=== PATIENT | female | born 1955 | race Caucasian/White ===

== ENCOUNTER 2018-07-18 08:06 | Inpatient (IN) | payer MEDICAID, SELFPAY ==
[2018-07-18 08:09] VITALS: BP 137/91; PULSE 77; RESP 14; TEMP 36.8; O2SAT 95; BMI 36.1
--- NOTE | 2018-07-18 08:09 | RAD_ITS ---
STUDY: X-RAY - RIGHT KNEE REASON FOR EXAM: Female, 62 years old. Pain following a fall. TECHNIQUE: 5 view(s) of the knee. COMPARISON: None. FINDINGS: Normal visualized distal femur. There is evidence of a comminuted depressed fracture of the lateral tibial plateau. Nondisplaced fracture of the proximal fibula. Normal medial femorotibial compartment. Normal lateral femorotibial compartment. Normal patellofemoral articulation. Joint effusion. RAD/Knee 4 or More Views IMPRESSION: Comminuted depressed fracture of the lateral tibial plateau. Nondisplaced fracture of the proximal fibula. Joint effusion. Electronically Signed: Wilber Soni MD at 8:47 EST , Service support ,
--- NOTE | 2018-07-18 08:11 | ED.VISSUMM ---
- ER Visit Summary Date of Service: 07/18/18 Chief Complaint: Right knee injury History of Present Illness: The patient is a 62 F presents to the emergency department right knee injury. The patient was walking. She states she slipped in her driveway and fell. She went forward and landed on her stomach and struck her right knee. Since then, she had a difficult time bearing any weight on the knee. She did not strike her head. She denies loss of consciousness. She denies other injury. She will normally ambulates without cane or a walker. She is in her normal state of health. She does state the fall was strictly mechanical. Physical Examination: Exam is relatively unremarkable. Patient does have some pain to palpation over the knee. There is no significant effusion. Her extension is preserved. There is no gross laxity appreciated. Skin is intact. Pulses are normal. Compartments are soft. Test Results: [] Emergency Department Course and Treatment: X-rays were obtained on patient arrival. She does have evidence of a tibial plateau fracture. She underwent CT of the lower extremity which does demonstrate depressed lateral tibial plateau fracture and fibular head fracture. Patient was placed in the immobilizer. She initially declined analgesics. She was unable to move without significant pain. I did discuss the patient with Dr. Friedman. He did review the images and thinks that this fracture would likely be amenable to surgical fixation. The patient's pain and inability to ambulate, discussed with the hospitalist will be admitted for orthopedic consultation and operative fixation. Treatment Plan: [] Disposition: Admission Impression: 1. Right tibial plateau fracture 2. Inability to ambulate This note was generated with [employer] dictation software. It may contain incorrect words, spelling, and punctuation that were not noted in review of the chart prior to signing ED Disposition - Plan for ED Patient: Referrals: Care Physician,No Primary [NON-STAFF] -
[2018-07-18] MEDS: Acetaminophen 500 MG Tablet 1000 MG PO (08:18)
--- NOTE | 2018-07-18 08:32 | CT_ITS ---
STUDY: CT RIGHT KNEE WITHOUT CONTRAST REASON FOR EXAM: Female, 62 years old. Right knee fracture. RADIATION DOSAGE (If Supplied By Facility): CTDIvol = ( 15.35 ) mGy, DLP = ( 403.65 ) mGycm TECHNIQUE: Transaxial CT imaging of the knee was performed. Coronal and sagittal images were reformatted. Individualized dose optimization techniques were used for this CT. COMPARISON: July 18, 2018. FINDINGS: Acute slightly comminuted depressed lateral tibial plateau fracture. Approximately 5 mm of depression identified. No visualized extension into the proximal tibial shaft, medial plateau or tibial eminence. Acute nondisplaced fibular head fracture (coronal image 39 series 602). Distal femur intact. No dislocation. No cortical destruction. Proximal tibiofibular joint alignment. No significant joint space narrowing. Extensor mechanism appears grossly intact. Indeterminate calcifications at the region of the medial collateral complex (coronal images 23 and 26 series 602). Edema at the tibialis anterior and tibialis posterior posterior muscles. Moderate volume lipohemarthrosis (sagittal image 21 series 601). Moderate soft tissue swelling. Small popliteal cyst. CT/Extremity Lower without Contra IMPRESSION: Acute slightly comminuted depressed lateral tibial plateau fracture Acute nondisplaced fibular head fracture Indeterminant MCL calcification Moderate volume lipohemarthrosis, moderate soft tissue/muscle swelling and small popliteal cyst Electronically Signed: Gavin Giles DO at 8:56 EST Tel , Service support ,
--- NOTE | 2018-07-18 10:09 | NURSING ---
DR JANET POTTS
[2018-07-18 10:34] LABS: Absolute Lymphocyte Count 2.66 X10^3/ul (0.83-4.51); Absolute Neutrophil Count 7.3 X10^3/uL (2.0-7.7); Basophil# 0.06 X10^3/uL; Basophil% 0.6 % (0-1); Eosinophil# 0.14 X10^3/uL; Eosinophils% 1.3 % (0-5); Hematocrit 45.5 % (37-47); Hemoglobin 14.7 g/dl (12.0-15.0); Lymphocyte # 2.66 X10^3/ul (4.0); Lymphocyte % 24.4 % (19-41); Mean Corp Hgb Conc 32.3 g/gl (32-36); Mean Corpuscular Hgb 29.4 pg (27.0-32.0); Mean Platelet Vol. 9.4 fl (6.2-12.0); Monocyte# 0.67 X10^3/uL; Monocyte% 6.1 % (0-10); Neutrophil # 7.32 X10^3/uL (2.7-7.7); Neutrophil % 67.1 % (47-70); Platelet Count 328 K/mm3 (150-450); RBC Distribution Width CV 12.9 % (11.6-14.6); RBC Distribution Width SD 42.3 fl (35.1-43.9); White Blood Count 10.9 K/mm3 (4.4-11.0)
[2018-07-18 10:35] LABS: POSITIVE COUNT NO; POSITIVE DIFFERENTIAL NO; POSITIVE MORPHOLOGY NO
[2018-07-18] MEDS: Morphine 4 MG/ML Syringe IV (10:40)
[2018-07-18] MEDS: Ondansetron 4 MG/2 ML Vial IV (10:41)
[2018-07-18 10:43] VITALS: BP 131/65; PULSE 81; RESP 14; O2SAT 97
--- NOTE | 2018-07-18 10:46 | NURSING ---
MED SURG TERELETSKY TIBIAL PLATEAU FX
[2018-07-18 10:52] LABS: Anion Gap 11 (5-15); BUN 18 mg/dL (7-18); BUN/Creat Ratio 25.5 RATIO (10-20); Calcium,Total 8.9 mg/dL (8.5-10.1); Chloride 104 mmol/L (98-107); Creatinine, Serum 0.71 mg/dL (0.55-1.02); EST Glomerular Filtration Rate 89 mL/min (>60); Est Glom Filt Rate - Afr Amer 107 mL/min (>60); Estimated Creatinine Clearance 103.95 ml/min; Glucose 223 mg/dL (74-106); Potassium 4.3 mmol/L (3.5-5.1); Sodium Level 140 mmol/L (136-145)
[2018-07-18 11:33] VITALS: BMI 34.0; BMI 36.2
[2018-07-18 12:00] VITALS: BP 108/54; PULSE 68; RESP 16; TEMP 36.3; O2SAT 98
--- NOTE | 2018-07-18 13:57 | CASEMGMT ---
JONATHAN VERDE Face to Face with patient for initial transition planning/care coordination assessment. JONATHAN VERDE introduced self and role at [facility]. Patient lying in bed, alert and oriented. Patient willing to participate in assessment and is able to answer all questions appropriately. Care providers, pharmacy, and demographics verified. Patient wishes to discharge home but is willing to go to SNF if needed. Patient's first choice for SNF is [facility]. Patient states she has no further needs or concerns at this time. YESSICA Alexandra updated regarding potenital SNF referral. CM to follow for discharge planning needs that may arise. PCP: Elena Specialists: Matt podiatranabell Preferred Pharmacy: [facility] Insurance: [employer] Prescription Benefit: Yes Living Will/HPOA: None LNOK: Has close friend Living Arrangements: Patient lives alone in 2 story home with possible setup on first floor. Transportation: Friend DME/HHC: Patient states that she has a shower chair and walker at home. Denies home oxygen, bipap, cpap, or nebulizer. Patient states that she has had HHC in past with [facility]. Patient has previously been to [facility] following ankle surgery and does not wish to return. Disposition Plan: TBD. JONATHAN VERDE will review therapy and clinical information after surgery. Keiry LOTT, RN, CM
[2018-07-18] MEDS: 0.9% NaCl Peripheral Flush Adult/Peds IV ×2 (15:28→21:59)
[2018-07-18] MEDS: Morphine 2 MG/ML Syringe IV ×2 (15:28→21:59)
--- NOTE | 2018-07-18 15:57 | PCM.CONS.GEN ---
Reason for Consult Date of Consultation: 07/18/18 Reason for Consultation: right leg pain. requested by Dr Bareny History of Present Illness: The patient is a 62 year old F with history of diabetes presents today with right knee pain. Patient was walking outside this morning when she slipped on some black ice. She denies any loss of consciousness or lightheadedness prior to the fall. Strictly reported as a mechanical fall. She typically does not use a walker or a cane for ambulation although she does occasionally use a walker when going long distances. She denies any current numbness or tingling. Rates her pain a 10 out of 10 right now it is improved with immobilization and rest. Worse with motion. She was unable to bear weight after the injury. They attempted to put her in a brace and have her use a walker in the emergency department however she was unable to do this and she was admitted for social reasons. She has some associated swelling and ecchymosis over the lateral knee and proximal leg. Past Medical History Past Medical History (Chronic Problems): Chronic Problems Bronchial asthma (Chronic) Diabetes mellitus (Chronic) Hyperlipidemia (Chronic) Hypertension (Chronic) Obesity (Chronic) Allergies cephalexin [From Keflex] Allergy (Verified 07/18/18 08:12) Breakouts insulin lispro [From Humalog] Allergy (Verified 07/18/18 08:12) Rash Penicillins Allergy (Verified 07/18/18 08:12) Rash Home Medications: Ambulatory Orders Medication Instructions Recorded Lisinopril [Zestril] 10 mg PO DAILY 08/25/14 Lovastatin [Mevacor] 40 mg PO LUNCH 08/25/14 Vitamin B Complex 1 each PO BID 11/23/15 Metformin HCl [Glucophage] 1,000 mg PO BIDCM 09/19/16 Acetaminophen [Tylenol Tablet] 650 mg PO Q6H PRN PRN #0 tablet 09/24/16 Oxycodone [Oxyir] 5 mg PO Q4H PRN PRN #30 tablet 09/24/16 Aspirin [Aspirin EC] 81 mg PO DAILY 07/18/18 Insulin Detemir [Levemir FlexPen] 46 units SC QHS 07/18/18 Surgical History: appendectomy, cholecystectomy, hysterectomy Psychiatric History: No pertinent psych hx 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 Smoking Status: Never smoker Tobacco Use: Non-smoker Alcohol: None Drugs: None - *Family History Maternal History Items: Diabetes Paternal History Items: Diabetes Review of Systems Constitutional: Denies: Chills, Fever, Weight Change HEENT: Denies: Head Aches, Sinus Congestion, Sinus Drainage Cardiovascular: Denies: Chest Pain, Palpitations Respiratory: Denies: Cough, Shortness of breath at rest, Sputum production Gastrointestinal: Denies: Abdominal Pain, Nausea, Vomiting Genitourinary: Denies: Dysuria Musculoskeletal: Reports: Joint Pain, Joint Tenderness Skin: Denies: Rash, Wounds Neurological: Denies: Numbness, Tingling, Focal weakness Psychiatric: Denies: Anxiety, Depression, Homicidal Ideations, Suicidal Ideations Hematologic/ Lymphatic: Denies: Easy Bruising, Easy Bleeding Objective: Right knee radiographs and CT scan were reviewed showing a split-depressed lateral tibial plateau fracture. There is over 5 mm of fracture gapping on the CT scan. There is associated intra-articular comminution. - Physical Exam General: Alert HEENT: Atraumatic, Normocephalic Neck: No JVD Lungs: - - Nonlabored breathing Cardiovascular: - - Regular pulse rate Abdomen: Non-Distended Extremities: No edema, Capillary Refill Less than 3 Seconds, - - Right lower extremity: Pain with knee range of motion. Ecchymosis and swelling over the lateral knee and proximal leg. Sensations intact light touch saphenous, superficial peroneal, deep peroneal tibial nerve distributions. Minimal knee effusion. Motor is intact dorsal flexion EHL and plantar flexion. 2+ pulse. Skin: No rashes, No breakdown, - - Ecchymosis over lateral knee/proximal tibia Neurological: Cranial nerves II-XII grossly intact Psych/Mental Status: Normal Affect Vital Signs Temp Pulse Resp BP Pulse Ox 98.2 F 81 14 131/65 H 97 07/18/18 08:09 07/18/18 10:43 07/18/18 10:43 07/18/18 10:43 07/18/18 10:43 Oxygen Delivery Method Room Air Weight: 168 lb 6.931 oz Body Mass Index (BMI) 34.0 Finger Stick Blood Glucose 245 Laboratory Tests Past 24 Hrs 07/18/18 07/18/18 10:25 10:25 WBC 10.9 RBC 5.00 Hgb 14.7 Hct 45.5 MCV 91.0 MCH 29.4 MCHC 32.3 RDW 12.9 RDW Differential 42.3 Plt Count 328 MPV 9.4 Immature Gran % (Auto) 0.500 Neut % (Auto) 67.1 Lymph % (Auto) 24.4 [place] % (Auto) 6.1 Eos % (Auto) 1.3 Baso % (Auto) 0.6 Absolute Neuts (auto) 7.3 Absolute Lymphs (auto) 2.66 Total Counted Not Reportable Sodium 140 Potassium 4.3 Chloride 104 Carbon Dioxide 25.0 Anion Gap 11 BUN 18 Creatinine 0.71 Estim Creat Clear Calc 103.95 Est GFR (MDRD) Af Amer 107 Est GFR (MDRD) Non-Af 89 BUN/Creatinine Ratio 25.5 H Glucose 223 H Calcium 8.9 Assessment/Plan All Active Problems Closed right ankle fracture (Acute) Right split depressed tibial plateau fracture lateral condyle. Natural history of the disease process and treatment options were discussed the patient. Patient has minimal arthrosis on her x-rays and CT scan. Based on the depression on the x-ray and the fracture gapping on the CT scan I do think the patient would benefit from fracture fixation. We did discuss operative versus nonoperative treatment. At this time risks of operative treatment were discussed the patient including but not limited to blood loss, DVTs, PEs, neurovascular damage, general risk of anesthesia including loss of life, nonunion, malunion and in a diabetic increased risk of infection. Patient interested understanding is able signed informed consent. Plan will be for surgery tomorrow. Antibiotics are retail zone specialist to the operating room. Patient is adequately consented we will have their signed consent. Patient will remain nonweightbearing in the bed overnight. Will encourage aggressive ice and elevation and monitor swelling. I did inform the patient that if she has excessive swelling we may need to cancel surgery until soft tissue envelope is appropriate, her soft tissue envelope at this time is more than appropriate for surgery. [facility] Office:
--- NOTE | 2018-07-18 16:06 | PCM.HP.STD ---
Problem List (1) Tibial plateau fracture Status: Acute (2) Debility Status: Chronic (3) Bronchial asthma Status: Chronic (4) Diabetes mellitus Status: Chronic (5) Hyperlipidemia Status: Chronic (6) Hypertension Status: Chronic History of Present Illness Date of Admission: 07/18/18 Chief Complaint: right knee pain The patient is a 62 year old F with past medical history of asthma, diabetes type 2, hyperlipidemia, hypertension, obesity, who presented the emergency room with complaints of 10 out of 10 right knee pain. This began after she had a mechanical fall. She was walking outside to get her dog and she states that she slipped on black ice and fell striking her right knee. Well 1 she was unable to stand, she was unable to ambulate, she was unable to weight-bear at all afterwards. She normally uses a walker for ambulation. She had no prodromal symptoms including lightheadedness or dizziness. She was brought to the emergency room and found to have a right tibial plateau of fracture. She was admitted to the general medical floor and orthopedics agreed to see the patient. Plan is for surgery this weekend. [] Past Medical History Past Medical History (Chronic Problems): Chronic Problems Debility (Chronic) Bronchial asthma (Chronic) Diabetes mellitus (Chronic) Hyperlipidemia (Chronic) Hypertension (Chronic) Obesity (Chronic) Allergies cephalexin [From Keflex] Allergy (Verified 07/18/18 08:12) Breakouts insulin lispro [From Humalog] Allergy (Verified 07/18/18 08:12) Rash Penicillins Allergy (Verified 07/18/18 08:12) Rash Home Medications: Ambulatory Orders Medication Instructions Recorded Lisinopril [Zestril] 10 mg PO DAILY 08/25/14 Lovastatin [Mevacor] 40 mg PO LUNCH 08/25/14 Vitamin B Complex 1 each PO BID 11/23/15 Metformin HCl [Glucophage] 1,000 mg PO BIDCM 09/19/16 Acetaminophen [Tylenol Tablet] 650 mg PO Q6H PRN PRN #0 tablet 09/24/16 Oxycodone [Oxyir] 5 mg PO Q4H PRN PRN #30 tablet 09/24/16 Aspirin [Aspirin EC] 81 mg PO DAILY 07/18/18 Insulin Detemir [Levemir FlexPen] 46 units SC QHS 07/18/18 Surgical History: appendectomy, cholecystectomy, hysterectomy Psychiatric History: No pertinent psych hx 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 Lives: Alone Smoking Status: Never smoker Tobacco Use: Non-smoker Alcohol: None Drugs: None - *Family History Maternal History Items: Diabetes Paternal History Items: Diabetes Review of Systems Constitutional: Denies: Chills, Fever, Weight Change HEENT: Denies: Head Aches, Sinus Congestion, Sinus Drainage Cardiovascular: Denies: Chest Pain, Palpitations Respiratory: Denies: Cough, Shortness of breath at rest, Sputum production Gastrointestinal: Denies: Abdominal Pain, Nausea, Vomiting Genitourinary: Denies: Dysuria Musculoskeletal: Reports: Joint Pain, Joint Tenderness Skin: Denies: Rash, Wounds Neurological: Denies: Numbness, Tingling, Focal weakness Psychiatric: Denies: Anxiety, Depression, Homicidal Ideations, Suicidal Ideations Hematologic/ Lymphatic: Denies: Easy Bruising, Easy Bleeding VTE Information - Inpt Only VTE Present on Admission: No VTE Mechan Device Prophylaxis: None VTE Pharm Prophylaxis ordered?: Yes Patient Problems: Active and Suspected Problems Tibial plateau fracture (Acute) - Physical Exam General: Alert, Oriented x3, Cooperative HEENT: Atraumatic, PERRLA, EOMI, Normocephalic Neck: Supple, No JVD, Negative Carotid Bruits Lungs: Clear to auscultation, Normal air movement Cardiovascular: Regular rate, No murmurs Abdomen: Bowel Sounds Present, Soft, Non Tender Extremities: No edema, Capillary Refill Less than 3 Seconds Skin: No rashes, No breakdown Musculoskeletal: No Tenderness to Palpation of Joints or Extremities, - - right leg in immobilizer Neurological: Cranial nerves II-XII grossly intact Psych/Mental Status: Normal Affect, Appropriate Vital Signs Temp Pulse Resp BP Pulse Ox 98.2 F 81 14 131/65 H 97 07/18/18 08:09 07/18/18 10:43 07/18/18 10:43 07/18/18 10:43 07/18/18 10:43 Oxygen Delivery Method Room Air Weight: 168 lb 6.931 oz Body Mass Index (BMI) 34.0 Finger Stick Blood Glucose 245 Laboratory Tests Past 24 Hrs 07/18/18 07/18/18 10:25 10:25 WBC 10.9 RBC 5.00 Hgb 14.7 Hct 45.5 MCV 91.0 MCH 29.4 MCHC 32.3 RDW 12.9 RDW Differential 42.3 Plt Count 328 MPV 9.4 Immature Gran % (Auto) 0.500 Neut % (Auto) 67.1 Lymph % (Auto) 24.4 [place] % (Auto) 6.1 Eos % (Auto) 1.3 Baso % (Auto) 0.6 Absolute Neuts (auto) 7.3 Absolute Lymphs (auto) 2.66 Total Counted Not Reportable Sodium 140 Potassium 4.3 Chloride 104 Carbon Dioxide 25.0 Anion Gap 11 BUN 18 Creatinine 0.71 Estim Creat Clear Calc 103.95 Est GFR (MDRD) Af Amer 107 Est GFR (MDRD) Non-Af 89 BUN/Creatinine Ratio 25.5 H Glucose 223 H Calcium 8.9 Assessment/Plan All Active Problems Tibial plateau fracture (Acute) Closed right ankle fracture (Acute) 1. Acute right tibial plateau fracture secondary to mechanical fall-orthopedics consulted and plans to take the patient to surgery tomorrow. Will provide supportive care and PT and OT eval's. 2. Type 2 diabetes with obesity-sliding scale insulin, continue home long-acting insulin, hold metformin. 3. Hyperlipidemia-on statin 4. Hypertension-stable 5. Hx asthma - no SOB. prn aerosols. DVT prophylaxis: As per orthopedics. Currently subcu heparin. DC planning: PTOT-patient lives alone and has underlying debility. May need short-term placement. This patient was seen by Truong Mendez PA-C under the supervision of Doctor Barney.
[2018-07-18 16:13] VITALS: BP 91/48; PULSE 66; RESP 16; TEMP 36.9; O2SAT 98
[2018-07-18] MEDS: oxyCODONE 5 MG Tablet PO (18:06)
--- NOTE | 2018-07-18 19:28 | EKG12_ITS ---
Test Reason : PRE-OP Blood Pressure : / mmHG Vent. Rate : 082 BPM Atrial Rate : 082 BPM P-R Int : 146 ms QRS Dur : 086 ms QT Int : 372 ms P-R-T Axes : 049 026 016 degrees QTc Int : 434 ms Normal sinus rhythm Low voltage QRS Borderline ECG Confirmed by ALLA GERARDO, CATHERINE ([id number]), web editor STERLING ANDRES ([id number] on 07/23/2018 10:41:52 AM Referred By: NAHID Confirmed By:CATHERINE GOLD MD
--- NOTE | 2018-07-18 19:45 | RAD_ITS ---
STUDY: X-RAY CHEST REASON FOR EXAM: Female, 62 years old. Preoperative, leg fracture TECHNIQUE: Single frontal view of the chest. COMPARISON: 02/17/2016 FINDINGS: The lungs are clear and expanded. There is no demonstrated pleural abnormality. Normal size heart. Normal mediastinum and ash. Normal visualized pulmonary arteries. Normal visualized aortic arch and descending thoracic aorta. Normal visualized thoracic spine. Left shoulder calcific tendinitis. There is no demonstrated abnormality of the visualized soft tissue structures of the upper abdomen. RAD/Chest 1 View (Portable) IMPRESSION: No acute pulmonary findings. Electronically Signed: Jadon uVong MD at 6:42 EST Tel , Service support ,
[2018-07-18 21:49] VITALS: BP 116/83; PULSE 77; RESP 16; TEMP 37.1; O2SAT 93
[2018-07-18] MEDS: Heparin Injection (Vial) 5,000 UNIT/ML VIAL 5000 UNIT SC (21:58)
--- NOTE | 2018-07-18 22:09 | NURSING ---
Lucero Tang is this pt's neighbor. Pt states that it is ok for her to receive information regarding her situation.
[2018-07-18 23:10] LABS: Bedside Glucose 265 mg/dL (70-110)
[2018-07-19] VITALS (13 sets, daily range): BP systolic 110–148; BP diastolic 40–79; PULSE 70–89; RESP 16–18; TEMP 36.4–37.5; O2SAT 88–98; BMI 34.1; BMI 36.2
[2018-07-19 07:20] LABS: Bedside Glucose 194 mg/dL (70-110)
--- NOTE | 2018-07-19 07:30 | RAD_ITS ---
STUDY: X-RAY - RIGHT TIBIA AND FIBULA REASON FOR EXAM: Female, 62 years old. Tibial plateau fracture, ORIF TECHNIQUE: 6 intraoperative view(s) of the tibia and fibula were obtained. COMPARISON: None. FINDINGS: 6 Limited intraoperative C-arm films of the right tibia and fibula were performed as the patient is undergoing ORIF. The hardware is free of complication, follow-up recommended to assure osseous union. RAD/Tibia & Fibula 2 Views IMPRESSION: ORIF of a right tibial plateau fracture. Electronically Signed: Torres Multani MD at 10:21 EST , Service support ,
[2018-07-19 08:51] LABS: Hemoglobin A1c 11.1 % (4.2-6.3)
--- NOTE | 2018-07-19 09:39 | PCM.OPRPT ---
Report of Operation Date of Procedure: 07/19/18 Pre-Operative Diagnosis: Right split depressed lateral tibial plateau fracture Post-Operative Diagnosis: Right split depressed lateral tibial plateau fracture Surgery/Procedure Performed:: ORIF right tibial plateau fracture, lateral condyle Description of Surgical Findings:: Stable reduction. tank calibrator: Corey Davidson Type of Anesthesia:: General Anesthesiologist: Elsie Vail Special Medications: 600 mg clindamycin Estimated Blood Loss (mL): 20 Fluids Replaced: 1 L crystalloid Description of Procedure: 62-year-old diabetic female fell yesterday and had a split depressed tibial plateau fracture. Based on the stability of the fracture and patient's activity level recommended open reduction internal fixation. She was adequately consented as noted in her consultation. She was to proceed with surgery. Procedure: On the date of the procedure patient's right knee was marked in the preoperative area. We did reexamine the knee there was not excessive swelling. Based on this we elected to proceed with surgery. Patient was taken back to the operating room where she was placed on the table in the supine position. Anesthesia assumed control of the C-spine airway and remained remained to control throughout the remainder of the procedure. Bony prominences were identified well-padded and a bump was placed underneath the right hip. Patient's right leg was then placed on towels to elevated for appropriate image capture. Bony prominences of the knee were then palpated incision was marked out using a permanent marker. He was placed in the right upper thigh and right lower extremity was then prepped in a sterile fashion. Surgeons then scrubbed. Upon reentering the room the right lower extremity was draped in a sterile fashion. Incision was once again marked out over the lateral knee. Timeout was called and everyone agreed upon the side, the site, and the procedure to be performed, patient's identity and antibiotics given. Esmarch bandage was used to exsanguinate the extremity and tourniquet was placed up to 250 mmHg. Incision was taken at the skin subtenons tissue fat down the fascia. Once identified the fascia was made our fascial incision along the IT band curving forward with a lazy S in 1 cm off the tibial crest. [place] was then used to remove the muscles of the anterior compartment from the proximal tibia. The fracture could not be identified. Based on the CT scan and x-rays it was felt we could initially reduce the fracture intra-articularly as there was minimal intra-articular depression by reducing the cortical fracture. Initially doing this her initial x-rays appeared to reduce the fracture. The plate was provisionally placed. After provisionally placed in the plate and K wires proximally we fixed the plate provisionally distally with some screws cortically to bring the plate to bone and help reduce the fracture on the cortex. After the K wires were placed it was noted that the lateral joint line did not match up with the medial joint line on the views. At this time the plate was removed a Ireland was placed through the fracture to help reduce the into articular fragment. Based on the radiographs this was well reduced at this time. K wires were used to help hold that into articular fragment in place. The plate was again placed matching the anatomic markers of the tibia. We were able to use the previous screw holes to provisionally fix the plate and pulled against the bone. After compressing the plate against the bone the fracture remained stable. With the K wires in place sub articular locking screws were placed for open along the most proximal row screws. Once this was done we again checked our fracture reduction. 2 screws were placed in an annular fashion locking screws in the shaft. Based on our compression/depression there was a bone blade left. We elected to use Norian. Norian was mixed on the back table sterilely. It was then handed sterilely. Once this was ready it was injected into the fracture site. Norian was allowed to dry adequately before K wires were removed. After K wires were removed wound was copiously irrigated out with normal saline all excess cement was debrided. Fascia was closed with #1 Vicryl as well as as we could around the plate. Skin was closed with 2-0 Vicryl and final skin closure was done nylon. Sterile dressing was placed. Patient was awakened by anesthesia and transferred to the bed. She was then transferred to the PACU for recovery in stable condition. Postoperative plan: Patient is on subcu heparin here in the hospital for DVT prophylaxis recommend discharge home on 81 mg aspirin twice daily until follow-up in the office. Patient is nonweightbearing for at least a total of 6 weeks. She will wear a knee immobilizer when she is ambulating. However, she is able to do full range of motion exercises with physical therapy and on her own, no strengthening. Grafts/Implants Used: Synthes 4-hole variable angle possible tibial plate. Luis Felipeian - Complications No intraoperative complications - Admit VTE Documentation VTE Present on Admission: No VTE Mechan Device Prophylaxis: SCD's, Thigh High ALEXANDER Hose VTE Pharm Prophylaxis ordered?: Yes
[2018-07-19] MEDS: Bupiv/Epi 0.5% Mpf 30 ML Vial (09:40)
[2018-07-19 10:21] LABS: Bedside Glucose 229 mg/dL (70-110)
--- NOTE | 2018-07-19 10:30 | RAD_ITS ---
STUDY: X-RAY - RIGHT KNEE REASON FOR EXAM: Female, 62 years old. Postop proximal tibial fracture repair TECHNIQUE: 2 view(s) of the knee. COMPARISON: 07/19/2018 FINDINGS: Fixation hardware of the proximal tibia similar prior fluoroscopic images. Mild residual depression of the lateral tibial plateau but overall improved since preoperative x-rays of 07/18/2018. Normal proximal tibiofibular articulation. Normal medial femorotibial compartment. Normal lateral femorotibial compartment. Normal patellofemoral articulation. There is a soft tissue prominence in the suprapatellar region suggesting a small volume joint effusion. Expected soft tissue swelling of the lateral knee noted. RAD/Knee 1 or 2 Views IMPRESSION: 1. Orthopedic fixation of lateral tibial plateau fracture. Minimal residual depression. Electronically Signed: Xavi Hickman MD at 11:43 EST , Service support ,
[2018-07-19 12:00] LABS: Bedside Glucose 294 mg/dL (70-110)
--- NOTE | 2018-07-19 12:36 | PN_ITS ---
Patient Problems: Active and Suspected Problems Tibial plateau fracture (Acute) Subjective: Pt seen and examined after surgery this morning. She is recovering well. She is sitting upright in bed eating. She has no leg pain. She has no numbness or tingling in her feet. She has no nausea or vomiting, no shortness of breath. S he has a rare nonproductive cough. - Physical Exam General: Alert, Oriented x3, Cooperative HEENT: Atraumatic, PERRLA, EOMI, Normocephalic Neck: Supple, No JVD, Negative Carotid Bruits Lungs: Clear to auscultation, Normal air movement Cardiovascular: Regular rate, No murmurs Abdomen: Bowel Sounds Present, Soft, Non Tender Extremities: No edema, Capillary Refill Less than 3 Seconds Skin: No rashes, No breakdown Musculoskeletal: No Tenderness to Palpation of Joints or Extremities, - - Right lower extremity postop Neurological: Cranial nerves II-XII grossly intact Psych/Mental Status: Normal Affect, Appropriate, Alert and oriented to time, place, person, mood and affect Vital Signs Temp Pulse Resp BP Pulse Ox 97.8 F 74 18 127/79 H 94 07/19/18 10:45 07/19/18 10:45 07/19/18 10:45 07/19/18 10:45 07/19/18 10:45 Oxygen Flow Rate (L/min) 3 Oxygen Delivery Method Room Air Weight: 168 lb 13.985 oz Body Mass Index (BMI) 34.1 Finger Stick Blood Glucose 229 Intake and Output for Last 24 Hours 07/17/18 07/18/18 07/19/18 23:59 23:59 23:59 Intake Total 800 / 800 1840 / 1840 Output Total 500 / 500 700 / 700 Balance 300 / 300 1140 / 1140 Laboratory Tests Past 24 Hrs 07/19/18 06:41 Hemoglobin A1c 11.1 H POC Glucose 07/19/18 07/19/18 07/19/18 11:51 10:07 07:13 POC Glucose 294 H 229 H 194 H 07/18/18 21:58 POC Glucose 265 H Medical Necessity - Tobacco Use Smoking Status: Never smoker Tobacco Use: Non-smoker Assessment/Plan All Active Problems Tibial plateau fracture (Acute) Closed right ankle fracture (Acute) 1. Acute right tibial plateau fracture secondary to mechanical fall- POD#0. Dr. Friedman took the patient to surgery this morning and she is recovering well. Will provide supportive care and PT and OT eval's. 2. Type 2 diabetes with obesity-sliding scale insulin, long-acting insulin, metformin. A1c is 11.1. She will likely need her home insulin adjusted. 3. Hyperlipidemia-on statin 4. Hypertension-stable 5. Hx asthma - no SOB, lungs are clear. prn aerosols if needed. Incentive spirometer. DVT prophylaxis: As per orthopedics. DC planning: PTOT-patient lives alone and has underlying debility. May need short-term placement. This patient was seen by Truong Mendez PA-C under the supervision of Doctor Barney.
[2018-07-19] MEDS: Lactated Ringers 1,000 ML 75 ML IV (12:41)
[2018-07-19] MEDS: metFORMIN HCl 1,000 MG Tablet 1000 MG PO ×2 (12:43→17:15)
[2018-07-19] MEDS: Atorvastatin Calcium 20 MG Tablet PO (12:44)
[2018-07-19] MEDS: Lisinopril 10 MG Tablet PO (12:44)
[2018-07-19] MEDS: Aspirin E.C. 81 MG Tablet PO (12:44)
[2018-07-19] MEDS: Insulin Lispro 100 UNIT/ML INSULN.PEN SC ×3 (12:45→21:28)
[2018-07-19] MEDS: Famotidine 20 MG Tablet PO (14:45)
[2018-07-19 16:31] LABS: Bedside Glucose 220 mg/dL (70-110)
[2018-07-19] MEDS: Acetaminophen 325 MG Tablet 650 MG PO (17:15)
[2018-07-19] MEDS: oxyCODONE 5 MG Tablet PO (17:16)
[2018-07-19] MEDS: Heparin Injection (Vial) 5,000 UNIT/ML VIAL 5000 UNIT SC (21:30)
[2018-07-19 21:41] LABS: Bedside Glucose 159 mg/dL (70-110)
[2018-07-19] MEDS: Morphine 2 MG/ML Syringe IV (22:02)
[2018-07-20] VITALS (7 sets, daily range): BP systolic 119–165; BP diastolic 40–73; PULSE 84–103; RESP 14–18; TEMP 37.3–38.7; O2SAT 93–96
[2018-07-20] MEDS: 0.9% NaCl Peripheral Flush Adult/Peds IV ×2 (01:55→21:23)
[2018-07-20] MEDS: Morphine 2 MG/ML Syringe IV (02:11)
[2018-07-20] MEDS: Acetaminophen 325 MG Tablet 650 MG PO ×3 (05:20→21:23)
[2018-07-20] MEDS: oxyCODONE 5 MG Tablet PO ×2 (05:20→14:30)
[2018-07-20] MEDS: Insulin Lispro 100 UNIT/ML INSULN.PEN SC ×4 (06:35→21:24)
[2018-07-20 06:41] LABS: Bedside Glucose 248 mg/dL (70-110)
--- NOTE | 2018-07-20 08:33 | NURSING ---
Pt up to BSC at this time and into recliner for breakfast- tolerated well sBa with walker- NWB to right lower ext
[2018-07-20] MEDS: Famotidine 20 MG Tablet PO (08:34)
[2018-07-20] MEDS: Aspirin E.C. 81 MG Tablet PO (08:34)
[2018-07-20] MEDS: metFORMIN HCl 1,000 MG Tablet 1000 MG PO ×2 (08:34→19:36)
[2018-07-20] MEDS: Senna/Docusate Sodium 1 Tablet PO ×2 (08:37→21:23)
--- NOTE | 2018-07-20 11:15 | PN.ORTHO_ITS ---
Patient Problems: Active and Suspected Problems Tibial plateau fracture (Acute) Subjective: Patient is doing well today. She reports good pain control. She does not like her compression stockings. No chest pain or shortness of breath. No calf pain. Objective: Operative radiographs show well reduced fracture. Joint line looks to be restored. - Physical Exam General: Alert, Oriented x3, Cooperative Extremities: - - Right lower extremity: Dressing is clean dry and intact Sensations intact to light touch saphenous, sural, superficial peroneal, deep peroneal, and tibial distributions Motors intact EHL, DF, PF calves are soft and supple Vital Signs Temp Pulse Resp BP Pulse Ox 99.2 F H 94 18 119/40 L 93 07/20/18 08:00 07/20/18 08:00 07/20/18 08:00 07/20/18 08:00 07/20/18 08:00 Oxygen Flow Rate (L/min) 1 Oxygen Delivery Method Room Air Weight: 168 lb 13.985 oz Body Mass Index (BMI) 34.1 Finger Stick Blood Glucose 229 Intake and Output for Last 24 Hours 07/18/18 07/19/18 07/20/18 23:59 23:59 23:59 Intake Total 800 / 800 2562 / 2562 2179 / 2179 Output Total 500 / 500 1700 / 1700 2475 / 2475 Balance 300 / 300 862 / 862 -296 / -296 POC Glucose 07/20/18 07/19/18 07/19/18 06:35 21:27 16:19 POC Glucose 248 H 159 H 220 H 07/19/18 11:51 POC Glucose 294 H Medical Necessity - Tobacco Use Smoking Status: Never smoker Tobacco Use: Non-smoker Assessment/Plan All Active Problems Tibial plateau fracture (Acute) Closed right ankle fracture (Acute) Postop day 1 ORIF right lateral tibial plateau fracture. 1. DVT prophylaxis: Recommend aspirin daily for 2 weeks upon discharge 81 mg twice daily 2. Therapy: Strict nonweightbearing right lower extremity. Knee immobilizer when ambulating. Okay for knee range of motion actively and passively without restrictions. 3. Pain control: Continue with current regimen doing well 4. Diabetes: Patient's hemoglobin A1c is 11.1. I did discuss the patient how this can affect her outcomes of wound healing. She does understand if she gets an infection it can seriously affect her outcome. Dietitian was meeting with the patient today when I was in the room. Bedside blood glucoses are around 200 would consider more aggressive sliding scale insulin regimen. 5. Disposition: Patient did not do well initially with nonweightbearing restrictions which is 1 of the reason she was admitted to the hospital. Likely will need penitentiary. She should follow-up in the office 2 weeks after surgery for removal of sutures. Continue with DVT prophylaxis until follows up in office. Will wean DVT prophylaxis based on mobility. Please call with any further questions otherwise patient is orthopedically stable will stay on consultation peripherally. [facility] Office:
[2018-07-20] MEDS: Heparin Injection (Vial) 5,000 UNIT/ML VIAL 5000 UNIT SC ×2 (11:18→21:23)
[2018-07-20] MEDS: Atorvastatin Calcium 20 MG Tablet PO (11:18)
[2018-07-20] MEDS: Lisinopril 10 MG Tablet PO (11:18)
[2018-07-20 11:51] LABS: Bedside Glucose 218 mg/dL (70-110)
--- NOTE | 2018-07-20 13:40 | PCM.PROGNOTE ---
Patient Problems: Active and Suspected Problems Tibial plateau fracture (Acute) Subjective: Patient resting comfortably upright in bed. Affect pleasant. No pain at all at this time. No fever/chills. No cough/sob. Tolerating PO intake without n/v. No numbness or tingling. Requires assist to transfer. - Physical Exam General: Alert, Oriented x3, Cooperative HEENT: Atraumatic, PERRLA, EOMI, Normocephalic Neck: Supple, No JVD, Negative Carotid Bruits Lungs: Clear to auscultation, Normal air movement Cardiovascular: Regular rate, No murmurs Abdomen: Bowel Sounds Present, Soft, Non Tender Extremities: No edema, Capillary Refill Less than 3 Seconds Skin: No rashes, No breakdown Musculoskeletal: No Tenderness to Palpation of Joints or Extremities Neurological: Cranial nerves II-XII grossly intact Psych/Mental Status: Normal Affect, Appropriate, Alert and oriented to time, place, person, mood and affect Vital Signs Temp Pulse Resp BP Pulse Ox 99.2 F H 98 18 136/65 H 95 07/20/18 08:00 07/20/18 11:31 07/20/18 11:31 07/20/18 11:31 07/20/18 11:31 Oxygen Flow Rate (L/min) 1 Oxygen Delivery Method Room Air Weight: 168 lb 13.985 oz Body Mass Index (BMI) 34.1 Finger Stick Blood Glucose 229 Intake and Output for Last 24 Hours 07/18/18 07/19/18 07/20/18 23:59 23:59 23:59 Intake Total 800 / 800 2562 / 2562 2979 / 2979 Output Total 500 / 500 1700 / 1700 3975 / 3975 Balance 300 / 300 862 / 862 -996 / -996 POC Glucose 07/20/18 07/20/18 07/19/18 11:15 06:35 21:27 POC Glucose 218 H 248 H 159 H 07/19/18 16:19 POC Glucose 220 H Medical Necessity - Tobacco Use Smoking Status: Never smoker Tobacco Use: Non-smoker Assessment/Plan All Active Problems Tibial plateau fracture (Acute) Closed right ankle fracture (Acute) 1. Acute right tibial plateau fracture secondary to mechanical fall- POD#1. Doing well. Continue PTOT and plan for placement. 2. Type 2 diabetes with obesity-sliding scale insulin, long-acting insulin, metformin. A1c is 11.1. Adjust insulin. No rxn to lispro despite listed allergy. 3. Hyperlipidemia-on statin 4. Hypertension-stable 5. Hx asthma - no SOB, lungs are clear. prn aerosols if needed. Incentive spirometer. DVT prophylaxis: As per orthopedics. DC planning: PTOT-patient lives alone and has underlying debility. May need short-term placement. This patient was seen by Truong Mendez PA-C under the supervision of Doctor Barney.
[2018-07-20 16:40] LABS: Bedside Glucose 181 mg/dL (70-110)
[2018-07-20 21:56] LABS: Bedside Glucose 214 mg/dL (70-110)
[2018-07-21] VITALS (7 sets, daily range): BP systolic 121–155; BP diastolic 50–63; PULSE 78–102; RESP 14–18; TEMP 37.1–38.1; O2SAT 93–97
[2018-07-21] MEDS: oxyCODONE 5 MG Tablet PO ×4 (01:55→20:40)
[2018-07-21] MEDS: Acetaminophen 325 MG Tablet 650 MG PO ×3 (03:45→20:39)
[2018-07-21] MEDS: Insulin Lispro 100 UNIT/ML INSULN.PEN SC ×4 (06:33→20:44)
[2018-07-21 06:40] LABS: Bedside Glucose 192 mg/dL (70-110)
[2018-07-21] MEDS: Famotidine 20 MG Tablet PO (07:28)
[2018-07-21] MEDS: metFORMIN HCl 1,000 MG Tablet 1000 MG PO ×2 (07:28→17:44)
[2018-07-21] MEDS: Aspirin E.C. 81 MG Tablet PO (07:28)
[2018-07-21] MEDS: Senna/Docusate Sodium 1 Tablet PO ×2 (07:29→20:40)
[2018-07-21] MEDS: Lisinopril 10 MG Tablet PO (07:29)
[2018-07-21] MEDS: Heparin Injection (Vial) 5,000 UNIT/ML VIAL 5000 UNIT SC ×2 (07:29→20:40)
--- NOTE | 2018-07-21 09:36 | PCM.PN.HOSP ---
Patient Problems: Active and Suspected Problems Tibial plateau fracture (Acute) Subjective: Patient is a 62-year-old lady admitted following fall on ice resulting in Right split depressed lateral tibial plateau fracture. Patient was admitted to regular nursing floor with consultation placed to Dr. Friedman with orthopedic surgery patient underwent ORIF on 07/19/2018 Objective: GENERAL: cooperative HEENT: Atraumatic; moist oral mucosa EYES; Anicteric, Normal Conjunctiva NECK; supple, normal thyroid, no distended JVD. RESPIRATORY: Diminished to auscultation bilaterally, CARDIOVASCULAR: Regular S1 S2, no audible murmurs GI: soft, non-tender, normoactive bowel sounds, : No Renal angle tenderness; EXTREMITIES: No edema, no clubbing, no cyanosis. MUSCULOSKELETAL: Right knee immobilized NEURO: Awake; no lateralizing signs. SKIN: No Rash PSYCH; Normal affect Vitals/I&O's: Vital Signs Temp Pulse Resp BP Pulse Ox 98.7 F 98 16 121/52 H 97 07/21/18 07:23 07/21/18 07:23 07/21/18 07:23 07/21/18 07:23 07/21/18 07:23 Oxygen Flow Rate (L/min) 1 Oxygen Delivery Method Room Air Weight: 76.6 kg Body Mass Index (BMI) 34.1 Finger Stick Blood Glucose 229 Intake and Output for Last 24 Hours 07/19/18 07/20/18 07/21/18 23:59 23:59 23:59 Intake Total 2562 / 2562 4289 / 4289 120 / 120 Output Total 1700 / 1700 5575 / 5575 900 / 900 Balance 862 / 862 -1286 / -1286 -780 / -780 Laboratory Results 07/20/18 11:15: POC Glucose 218 H 07/20/18 16:13: POC Glucose 181 H 07/20/18 21:22: POC Glucose 214 H 07/21/18 06:32: POC Glucose 192 H Current Medications Acetaminophen (Tylenol) 650 mg PO Q6H PRN PRN PRN Reason: Mild Pain (1-3)/Temp > 100.7 F Last Admin: 07/21/18 03:45 Dose: 650 mg Aspirin (Ecotrin) 81 mg PO DAILYCM [facility] Last Admin: 07/21/18 07:28 Dose: 81 mg Atorvastatin Calcium (Lipitor) 20 mg PO LUNCH [facility] Last Admin: 07/20/18 11:18 Dose: 20 mg Famotidine (Pepcid) 20 mg PO DAILY [facility] Last Admin: 07/21/18 07:28 Dose: 20 mg Heparin Sodium (Porcine) (Heparin Na) 5,000 unit SC Q12 [facility] Last Admin: 07/21/18 07:29 Dose: 5,000 unit Insulin Glargine (Lantus (Bk)) 48 units SC QHS [facility] Last Admin: 07/20/18 21:23 Dose: 1 u Insulin Human Lispro (Humalog Kwikpen (Bkc)) 0 unit SC ACHS [facility]; Protocol Last Admin: 07/21/18 06:33 Dose: 3 u Lisinopril (Zestril) 10 mg PO DAILY [facility] Last Admin: 07/21/18 07:29 Dose: 10 mg Metformin HCl (Glucophage) 1,000 mg PO BIDCM [facility] Last Admin: 07/21/18 07:28 Dose: 1,000 mg Morphine Sulfate () 2 - 6 mg IV Q4H PRN PRN PRN Reason: MOD-SEVERE PAIN (4-10/10) Last Admin: 07/20/18 02:11 Dose: 4 mg Ondansetron HCl (Zofran) 4 mg IV Q6H PRN PRN PRN Reason: NAUSEA Oxycodone HCl (Oxyir) 5 mg PO Q4H PRN PRN PRN Reason: SEVERE PAIN (6-10/10) Last Admin: 07/21/18 06:33 Dose: 5 mg Senna/Docusate Sodium (Senokot-S, Tiana-Colace) 1 tablet PO BID [facility] Last Admin: 07/21/18 07:29 Dose: 1 tablet Sodium Chloride () 5 - 15 ml IV UD PRN PRN Reason: SALINE FLUSH Last Admin: 07/20/18 21:23 Dose: 10 ml Medical Necessity - Tobacco Use Smoking Status: Never smoker Tobacco Use: Non-smoker Assessment/Plan All Active Problems Tibial plateau fracture (Acute) Closed right ankle fracture (Acute) Patient is a 62-year-old lady admitted following fall on ice resulting in Right split depressed lateral tibial plateau fracture. Patient was admitted to regular nursing floor with consultation placed to Dr. Friedman with orthopedic surgery patient underwent ORIF on 07/19/2018 1. Mechanical fall with Right split depressed lateral tibial plateau fracture; Patient was admitted to regular nursing floor with consultation placed to Dr. Friedman with orthopedic surgery patient underwent ORIF on 07/19/2018 2. Diabetes mellitus type II: Controlled on oral hypoglycemics addition to Accu-Cheks a.c. and at bedtime and covered with sliding scale insulin 3. Hypertension-blood pressure controlled, home medications continued with dose adjustment as needed next 4. Mild intermittent asthma currently not in exacerbation 5. Dyslipidemia-patient is on statin therapy, continued at home dose 6. DVT prophylaxis SC heparin Active Medications Acetaminophen (Tylenol) 650 mg PO Q6H PRN PRN PRN Reason: Mild Pain (1-3)/Temp > 100.7 F Last Admin: 07/21/18 03:45 Dose: 650 mg [facility] Last Admin: 07/21/18 07:28 Dose: 81 mg Atorvastatin Calcium (Lipitor) 20 mg PO LUNCH [facility] Last Admin: 07/20/18 11:18 Dose: 20 mg Famotidine (Pepcid) 20 mg PO DAILY [facility] Last Admin: 07/21/18 07:28 Dose: 20 mg Heparin Sodium (Porcine) (Heparin Na) 5,000 unit SC Q12 [facility] Last Admin: 07/21/18 07:29 Dose: 5,000 unit Insulin Glargine (Lantus (Bkc)) 48 units SC QHS [facility] Last Admin: 07/20/18 21:23 Dose: 1 u Insulin Human Lispro (Humalog Kwikpen (Bkc)) 0 unit SC ACHS [facility]; Protocol Last Admin: 07/21/18 06:33 Dose: 3 u Lisinopril (Zestril) 10 mg PO DAILY [facility] Last Admin: 07/21/18 07:29 Dose: 10 mg Metformin HCl (Glucophage) [facility] Last Admin: 07/21/18 07:28 Dose: 1,000 mg Morphine Sulfate () 2 - 6 mg IV Q4H PRN PRN PRN Reason: MOD-SEVERE PAIN (4-10/10) Last Admin: 07/21/18 09:40 Dose: 2 mg Ondansetron HCl (Zofran) 4 mg IV Q6H PRN PRN PRN Reason: NAUSEA Oxycodone HCl (Oxyir) 5 - 10 mg PO Q4H PRN PRN PRN Reason: SEVERE PAIN (6-03/05) Senna/Docusate Sodium (Senokot-S, Tiana-Colace) 1 tablet PO BID [facility] Last Admin: 07/21/18 07:29 Dose: 1 tablet Sodium Chloride () 5 - 15 ml IV UD PRN PRN Reason: SALINE FLUSH Last Admin: 07/21/18 09:40 Dose: 10 ml Code Visit Inpatient E&M: 96956 Subs Hosp L2
[2018-07-21] MEDS: 0.9% NaCl Peripheral Flush Adult/Peds IV ×2 (09:40→20:40)
[2018-07-21] MEDS: Morphine 2 MG/ML Syringe IV (09:40)
--- NOTE | 2018-07-21 10:11 | CASEMGMT ---
Social Work Note SW met with pt to confirm discharge plans. Pt is alert and orientated x3. SW informed pt that she needs to work with PT/OT today to determine appropriate discharge. Pt states that physician over the weekend had informed her about [facility] and she is agreeable to [facility]. SW informed pt that she is able to go anywhere that takes her insurance pending acceptance. SW verbally provided pt with list of in network facilities with her insurance. Pt states she is still agreeable to [facility]. SW explained referral process and pre-cert needing to be obtained. SW again encouraged pt to work with PT/OT as insurance will need PT/OT evaluations. Pt states understanding. SW to send referral once pt works with PT/OT. Plan: Pt to work with PT/OT. SW to send referral to [facility]. eKiry Alexandra WOOD FENCE ERECTOR, PHARMACY CLINICAL SPECIALIST
[2018-07-21 11:01] LABS: Bedside Glucose 158 mg/dL (70-110)
[2018-07-21] MEDS: Atorvastatin Calcium 20 MG Tablet PO (12:31)
--- NOTE | 2018-07-21 15:45 | CASEMGMT ---
Social Work Note PT/OT notes are available. YESSICA faxed referral to Suyapa at [facility] and placed a call to Suyapa to provide referral. Suyapa states she will review referral and give this worker a call back. YESSICA received message from Suyapa at [facility] stating she is able to accept pt and has submitted for pre-cert. Plan: [facility] pending pre-cert Keiry Alexandra SENIOR QUALITY ASSURANCE ENGINEER, [employer]
[2018-07-21 16:06] LABS: Bedside Glucose 191 mg/dL (70-110)
--- NOTE | 2018-07-21 17:10 | CHAPLAIN ---
Type of Pastoral Visit _x__ Initial Visit ___ Follow-up Visit ___ On-call Visit ___ General Patient Visit ___ Spiritual Assessment ___ Family Conference ___ Bereavement ___ Rapid Response ___ Code Blue ___ Other (describe below) Pastoral Care Referral From _x__ Patient ___ Family ___ Nurse ___ Physician ___ Dry Sand Molder ___ Retail Warehouse Associate ___ Other (describe below) Sacrament/Intervention _x__ Active listening ___ Anointing ___ Voodoo ___ Bereavement ___ Communion _x__ Juliana exploration ___ _x__ Life review _x__ Prayer ___ Reconciliation ___ Sacrament of Sick _x__ Supportive presence ___ Wedding ___ Other (describe below) Pastoral Comments
[2018-07-21 21:01] LABS: Bedside Glucose 194 mg/dL (70-110)
[2018-07-22 02:27] VITALS: BP 139/70; PULSE 96; RESP 18; TEMP 37.7; O2SAT 95
[2018-07-22] MEDS: oxyCODONE 5 MG Tablet PO ×3 (05:34→20:19)
[2018-07-22] MEDS: Acetaminophen 325 MG Tablet 650 MG PO ×3 (05:34→20:20)
[2018-07-22] MEDS: Insulin Lispro 100 UNIT/ML INSULN.PEN SC ×4 (06:44→22:07)
[2018-07-22 06:50] LABS: Bedside Glucose 171 mg/dL (70-110)
[2018-07-22 07:13] VITALS: BP 116/65; PULSE 85; RESP 16; TEMP 37.1; O2SAT 97
[2018-07-22] MEDS: Senna/Docusate Sodium 1 Tablet PO ×2 (07:16→22:11)
[2018-07-22] MEDS: Aspirin E.C. 81 MG Tablet PO (07:17)
[2018-07-22] MEDS: Famotidine 20 MG Tablet PO (07:17)
[2018-07-22] MEDS: Lisinopril 10 MG Tablet PO (07:17)
[2018-07-22] MEDS: metFORMIN HCl 1,000 MG Tablet 1000 MG PO ×2 (07:17→16:03)
[2018-07-22] MEDS: Heparin Injection (Vial) 5,000 UNIT/ML VIAL 5000 UNIT SC ×2 (07:17→22:09)
--- NOTE | 2018-07-22 08:39 | PCM.TXEXTCAR ---
- Diet 07/20/18 11:22 Diet: Calorie Controlled Is pt able to select menu?: Yes Diet Comments: no concentrated sweets, no sugared drinks How many daily calories?: 1600 calorie - Wound(s) RLE Wound Type: Surgical Incision - Therapies Weight Bearing: Non weight bearing Physical Therapy: Eval and Treat Occupational Therapy: Eval and Treat - Allergies/Procedures Done in Hospital Allergies/Adverse Reactions: Allergies cephalexin [From Keflex] Allergy (Verified 07/18/18 08:12) Breakouts insulin lispro [From Humalog] Allergy (Verified 07/18/18 08:12) Rash Penicillins Allergy (Verified 07/18/18 08:12) Rash - Type of Care/Length of Stay Estimated LOS: Convalescent Care Less Than 30 days Type of Care Needed: Skilled Rehab Potential: Good Prognosis: Good - Additional Orders/Day of Discharge Day of Discharge: 07/22/18 - Dietary and Speech Recommendations Dietitian Recommendations/Changes: Suggest diet change to 1600 calorie controlled. Glucerna ONS 120 mL TID if PO at meals is poor. Rec follow-up w/ outpatient DM clinic for additional education after discharge. - Follow Up Care Primary Care Physician: Care Physician,No Primary [NON-STAFF] - Please Follow Up With: Yury Friedman MD
--- NOTE | 2018-07-22 08:44 | PCM.DC.SUM ---
Discharge Date and Diagnosis - Problem List Patient Problems: Active and Suspected Problems Tibial plateau fracture (Acute) Date of Admission: 07/18/18 Date of Discharge: 07/23/18 - Primary Discharge Diagnosis Active and Suspected Problems Tibial plateau fracture (Acute) - Secondary Discharge Diagnosis Chronic Problems Debility (Chronic) Bronchial asthma (Chronic) Diabetes mellitus (Chronic) Hyperlipidemia (Chronic) Hypertension (Chronic) Obesity (Chronic) Hospital Course and Treatment Operations: None Summary of Care Provided: Patient is a 62-year-old lady admitted following fall on ice resulting in Right split depressed lateral tibial plateau fracture. Patient was admitted to regular nursing floor with consultation placed to Dr. Friedman with orthopedic surgery patient underwent ORIF on 07/19/2018 1. Mechanical fall with Right split depressed lateral tibial plateau fracture; Patient was admitted to regular nursing floor with consultation placed to Dr. Friedman with orthopedic surgery patient underwent ORIF on 07/19/2018 2. Diabetes mellitus type II: Controlled on oral hypoglycemics addition to Accu-Cheks a.c. and at bedtime and covered with sliding scale insulin 3. Hypertension-blood pressure controlled, home medications continued with dose adjustment as needed next 4. Mild intermittent asthma currently not in exacerbation 5. Dyslipidemia-patient is on statin therapy, continued at home dose 6. DVT prophylaxis SC heparin: Prescription was written for Xarelto for 14 days on discharge Patient Problems: Active and Suspected Problems Tibial plateau fracture (Acute) Objective: GENERAL: cooperative HEENT: Atraumatic; moist oral mucosa EYES; Anicteric, Normal Conjunctiva NECK; supple, normal thyroid, no distended JVD. RESPIRATORY: Diminished to auscultation bilaterally, CARDIOVASCULAR: Regular S1 S2, no audible murmurs GI: soft, non-tender, normoactive bowel sounds, : No Renal angle tenderness; EXTREMITIES: No edema, no clubbing, no cyanosis. MUSCULOSKELETAL: Right knee immobilized NEURO: Awake; no lateralizing signs. SKIN: No Rash PSYCH; Normal affect - Physical Exam Vital Signs Temp Pulse Resp BP Pulse Ox 98.8 F 85 16 116/65 97 07/22/18 07:13 07/22/18 07:13 07/22/18 07:13 07/22/18 07:13 07/22/18 07:13 Oxygen Flow Rate (L/min) 1 Oxygen Delivery Method Room Air Weight: 76.6 kg Body Mass Index (BMI) 34.1 Finger Stick Blood Glucose 229 Intake and Output for Last 24 Hours 07/20/18 07/21/18 07/22/18 23:59 23:59 23:59 Intake Total 4289 / 4289 1170 / 1170 1050 / 1050 Output Total 5575 / 5575 1800 / 1800 750 / 750 Balance -1286 / -1286 -630 / -630 300 / 300 POC Glucose 07/22/18 07/21/18 07/21/18 06:42 20:43 15:53 POC Glucose 171 H 194 H 191 H 07/21/18 10:58 POC Glucose 158 H Discharge Diet: 1800 Calorie Control Diet Discharge Activity: Return to Normal Activity Home Medications: Medications to take at Discharge Lisinopril [Zestril] 10 mg PO DAILY 08/25/14 Lovastatin [Mevacor] 40 mg PO LUNCH 08/25/14 Vitamin B Complex 1 each PO BID 11/23/15 Metformin HCl [Glucophage] 1,000 mg PO BIDCM 09/19/16 Acetaminophen [Tylenol Tablet] 650 mg PO Q6H PRN PRN #0 tablet 09/24/16 Aspirin [Aspirin EC] 81 mg PO DAILY 07/18/18 Insulin Detemir [Levemir FlexPen] 46 units SC QHS 07/18/18 Acetaminophen [Tylenol Tablet] 650 mg PO Q6H PRN PRN tablet 07/22/18 Insulin Lispro [Humalog KwikPen] See Protocol SC ACHS insuln.pen 07/22/18 Oxycodone [Oxyir] 5 mg PO Q4H PRN PRN 5 Days #14 tab 07/22/18 Rivaroxaban [Xarelto] 10 mg PO DAILY #14 tab 07/22/18 Senna/Docusate Sodium [Senokot-S] 1 tablet PO BID tablet 07/22/18 Following Prescrptions Were Given to Patient: Oxycodone [Oxyir] 5 mg PO Q4H PRN PRN 5 Days #14 tab PRN Reason: Moderate Pain (pain scale 4-5) Rivaroxaban [Xarelto] 10 mg PO DAILY #14 tab Primary Care Physician: Care Physician,No Primary [NON-STAFF] - Please Follow Up With: Yury Friedman MD Disposition: Intermediate facility Minutes spent on discharge:: 35 Patient Condition:: Stable Medical Necessity - Tobacco Use Smoking Status: Never smoker Tobacco Use: Non-smoker Meaningful Use Info Meaningful Use Diagnoses (Choose all that apply): None applicable Code Visit Inpatient E&M: 39442 Disch Hosp
--- NOTE | 2018-07-22 09:28 | PCM.PN.HOSP ---
Patient Problems: Active and Suspected Problems Tibial plateau fracture (Acute) Subjective: Patient seen, pain control is much better compared to the day prior. Plan is for patient to be discharged to a [facility] facility pending insurance precertification. Objective: GENERAL: cooperative HEENT: Atraumatic; moist oral mucosa EYES; Anicteric, Normal Conjunctiva NECK; supple, normal thyroid, no distended JVD. RESPIRATORY: Diminished to auscultation bilaterally, CARDIOVASCULAR: Regular S1 S2, no audible murmurs GI: soft, non-tender, normoactive bowel sounds, : No Renal angle tenderness; EXTREMITIES: No edema, no clubbing, no cyanosis. MUSCULOSKELETAL: Right knee immobilized NEURO: Awake; no lateralizing signs. SKIN: No Rash PSYCH; Normal affect Vitals/I&O's: Vital Signs Temp Pulse Resp BP Pulse Ox 98.8 F 85 16 116/65 97 07/22/18 07:13 07/22/18 07:13 07/22/18 07:13 07/22/18 07:13 07/22/18 07:13 Oxygen Flow Rate (L/min) 1 Oxygen Delivery Method Room Air Weight: 76.6 kg Body Mass Index (BMI) 34.1 Finger Stick Blood Glucose 229 Intake and Output for Last 24 Hours 07/20/18 07/21/18 07/22/18 23:59 23:59 23:59 Intake Total 4289 / 4289 1170 / 1170 1050 / 1050 Output Total 5575 / 5575 1800 / 1800 750 / 750 Balance -1286 / -1286 -630 / -630 300 / 300 Laboratory Results 07/21/18 10:58: POC Glucose 158 H 07/21/18 15:53: POC Glucose 191 H 07/21/18 20:43: POC Glucose 194 H 07/22/18 06:42: POC Glucose 171 H Current Medications Acetaminophen (Tylenol) 650 mg PO Q6H PRN PRN PRN Reason: Mild Pain (1-3)/Temp > 100.7 F Last Admin: 07/22/18 05:34 Dose: 650 mg Aspirin (Ecotrin) 81 mg PO DAILYCM [facility] Last Admin: 07/22/18 07:17 Dose: 81 mg Atorvastatin Calcium (Lipitor) 20 mg PO LUNCH [facility] Last Admin: 07/21/18 12:31 Dose: 20 mg Famotidine (Pepcid) 20 mg PO DAILY [facility] Last Admin: 07/22/18 07:17 Dose: 20 mg Heparin Sodium (Porcine) (Heparin Na) 5,000 unit SC Q12 [facility] Last Admin: 07/22/18 07:17 Dose: 5,000 unit Insulin Glargine (Lantus (Bkc)) 48 units SC QHS [facility] Last Admin: 07/21/18 20:44 Dose: 48 u Insulin Human Lispro (Humalog Kwikpen (Bk)) 0 unit SC ACHS [facility]; Protocol Last Admin: 07/22/18 06:44 Dose: 3 u Lisinopril (Zestril) 10 mg PO DAILY [facility] Last Admin: 07/22/18 07:17 Dose: 10 mg [facility]) [facility] Last Admin: 07/22/18 07:17 Dose: 1,000 mg Morphine Sulfate () 2 - 6 mg IV Q4H PRN PRN PRN Reason: MOD-SEVERE PAIN (4-10/10) Last Admin: 07/21/18 09:40 Dose: 2 mg Ondansetron HCl (Zofran) 4 mg IV Q6H PRN PRN PRN Reason: NAUSEA Oxycodone HCl (Oxyir) 5 - 10 mg PO Q4H PRN PRN PRN Reason: SEVERE PAIN (6-10/10) Last Admin: 07/22/18 05:34 Dose: 10 mg Senna/Docusate Sodium (Senokot-S, Tiana-Colace) 1 tablet PO BID [facility] Last Admin: 07/22/18 07:16 Dose: 1 tablet Sodium Chloride () 5 - 15 ml IV UD PRN PRN Reason: SALINE FLUSH Last Admin: 07/21/18 20:40 Dose: 10 ml Medical Necessity - Tobacco Use Smoking Status: Never smoker Tobacco Use: Non-smoker Assessment/Plan All Active Problems Tibial plateau fracture (Acute) Closed right ankle fracture (Acute) Patient is a 62-year-old lady admitted following fall on ice resulting in Right split depressed lateral tibial plateau fracture. Patient was admitted to regular nursing floor with consultation placed to Dr. Friedman with orthopedic surgery patient underwent ORIF on 07/19/2018 1. Mechanical fall with Right split depressed lateral tibial plateau fracture; Patient was admitted to regular nursing floor with consultation placed to Dr. Friedman with orthopedic surgery patient underwent ORIF on 07/19/2018 2. Diabetes mellitus type II: Controlled on oral hypoglycemics addition to Accu-Cheks a.c. and at bedtime and covered with sliding scale insulin 3. Hypertension-blood pressure controlled, home medications continued with dose adjustment as needed next 4. Mild intermittent asthma currently not in exacerbation 5. Dyslipidemia-patient is on statin therapy, continued at home dose 6. DVT prophylaxis SC heparin Code Visit Inpatient E&M: 47944 Subs Hosp L2
--- NOTE | 2018-07-22 09:32 | PN_ITS ---
Patient Problems: Active and Suspected Problems Tibial plateau fracture (Acute) Subjective: Patient seen, pain control is much better compared to the day prior. Plan is for patient to be discharged to a alf facility pending insurance precertification. Objective: GENERAL: cooperative HEENT: Atraumatic; moist oral mucosa EYES; Anicteric, Normal Conjunctiva NECK; supple, normal thyroid, no distended JVD. RESPIRATORY: Diminished to auscultation bilaterally, CARDIOVASCULAR: Regular S1 S2, no audible murmurs GI: soft, non-tender, normoactive bowel sounds, : No Renal angle tenderness; EXTREMITIES: No edema, no clubbing, no cyanosis. MUSCULOSKELETAL: Right knee immobilized NEURO: Awake; no lateralizing signs. SKIN: No Rash PSYCH; Normal affect Vitals/I&O's: Vital Signs Temp Pulse Resp BP Pulse Ox 98.8 F 85 16 116/65 97 07/22/18 07:13 07/22/18 07:13 07/22/18 07:13 07/22/18 07:13 07/22/18 07:13 Oxygen Flow Rate (L/min) 1 Oxygen Delivery Method Room Air Weight: 76.6 kg Body Mass Index (BMI) 34.1 Finger Stick Blood Glucose 229 Intake and Output for Last 24 Hours 07/20/18 07/21/18 07/22/18 23:59 23:59 23:59 Intake Total 4289 / 4289 1170 / 1170 1050 / 1050 Output Total 5575 / 5575 1800 / 1800 750 / 750 Balance -1286 / -1286 -630 / -630 300 / 300 Laboratory Results 07/21/18 10:58: POC Glucose 158 H 07/21/18 15:53: POC Glucose 191 H 07/21/18 20:43: POC Glucose 194 H 07/22/18 06:42: POC Glucose 171 H Current Medications Acetaminophen (Tylenol) 650 mg PO Q6H PRN PRN PRN Reason: Mild Pain (1-3)/Temp > 100.7 F Last Admin: 07/22/18 05:34 Dose: 650 mg Aspirin (Ecotrin) 81 mg PO DAILYCM [facility] Last Admin: 07/22/18 07:17 Dose: 81 mg Atorvastatin Calcium (Lipitor) 20 mg PO LUNCH [facility] Last Admin: 07/21/18 12:31 Dose: 20 mg Famotidine (Pepcid) 20 mg PO DAILY [facility] Last Admin: 07/22/18 07:17 Dose: 20 mg Heparin Sodium (Porcine) (Heparin Na) 5,000 unit SC Q12 [facility] Last Admin: 07/22/18 07:17 Dose: 5,000 unit Insulin Glargine (Lantus (Bkc)) 48 units SC QHS [facility] Last Admin: 07/21/18 20:44 Dose: 48 u Insulin Human Lispro (Humalog Kwikpen (Bk)) 0 unit SC ACHS [facility]; Protocol Last Admin: 07/22/18 06:44 Dose: 3 u Lisinopril (Zestril) 10 mg PO DAILY [facility] Last Admin: 07/22/18 07:17 Dose: 10 mg Metformin [facility] (Gl[facility]) [facility] Last Admin: 07/22/18 07:17 Dose: 1,000 mg Morphine Sulfate () 2 - 6 mg IV Q4H PRN PRN PRN Reason: MOD-SEVERE PAIN (4-10/10) Last Admin: 07/21/18 09:40 Dose: 2 mg Ondansetron HCl (Zofran) 4 mg IV Q6H PRN PRN PRN Reason: NAUSEA Oxycodone HCl (Oxyir) 5 - 10 mg PO Q4H PRN PRN PRN Reason: SEVERE PAIN (6-10/10) Last Admin: 07/22/18 05:34 Dose: 10 mg Senna/Docusate Sodium (Senokot-S, Tiana-Colace) 1 tablet PO BID [facility] Last Admin: 07/22/18 07:16 Dose: 1 tablet Sodium Chloride () 5 - 15 ml IV UD PRN PRN Reason: SALINE FLUSH Last Admin: 07/21/18 20:40 Dose: 10 ml Medical Necessity - Tobacco Use Smoking Status: Never smoker Tobacco Use: Non-smoker Assessment/Plan All Active Problems Tibial plateau fracture (Acute) Closed right ankle fracture (Acute) Patient is a 62-year-old lady admitted following fall on ice resulting in Right split depressed lateral tibial plateau fracture. Patient was admitted to regular nursing floor with consultation placed to Dr. Friedman with orthopedic surgery patient underwent ORIF on 07/19/2018 1. Mechanical fall with Right split depressed lateral tibial plateau fracture; Patient was admitted to regular nursing floor with consultation placed to Dr. Friedman with orthopedic surgery patient underwent ORIF on 07/19/2018 2. Diabetes mellitus type II: Controlled on oral hypoglycemics addition to Accu-Cheks a.c. and at bedtime and covered with sliding scale insulin 3. Hypertension-blood pressure controlled, home medications continued with dose adjustment as needed next 4. Mild intermittent asthma currently not in exacerbation 5. Dyslipidemia-patient is on statin therapy, continued at home dose 6. DVT prophylaxis SC heparin Code Visit Inpatient E&M: 96264 Subs Hosp L2
[2018-07-22] MEDS: Atorvastatin Calcium 20 MG Tablet PO (11:03)
[2018-07-22 11:04] VITALS: BP 134/57; PULSE 79; RESP 16; TEMP 37.4; O2SAT 97
[2018-07-22 11:11] LABS: Bedside Glucose 207 mg/dL (70-110)
[2018-07-22 14:03] VITALS: BP 124/61; PULSE 82; RESP 16; TEMP 37.4; O2SAT 96
--- NOTE | 2018-07-22 14:18 | CASEMGMT ---
Social Work Note SW placed a call to Suyapa at [facility] and left her a message asking if she has heard anything from pt's insurance. PT/OT notes from today are not available currently. Plan: [facility] pending pre-cert Keiry Alexandra MSW, CONTRACTS SPECIALIST
[2018-07-22 16:11] LABS: Bedside Glucose 201 mg/dL (70-110)
--- NOTE | 2018-07-22 16:14 | CASEMGMT ---
Social Work Note SW received message from Suyapa at [facility] stating she is still waiting on pre-cert. YESSICA faxed updated PT notes to Suyapa at [facility]. Plan: [facility] pending pre-cert Keiry Alexandra LABORER P[employer]LET [employer]ARM, STREAM CONTROL OFFICER
[2018-07-22 20:10] VITALS: BP 150/62; PULSE 94; RESP 18; TEMP 37.6; O2SAT 96
[2018-07-22 22:16] LABS: Bedside Glucose 235 mg/dL (70-110)
[2018-07-23 02:00] VITALS: BP 146/76; PULSE 76; RESP 18; TEMP 37.2; O2SAT 96
[2018-07-23] MEDS: Acetaminophen 325 MG Tablet 650 MG PO ×2 (03:17→17:27)
[2018-07-23] MEDS: oxyCODONE 5 MG Tablet PO ×4 (03:17→17:22)
[2018-07-23 06:26] LABS: Bedside Glucose 96 mg/dL (70-110)
[2018-07-23 07:40] VITALS: O2SAT 96
--- NOTE | 2018-07-23 08:01 | PCM.PN.HOSP ---
Patient Problems: Active and Suspected Problems Tibial plateau fracture (Acute) Subjective: Patient seen awaiting insurance precertification prior to transfer to a [facility] facility for rehab. Patient complains of some intermittent discomfort in the knee. Objective: GENERAL: cooperative HEENT: Atraumatic; moist oral mucosa EYES; Anicteric, Normal Conjunctiva NECK; supple, normal thyroid, no distended JVD. RESPIRATORY: Diminished to auscultation bilaterally, CARDIOVASCULAR: Regular S1 S2, no audible murmurs GI: soft, non-tender, normoactive bowel sounds, : No Renal angle tenderness; EXTREMITIES: No edema, no clubbing, no cyanosis. MUSCULOSKELETAL: Right knee immobilized NEURO: Awake; no lateralizing signs. SKIN: No Rash PSYCH; Normal affect Vitals/I&O's: Vital Signs Temp Pulse Resp BP Pulse Ox 98.9 F 76 18 146/76 H 96 07/23/18 02:00 07/23/18 02:00 07/23/18 02:00 07/23/18 02:00 07/23/18 02:00 Oxygen Flow Rate (L/min) 1 Oxygen Delivery Method Room Air Weight: 76.6 kg Body Mass Index (BMI) 34.1 Finger Stick Blood Glucose 229 Intake and Output for Last 24 Hours 07/21/18 07/22/18 07/23/18 23:59 23:59 23:59 Intake Total 1170 / 1170 2150 / 2150 550 / 550 Output Total 1800 / 1800 1350 / 1350 Balance -630 / -630 800 / 800 550 / 550 Laboratory Results 07/22/18 10:57: POC Glucose 207 H 07/22/18 16:00: POC Glucose 201 H 07/22/18 22:04: POC Glucose 235 H 07/23/18 06:20: POC Glucose 96 Current Medications Acetaminophen (Tylenol) 650 mg PO Q6H PRN PRN PRN Reason: Mild Pain (1-3)/Temp > 100.7 F Last Admin: 07/23/18 03:17 Dose: 650 mg Aspirin (Ecotrin) 81 mg PO DAILYCM [facility] Last Admin: 07/22/18 07:17 Dose: 81 mg Atorvastatin Calcium (Lipitor) 20 mg PO LUNCH [facility] Last Admin: 07/22/18 11:03 Dose: 20 mg Famotidine (Pepcid) 20 mg PO DAILY [facility] Last Admin: 07/22/18 07:17 Dose: 20 mg Heparin Sodium (Porcine) (Heparin Na) 5,000 unit SC Q12 [facility] Last Admin: 07/22/18 22:09 Dose: 5,000 unit Insulin Glargine (Lantus (Bkc)) 48 units SC QHS [facility] Last Admin: 07/22/18 22:07 Dose: 48 u Insulin Human Lispro (Humalog Kwikpen (Bk)) 0 unit SC ACHS [facility]; Protocol Last Admin: 07/23/18 06:22 Dose: Not Given Lisinopril (Zestril) 10 mg PO DAILY [facility] Last Admin: 07/22/18 07:17 Dose: 10 mg Metformin [facility] ([facility]) [facility] Last Admin: 07/22/18 16:03 Dose: 1,000 mg Morphine Sulfate () 2 - 6 mg IV Q4H PRN PRN PRN Reason: MOD-SEVERE PAIN (4-10/10) Last Admin: 07/21/18 09:40 Dose: 2 mg Ondansetron HCl (Zofran) 4 mg IV Q6H PRN PRN PRN Reason: NAUSEA Oxycodone HCl (Oxyir) 5 - 10 mg PO Q4H PRN PRN PRN Reason: SEVERE PAIN (6-10/10) Last Admin: 07/23/18 03:17 Dose: 10 mg Senna/Docusate Sodium (Senokot-S, Tiana-Colace) 1 tablet PO BID [facility] Last Admin: 07/22/18 22:11 Dose: 1 tablet Sodium Chloride () 5 - 15 ml IV UD PRN PRN Reason: SALINE FLUSH Last Admin: 07/21/18 20:40 Dose: 10 ml Medical Necessity - Tobacco Use Smoking Status: Never smoker Tobacco Use: Non-smoker Assessment/Plan All Active Problems Tibial plateau fracture (Acute) Closed right ankle fracture (Acute) Patient is a 62-year-old lady admitted following fall on ice resulting in Right split depressed lateral tibial plateau fracture. Patient was admitted to regular nursing floor with consultation placed to Dr. Friedman with orthopedic surgery patient underwent ORIF on 07/19/2018 1. Mechanical fall with Right split depressed lateral tibial plateau fracture; Patient was admitted to regular nursing floor with consultation placed to Dr. Friedman with orthopedic surgery patient underwent ORIF on 07/19/2018. Patient has tolerated PT well so far. Awaiting insurance precertification prior to being transferred to [facility] facility 2. Diabetes mellitus type II: Controlled on oral hypoglycemics addition to Accu-Cheks a.c. and at bedtime and covered with sliding scale insulin 3. Hypertension-blood pressure controlled, home medications continued with dose adjustment as needed 4. Mild intermittent asthma currently not in exacerbation 5. Dyslipidemia-patient is on statin therapy, continued at home dose 6. DVT prophylaxis SC heparin Code Visit Inpatient E&M: 16718 Subs Hosp L2
[2018-07-23 08:29] VITALS: BP 154/69; PULSE 80; RESP 18; TEMP 37.1; O2SAT 99
[2018-07-23] MEDS: Lisinopril 10 MG Tablet PO (08:30)
[2018-07-23] MEDS: Senna/Docusate Sodium 1 Tablet PO (08:30)
[2018-07-23] MEDS: Famotidine 20 MG Tablet PO (08:30)
[2018-07-23] MEDS: Aspirin E.C. 81 MG Tablet PO (08:33)
[2018-07-23] MEDS: metFORMIN HCl 1,000 MG Tablet 1000 MG PO ×2 (08:33→17:24)
[2018-07-23] MEDS: Heparin Injection (Vial) 5,000 UNIT/ML VIAL 5000 UNIT SC (08:33)
[2018-07-23 08:35] VITALS: PULSE 80
--- NOTE | 2018-07-23 08:55 | CASEMGMT ---
Social Work Note SW updated PT/OT to [facility]. Plan: [facility] pending pre-cert Keiry Alexandra OPERATIONS MGR, LATHE WINDER
[2018-07-23 11:05] LABS: Bedside Glucose 138 mg/dL (70-110)
[2018-07-23] MEDS: Atorvastatin Calcium 20 MG Tablet PO (12:04)
--- NOTE | 2018-07-23 13:18 | CASEMGMT ---
Social Work Note SW received message from Suyapa stating she is still waiting to hear from pt's insurance. Plan: [facility] pending pre-cert Keiry Alexandra VESSEL SLAG WORKER, LIFT BUILDER WHOLE
--- NOTE | 2018-07-23 15:41 | CASEMGMT ---
Social Work Note YESSICA received call from Suyapa at [facility] stating pre-cert has been obtained and pt is able to discharge today. Suyapa states that pt will be in semi private room with curtain pt from other resident in room. YESSICA updated pt on pre-cert being obtained and that pt will be in semi-private room at discharge. Pt states understanding. YESSICA faxed completed discharge paperwork to Suyapa at [facility] [place] including transfer to extended care facility, signed medication list and any scripts. Originals in SNF folder and copy on pt's chart. YESSICA completed [facility]. Original in SNF folder and copy on pt's chart. YESSICA discusses transportation with RN. RN states pt could be transported via cot. YESSICA placed a call to Michelle and arranged transportation via cot at 5:30pm. Transportation form on SNF folder and copy on pt's chart. YESSICA placed a call to Suyapa at [facility] and updated her on transportation time. Pt, Charge Nurse and RN updated on transportation time. Plan: Pt to discharge to [facility] today skilled with Michelle transporting via cot at 5:30pm. Keiry Alexandra HOSPICE MANAGER, FRUIT AND VEGETABLE PARER
[2018-07-23 16:12] VITALS: BP 139/68; PULSE 84; RESP 18; TEMP 37; O2SAT 97
[2018-07-23 16:26] LABS: Bedside Glucose 150 mg/dL (70-110)
[2018-07-23] MEDS: Insulin Lispro 100 UNIT/ML INSULN.PEN SC (17:24)
--- NOTE | 2018-07-23 17:42 | NURSING ---
Report called to Mari the receiving nurse.
== END 2018-07-23 17:49 | disposition skilled nursing facility (03) | DRG 313 ==
LOC: ED 08:51 → MS3 11:15
PROVIDERS: Anesthesiology; Specialist; Admitting Provider Internal Medicine; Emergency Provider Emergency Medicine; Family Provider Family Medicine; PCP Family Medicine; Visit Provider Internal Medicine
PROC: 0QSG04Z Reposition Right Tibia with Internal Fixation Device, Open Approach (ICD-10-PCS; principal; 2018-07-19 07:15)
DX: S82.141A Displaced bicondylar fracture of right tibia, initial encounter for closed fracture (principal); W00.0XXA Fall on same level due to ice and snow, initial encounter; Y93.01 Activity, walking, marching and hiking; Y92.014 Private driveway to single-family (private) house as the place of occurrence of the external cause; E78.5 Hyperlipidemia, unspecified; Z79.899 Other long term (current) drug therapy; Z79.84 Long term (current) use of oral hypoglycemic drugs; E11.9 Type 2 diabetes mellitus without complications; E66.9 Obesity, unspecified; Z68.34 Body mass index [BMI] 34.0-34.9, adult; R53.81 Other malaise; I10 Essential (primary) hypertension; Z60.2 Problems related to living alone; J45.20 Mild intermittent asthma, uncomplicated
CPT/HCPCS: 71045; 73560; 73564; 73590; 73700; 76000; 80048; 82962; 83036; 85025; 93005; 97116; 97162; 97166; 97530; 97535; 97802; 97803; 99284; C1713; J7120; A4216; J2405

== ENCOUNTER → 2018-07-30 05:30 | Outpatient (REF) | payer MEDICAID, SELFPAY ==
[2018-07-19 07:06] VITALS: BMI 34.1
[2018-07-30 07:11] LABS: Hematocrit 40.6 % (37-47); Hemoglobin 12.9 g/dl (12.0-15.0); Mean Corp Hgb Conc 31.8 g/gl (32-36); Mean Corpuscular Hgb 28.7 pg (27.0-32.0); Mean Corpuscular Volume 90.4 fL (81-99); Platelet Count 681 K/mm3 (150-450); RBC Distribution Width CV 12.8 % (11.6-14.6); RBC Distribution Width SD 41.7 fl (35.1-43.9); Red Blood Count 4.49 M/mm3 (4.2-5.4); White Blood Count 9.7 K/mm3 (4.4-11.0)
[2018-07-30 07:20] LABS: Anion Gap 9 (5-15); BUN 10 mg/dL (7-18); Calcium,Total 9.1 mg/dL (8.5-10.1); Chloride 99 mmol/L (98-107); Creatinine, Serum 0.59 mg/dL (0.55-1.02); EST Glomerular Filtration Rate 109 mL/min (>60); Est Glom Filt Rate - Afr Amer 132 mL/min (>60); Glucose 262 mg/dL (74-106); Potassium 4.7 mmol/L (3.5-5.1); Sodium Level 136 mmol/L (136-145)
[2018-07-30 07:25] LABS: Scan Indicated on CBC? Y/N NO
== END ==
LOC: OLS.WHLCAR 05:30
PROVIDERS: Visit Provider Family Medicine
DX: I10 Essential (primary) hypertension (principal); E11.9 Type 2 diabetes mellitus without complications; E78.5 Hyperlipidemia, unspecified
CPT/HCPCS: 36415; 80048; 85027

== ENCOUNTER → 2018-08-29 05:00 | Outpatient (REF) | payer MEDICAID, SELFPAY ==
[2018-07-19 07:06] VITALS: BMI 34.1
[2018-08-29 08:14] LABS: Hematocrit 41.1 % (37-47); Hemoglobin 13.4 g/dl (12.0-15.0); Mean Corp Hgb Conc 32.6 g/gl (32-36); Mean Corpuscular Hgb 29.3 pg (27.0-32.0); Mean Corpuscular Volume 89.9 fL (81-99); Mean Platelet Vol. 9.5 fl (6.2-12.0); Platelet Count 339 K/mm3 (150-450); RBC Distribution Width CV 13.5 % (11.6-14.6); Red Blood Count 4.57 M/mm3 (4.2-5.4); White Blood Count 10.5 K/mm3 (4.4-11.0)
[2018-08-29 08:16] LABS: Anion Gap 4 (5-15); BUN 10 mg/dL (7-18); BUN/Creat Ratio 17.6 RATIO (10-20); Calcium,Total 8.8 mg/dL (8.5-10.1); Chloride 104 mmol/L (98-107); Creatinine, Serum 0.57 mg/dL (0.55-1.02); EST Glomerular Filtration Rate 114 mL/min (>60); Est Glom Filt Rate - Afr Amer 138 mL/min (>60); Glucose 198 mg/dL (74-106); Potassium 4.3 mmol/L (3.5-5.1); Sodium Level 136 mmol/L (136-145)
[2018-08-29 08:24] LABS: Scan Indicated on CBC? Y/N NO
== END ==
LOC: OLS.WHLCAR 05:00
PROVIDERS: Visit Provider Family Medicine
DX: I10 Essential (primary) hypertension (principal); E78.5 Hyperlipidemia, unspecified; E11.9 Type 2 diabetes mellitus without complications
CPT/HCPCS: 36415; 80048; 85027

== ENCOUNTER → 2018-09-01 12:05 | Outpatient (REF) | payer MEDICAID, SELFPAY ==
[2018-07-19 07:06] VITALS: BMI 34.1
== END ==
LOC: OLS.WHLCAR 12:05
PROVIDERS: Visit Provider Family Medicine
DX: B99.9 Unspecified infectious disease (principal)
CPT/HCPCS: 87070; 87077; 87186; 87205

== ENCOUNTER 2018-09-18 09:00 | Outpatient (RCR) | payer MEDICAID, SELFPAY ==
[2018-07-19 07:06] VITALS: BMI 34.1
[2018-09-11 10:43] VITALS: BP 117/62; PULSE 101; RESP 16; TEMP 36.9; BMI 44.5
--- NOTE | 2018-09-11 12:54 | CT_ITS ---
STUDY: CT OF THE RIGHT LOWER EXTREMITY WITHOUT CONTRAST REASON FOR EXAM: Female, 63 years old. Right knee and ankle surgery in June 2018. Now with open wound in right knee. RADIATION DOSAGE (If Supplied By Facility): CTDIvol = ( 5.17 ) mGy, DLP = ( 297.82 ) mGycm. Individualized dose optimization techniques were used for this CT.? TECHNIQUE: Contiguous axial images of the right lower extremity were obtained without contrast. Lateral plate and screw fixation of the proximal tibia is associated with substantial metallic artifact. Coronal and sagittal reconstruction in bone and soft tissue algorithm images were provided for interpretation. COMPARISON: July 18, 2018 FINDINGS: There is generalized osteopenia. There is lateral plate-screw fixation of the proximal tibia and ORIF changes of the distal tibia and tibiotalar joint. There is medial compartmental arthrosis. There is deformity of the lateral tibial plateau from the prior fracture. A healed fracture of the fibular head is present. The remainder of the subcutaneous soft tissues, muscles, neurovascular bundles and osseous structures are normal. CT/Extremity Lower without Contra IMPRESSION: Osteopenia with post traumatic and osteoarthritic changes. No other significant abnormality is present. Electronically Signed: Bill Mendoza MD at 17:25 EDT , Service support ,
--- NOTE | 2018-09-11 13:42 | PCM.WC.HP ---
(1) Wound dehiscence, surgical Status: Chronic Current Visit: Yes Code(s): T81.31XA - Disruption of external operation (surgical) wound, not elsewhere classified, initial encounter (2) Diabetes mellitus Status: Chronic Current Visit: Yes Code(s): E11.9 - Type 2 diabetes mellitus without complications (3) Exposed orthopaedic hardware Status: Chronic Current Visit: Yes Code(s): T84.498A - Other mechanical complication of other internal orthopedic devices, implants and grafts, initial encounter History of Present Illness Chief Complaint: Nonhealing postsurgical wound. History of Wound: Ms. Mckoy is a 63-year-old who presents to the wound center due to nonhealing postsurgical wound. She had surgery on the 20 of July after sustaining a tibio fibula fracture of her right lower extremity. Surgery was uneventful however, she states that after surgery and while doing physical therapy ( at her nursing facility ) with wearing a knee brace, she subsequently had breakdown of her wound. This has been managed at her nursing facility. She is unsure of what has been used. However due to poor wound healing/progress, she was referred here. On initial evaluation by the intake nurse, her hardware was easily seen through the wound. She denies chills, fever or feeling of unwell. 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 (Chronic) Bronchial asthma (Chronic) Diabetes mellitus (Chronic) Hyperlipidemia (Chronic) Hypertension (Chronic) Obesity (Chronic) Surgical History: appendectomy, cholecystectomy, hysterectomy Allergies/Adverse Reactions: Allergies cephalexin [From Keflex] Allergy (Verified 07/18/18 08:12) Breakouts insulin lispro [From Humalog] Allergy (Verified 07/18/18 08:12) Rash Penicillins Allergy (Verified 07/18/18 08:12) Rash Home Medications: Ambulatory Orders Medication Instructions Recorded Lisinopril [Zestril] 10 mg PO DAILY 08/25/14 Lovastatin [Mevacor] 40 mg PO LUNCH 08/25/14 Vitamin B Complex 1 each PO BID 11/23/15 Metformin HCl [Glucophage] 1,000 mg PO BIDCM 09/19/16 Acetaminophen [Tylenol Tablet] 650 mg PO Q6H PRN PRN #0 tablet 09/24/16 Aspirin [Aspirin EC] 81 mg PO DAILY 07/18/18 Insulin Detemir [Levemir FlexPen] 46 units SC QHS 07/18/18 Acetaminophen [Tylenol Tablet] 650 mg PO Q6H PRN PRN tablet 07/22/18 Insulin Lispro [Humalog KwikPen] See Protocol SC ACHS insuln.pen 07/22/18 Rivaroxaban [Xarelto] 10 mg PO DAILY #14 tab 07/22/18 Senna/Docusate Sodium [Senokot-S] 1 tablet PO BID tablet 07/22/18 - Family History Maternal Diabetes Paternal Diabetes Smoking Status: Never smoker Review of Systems Constitutional: Denies: Anorexia, Malaise, Weakness Eyes: Denies: Blurred vision, Pain, Redness HEENT: Denies: Difficulty Hearing, Difficulty Swallowing Cardiovascular: Denies: Chest Pain, Chest Tightness Respiratory: Denies: Cough, Hemoptysis Gastrointestinal: Denies: Abdominal Pain, Hematemesis, Vomiting Genitourinary: Denies: Hematuria Skin: Denies: Jaundice - Physical Exam Vital Signs Temp Pulse Resp BP 98.4 F 101 H 16 117/62 09/11/18 10:43 09/11/18 10:43 09/11/18 10:43 09/11/18 10:43 General: Alert, Oriented x3, Cooperative, No apparent distress HEENT: Atraumatic, Normocephalic Oral: Moist Mucosa Neck: Supple Lungs: Normal air movement Cardiovascular: Regular rate, Regular Rhythm Abdomen: Soft, Non Tender, Obese Extremities: No cyanosis Skin: Ulcer/ Wound Wound Measurements and Assessment WC - Nurse 1 - General Ulcer Measurement Start: 09/11/18 10:42 Freq: Status: Active Protocol: Activity Type Activity Date Activity User E-Sign Co-Sign Detail Recorded Client Recorded Date Recorded By Document 09/11/18 10:43 [facility] [id number] 09/11/18 11:08 [facility] 09/11/18 10:43 Wound Center Nurse 1 [Ulcer Assessment] #1- RT KNEE/LATERAL L[place]ERRE -Combined with other wound No -Current Size (cm) - Length 5.4 -Current Size (cm) - Width 1.3 -Current Size (cm) - Depth 0.7 -Total Square Cm 7.02 -Date of Last Picture (Recall this 09/11/18 field) -Photo Taken Yes -Epithelialization None Present -Tunneling No -Undermining/Tunneling Yes -Undermining/Tunneling Starts (O' 12 clock) -Undermining/Tunneling Ends (O'clock) 12 -Maximum Distance (cm) 1.5 -Circular Undermining No -Classification - Thickness Full Thickness with Exposed Support Structure -Exudate Amt Medium -Exudate Type Serosanguineous -Wound Margin Distinct, Outline Attached -Granulation Amt None Present (0 %) -Slough/Fibrin Yes -Necrosis Amt Large (67-100%) -Necrotic Tissue Type Adherent Slough -Texture (Tiana-wound Skin Appearance) Assessed Localized Edema Scarring -Moisture (Tiana-wound Skin Appearance Assessed ) Dry/Scaly -Color (Tiana-wound Skin Appearance) Assessed -Temperature (Tiana-wound Skin No Abnormality Appearance) (Pt Warm) -Tenderness on Palpation (Tiana-wound Yes Skin Appearance) -Ulcer Cleansing Rinsed/ Irrigated with Saline -Foul Odor after Cleansing No -Anesthetic Used 5% Lidocaine Gel [Edema Assessment] -Lower Limb Edema Present Yes -Right Calf (cm) 35.5 -Right Ankle (cm) 21.9 WC - Nurse 2 - General Ulcer CM Notes Start: 09/11/18 10:42 Freq: Status: Active Protocol: Activity Type Activity Date Activity User E-Sign Co-Sign Detail Recorded Client Recorded Date Recorded By Document 09/11/18 11:34 MW [id number] 09/11/18 11:45 MW 09/11/18 11:34 Wound Center Nurse 2 [Procedure/Treatment] #1- RT KNEE/LATERAL LAGUERRE -Time 11:34 -Correct Patient Yes -Correct Side, Site, Position Yes -Correct Procedure Yes -Procedure Performed Yes -Type of Procedure Debridement -Clinical Debridement Subcutaneous -Post Debridement Size (cm) - Length 2.5 -Post Debridement Size (cm) - Width 1.5 -Post Debridement Size (cm) - Depth 1.6 -Total Square Cm 3.75 -Wound/Ulcer Outcome Not Healed -Ulcer Cleansing Rinsed/ Irrigated with Saline -Foul Odor after Cleansing No -Bioengineered Tissue No -Bleeding Controlled with Pressure -Offloading No -Treatment Response Procedure Tolerated Well [See Physician Procedure note for Specifics] Pain Scale: 0-10 Numeric [Pain] -Is Patient Pain Free? Yes Musculoskeletal: No Muscle Wasting Neurological: Cranial nerves II-XII grossly intact Psych/Mental Status: Normal Affect Debridement Note Post-Debridement Measurements/Treatment WC - Nurse 2 - General Ulcer CM Notes Start: 09/11/18 10:42 Freq: Status: Active Protocol: Activity Type Activity Date Activity User E-Sign Co-Sign Detail Recorded Client Recorded Date Recorded By Document 09/11/18 11:34 MW [id number] 09/11/18 11:45 MW 09/11/18 11:34 Wound Center Nurse 2 #1- RT KNEE/LATERAL LAGUERRE -Time 11:34 -Correct Patient Yes -Correct Side, Site, Position Yes -Correct Procedure Yes -Procedure Performed Yes -Type of Procedure Debridement -Clinical Debridement Subcutaneous -Post Debridement Size (cm) - Length 2.5 -Post Debridement Size (cm) - Width 1.5 -Post Debridement Size (cm) - Depth 1.6 -Total Square Cm 3.75 -Wound/Ulcer Outcome Not Healed -Ulcer Cleansing Rinsed/ Irrigated with Saline -Foul Odor after Cleansing No -Bioengineered Tissue No -Bleeding Controlled with Pressure -Offloading No -Treatment Response Procedure Tolerated Well Pain Scale: 0-10 Numeric Is Patient Pain Free? Yes Wound debrided: Right lower extremity Wound Grade/Stage: Stage III Type of Debridement: Excisional debridement Anesthesia Used: 4% Lidocaine Solution Depth: Down to and including healthy tissue, in the subcutaneous layer Percentage of wound debrided: 100 Instrument Used: 5mm curette Tissue Removed: Slough and devitalized tissue Severity: Fat Layer Exposed - Exposed hardware Amount of bleeding with debridement: Mild Bleeding Controlled with: Pressure Patient tolerated procedure well Assessment/Plan Active Problems Wound dehiscence, surgical (Chronic) Exposed orthopaedic hardware (Chronic) Diabetes mellitus (Chronic) Assessment: Same as above. Plan: Gentle debridement done as documented above, procedure was well-tolerated. As stated in the HPI, notably exposed hardware. Cultures taken. ESR, CRP and CBC also ordered. An emergent CAT scan was ordered. My concern is for hardware/postsurgical infection. I have asked that she follow-up as soon as possible with her orthopedic surgeon Dr. Friedman. She expressed understanding. For now Promogran with Adaptic over top. Change daily. Single-layer Tubigrip for edema management. She was advised to keep her lower extremity elevated. Increase protein intake and optimal blood sugar control also very strongly recommended. All her questions were answered and she was advised to call with any further questions or concerns. Follow-up in 1 week. This note was generated with [employer] software. It may contain incorrect words, spelling, and punctuation that were not noted in checking the note before signing.
[2018-09-11 15:33] LABS: Absolute Lymphocyte Count 3.44 X10^3/ul (0.83-4.51); Absolute Neutrophil Count 7.8 X10^3/uL (2.0-7.7); Basophil# 0.04 X10^3/uL; Basophil% 0.3 % (0-1); Eosinophil# 0.09 X10^3/uL; Eosinophils% 0.7 % (0-5); Hematocrit 41.7 % (37-47); Hemoglobin 13.9 g/dl (12.0-15.0); Lymphocyte # 3.44 X10^3/ul (4.0); Lymphocyte % 27.7 % (19-41); Mean Corp Hgb Conc 33.3 g/gl (32-36); Mean Corpuscular Hgb 28.8 pg (27.0-32.0); Mean Corpuscular Volume 86.3 fL (81-99); Mean Platelet Vol. 9.2 fl (6.2-12.0); Monocyte# 0.94 X10^3/uL; Monocyte% 7.6 % (0-10); Platelet Count 585 K/mm3 (150-450); RBC Distribution Width CV 13.2 % (11.6-14.6); RBC Distribution Width SD 41.3 fl (35.1-43.9); Red Blood Count 4.83 M/mm3 (4.2-5.4); White Blood Count 12.4 K/mm3 (4.4-11.0)
[2018-09-11 15:39] LABS: POSITIVE COUNT NO; POSITIVE DIFFERENTIAL NO; POSITIVE MORPHOLOGY NO
[2018-09-11 15:44] LABS: Erythrocyte Sedimentation Rate 73 mm/hr (0-30)
[2018-09-18 10:02] VITALS: BP 126/47; PULSE 74; RESP 18; TEMP 36.9; BMI 44.5
--- NOTE | 2018-09-18 10:15 | PCM.WC.PN ---
(1) Wound dehiscence, surgical Status: Chronic Current Visit: Yes Code(s): T81.31XA - Disruption of external operation (surgical) wound, not elsewhere classified, initial encounter (2) Diabetes mellitus Status: Chronic Current Visit: Yes Code(s): E11.9 - Type 2 diabetes mellitus without complications (3) Exposed orthopaedic hardware Status: Chronic Current Visit: Yes Code(s): T84.498A - Other mechanical complication of other internal orthopedic devices, implants and grafts, initial encounter Type of Wound Chief Complaint: Nonhealing postsurgical wound. History of Wound: Ms. Mckoy is a 63-year-old who presents to the wound center due to nonhealing postsurgical wound. She had surgery on the 20 of July after sustaining a tibio fibula fracture of her right lower extremity. Surgery was uneventful however, she states that after surgery and while doing physical therapy ( at her nursing facility ) with wearing a knee brace, she subsequently had breakdown of her wound. This has been managed at her nursing facility. She is unsure of what has been used. However due to poor wound healing/progress, she was referred here. On initial evaluation by the intake nurse, her hardware was easily seen through the wound. She denies chills, fever or feeling of unwell. Progress of Wound: No new cocnerns at this time. Yet to see Dr. Friedman. - Physical Exam Vital Signs Temp Pulse Resp BP 98.4 F 74 18 126/47 H 09/18/18 10:02 09/18/18 10:02 09/18/18 10:02 09/18/18 10:02 General: Alert, Oriented x3, Cooperative, No apparent distress HEENT: Atraumatic, Normocephalic Oral: Moist Mucosa Neck: Supple Lungs: Normal air movement Abdomen: Non Tender, Obese Extremities: No cyanosis Skin: Ulcer/ Wound Wound Measurements and Assessment WC - Nurse 1 - General Ulcer Measurement Start: 09/11/18 10:42 Freq: Status: Active Protocol: Activity Type Activity Date Activity User E-Sign Co-Sign Detail Recorded Client Recorded Date Recorded By Document 09/18/18 10:02 MARIO [id number] 09/18/18 10:03 RB 09/18/18 10:02 Wound Center Nurse 1 [Ulcer Assessment] #1- RT KNEE/LATERAL LAGUERRE -Combined with other wound No -Current Size (cm) - Length 2 -Current Size (cm) - Width 1 -Current Size (cm) - Depth 1 -Total Square Cm 2 -Tunneling No -Undermining/Tunneling No -Circular Undermining No -Exudate Amt Small -Exudate Type Serosanguineous -Wound Margin Distinct, Outline Attached -Granulation Amt Medium (34-66%) -Granulation Quality [place] Red -Necrosis Amt Small (1-33%) -Necrotic Tissue Type Adherent Slough -Structure Exposed N/A -Texture (Tiana-wound Skin Appearance) Assessed -Moisture (Tiana-wound Skin Appearance Assessed ) -Color (Tiana-wound Skin Appearance) Assessed -Temperature (Tiana-wound Skin No Abnormality Appearance) (Pt Warm) -Tenderness on Palpation (Tiana-wound No Skin Appearance) -Ulcer Cleansing Wound Cleanser -Foul Odor after Cleansing No -Anesthetic Used 4% Lidocaine Solution [Edema Assessment] -Lower Limb Edema Present Yes -Right Calf (cm) 34.5 -Right Ankle (cm) 22.5 WC - Nurse 2 - General Ulcer CM Notes Start: 09/11/18 10:42 Freq: Status: Active Protocol: Activity Type Activity Date Activity User E-Sign Co-Sign Detail Recorded Client Recorded Date Recorded By Document 09/18/18 10:08 MW [id number] 09/18/18 10:11 MW 09/18/18 10:08 Wound Center Nurse 2 [Procedure/Treatment] #1- RT KNEE/LATERAL LAGUERRE -Time 10:09 -Correct Patient Yes -Correct Side, Site, Position Yes -Correct Procedure Yes -Procedure Performed Yes -Type of Procedure Debridement -Clinical Debridement Subcutaneous -Post Debridement Size (cm) - Length 1.7 -Post Debridement Size (cm) - Width 1.3 -Post Debridement Size (cm) - Depth 1.5 -Total Square Cm 2.21 -Wound/Ulcer Outcome Not Healed -Ulcer Cleansing Rinsed/ Irrigated with Saline -Foul Odor after Cleansing No -Bioengineered Tissue No -Bleeding Controlled with Pressure -Offloading No -Treatment Response Procedure Tolerated Well [See Physician Procedure note for Specifics] Pain Scale: 0-10 Numeric [Pain] -Is Patient Pain Free? Yes Musculoskeletal: No Muscle Wasting Neurological: Cranial nerves II-XII grossly intact Psych/Mental Status: Normal Affect Debridement Note Post-Debridement Measurements/Treatment WC - Nurse 2 - General Ulcer CM Notes Start: 09/11/18 10:42 Freq: Status: Active Protocol: Activity Type Activity Date Activity User E-Sign Co-Sign Detail Recorded Client Recorded Date Recorded By Document 09/11/18 11:34 MW [id number] 09/11/18 11:45 MW Document 09/18/18 10:08 MW [id number] 09/18/18 10:11 MW 09/11/18 09/18/18 11:34 10:08 Wound Center Nurse 2 #1- RT KNEE/LATERAL LAGUERRE -Time 11:34 10:09 -Correct Patient Yes Yes -Correct Side, Site, Position Yes Yes -Correct Procedure Yes Yes -Procedure Performed Yes Yes -Type of Procedure Debridement Debridement -Clinical Debridement Subcutaneous Subcutaneous -Post Debridement Size (cm) - Length 2.5 1.7 -Post Debridement Size (cm) - Width 1.5 1.3 -Post Debridement Size (cm) - Depth 1.6 1.5 -Total Square Cm 3.75 2.21 -Wound/Ulcer Outcome Not Healed Not Healed -Ulcer Cleansing Rinsed/ Rinsed/ Irrigated with Irrigated with Saline Saline -Foul Odor after Cleansing No No -Bioengineered Tissue No No -Bleeding Controlled with Pressure Pressure -Offloading No No -Treatment Response Procedure Procedure Tolerated Well Tolerated Well Pain Scale: 0-10 Numeric Is Patient Pain Free? Yes Yes Wound debrided: Right lower extremity Wound Grade/Stage: Stage III Type of Debridement: Excisional debridement Anesthesia Used: 4% Lidocaine Solution Depth: Down to and including healthy tissue, in the subcutaneous layer Percentage of wound debrided: 100 Instrument Used: 3mm curette Tissue Removed: Slough and devitalized tissue Severity: Fat Layer Exposed Amount of bleeding with debridement: Mild Bleeding Controlled with: Pressure Patient tolerated procedure well Assessment/Plan Clinical Impression(s) from Imaging Studies Lower Extremity CT 09/11/18 12:54 IMPRESSION: Osteopenia with post traumatic and osteoarthritic changes. No other significant abnormality is present. Electronically Signed: Bill Mendoza MD at 17:25 EDT , Service support , Active Problems Wound dehiscence, surgical (Chronic) Exposed orthopaedic hardware (Chronic) Diabetes mellitus (Chronic) Assessment: Same as above. Plan: Gentle debridement done as documented above, procedure was well-tolerated. Yet to see Dr. friedman. ESR and CRP elevated. CT however with no acute cocnerns. Cultures reviewed. Due to exposed hardware, started on antibiotics and very strongly recommended that she follow up with Dr. Friedman RENA. She expressed understanding. Continue Promogran with Adaptic over top. Change daily. Single-layer Tubigrip for edema management. She was advised to keep her lower extremity elevated. Increase protein intake and optimal blood sugar control also very strongly recommended. All her questions were answered and she was advised to call with any further questions or concerns. Follow-up in 1 week. This note was generated with [employer] dictation software. It may contain incorrect words, spelling, and punctuation that were not noted in checking the note before signing.
--- NOTE | 2018-09-18 10:21 | PN.PCM_ITS ---
(1) Wound dehiscence, surgical Status: Chronic Current Visit: Yes Code(s): T81.31XA - Disruption of external operation (surgical) wound, not elsewhere classified, initial encounter (2) Diabetes mellitus Status: Chronic Current Visit: Yes Code(s): E11.9 - Type 2 diabetes mellitus without complications (3) Exposed orthopaedic hardware Status: Chronic Current Visit: Yes Code(s): T84.498A - Other mechanical complication of other internal orthopedic devices, implants and grafts, initial encounter Type of Wound Chief Complaint: Nonhealing postsurgical wound. History of Wound: Ms. Mckoy is a 63-year-old who presents to the wound c enter due to nonhealing postsurgical wound. She had surgery on the 20 of July after sustaining a tibio fibula fracture of her right lower extremity. Surgery was uneventful however, she states that after surgery and while doing physical therapy ( at her nursing facility ) with wearing a knee brace, she subsequently had breakdown of her wound. This has been managed at her nursing facility. She is unsure of what has been used. However due to poor wound healing/progress, she was referred here. On initial evaluation by the intake nurse, her hardware was easily seen through the wound. She denies chills, fever or feeling of unwell. Progress of Wound: No new cocnerns at this time. Yet to see Dr. Friedman. - Physical Exam Vital Signs Temp Pulse Resp BP 98.4 F 74 18 126/47 H 09/18/18 10:02 09/18/18 10:02 09/18/18 10:02 09/18/18 10:02 General: Alert, Oriented x3, Cooperative, No apparent distress HEENT: Atraumatic, Normocephalic Oral: Moist Mucosa Neck: Supple Lungs: Normal air movement Abdomen: Non Tender, Obese Extremities: No cyanosis Skin: Ulcer/ Wound Wound Measurements and Assessment WC - Nurse 1 - General Ulcer Measurement Start: 09/11/18 10:42 Freq: Status: Active Protocol: Activity Type Activity Date Activity User E-Sign Co-Sign Detail Recorded Client Recorded Date Recorded By Document 09/18/18 10:02 RB [id number] 09/18/18 10:03 RB 09/18/18 10:02 Wound Center Nurse 1 [Ulcer Assessment] #1- RT KNEE/LATERAL LAGUERRE -Combined with other wound No -Current Size (cm) - Length 2 -Current Size (cm) - Width 1 -Current Size (cm) - Depth 1 -Total Square Cm 2 -Tunneling No -Undermining/Tunneling No -Circular Undermining No -Exudate Amt Small -Exudate Type Serosanguineous -Wound Margin Distinct, Outline Attached -Granulation Amt Medium (34-66%) -Granulation Quality [place] Red -Necrosis Amt Small (1-33%) -Necrotic Tissue Type Adherent Slough -Structure Exposed N/A -Texture (Tiana-wound Skin Appearance) Assessed -Moisture (Tiana-wound Skin Appearance Assessed ) -Color (Tiana-wound Skin Appearance) Assessed -Temperature (Tiana-wound Skin No Abnormality Appearance) (Pt Warm) -Tenderness on Palpation (Tiana-wound No Skin Appearance) -Ulcer Cleansing Wound Cleanser -Foul Odor after Cleansing No -Anesthetic Used 4% Lidocaine Solution [Edema Assessment] -Lower Limb Edema Present Yes -Right Calf (cm) 34.5 -Right Ankle (cm) 22.5 WC - Nurse 2 - General Ulcer CM Notes Start: 09/11/18 10:42 Freq: Status: Active Protocol: Activity Type Activity Date Activity User E-Sign Co-Sign Detail Recorded Client Recorded Date Recorded By Document 09/18/18 10:08 MW [id number] 09/18/18 10:11 MW 09/18/18 10:08 Wound Center Nurse 2 [Procedure/Treatment] #1- RT KNEE/LATERAL LAGUERRE -Time 10:09 -Correct Patient Yes -Correct Side, Site, Position Yes -Correct Procedure Yes -Procedure Performed Yes -Type of Procedure Debridement -Clinical Debridement Subcutaneous -Post Debridement Size (cm) - Length 1.7 -Post Debridement Size (cm) - Width 1.3 -Post Debridement Size (cm) - Depth 1.5 -Total Square Cm 2.21 -Wound/Ulcer Outcome Not Healed -Ulcer Cleansing Rinsed/ Irrigated with Saline -Foul Odor after Cleansing No -Bioengineered Tissue No -Bleeding Controlled with Pressure -Offloading No -Treatment Response Procedure Tolerated Well [See Physician Procedure note for Specifics] Pain Scale: 0-10 Numeric [Pain] -Is Patient Pain Free? Yes Musculoskeletal: No Muscle Wasting Neurological: Cranial nerves II-XII grossly intact Psych/Mental Status: Normal Affect Debridement Note Post-Debridement Measurements/Treatment WC - Nurse 2 - General Ulcer CM Notes Start: 09/11/18 10:42 Freq: Status: Active Protocol: Activity Type Activity Date Activity User E-Sign Co-Sign Detail Recorded Client Recorded Date Recorded By Document 09/11/18 11:34 MW [id number] 09/11/18 11:45 MW Document 09/18/18 10:08 MW [id number] 09/18/18 10:11 MW 09/11/18 09/18/18 11:34 10:08 Wound Center Nurse 2 #1- RT KNEE/LATERAL LAGUERRE -Time 11:34 10:09 -Correct Patient Yes Yes -Correct Side, Site, Position Yes Yes -Correct Procedure Yes Yes -Procedure Performed Yes Yes -Type of Procedure Debridement Debridement -Clinical Debridement Subcutaneous Subcutaneous -Post Debridement Size (cm) - Length 2.5 1.7 -Post Debridement Size (cm) - Width 1.5 1.3 -Post Debridement Size (cm) - Depth 1.6 1.5 -Total Square Cm 3.75 2.21 -Wound/Ulcer Outcome Not Healed Not Healed -Ulcer Cleansing Rinsed/ Rinsed/ Irrigated with Irrigated with Saline Saline -Foul Odor after Cleansing No No -Bioengineered Tissue No No -Bleeding Controlled with Pressure Pressure -Offloading No No -Treatment Response Procedure Procedure Tolerated Well Tolerated Well Pain Scale: 0-10 Numeric Is Patient Pain Free? Yes Yes Wound debrided: Right lower extremity Wound Grade/Stage: Stage III Type of Debridement: Excisional debridement Anesthesia Used: 4% Lidocaine Solution Depth: Down to and including healthy tissue, in the subcutaneous layer Percentage of wound debrided: 100 Instrument Used: 3mm curette Tissue Removed: Slough and devitalized tissue Severity: Fat Layer Exposed Amount of bleeding with debridement: Mild Bleeding Controlled with: Pressure Patient tolerated procedure well Assessment/Plan Clinical Impression(s) from Imaging Studies Lower Extremity CT 09/11/18 12:54 IMPRESSION: Osteopenia with post traumatic and osteoarthritic changes. No other significant abnormality is present. Electronically Signed: Bill Mendoza MD at 17:25 EDT , Service support , Active Problems Wound dehiscence, surgical (Chronic) Exposed orthopaedic hardware (Chronic) Diabetes mellitus (Chronic) Assessment: Same as above. Plan: Gentle debridement done as documented above, procedure was well-tolerated. Yet to see Dr. friedman. ESR and CRP elevated. CT however with no acute cocnerns. Cultures reviewed. Due to exposed hardware, started on antibiotics and very strongly recommended that she follow up with Dr. Friedman RENA. She expressed understanding. Continue Promogran with Adaptic over top. Change daily. Single-layer Tubigrip for edema management. She was advised to keep her lower extremity elevated. Increase protein intake and optimal blood sugar control also very strongly recommended. All her questions were answered and she was advised to call with any further questions or concerns. Follow-up in 1 week. This note was generated with [employer] dictation software. It may contain incorrect words, spelling, and punctuation that were not noted in checking the note before signing.
== END 2018-09-23 23:59 ==
LOC: WC 09:00
PROVIDERS: Family Provider Family Medicine; PCP Family Medicine; Referring Provider Internal Medicine; Visit Provider Internal Medicine
DX: T81.31XA Disruption of external operation (surgical) wound, not elsewhere classified, initial encounter (principal); Y83.8 Other surgical procedures as the cause of abnormal reaction of the patient, or of later complication, without mention of misadventure at the time of the procedure; E11.9 Type 2 diabetes mellitus without complications; E66.9 Obesity, unspecified; Z68.41 Body mass index [BMI] 40.0-44.9, adult; E78.5 Hyperlipidemia, unspecified; I10 Essential (primary) hypertension; T84.498A Other mechanical complication of other internal orthopedic devices, implants and grafts, initial encounter
CPT/HCPCS: 11042; 73700; 85025; 85652; 86140; 87070; 87075; 87077; 87186; 87205; 99213; G0463

== ENCOUNTER 2018-10-23 09:15 | Outpatient (RCR) | payer MEDICAID, SELFPAY ==
[2018-09-24 01:53] VITALS: BP 126/47; PULSE 74; RESP 18; TEMP 36.9
[2018-10-03 10:48] VITALS: BP 158/83; PULSE 84; RESP 16; TEMP 37; BMI 44.5
[2018-10-09 11:23] VITALS: BP 119/82; PULSE 107; RESP 18; TEMP 36.5; BMI 44.5
--- NOTE | 2018-10-09 13:43 | PCM.WC.PN ---
(1) Wound dehiscence, surgical Status: Chronic Current Visit: Yes Code(s): T81.31XA - Disruption of external operation (surgical) wound, not elsewhere classified, initial encounter (2) Exposed orthopaedic hardware Status: Chronic Current Visit: Yes Code(s): T84.498A - Other mechanical complication of other internal orthopedic devices, implants and grafts, initial encounter (3) Diabetes mellitus Status: Chronic Current Visit: Yes Code(s): E11.9 - Type 2 diabetes mellitus without complications Type of Wound Chief Complaint: Nonhealing postsurgical wound. History of Wound: Ms. Mckoy is a 63-year-old who presents to the wound center due to nonhealing postsurgical wound. She had surgery on the 20 of July after sustaining a tibio fibula fracture of her right lower extremity. Surgery was uneventful however, she states that after surgery and while doing physical therapy ( at her nursing facility ) with wearing a knee brace, she subsequently had breakdown of her wound. This has been managed at her nursing facility. She is unsure of what has been used. However due to poor wound healing/progress, she was referred here. On initial evaluation by the intake nurse, her hardware was easily seen through the wound. She denies chills, fever or feeling of unwell. Progress of Wound: No new concerns at this time. Missed 2 appointments. Yet to see Dr. Friedman. Discharged from the shelter. Now has home health. - Physical Exam Vital Signs Temp Pulse Resp BP 97.7 F L 107 H 18 119/82 H 10/09/18 11:23 10/09/18 11:23 10/09/18 11:23 10/09/18 11:23 General: Alert, Oriented x3, Cooperative, No apparent distress HEENT: Atraumatic, Normocephalic Oral: Moist Mucosa Neck: Supple Lungs: Normal air movement Extremities: No cyanosis Skin: Ulcer/ Wound Wound Measurements and Assessment WC - Nurse 1 - General Ulcer Measurement Start: 10/03/18 10:48 Freq: Status: Active Protocol: Activity Type Activity Date Activity User E-Sign Co-Sign Detail Recorded Client Recorded Date Recorded By Document 10/09/18 11:23 RB [id number] 10/09/18 11:31 RB 10/09/18 11:23 Wound Center Nurse 1 [Ulcer Assessment] #1- RT KNEE/LATERAL LAGUERRE -Combined with other wound No -Current Size (cm) - Length 1 -Current Size (cm) - Width 0.9 -Current Size (cm) - Depth 0.4 -Total Square Cm 0.9 [Edema Assessment] -Lower Limb Edema Present Yes -Right Calf (cm) 34 -Right Ankle (cm) 22.5 LUISA - Nurse 2 - General Ulcer CM Notes Start: 10/03/18 10:48 Freq: Status: Active Protocol: Activity Type Activity Date Activity User E-Sign Co-Sign Detail Recorded Client Recorded Date Recorded By Document 10/09/18 12:03 MW [id number] 10/09/18 12:05 MW 10/09/18 12:03 Wound Center Nurse 2 [Procedure/Treatment] #1- RT KNEE/LATERAL LAGUERRE -Time 12:03 -Correct Patient Yes -Correct Side, Site, Position Yes -Correct Procedure Yes -Procedure Performed Yes -Type of Procedure Debridement -Clinical Debridement Subcutaneous -Post Debridement Size (cm) - Length 1.0 -Post Debridement Size (cm) - Width 0.6 -Post Debridement Size (cm) - Depth 0.6 -Total Square Cm 0.60 -Wound/Ulcer Outcome Not Healed -Ulcer Cleansing Rinsed/ Irrigated with Saline -Foul Odor after Cleansing No -Bioengineered Tissue No -Bleeding Controlled with Pressure -Offloading No -Treatment Response Procedure Tolerated Well [See Physician Procedure note for Specifics] Pain Scale: 0-10 Numeric [Pain] -Is Patient Pain Free? Yes Musculoskeletal: No Muscle Wasting Neurological: Cranial nerves II-XII grossly intact Psych/Mental Status: Normal Affect Debridement Note Post-Debridement Measurements/Treatment - Nurse 2 - General Ulcer CM Notes Start: 10/03/18 10:48 Freq: Status: Active Protocol: Activity Type Activity Date Activity User E-Sign Co-Sign Detail Recorded Client Recorded Date Recorded By Document 10/09/18 12:03 MW [id number] 10/09/18 12:05 MW 10/09/18 12:03 Wound Center Nurse 2 #1- RT KNEE/LATERAL LAGUERRE -Time 12:03 -Correct Patient Yes -Correct Side, Site, Position Yes -Correct Procedure Yes -Procedure Performed Yes -Type of Procedure Debridement -Clinical Debridement Subcutaneous -Post Debridement Size (cm) - Length 1.0 -Post Debridement Size (cm) - Width 0.6 -Post Debridement Size (cm) - Depth 0.6 -Total Square Cm 0.60 -Wound/Ulcer Outcome Not Healed -Ulcer Cleansing Rinsed/ Irrigated with Saline -Foul Odor after Cleansing No -Bioengineered Tissue No -Bleeding Controlled with Pressure -Offloading No -Treatment Response Procedure Tolerated Well Pain Scale: 0-10 Numeric Is Patient Pain Free? Yes Wound debrided: Right lower extremity Wound Grade/Stage: Stage III Type of Debridement: Excisional debridement Anesthesia Used: 4% Lidocaine Solution Depth: Down to and including healthy tissue, in the subcutaneous layer Percentage of wound debrided: 100 Instrument Used: 3mm curette Tissue Removed: Slough and devitalized tissue Severity: Fat Layer Exposed Amount of bleeding with debridement: Mild Bleeding Controlled with: Pressure Patient tolerated procedure well Assessment/Plan Active Problems Wound dehiscence, surgical (Chronic) Exposed orthopaedic hardware (Chronic) Diabetes mellitus (Chronic) Assessment: Same as above. Plan: Gentle debridement done as documented above, procedure was well-tolerated. Wound is improving in circumference and depth. Yet to see Dr. Friedman. ESR and CRP elevated. CT however with no acute cocnerns. Was on antibiotics per culture and sensitivity. She expressed understanding. Continue Promogran with Adaptic over top. Change daily. Single-layer Tubigrip for edema management. She was advised to keep her lower extremity elevated. Increase protein intake and optimal blood sugar control also very strongly recommended. All her questions were answered and she was advised to call with any further questions or concerns. Follow-up in 1 week. This note was generated with [employer] dictation software. It may contain incorrect words, spelling, and punctuation that were not noted in checking the note before signing.
--- NOTE | 2018-10-09 13:48 | PN.PCM_ITS ---
(1) Wound dehiscence, surgical Status: Chronic Current Visit: Yes Code(s): T81.31XA - Disruption of external operation (surgical) wound, not elsewhere classified, initial encounter (2) Exposed orthopaedic hardware Status: Chronic Current Visit: Yes Code(s): T84.498A - Other mechanical complication of other internal orthopedic devices, implants and grafts, initial encounter (3) Diabetes mellitus Status: Chronic Current Visit: Yes Code(s): E11.9 - Type 2 diabetes mellitus without complications Type of Wound Chief Complaint: Nonhealing postsurgical wound. History of Wound: Ms. Mckoy is a 63-year-old who presents to the wound c enter due to nonhealing postsurgical wound. She had surgery on the 20 of July after sustaining a tibio fibula fracture of her right lower extremity. Surgery was uneventful however, she states that after surgery and while doing physical therapy ( at her nursing facility ) with wearing a knee brace, she subsequently had breakdown of her wound. This has been managed at her nursing facility. She is unsure of what has been used. However due to poor wound healing/progress, she was referred here. On initial evaluation by the intake nurse, her hardware was easily seen through the wound. She denies chills, fever or feeling of unwell. Progress of Wound: No new concerns at this time. Missed 2 appointments. Yet to see Dr. Friedman. Discharged from the [facility]. Now has home health. - Physical Exam Vital Signs Temp Pulse Resp BP 97.7 F L 107 H 18 119/82 H 10/09/18 11:23 10/09/18 11:23 10/09/18 11:23 10/09/18 11:23 General: Alert, Oriented x3, Cooperative, No apparent distress HEENT: Atraumatic, Normocephalic Oral: Moist Mucosa Neck: Supple Lungs: Normal air movement Extremities: No cyanosis Skin: Ulcer/ Wound Wound Measurements and Assessment WC - Nurse 1 - General Ulcer Measurement Start: 10/03/18 10:48 Freq: Status: Active Protocol: Activity Type Activity Date Activity User E-Sign Co-Sign Detail Recorded Client Recorded Date Recorded By Document 10/09/18 11:23 RB [id number] 10/09/18 11:31 RB 10/09/18 11:23 Wound Center Nurse 1 [Ulcer Assessment] #1- RT KNEE/LATERAL LAGUERRE -Combined with other wound No -Current Size (cm) - Length 1 -Current Size (cm) - Width 0.9 -Current Size (cm) - Depth 0.4 -Total Square Cm 0.9 [Edema Assessment] -Lower Limb Edema Present Yes -Right Calf (cm) 34 -Right Ankle (cm) 22.5 WC - Nurse 2 - General Ulcer CM Notes Start: 10/03/18 10:48 Freq: Status: Active Protocol: Activity Type Activity Date Activity User E-Sign Co-Sign Detail Recorded Client Recorded Date Recorded By Document 10/09/18 12:03 MW [id number] 10/09/18 12:05 MW 10/09/18 12:03 Wound Center Nurse 2 [Procedure/Treatment] #1- RT KNEE/LATERAL LAGUERRE -Time 12:03 -Correct Patient Yes -Correct Side, Site, Position Yes -Correct Procedure Yes -Procedure Performed Yes -Type of Procedure Debridement -Clinical Debridement Subcutaneous -Post Debridement Size (cm) - Length 1.0 -Post Debridement Size (cm) - Width 0.6 -Post Debridement Size (cm) - Depth 0.6 -Total Square Cm 0.60 -Wound/Ulcer Outcome Not Healed -Ulcer Cleansing Rinsed/ Irrigated with Saline -Foul Odor after Cleansing No -Bioengineered Tissue No -Bleeding Controlled with Pressure -Offloading No -Treatment Response Procedure Tolerated Well [See Physician Procedure note for Specifics] Pain Scale: 0-10 Numeric [Pain] -Is Patient Pain Free? Yes Musculoskeletal: No Muscle Wasting Neurological: Cranial nerves II-XII grossly intact Psych/Mental Status: Normal Affect Debridement Note Post-Debridement Measurements/Treatment LUISA - Nurse 2 - General Ulcer CM Notes Start: 10/03/18 10:48 Freq: Status: Active Protocol: Activity Type Activity Date Activity User E-Sign Co-Sign Detail Recorded Client Recorded Date Recorded By Document 10/09/18 12:03 MW [id number] 10/09/18 12:05 MW 10/09/18 12:03 Wound Center Nurse 2 #1- RT KNEE/LATERAL LAGUERRE -Time 12:03 -Correct Patient Yes -Correct Side, Site, Position Yes -Correct Procedure Yes -Procedure Performed Yes -Type of Procedure Debridement -Clinical Debridement Subcutaneous -Post Debridement Size (cm) - Length 1.0 -Post Debridement Size (cm) - Width 0.6 -Post Debridement Size (cm) - Depth 0.6 -Total Square Cm 0.60 -Wound/Ulcer Outcome Not Healed -Ulcer Cleansing Rinsed/ Irrigated with Saline -Foul Odor after Cleansing No -Bioengineered Tissue No -Bleeding Controlled with Pressure -Offloading No -Treatment Response Procedure Tolerated Well Pain Scale: 0-10 Numeric Is Patient Pain Free? Yes Wound debrided: Right lower extremity Wound Grade/Stage: Stage III Type of Debridement: Excisional debridement Anesthesia Used: 4% Lidocaine Solution Depth: Down to and including healthy tissue, in the subcutaneous layer Percentage of wound debrided: 100 Instrument Used: 3mm curette Tissue Removed: Slough and devitalized tissue Severity: Fat Layer Exposed Amount of bleeding with debridement: Mild Bleeding Controlled with: Pressure Patient tolerated procedure well Assessment/Plan Active Problems Wound dehiscence, surgical (Chronic) Exposed orthopaedic hardware (Chronic) Diabetes mellitus (Chronic) Assessment: Same as above. Plan: Gentle debridement done as documented above, procedure was well-tolerated. Wound is improving in circumference and depth. Yet to see Dr. Friedman. ESR and CRP elevated. CT however with no acute cocnerns. Was on antibiotics per culture and sensitivity. She expressed understanding. Continue Promogran with Adaptic over top. Change daily. Single-layer Tubigrip for edema management. She was advised to keep her lower extremity elevated. Increase protein intake and optimal blood sugar control also very strongly recommended. All her questions were answered and she was advised to call with any further questions or concerns. Follow-up in 1 week. This note was generated with [employer] dictation software. It may contain incorrect words, spelling, and punctuation that were not noted in checking the note before signing.
[2018-10-16 09:19] VITALS: BP 111/74; PULSE 87; RESP 16; TEMP 36.6; BMI 44.5
--- NOTE | 2018-10-16 09:59 | PCM.WC.PN ---
(1) Wound dehiscence, surgical Status: Chronic Current Visit: Yes Code(s): T81.31XA - Disruption of external operation (surgical) wound, not elsewhere classified, initial encounter (2) Exposed orthopaedic hardware Status: Chronic Current Visit: Yes Code(s): T84.498A - Other mechanical complication of other internal orthopedic devices, implants and grafts, initial encounter (3) Diabetes mellitus Status: Chronic Current Visit: Yes Code(s): E11.9 - Type 2 diabetes mellitus without complications Type of Wound Chief Complaint: Nonhealing postsurgical wound. History of Wound: Ms. Mckoy is a 63-year-old who presents to the wound center due to nonhealing postsurgical wound. She had surgery on the 20 of July after sustaining a tibio fibula fracture of her right lower extremity. Surgery was uneventful however, she states that after surgery and while doing physical therapy ( at her nursing facility ) with wearing a knee brace, she subsequently had breakdown of her wound. This has been managed at her nursing facility. She is unsure of what has been used. However due to poor wound healing/progress, she was referred here. On initial evaluation by the intake nurse, her hardware was easily seen through the wound. She denies chills, fever or feeling of unwell. Progress of Wound: No new concerns at this time. Did follow-up with her orthopedic surgeon Dr. Friedman and per patient no further intervention was recommended. Will request records. - Physical Exam Vital Signs Temp Pulse Resp BP 97.8 F 87 16 111/74 10/16/18 09:19 10/16/18 09:19 10/16/18 09:19 10/16/18 09:19 General: Alert, Oriented x3, Cooperative, No apparent distress HEENT: Atraumatic, Normocephalic Oral: Moist Mucosa Neck: Supple Lungs: Normal air movement Extremities: No cyanosis Skin: Ulcer/ Wound Wound Measurements and Assessment WC - Nurse 1 - General Ulcer Measurement Start: 10/03/18 10:48 Freq: Status: Active Protocol: Activity Type Activity Date Activity User E-Sign Co-Sign Detail Recorded Client Recorded Date Recorded By Document 10/16/18 09:19 [facility] [id number] 10/16/18 09:24 [facility] 10/16/18 09:19 Wound Center Nurse 1 [Ulcer Assessment] #1- RT KNEE/LATERAL LAGUERRE -Combined with other wound No -Current Size (cm) - Length 0.7 -Current Size (cm) - Width 0.7 -Current Size (cm) - Depth 0.4 -Total Square Cm 0.49 -Photo Taken No -Epithelialization None Present -Tunneling No -Undermining/Tunneling No -Circular Undermining No -Exudate Amt Small -Exudate Type Serosanguineous -Wound Margin Distinct, Outline Attached -Granulation Amt None Present (0 %) -Slough/Fibrin Yes -Necrosis Amt Large (67-100%) -Necrotic Tissue Type Adherent Slough -Texture (Tiana-wound Skin Appearance) Assessed Scarring -Moisture (Tiana-wound Skin Appearance Assessed ) -Color (Tiana-wound Skin Appearance) Assessed -Temperature (Tiana-wound Skin No Abnormality Appearance) (Pt Warm) -Tenderness on Palpation (Tiana-wound No Skin Appearance) -Ulcer Cleansing Rinsed/ Irrigated with Saline -Foul Odor after Cleansing No -Anesthetic Used 5% Lidocaine Gel [Edema Assessment] -Lower Limb Edema Present Yes -Right Calf (cm) 34.4 -Right Ankle (cm) 22.6 WC - Nurse 2 - General Ulcer CM Notes Start: 10/03/18 10:48 Freq: Status: Active Protocol: Activity Type Activity Date Activity User E-Sign Co-Sign Detail Recorded Client Recorded Date Recorded By Document 10/16/18 09:48 MW [id number] 10/16/18 09:53 MW 10/16/18 09:48 Wound Center Nurse 2 [Procedure/Treatment] #1- RT KNEE/LATERAL LAGUERRE -Time 09:49 -Correct Patient Yes -Correct Side, Site, Position Yes -Correct Procedure Yes -Procedure Performed Yes -Type of Procedure Debridement -Clinical Debridement Subcutaneous -Post Debridement Size (cm) - Length 1.0 -Post Debridement Size (cm) - Width 0.6 -Post Debridement Size (cm) - Depth 0.8 -Total Square Cm 0.60 -Wound/Ulcer Outcome Not Healed -Ulcer Cleansing Rinsed/ Irrigated with Saline -Foul Odor after Cleansing No -Bioengineered Tissue No -Bleeding Controlled with Pressure -Offloading No -Treatment Response Procedure Tolerated Well [See Physician Procedure note for Specifics] Pain Scale: 0-10 Numeric [Pain] -Is Patient Pain Free? Yes Musculoskeletal: No Muscle Wasting Neurological: Cranial nerves II-XII grossly intact Psych/Mental Status: Normal Affect Debridement Note Post-Debridement Measurements/Treatment WC - Nurse 2 - General Ulcer CM Notes Start: 10/03/18 10:48 Freq: Status: Active Protocol: Activity Type Activity Date Activity User E-Sign Co-Sign Detail Recorded Client Recorded Date Recorded By Document 10/09/18 12:03 MW [id number] 10/09/18 12:05 MW Document 10/16/18 09:48 MW [id number] 10/16/18 09:53 MW 10/09/18 10/16/18 12:03 09:48 Wound Center Nurse 2 #1- RT KNEE/LATERAL LAGUERRE -Time 12:03 09:49 -Correct Patient Yes Yes -Correct Side, Site, Position Yes Yes -Correct Procedure Yes Yes -Procedure Performed Yes Yes -Type of Procedure Debridement Debridement -Clinical Debridement Subcutaneous Subcutaneous -Post Debridement Size (cm) - Length 1.0 1.0 -Post Debridement Size (cm) - Width 0.6 0.6 -Post Debridement Size (cm) - Depth 0.6 0.8 -Total Square Cm 0.60 0.60 -Wound/Ulcer Outcome Not Healed Not Healed -Ulcer Cleansing Rinsed/ Rinsed/ Irrigated with Irrigated with Saline Saline -Foul Odor after Cleansing No No -Bioengineered Tissue No No -Bleeding Controlled with Pressure Pressure -Offloading No No -Treatment Response Procedure Procedure Tolerated Well Tolerated Well Pain Scale: 0-10 Numeric Is Patient Pain Free? Yes Yes Wound debrided: Right lower extremity Wound Grade/Stage: Stage 3 Type of Debridement: Excisional debridement Anesthesia Used: 4% Lidocaine Solution Depth: Down to and including healthy tissue, in the subcutaneous layer Percentage of wound debrided: 100 Instrument Used: 3mm curette Tissue Removed: Slough and devitalized tissue Severity: Fat Layer Exposed Amount of bleeding with debridement: Mild Bleeding Controlled with: Pressure Patient tolerated procedure well Assessment/Plan Active Problems Wound dehiscence, surgical (Chronic) Exposed orthopaedic hardware (Chronic) Diabetes mellitus (Chronic) Assessment: Same as above. Plan: Gentle debridement done as documented above, procedure was well-tolerated. No significant change in wound circumference. Depth however worsening. She did follow-up with her orthopedic surgeon Dr. Friedman and no new interventions are planned. ESR and CRP elevated. CT however with no acute cocnerns. Was on antibiotics per culture and sensitivity. Continue Promogran with Adaptic over top. Change daily. Single-layer Tubigrip for edema management. Due to depth, I believe she would benefit from snap/cruz VAC. We will begin the process. She was advised to keep her lower extremity elevated. Increase protein intake and optimal blood sugar control also very strongly recommended. All her questions were answered and she was advised to call with any further questions or concerns. Follow-up in 1 week. This note was generated with [employer] dictation software. It may contain incorrect words, spelling, and punctuation that were not noted in checking the note before signing.
--- NOTE | 2018-10-16 10:02 | PN.PCM_ITS ---
(1) Wound dehiscence, surgical Status: Chronic Current Visit: Yes Code(s): T81.31XA - Disruption of external operation (surgical) wound, not elsewhere classified, initial encounter (2) Exposed orthopaedic hardware Status: Chronic Current Visit: Yes Code(s): T84.498A - Other mechanical complication of other internal orthopedic devices, implants and grafts, initial encounter (3) Diabetes mellitus Status: Chronic Current Visit: Yes Code(s): E11.9 - Type 2 diabetes mellitus without complications Type of Wound Chief Complaint: Nonhealing postsurgical wound. History of Wound: Ms. Mckoy is a 63-year-old who presents to the wound c enter due to nonhealing postsurgical wound. She had surgery on the 20 of July after sustaining a tibio fibula fracture of her right lower extremity. Surgery was uneventful however, she states that after surgery and while doing physical therapy ( at her nursing facility ) with wearing a knee brace, she subsequently had breakdown of her wound. This has been managed at her nursing facility. She is unsure of what has been used. However due to poor wound healing/progress, she was referred here. On initial evaluation by the intake nurse, her hardware was easily seen through the wound. She denies chills, fever or feeling of unwell. Progress of Wound: No new concerns at this time. Did follow-up with her orthopedic surgeon Dr. Friedman and per patient no further intervention was recommended. Will request records. - Physical Exam Vital Signs Temp Pulse Resp BP 97.8 F 87 16 111/74 10/16/18 09:19 10/16/18 09:19 10/16/18 09:19 10/16/18 09:19 General: Alert, Oriented x3, Cooperative, No apparent distress HEENT: Atraumatic, Normocephalic Oral: Moist Mucosa Neck: Supple Lungs: Normal air movement Extremities: No cyanosis Skin: Ulcer/ Wound Wound Measurements and Assessment WC - Nurse 1 - General Ulcer Measurement Start: 10/03/18 10:48 Freq: Status: Active Protocol: Activity Type Activity Date Activity User E-Sign Co-Sign Detail Recorded Client Recorded Date Recorded By Document 10/16/18 09:19 [facility] [id number] 10/16/18 09:24 [facility] 10/16/18 09:19 Wound Center Nurse 1 [Ulcer Assessment] #1- RT KNEE/LATERAL LAGUERRE -Combined with other wound No -Current Size (cm) - Length 0.7 -Current Size (cm) - Width 0.7 -Current Size (cm) - Depth 0.4 -Total Square Cm 0.49 -Photo Taken No -Epithelialization None Present -Tunneling No -Undermining/Tunneling No -Circular Undermining No -Exudate Amt Small -Exudate Type Serosanguineous -Wound Margin Distinct, Outline Attached -Granulation Amt None Present (0 %) -Slough/Fibrin Yes -Necrosis Amt Large (67-100%) -Necrotic Tissue Type Adherent Slough -Texture (Tiana-wound Skin Appearance) Assessed Scarring -Moisture (Tiana-wound Skin Appearance Assessed ) -Color (Tiana-wound Skin Appearance) Assessed -Temperature (Tiana-wound Skin No Abnormality Appearance) (Pt Warm) -Tenderness on Palpation (Tiana-wound No Skin Appearance) -Ulcer Cleansing Rinsed/ Irrigated with Saline -Foul Odor after Cleansing No -Anesthetic Used 5% Lidocaine Gel [Edema Assessment] -Lower Limb Edema Present Yes -Right Calf (cm) 34.4 -Right Ankle (cm) 22.6 WC - Nurse 2 - General Ulcer CM Notes Start: 10/03/18 10:48 Freq: Status: Active Protocol: Activity Type Activity Date Activity User E-Sign Co-Sign Detail Recorded Client Recorded Date Recorded By Document 10/16/18 09:48 MW [id number] 10/16/18 09:53 MW 10/16/18 09:48 Wound Center Nurse 2 [Procedure/Treatment] #1- RT KNEE/LATERAL LAGUERRE -Time 09:49 -Correct Patient Yes -Correct Side, Site, Position Yes -Correct Procedure Yes -Procedure Performed Yes -Type of Procedure Debridement -Clinical Debridement Subcutaneous -Post Debridement Size (cm) - Length 1.0 -Post Debridement Size (cm) - Width 0.6 -Post Debridement Size (cm) - Depth 0.8 -Total Square Cm 0.60 -Wound/Ulcer Outcome Not Healed -Ulcer Cleansing Rinsed/ Irrigated with Saline -Foul Odor after Cleansing No -Bioengineered Tissue No -Bleeding Controlled with Pressure -Offloading No -Treatment Response Procedure Tolerated Well [See Physician Procedure note for Specifics] Pain Scale: 0-10 Numeric [Pain] -Is Patient Pain Free? Yes Musculoskeletal: No Muscle Wasting Neurological: Cranial nerves II-XII grossly intact Psych/Mental Status: Normal Affect Debridement Note Post-Debridement Measurements/Treatment WC - Nurse 2 - General Ulcer CM Notes Start: 10/03/18 10:48 Freq: Status: Active Protocol: Activity Type Activity Date Activity User E-Sign Co-Sign Detail Recorded Client Recorded Date Recorded By Document 10/09/18 12:03 MW [id number] 10/09/18 12:05 MW Document 10/16/18 09:48 MW [id number] 10/16/18 09:53 MW 10/09/18 10/16/18 12:03 09:48 Wound Center Nurse 2 #1- RT KNEE/LATERAL LAGUERRE -Time 12:03 09:49 -Correct Patient Yes Yes -Correct Side, Site, Position Yes Yes -Correct Procedure Yes Yes -Procedure Performed Yes Yes -Type of Procedure Debridement Debridement -Clinical Debridement Subcutaneous Subcutaneous -Post Debridement Size (cm) - Length 1.0 1.0 -Post Debridement Size (cm) - Width 0.6 0.6 -Post Debridement Size (cm) - Depth 0.6 0.8 -Total Square Cm 0.60 0.60 -Wound/Ulcer Outcome Not Healed Not Healed -Ulcer Cleansing Rinsed/ Rinsed/ Irrigated with Irrigated with Saline Saline -Foul Odor after Cleansing No No -Bioengineered Tissue No No -Bleeding Controlled with Pressure Pressure -Offloading No No -Treatment Response Procedure Procedure Tolerated Well Tolerated Well Pain Scale: 0-10 Numeric Is Patient Pain Free? Yes Yes Wound debrided: Right lower extremity Wound Grade/Stage: Stage 3 Type of Debridement: Excisional debridement Anesthesia Used: 4% Lidocaine Solution Depth: Down to and including healthy tissue, in the subcutaneous layer Percentage of wound debrided: 100 Instrument Used: 3mm curette Tissue Removed: Slough and devitalized tissue Severity: Fat Layer Exposed Amount of bleeding with debridement: Mild Bleeding Controlled with: Pressure Patient tolerated procedure well Assessment/Plan Active Problems Wound dehiscence, surgical (Chronic) Exposed orthopaedic hardware (Chronic) Diabetes mellitus (Chronic) Assessment: Same as above. Plan: Gentle debridement done as documented above, procedure was well-tolerated. No significant change in wound circumference. Depth however worsening. She did follow-up with her orthopedic surgeon Dr. Friedman and no new interventions are planned. ESR and CRP elevated. CT however with no acute cocnerns. Was on antibiotics per culture and sensitivity. Continue Promogran with Adaptic over top. Change daily. Single-layer Tubigrip for edema management. Due to depth, I believe she would benefit from snap/cruz VAC. We will begin the process. She was advised to keep her lower extremity elevated. Increase protein intake and optimal blood sugar control also very strongly recommended. All her questions were answered and she was advised to call with any further questions or co ncerns. Follow-up in 1 week. This note was generated with [employer] dictation software. It may contain incorrect words, spelling, and punctuation that were not noted in checking the note before signing.
--- NOTE | 2018-10-16 14:53 | WC ---
Called and spoke with patient insurance investigator Shelly @ [facility] regarding preauthorization for snap disposable wound vac. CPT code 35557 provided. Insurance rep stated no prior auth is needed for the snap vac and can be initiated per order. Reference #[id number].
[2018-10-23 09:11] VITALS: BP 128/88; PULSE 100; RESP 18; TEMP 36.7; BMI 44.5
--- NOTE | 2018-10-23 10:30 | PCM.WC.PN ---
(1) Wound dehiscence, surgical Status: Chronic Current Visit: Yes Code(s): T81.31XA - Disruption of external operation (surgical) wound, not elsewhere classified, initial encounter (2) Exposed orthopaedic hardware Status: Chronic Current Visit: Yes Code(s): T84.498A - Other mechanical complication of other internal orthopedic devices, implants and grafts, initial encounter (3) Diabetes mellitus Status: Chronic Current Visit: Yes Code(s): E11.9 - Type 2 diabetes mellitus without complications Type of Wound Chief Complaint: Nonhealing postsurgical wound. History of Wound: Ms. Mckoy is a 63-year-old who presents to the wound center due to nonhealing postsurgical wound. She had surgery on the 20 of July after sustaining a tibio fibula fracture of her right lower extremity. Surgery was uneventful however, she states that after surgery and while doing physical therapy ( at her nursing facility ) with wearing a knee brace, she subsequently had breakdown of her wound. This has been managed at her nursing facility. She is unsure of what has been used. However due to poor wound healing/progress, she was referred here. On initial evaluation by the intake nurse, her hardware was easily seen through the wound. She denies chills, fever or feeling of unwell. Progress of Wound: Presents today with increased warmth and swelling of her right knee. She still has exposed hardware. She however denies increased discharge from the wound. She also denies, pain around the area, chills, fever or feeling of unwell. - Physical Exam Vital Signs Temp Pulse Resp BP 98.0 F 100 18 128/88 H 10/23/18 09:11 10/23/18 09:11 10/23/18 09:11 10/23/18 09:11 General: Alert, Oriented x3, Cooperative, No apparent distress HEENT: Atraumatic, Normocephalic Oral: Moist Mucosa Neck: Supple Lungs: Normal air movement Extremities: No cyanosis, Edema Skin: Ulcer/ Wound Wound Measurements and Assessment WC - Nurse 1 - General Ulcer Measurement Start: 10/03/18 10:48 Freq: Status: Active Protocol: Activity Type Activity Date Activity User E-Sign Co-Sign Detail Recorded Client Recorded Date Recorded By Document 10/23/18 09:11 PA [id number] 10/23/18 09:14 PA 10/23/18 09:11 Wound Center Nurse 1 [Ulcer Assessment] #1- RT KNEE/LATERAL LAGUERRE -Current Size (cm) - Length 1.1 -Current Size (cm) - Width 0.5 -Current Size (cm) - Depth 1.1 -Total Square Cm 0.55 -Photo Taken No -Tunneling No -Undermining/Tunneling No -Circular Undermining No -Exudate Amt Medium -Exudate Type Purulent -Wound Margin Thickened & Rolled Under -Slough/Fibrin Yes -Necrosis Amt Large (67-100%) -Necrotic Tissue Type Adherent Slough -Texture (Tiana-wound Skin Appearance) Assessed -Moisture (Tiana-wound Skin Appearance Assessed ) -Color (Tiana-wound Skin Appearance) Assessed -Temperature (Tiana-wound Skin Hot Appearance) -Tenderness on Palpation (Tiana-wound Yes Skin Appearance) -Ulcer Cleansing Rinsed/ Irrigated with Saline -Foul Odor after Cleansing No -Anesthetic Used 5% Lidocaine Gel [Edema Assessment] -Right Calf (cm) 35.5 -Right Ankle (cm) 22.5 WC - Nurse 2 - General Ulcer CM Notes Start: 10/03/18 10:48 Freq: Status: Active Protocol: Activity Type Activity Date Activity User E-Sign Co-Sign Detail Recorded Client Recorded Date Recorded By Document 10/23/18 09:27 MW [id number] 10/23/18 09:35 MW 10/23/18 09:27 Wound Center Nurse 2 [Procedure/Treatment] #1- RT KNEE/LATERAL LAGUERRE -Time 09:27 -Correct Patient Yes -Correct Side, Site, Position Yes -Correct Procedure Yes -Procedure Performed Yes -Type of Procedure Debridement -Clinical Debridement Subcutaneous -Post Debridement Size (cm) - Length 1.1 -Post Debridement Size (cm) - Width 0.6 -Post Debridement Size (cm) - Depth 0.9 -Total Square Cm 0.66 -Wound/Ulcer Outcome Not Healed -Ulcer Cleansing Rinsed/ Irrigated with Saline -Foul Odor after Cleansing No -Bioengineered Tissue No -Bleeding Controlled with Pressure -Offloading No -Treatment Response Procedure Tolerated Well [See Physician Procedure note for Specifics] Pain Scale: 0-10 Numeric [Pain] -Is Patient Pain Free? Yes Musculoskeletal: No Muscle Wasting Neurological: Cranial nerves II-XII grossly intact Psych/Mental Status: Normal Affect Debridement Note Post-Debridement Measurements/Treatment WC - Nurse 2 - General Ulcer CM Notes Start: 10/03/18 10:48 Freq: Status: Active Protocol: Activity Type Activity Date Activity User E-Sign Co-Sign Detail Recorded Client Recorded Date Recorded By Document 10/09/18 12:03 MW [id number] 10/09/18 12:05 MW Document 10/16/18 09:48 MW [id number] 10/16/18 09:53 MW Document 10/23/18 09:27 MW [id number] 10/23/18 09:35 MW 10/09/18 10/16/18 10/23/18 12:03 09:48 09:27 Wound Center Nurse 2 #1- RT KNEE/LATERAL LAGUERRE -Time 12:03 09:49 09:27 -Correct Patient Yes Yes Yes -Correct Side, Site, Position Yes Yes Yes -Correct Procedure Yes Yes Yes -Procedure Performed Yes Yes Yes -Type of Procedure Debridement Debridement Debridement -Clinical Debridement Subcutaneous Subcutaneous Subcutaneous -Post Debridement Size (cm) - Length 1.0 1.0 1.1 -Post Debridement Size (cm) - Width 0.6 0.6 0.6 -Post Debridement Size (cm) - Depth 0.6 0.8 0.9 -Total Square Cm 0.60 0.60 0.66 -Wound/Ulcer Outcome Not Healed Not Healed Not Healed -Ulcer Cleansing Rinsed/ Rinsed/ Rinsed/ Irrigated with Irrigated with Irrigated with Saline Saline Saline -Foul Odor after Cleansing No No No -Bioengineered Tissue No No No -Bleeding Controlled with Pressure Pressure Pressure -Offloading No No No -Treatment Response Procedure Procedure Procedure Tolerated Well Tolerated Well Tolerated Well Pain Scale: 0-10 Numeric Is Patient Pain Free? Yes Yes Yes Wound debrided: Right lower extremity Wound Grade/Stage: Stage III Type of Debridement: Excisional debridement Anesthesia Used: 4% Lidocaine Solution Depth: Down to and including healthy tissue, in the subcutaneous layer Percentage of wound debrided: 100 Instrument Used: 3mm curette Tissue Removed: Slough and devitalized tissue Severity: Fat Layer Exposed - Exposed hard navarrete Amount of bleeding with debridement: Mild Bleeding Controlled with: Pressure Patient tolerated procedure well Assessment/Plan Active Problems Wound dehiscence, surgical (Chronic) Exposed orthopaedic hardware (Chronic) Diabetes mellitus (Chronic) Assessment: Same as above. Plan: As above, patient presents today with increased erythema, warmth and swelling of her right knee and proximal leg. She denies any other constitutional symptoms. Gentle debridement done as documented above, procedure was well-tolerated. Worsening wound circumference and depth. She did follow-up with her orthopedic surgeon Dr. Friedman 2 - 3 weeks and no new interventions are planned. ESR and CRP elevated. Last CT however with no acute cocnerns. Was on antibiotics per culture and sensitivity. Due to new concerns, she was advised to go to the ER for work up/ rule out an infectious process. Patient is schedued to leave for [facility] today. Continue Promogran with Adaptic over top. Change daily. Single-layer Tubigrip for edema management. Approved for a SNAP however, this will be applied probably on return from her trip to [facility]. She was advised to keep her lower extremity elevated. Increase protein intake and optimal blood sugar control also very strongly recommended. All her questions were answered and she was advised to call with any further questions or concerns. Follow-up in 1 week. This note was generated with [employer] dictation software. It may contain incorrect words, spelling, and punctuation that were not noted in checking the note before signing.
--- NOTE | 2018-10-23 10:39 | PN.PCM_ITS ---
(1) Wound dehiscence, surgical Status: Chronic Current Visit: Yes Code(s): T81.31XA - Disruption of external operation (surgical) wound, not elsewhere classified, initial encounter (2) Exposed orthopaedic hardware Status: Chronic Current Visit: Yes Code(s): T84.498A - Other mechanical complication of other internal orthopedic devices, implants and grafts, initial encounter (3) Diabetes mellitus Status: Chronic Current Visit: Yes Code(s): E11.9 - Type 2 diabetes mellitus without complications Type of Wound Chief Complaint: Nonhealing postsurgical wound. History of Wound: Ms. Mckoy is a 63-year-old who presents to the wound c enter due to nonhealing postsurgical wound. She had surgery on the 20 of July after sustaining a tibio fibula fracture of her right lower extremity. Surgery was uneventful however, she states that after surgery and while doing physical therapy ( at her nursing facility ) with wearing a knee brace, she subsequently had breakdown of her wound. This has been managed at her nursing facility. She is unsure of what has been used. However due to poor wound healing/progress, she was referred here. On initial evaluation by the intake nurse, her hardware was easily seen through the wound. She denies chills, fever or feeling of unwell. Progress of Wound: Presents today with increased warmth and swelling of her right knee. She still has exposed hardware. She however denies increased discharge from the wound. She also denies, pain around the area, chills, fever or feeling of unwell. - Physical Exam Vital Signs Temp Pulse Resp BP 98.0 F 100 18 128/88 H 10/23/18 09:11 10/23/18 09:11 10/23/18 09:11 10/23/18 09:11 General: Alert, Oriented x3, Cooperative, No apparent distress HEENT: Atraumatic, Normocephalic Oral: Moist Mucosa Neck: Supple Lungs: Normal air movement Extremities: No cyanosis, Edema Skin: Ulcer/ Wound Wound Measurements and Assessment WC - Nurse 1 - General Ulcer Measurement Start: 10/03/18 10:48 Freq: Status: Active Protocol: Activity Type Activity Date Activity User E-Sign Co-Sign Detail Recorded Client Recorded Date Recorded By Document 10/23/18 09:11 OR [id number] 10/23/18 09:14 OR 10/23/18 09:11 Wound Center Nurse 1 [Ulcer Assessment] #1- RT KNEE/LATERAL LAGUERRE -Current Size (cm) - Length 1.1 -Current Size (cm) - Width 0.5 -Current Size (cm) - Depth 1.1 -Total Square Cm 0.55 -Photo Taken No -Tunneling No -Undermining/Tunneling No -Circular Undermining No -Exudate Amt Medium -Exudate Type Purulent -Wound Margin Thickened & Rolled Under -Slough/Fibrin Yes -Necrosis Amt Large (67-100%) -Necrotic Tissue Type Adherent Slough -Texture (Tiana-wound Skin Appearance) Assessed -Moisture (Tiana-wound Skin Appearance Assessed ) -Color (Tiana-wound Skin Appearance) Assessed -Temperature (Itana-wound Skin Hot Appearance) -Tenderness on Palpation (Tiana-wound Yes Skin Appearance) -Ulcer Cleansing Rinsed/ Irrigated with Saline -Foul Odor after Cleansing No -Anesthetic Used 5% Lidocaine Gel [Edema Assessment] -Right Calf (cm) 35.5 -Right Ankle (cm) 22.5 WC - Nurse 2 - General Ulcer CM Notes Start: 10/03/18 10:48 Freq: Status: Active Protocol: Activity Type Activity Date Activity User E-Sign Co-Sign Detail Recorded Client Recorded Date Recorded By Document 10/23/18 09:27 MW [id number] 10/23/18 09:35 MW 10/23/18 09:27 Wound Center Nurse 2 [Procedure/Treatment] #1- RT KNEE/LATERAL LAGUERRE -Time 09:27 -Correct Patient Yes -Correct Side, Site, Position Yes -Correct Procedure Yes -Procedure Performed Yes -Type of Procedure Debridement -Clinical Debridement Subcutaneous -Post Debridement Size (cm) - Length 1.1 -Post Debridement Size (cm) - Width 0.6 -Post Debridement Size (cm) - Depth 0.9 -Total Square Cm 0.66 -Wound/Ulcer Outcome Not Healed -Ulcer Cleansing Rinsed/ Irrigated with Saline -Foul Odor after Cleansing No -Bioengineered Tissue No -Bleeding Controlled with Pressure -Offloading No -Treatment Response Procedure Tolerated Well [See Physician Procedure note for Specifics] Pain Scale: 0-10 Numeric [Pain] -Is Patient Pain Free? Yes Musculoskeletal: No Muscle Wasting Neurological: Cranial nerves II-XII grossly intact Psych/Mental Status: Normal Affect Debridement Note Post-Debridement Measurements/Treatment WC - Nurse 2 - General Ulcer CM Notes Start: 10/03/18 10:48 Freq: Status: Active Protocol: Activity Type Activity Date Activity User E-Sign Co-Sign Detail Recorded Client Recorded Date Recorded By Document 10/09/18 12:03 MW [id number] 10/09/18 12:05 MW Document 10/16/18 09:48 MW [id number] 10/16/18 09:53 MW Document 10/23/18 09:27 MW [id number] 10/23/18 09:35 MW 10/09/18 10/16/18 10/23/18 12:03 09:48 09:27 Wound Center Nurse 2 #1- RT KNEE/LATERAL LAGUERRE -Time 12:03 09:49 09:27 -Correct Patient Yes Yes Yes -Correct Side, Site, Position Yes Yes Yes -Correct Procedure Yes Yes Yes -Procedure Performed Yes Yes Yes -Type of Procedure Debridement Debridement Debridement -Clinical Debridement Subcutaneous Subcutaneous Subcutaneous -Post Debridement Size (cm) - Length 1.0 1.0 1.1 -Post Debridement Size (cm) - Width 0.6 0.6 0.6 -Post Debridement Size (cm) - Depth 0.6 0.8 0.9 -Total Square Cm 0.60 0.60 0.66 -Wound/Ulcer Outcome Not Healed Not Healed Not Healed -Ulcer Cleansing Rinsed/ Rinsed/ Rinsed/ Irrigated with Irrigated with Irrigated with Saline Saline Saline -Foul Odor after Cleansing No No No -Bioengineered Tissue No No No -Bleeding Controlled with Pressure Pressure Pressure -Offloading No No No -Treatment Response Procedure Procedure Procedure Tolerated Well Tolerated Well Tolerated Well Pain Scale: 0-10 Numeric Is Patient Pain Free? Yes Yes Yes Wound debrided: Right lower extremity Wound Grade/Stage: Stage III Type of Debridement: Excisional debridement Anesthesia Used: 4% Lidocaine Solution Depth: Down to and including healthy tissue, in the subcutaneous layer Percentage of wound debrided: 100 Instrument Used: 3mm curette Tissue Removed: Slough and devitalized tissue Severity: Fat Layer Exposed - Exposed hard navarrete Amount of bleeding with debridement: Mild Bleeding Controlled with: Pressure Patient tolerated procedure well Assessment/Plan Active Problems Wound dehiscence, surgical (Chronic) Exposed orthopaedic hardware (Chronic) Diabetes mellitus (Chronic) Assessment: Same as above. Plan: As above, patient presents today with increased erythema, warmth and swelling of her right knee and proximal leg. She denies any other constitutional symptoms. Gentle debridement done as documented above, procedure was well- tolerated. Worsening wound circumference and depth. She did follow-up with her orthopedic surgeon Dr. Friedman 2 - 3 weeks and no new interventions are planned. ESR and CRP elevated. Last CT however with no acute cocnerns. Was on antibiotics per culture and sensitivity. Due to new concerns, she was advised to go to the ER for work up/ rule out an infectious process. Patient is schedued to leave for [facility] today. Continue Promogran with Adaptic over top. Change daily. Single-layer Tubigrip for edema management. Approved for a SNAP however, this will be applied probably on return from her trip to [facility]. She was advised to keep her lower extremity elevated. Increase protein intake and optimal blood sugar control also very strongly recommended. All her questions were answered and she was advised to call with any further questions or concerns. Follow-up in 1 week. This note was generated with [employer] dictation software. It may contain incorrect words, spelling, and punctuation that were n ot noted in checking the note before signing.
== END 2018-10-24 23:59 ==
LOC: WC 09:15
PROVIDERS: Family Provider Family Medicine; PCP Family Medicine; Referring Provider Internal Medicine; Visit Provider Internal Medicine
DX: T81.31XA Disruption of external operation (surgical) wound, not elsewhere classified, initial encounter (principal); T84.498A Other mechanical complication of other internal orthopedic devices, implants and grafts, initial encounter; Y83.8 Other surgical procedures as the cause of abnormal reaction of the patient, or of later complication, without mention of misadventure at the time of the procedure; E11.9 Type 2 diabetes mellitus without complications; I10 Essential (primary) hypertension; Z68.41 Body mass index [BMI] 40.0-44.9, adult; E66.9 Obesity, unspecified; Z71.3 Dietary counseling and surveillance
CPT/HCPCS: 11042; 99212; G0463

== ENCOUNTER 2018-10-23 10:01 | Emergency (ER) | payer MEDICAID, SELFPAY ==
[2018-10-23 09:11] VITALS: BMI 44.5
[2018-10-23 10:03] VITALS: BP 116/86; PULSE 91; RESP 16; TEMP 37.1; O2SAT 99; BMI 40.3
--- NOTE | 2018-10-23 10:22 | CT_ITS ---
STUDY: CT RIGHT KNEE WITHOUT CONTRAST REASON FOR EXAM: Female, 63 years old. Pain and swelling of the right knee. The patient is status post open reduction internal fixation of the tibial plateau fracture. RADIATION DOSAGE (If Supplied By Facility): CTDIvol = ( 15.35 ) mGy, DLP = ( 401.04 ) mGycm TECHNIQUE: Transaxial CT imaging of the knee was performed. Coronal and sagittal images were reformatted. Individualized dose optimization techniques were used for this CT. COMPARISON: Comparison is made with prior examination dated September 11, 2018. FINDINGS: The patient is status post lateral plate screw fixation of the proximal tibia. The fracture line is visible. There is also evidence of prior open reduction internal fixation of the distal tibia and tibiotalar joint. Small joint effusion. Normal proximal tibiofibular articulation. There is no joint effusion. The quadriceps tendon is grossly normal. The patellar tendon is grossly normal. Normal Hoffa's fat pad. Small Jarrett's cyst. CT/Extremity Lower without Contra IMPRESSION: Status post tibial plateau fracture repair. This is unchanged. Small joint effusion. Electronically Signed: Wilber Soni, at 11:38 EDT , Service support ,
[2018-10-23 10:38] LABS: Absolute Lymphocyte Count 2.97 X10^3/ul (0.83-4.51); Absolute Neutrophil Count 5.8 X10^3/uL (2.0-7.7); Basophil# 0.02 X10^3/uL; Basophil% 0.2 % (0-1); Eosinophil# 0.09 X10^3/uL; Eosinophils% 0.9 % (0-5); Hematocrit 41.8 % (37-47); Hemoglobin 13.6 g/dl (12.0-15.0); Lymphocyte # 2.97 X10^3/ul (4.0); Lymphocyte % 30.5 % (19-41); Mean Corp Hgb Conc 32.5 g/gl (32-36); Mean Corpuscular Hgb 27.2 pg (27.0-32.0); Mean Corpuscular Volume 83.6 fL (81-99); Mean Platelet Vol. 8.8 fl (6.2-12.0); Monocyte# 0.84 X10^3/uL; Monocyte% 8.6 % (0-10); Neutrophil # 5.79 X10^3/uL (2.7-7.7); Neutrophil % 59.6 % (47-70); Platelet Count 526 K/mm3 (150-450); RBC Distribution Width CV 13.7 % (11.6-14.6); RBC Distribution Width SD 41.3 fl (35.1-43.9); White Blood Count 9.7 K/mm3 (4.4-11.0)
[2018-10-23 10:39] LABS: POSITIVE COUNT NO; POSITIVE DIFFERENTIAL NO; POSITIVE MORPHOLOGY NO
[2018-10-23 10:48] LABS: Anion Gap 8 (5-15); BUN 9 mg/dL (7-18); BUN/Creat Ratio 16.3 RATIO (10-20); Calcium,Total 9.4 mg/dL (8.5-10.1); Chloride 106 mmol/L (98-107); Creatinine, Serum 0.55 mg/dL (0.55-1.02); EST Glomerular Filtration Rate 118 mL/min (>60); Est Glom Filt Rate - Afr Amer 142 mL/min (>60); Estimated Creatinine Clearance 119.13 ml/min; Glucose 140 mg/dL (74-106); Potassium 3.6 mmol/L (3.5-5.1); Sodium Level 141 mmol/L (136-145)
--- NOTE | 2018-10-23 11:00 | ED.VISSUMM ---
- ER Visit Summary Date of Service: 10/23/18 Chief Complaint: Wound check History of Present Illness: The patient is a 63 F who was referred to the emergency department from nurse at the wound center. Patient had a tibial plateau fracture in June of this year. There was wound dehiscence while in physical therapy. She has been seeing the wound center over the past month. She states the wound itself is gotten better. She had cultures that grew out several organisms (please see wound culture). She states she has not been on any antibiotics. She states that today she went for her checkup and her nursing was reported that she had increased warmth and redness and swelling to the area. Patient states that she thinks the wound looks pretty good. She has a history of diabetes. She is also on Xarelto. Her orthopedic surgeon is Dr. Friedman. She has been seeing Dr. Man for wound care. Physical Examination: Afebrile vital signs are stable Gen: Well-nourished well-developed Head: Normocephalic atraumatic Eyes: Perrl EOMI ENT: TMs clear no rhinorrhea moist mucous membranes Neck: Supple no lymphadenopathy no JVD nontender CVS: Regular rate rhythm no murmurs normal S1-S2 Respiratory: No distress clear to auscultation bilaterally chest nontender Abdomen: Soft nontender nondistended normal bowel sounds no masses Back: Nontender Extremity: Chronic wound on the right lateral knee. There is moist granulation tissue. There is no significant swelling or effusion. I do not appreciate significant erythema. No lymphangitic streaking. Skin: As above Neuro: alert orientated ?3 CN II-XII intact normal strength sensation reflexes gait cerebellar Psych: Normal affect normal mood Test Results: White count is normal. CRP was 44 on 09/11. Today it is 15.1. Sed rate is 58. CT was negative for abscess or significant fluid collection Emergency Department Course and Treatment: I spoke with Dr. Man. Patient will continue wound care that she has been doing. They will be monitoring her at the center. Impression: 1. Surgical wound dehiscence right leg This note was generated with [employer] dictation software. It may contain incorrect words, spelling, and punctuation that were not noted in review of the chart prior to signing ED Disposition - Plan for ED Patient: Disposition: Home or Assisted Living Instructions: ED Wound Check Post Op No Infec Referrals: Claudette Juarez MD [STAFF PHYSICIAN] - Keep Ismael appointment
[2018-10-23 11:26] LABS: Erythrocyte Sedimentation Rate 58 mm/hr (0-30)
[2018-10-23 11:57] VITALS: BP 122/72; PULSE 90; RESP 16; O2SAT 98
== END 2018-10-23 12:02 | disposition home or self-care (01) ==
PROVIDERS: Emergency Provider Emergency Medicine; Family Provider Family Medicine; PCP Family Medicine
DX: T81.31XA Disruption of external operation (surgical) wound, not elsewhere classified, initial encounter (principal); J45.909 Unspecified asthma, uncomplicated; E11.9 Type 2 diabetes mellitus without complications; I10 Essential (primary) hypertension; E78.00 Pure hypercholesterolemia, unspecified; Z79.01 Long term (current) use of anticoagulants; Z79.4 Long term (current) use of insulin; Z79.84 Long term (current) use of oral hypoglycemic drugs; Z79.82 Long term (current) use of aspirin; Z79.899 Other long term (current) drug therapy
CPT/HCPCS: 73700; 80048; 85025; 85652; 86140; 99283; A4216

== ENCOUNTER 2018-11-14 17:28 | Emergency (ER) | payer MEDICAID, SELFPAY ==
[2018-11-11 08:49] VITALS: BMI 44.5
[2018-11-14 17:30] VITALS: BP 143/73; PULSE 98; RESP 14; TEMP 36.8; O2SAT 98; BMI 40.4
[2018-11-14] MEDS: 0.9% Normal Saline 1,000 ML 150 ML IV (18:53)
[2018-11-14 19:08] LABS: Absolute Lymphocyte Count 3.56 X10^3/ul (0.83-4.51); Absolute Neutrophil Count 4.8 X10^3/uL (2.0-7.7); Basophil# 0.06 X10^3/uL; Basophil% 0.6 % (0-1); Eosinophil# 0.22 X10^3/uL; Eosinophils% 2.4 % (0-5); Hematocrit 40.8 % (37-47); Hemoglobin 13.2 g/dl (12.0-15.0); Lymphocyte # 3.56 X10^3/ul (4.0); Lymphocyte % 38.2 % (19-41); Mean Corp Hgb Conc 32.4 g/gl (32-36); Mean Corpuscular Hgb 26.9 pg (27.0-32.0); Mean Corpuscular Volume 83.1 fL (81-99); Mean Platelet Vol. 9.3 fl (6.2-12.0); Monocyte# 0.63 X10^3/uL; Monocyte% 6.8 % (0-10); Neutrophil # 4.81 X10^3/uL (2.7-7.7); Neutrophil % 51.7 % (47-70); Platelet Count 450 K/mm3 (150-450); RBC Distribution Width CV 14.1 % (11.6-14.6); RBC Distribution Width SD 42.3 fl (35.1-43.9); Red Blood Count 4.91 M/mm3 (4.2-5.4); White Blood Count 9.3 K/mm3 (4.4-11.0)
[2018-11-14 19:11] LABS: POSITIVE COUNT NO; POSITIVE DIFFERENTIAL NO; POSITIVE MORPHOLOGY NO
[2018-11-14 19:18] LABS: Anion Gap 4 (5-15); BUN 12 mg/dL (7-18); BUN/Creat Ratio 17.4 RATIO (10-20); Calcium,Total 9.1 mg/dL (8.5-10.1); Chloride 102 mmol/L (98-107); Creatinine, Serum 0.69 mg/dL (0.55-1.02); EST Glomerular Filtration Rate 91 mL/min (>60); Est Glom Filt Rate - Afr Amer 110 mL/min (>60); Estimated Creatinine Clearance 95.18 ml/min; Glucose 297 mg/dL (74-106); Potassium 3.6 mmol/L (3.5-5.1); Sodium Level 135 mmol/L (136-145)
[2018-11-14 20:49] VITALS: BP 110/86; PULSE 84; RESP 16
--- NOTE | 2018-11-14 21:33 | ED.VISSUMM ---
- ER Visit Summary Date of Service: 11/14/18 Chief Complaint: Extremity wound History of Present Illness: The patient is a 63 F who had surgery in June for tibial plateau fracture with Dr. Friedman. She has a known wound dehiscence with hardware exposure has been following in the wound center. She was last seen in the wound center on the . Wound was cleansed at that time and patient was to continue Levaquin and Flagyl. Wound cultures were sent at that visit. Patient presents today with increased drainage from her wound for the past 2 days. She states she ran out of her antibiotics several days ago did not tell them that at the wound center. She has not had fever or chills. Physical Examination: Vital signs unremarkable. She is afebrile. Patient sitting upright in bed no acute distress. She is nontoxic appearing. Heart is regular rate and rhythm. Lungs sounds clear. Abdomen is soft nontender. Right lower extremity examination reveals a 1 cm round area of wound dehiscence in the right proximal lateral castro with purulent drainage. No sign of surrounding cellulitis. Test Results: CBC is normal. Chemistry studies significant only for glucose of 297. Emergency Department Course and Treatment: Wound is cleansed. There is granulation tissue in place with no evidence of hardware exposure at this time. There is no fluctuance or drainage after the wound is cleansed. I did review her recent wound culture. At this time I believe patient needs to be back on the Levaquin and Flagyl that the wound center believes that she is currently taking. She is given a prescription along with a dose here. She is to call wound center on Saturday and follow-up with them on Saturday if not sooner. If her wound gets worse she is to return to the emergency room for repeat evaluation. Treatment Plan: [] Disposition: Discharge Impression: Chronic right lower extremity wound This note was generated with [employer] dictation software. It may contain incorrect words, spelling, and punctuation that were not noted in review of the chart prior to signing ED Disposition - Plan for ED Patient: Disposition: Home or Assisted Living Instructions: POST OP WOUND CHECK, Infection Prescriptions: metroNIDAZOLE [Flagyl] 500 mg PO Q6H #40 tab Prescription Printed levoFLOXacin tablet [Levaquin] 500 mg PO DAILY #7 tab Prescription Printed Additional Instructions: Follow-up with Wound Center as scheduled.
[2018-11-14] MEDS: metroNIDAZOLE 500 MG Tablet PO (21:41)
[2018-11-14] MEDS: levoFLOXacin 500 MG Tablet PO (21:41)
== END 2018-11-14 21:44 | disposition home or self-care (01) ==
PROVIDERS: Emergency Provider Emergency Medicine; Family Provider Family Medicine; PCP Family Medicine
DX: T81.30XA Disruption of wound, unspecified, initial encounter (principal); J45.909 Unspecified asthma, uncomplicated; E11.9 Type 2 diabetes mellitus without complications; I10 Essential (primary) hypertension; Z79.4 Long term (current) use of insulin; Z79.84 Long term (current) use of oral hypoglycemic drugs; Z79.82 Long term (current) use of aspirin; Z79.899 Other long term (current) drug therapy
CPT/HCPCS: 36415; 80048; 85025; 87040; 96360; 96361; 99284; J7030; A4216

== ENCOUNTER 2018-11-17 14:20 | Emergency (ER) | payer MEDICAID, SELFPAY ==
[2018-11-17 14:22] VITALS: BP 151/74; PULSE 113; RESP 18; TEMP 35.9; O2SAT 97; BMI 30.7
[2018-11-17] MEDS: HYDROcodone Bitartrate/Apap 5/325 Tablet PO (16:21)
[2018-11-17 16:24] VITALS: BP 104/53; PULSE 98; RESP 16; TEMP 36.4; O2SAT 98
--- NOTE | 2018-11-17 16:41 | ED.VISSUMM ---
- ER Visit Summary Date of Service: 11/17/18 Chief Complaint: Right lower extremity wound History of Present Illness: The patient is a 63 F presenting with pain and redness to her chronic right lower extremity wound. Patient was seen in the ED on November 14, 2018 for similar complaints. She had surgery per Dr. Friedman in June for tibial plateau fracture. Since that time she has had poor wound healing. She has a history of a wound dehiscence with hardware exposure and is being followed at the wound center. She was last seen there on November 11, 2018. Wound cultures were taken. She was given Levaquin and Flagyl on her last ER visit after review of her records. She states she is taking this medication. Denies fever. Denies other complaints. Physical Examination: Vitals are stable. Patient is afebrile. Alert no acute distress. HEENT exam is unremarkable. Neck is supple. Lungs are clear and equal bilaterally. Heart is regular rate and rhythm. Abdomen is soft nontender nondistended. Extremities 1 cm round area of wound dehiscence right proximal tibia with no surrounding cellulitis. Normal range of motion of knee. Normal distal pulse. Skin is warm and dry. No focal neurologic deficit. Remainder of exam is unremarkable. Emergency Department Course and Treatment: Dr. Carrera who evaluated her 3 days ago was able to reevaluate her and states the wound is similar to 3 days ago. Patient is advised to continue her antibiotics as directed. She will follow-up with wound center. She is given short course of Presto for pain. Advised return to ED for worsening complaints. Disposition: Discharge home Impression: Chronic right lower extremity wound This note was generated with [employer] dictation software. It may contain incorrect words, spelling, and punctuation that were not noted in review of the chart prior to signing ED Disposition - Plan for ED Patient: Referrals: Avinash Najera MD [Primary Care Provider] -
--- NOTE | 2018-11-17 16:47 | DCINST.ED_ITS ---
ED Disposition - Plan for ED Patient: Instructions: Wound Care Prescriptions: Hydrocodone Bitart/Apap 5-325 [[place] 5MG-325MG] 1 tablet PO Q6H PRN PRN 3 Days #10 tablet PRN Reason: Pain Referrals: Avinash Najera MD [Primary Care Provider] -
== END 2018-11-17 17:11 | disposition home or self-care (01) ==
LOC: ED 16:14
PROVIDERS: Emergency Provider Emergency Medicine; Family Provider Family Medicine; PCP Family Medicine
DX: T81.30XA Disruption of wound, unspecified, initial encounter (principal); E11.9 Type 2 diabetes mellitus without complications; I10 Essential (primary) hypertension; E78.00 Pure hypercholesterolemia, unspecified; Z79.82 Long term (current) use of aspirin; Z79.84 Long term (current) use of oral hypoglycemic drugs; Z79.4 Long term (current) use of insulin; Z79.899 Other long term (current) drug therapy
CPT/HCPCS: 99283

== ENCOUNTER 2018-11-19 10:30 | Outpatient (RCR) | payer MEDICAID, SELFPAY ==
[2018-10-25 01:10] VITALS: BP 128/88; PULSE 100; RESP 18; TEMP 36.7; BMI 44.5
[2018-11-05 13:12] VITALS: BP 143/79; PULSE 97; RESP 16; TEMP 36.5; BMI 44.5
--- NOTE | 2018-11-05 14:23 | HP.PCM_ITS ---
(1) Tibial plateau fracture Status: Chronic Current Visit: Yes Qualifiers: Encounter type: initial encounter Code(s): S82.143A - Displaced bicondylar fracture of unspecified tibia, initial encounter for closed fracture (2) Bronchial asthma Status: Chronic Current Visit: No Code(s): J45.909 - Unspecified asthma, uncomplicated (3) Debility Status: Chronic Current Visit: Yes Code(s): R53.81 - Other malaise (4) Diabetes mellitus Status: Chronic Current Visit: Yes Qualifiers: Diabetes mellitus type: type 2 Code(s): E11.9 - Type 2 diabetes mellitus without complications (5) Exposed orthopaedic hardware Status: Chronic Current Visit: Yes Code(s): T84.498A - Other mechanical complication of other internal orthopedic devices, implants and grafts, initial encounter (6) Hyperlipidemia Status: Chronic Current Visit: No Code(s): E78.5 - Hyperlipidemia, unspecified (7) Hypertension Status: Chronic Current Visit: No Code(s): I10 - Essential (primary) hypertension (8) Obesity Status: Chronic Current Visit: No Code(s): E66.9 - Obesity, unspecified (9) Wound dehiscence, surgical Status: Chronic Current Visit: Yes Qualifiers: Encounter type: initial encounter Qualified Code(s): T81.31XA - Disruption of external operation (surgical) wound, not elsewhere classified, initial encounter Code(s): T81.31XA - Disruption of external operation (surgical) wound, not elsewhere classified, initial encounter History of Present Illness Chief Complaint: Nonhealing postsurgical wound; dehiscent right tibial plateau fracture ORIF incisional wound History of Wound: Ms. Mckoy is a 63-year-old who presented to the Wound Center due to nonhealing postsurgical wound. She had surgery on July 19, 2018, at which time she underwent ORIF of a right tibial plateau fracture by Dr. Matt Friedman. Surgery was apparently uneventful. However, she states that after surgery, and while doing physical therapy (at her nursing facility ) wearing a knee brace, she subsequently had breakdown of her wound. This had been managed at her nursing facility. She was unsure of what had been used for wound management. However due to poor wound healing/progress, she was referred here. On initial evaluation by the intake nurse, her hardware was easily seen through the wound. She denied chills, fever, or malaise. Past Medical History Past Medical History: Chronic Problems Tibial plateau fracture (Chronic) Debility (Chronic) Wound dehiscence, surgical (Chronic) Exposed orthopaedic hardware (Chronic) Bronchial asthma (Chronic) Diabetes mellitus (Chronic) Hyperlipidemia (Chronic) Hypertension (Chronic) Obesity (Chronic) Surgical History: appendectomy, cholecystectomy, hysterectomy Allergies/Adverse Reactions: Allergies cephalexin [From Keflex] Allergy (Verified 10/23/18 10:05) Breakouts insulin lispro [From Humalog] Allergy (Verified 10/23/18 10:05) Rash Penicillins Allergy (Verified 10/23/18 10:05) Rash Home Medications: Ambulatory Orders Medication Instructions Recorded Lisinopril [Zestril] 10 mg PO DAILY 08/25/14 Lovastatin [Mevacor] 40 mg PO LUNCH 08/25/14 Vitamin B Complex 1 each PO BID 11/23/15 metFORMIN HCl [Glucophage] 1,000 mg PO BIDCM 09/19/16 Acetaminophen [Tylenol Tablet] 650 mg PO Q6H PRN PRN #0 tablet 09/24/16 Aspirin [Aspirin EC] 81 mg PO DAILY 07/18/18 Insulin Detemir [Levemir FlexPen] 46 units SC QHS 07/18/18 Acetaminophen [Tylenol Tablet] 650 mg PO Q6H PRN PRN tablet 07/22/18 Insulin Lispro [Humalog KwikPen] See Protocol SC ACHS insuln.pen 07/22/18 Senna/Docusate Sodium [Senokot-S] 1 tablet PO BID tablet 07/22/18 - Family History Maternal Diabetes Paternal Diabetes Smoking Status: Never smoker Tobacco Use: Non-smoker Drugs: None Review of Systems Constitutional: Denies: Chills, Fever, Weight Change Eyes: Denies: Pain, Vision Change HEENT: Denies: Difficulty Hearing, Difficulty Swallowing, Sinus Congestion Cardiovascular: Denies: Chest Pain, Palpitations Respiratory: Denies: Cough, Shortness of Breath Gastrointestinal: Denies: Diarrhea, Nausea, Vomiting Genitourinary: Denies: Dysuria, Hematuria Endocrine: Denies: Heat/ Cold Intolerance, Polydipsia, Polyuria Hematologic/ Lymphatic: Denies: Easy Bruising, Easy Bleeding - Physical Exam Vital Signs Temp Pulse Resp BP 97.7 F L 97 16 143/79 H 11/05/18 13:12 11/05/18 13:12 11/05/18 13:12 11/05/18 13:12 General: Alert, Oriented x3, Cooperative, No apparent distress, Well developed, Well nourished HEENT: Atraumatic, PERRLA, EOMI, Normocephalic Oral: Moist Mucosa Neck: No JVD Lungs: Normal air movement Abdomen: Non-Distended Extremities: No clubbing, No cyanosis, No edema, No Calf Tenderness, - - Peripheral extremities appear warm and well-perfused. A small wound is noted lateral to the right knee. Dimensions are documented elsewhere. There is no obvious sign of infection or cellulitis. The base of the wound is pink, with a moderate to large amount of bioburden and nonviable tissue present. Probing of the wound demonstrates that underlying a layer of soft tissue, is likely either bone or metal hardware. While underlying bone or hardware is not readily visible, there is suspicion that there is likely communication between the external environment and the underlying hardware. The erythema which have been present at her prior clinic visit appears to be markedly improved. Patient remains on Levaquin and metronidazole orally. Wound Measurements and Assessment WC - Nurse 1 - General Ulcer Measurement Start: 11/05/18 13:11 Freq: Status: Active Protocol: Activity Type Activity Date Activity User E-Sign Co-Sign Detail Recorded Client Recorded Date Recorded By Document 11/05/18 13:12 [facility] [id number] 11/05/18 13:16 [facility] 11/05/18 13:12 Wound Center Nurse 1 [Ulcer Assessment] #1- RT KNEE/LATERAL LAGUERRE -Combined with other wound No -Current Size (cm) - Length 0.9 -Current Size (cm) - Width 0.8 -Current Size (cm) - Depth 0.3 -Total Square Cm 0.72 -Photo Taken No -Epithelialization None Present -Tunneling No -Undermining/Tunneling No -Circular Undermining No -Exudate Amt Small -Exudate Type Serous -Wound Margin Distinct, Outline Attached -Granulation Amt None Present (0 %) -Slough/Fibrin Yes -Necrosis Amt Large (67-100%) -Necrotic Tissue Type Adherent Slough -Texture (Tiana-wound Skin Appearance) Assessed Scarring -Moisture (Tiana-wound Skin Appearance Assessed ) Dry/Scaly -Color (Tiana-wound Skin Appearance) Assessed -Temperature (Tiana-wound Skin No Abnormality Appearance) (Pt Warm) -Tenderness on Palpation (Tiana-wound Yes Skin Appearance) -Ulcer Cleansing Rinsed/ Irrigated with Saline -Foul Odor after Cleansing No -Anesthetic Used 5% Lidocaine Gel [Edema Assessment] -Lower Limb Edema Present Yes -Right Calf (cm) 34 -Right Ankle (cm) 23 WC - Nurse 2 - General Ulcer CM Notes Start: 11/05/18 13:11 Freq: Status: Active Protocol: Activity Type Activity Date Activity User E-Sign Co-Sign Detail Recorded Client Recorded Date Recorded By Document 11/05/18 13:29 MW [id number] 11/05/18 13:38 MW 11/05/18 13:29 Wound Center Nurse 2 [Procedure/Treatment] #1- RT KNEE/LATERAL LAGUERRE -Time 13:29 -Correct Patient Yes -Correct Side, Site, Position Yes -Correct Procedure Yes -Procedure Performed Yes -Type of Procedure Debridement -Clinical Debridement Subcutaneous -Post Debridement Size (cm) - Length 1.2 -Post Debridement Size (cm) - Width 0.9 -Post Debridement Size (cm) - Depth 0.7 -Total Square Cm 1.08 -Wound/Ulcer Outcome Not Healed -Ulcer Cleansing Rinsed/ Irrigated with Saline -Foul Odor after Cleansing No -Bioengineered Tissue No -Bleeding Controlled with Pressure -Offloading No -Treatment Response Procedure Tolerated Well [See Physician Procedure note for Specifics] Pain Scale: 0-10 Numeric [Pain] -Is Patient Pain Free? Yes Neurological: Cranial nerves II-XII grossly intact, Neuro grossly intact Psych/Mental Status: Normal Affect, Appropriate, Alert and oriented to time, place, person, mood and affect Debridement Note Post-Debridement Measurements/Treatment - Nurse 2 - General Ulcer CM Notes Start: 11/05/18 13:11 Freq: Status: Active Protocol: Activity Type Activity Date Activity User E-Sign Co-Sign Detail Recorded Client Recorded Date Recorded By Document 11/05/18 13:29 MW [id number] 11/05/18 13:38 MW 11/05/18 13:29 Wound Center Nurse 2 #1- RT KNEE/LATERAL LAGUERRE -Time 13:29 -Correct Patient Yes -Correct Side, Site, Position Yes -Correct Procedure Yes -Procedure Performed Yes -Type of Procedure Debridement -Clinical Debridement Subcutaneous -Post Debridement Size (cm) - Length 1.2 -Post Debridement Size (cm) - Width 0.9 -Post Debridement Size (cm) - Depth 0.7 -Total Square Cm 1.08 -Wound/Ulcer Outcome Not Healed -Ulcer Cleansing Rinsed/ Irrigated with Saline -Foul Odor after Cleansing No -Bioengineered Tissue No -Bleeding Controlled with Pressure -Offloading No -Treatment Response Procedure Tolerated Well Pain Scale: 0-10 Numeric Is Patient Pain Free? Yes Laterality: Right - Lateral knee Type of Debridement: Excisional debridement Anesthesia Used: 5% Lidocaine Gel Depth: Down to and including healthy tissue, in the subcutaneous layer Percentage of wound debrided: 100 Instrument Used: 3mm curette Tissue Removed: Bioburden and nonviable tissue Severity: Fat Layer Exposed Amount of bleeding with debridement: Mild Bleeding Controlled with: Compression and gauze Patient tolerated procedure well Assessment/Plan Active Problems Tibial plateau fracture (Chronic) Debility (Chronic) Wound dehiscence, surgical (Chronic) Exposed orthopaedic hardware (Chronic) Diabetes mellitus (Chronic) Assessment: Same as above. The patient's recent CT scan of the right knee has been reviewed, revealing the fracture line to be visible. There is evidence of the patient's prior open reduction and internal fixation of the distal tibia and tibiotalar joint. Plan: Patient remains on Levaquin and metronidazole orally, as previously prescribed. As result, the erythema and cellulitic changes about the patient's wound appeared to have improved significantly. The patient has been encouraged to continue with her current antibiotic regimen to completion. She denies any other constitutional symptoms. She did follow-up with her orthopedic surgeon Dr. Friedman 2 - 3 weeks and no new interventions are planned. ESR and CRP elevated. Last CT however with no acute concerns. We are to continue Violette with Adaptic over top. Change daily. Single-layer Tubigrip for edema management. Approved for a SNAP. However, we are to delay implementation. Patient has been advised to increase protein intake and optimal blood sugar control. At this juncture, there is concern as to the likelihood of infection involving the underlying orthopedic hardware. Were this to be the case, serious consideration should be given to the role of hardware removal. In such cases, antibiotic administration and conservative wound care measures often are inadequate in alleviating infection and bacterial colonization of prosthetic material or metal hardware. Cultures were not obtained today, as the patient is currently taking dual antibiotics orally. However, culture may be considered once antibiotics have been completed. Furthermore, there may be a role for consultation with the Infectious Disease service, regarding their recommendations for ongoing management. Additionally, Dr. Friedman's involvement may be helpful as well in terms of optimizing the patient's management. All her questions were answered and she was advised to call with any further questions or concerns. Follow-up in 1 week. This note was generated with [employer] dictation software. It may contain incorrect words, spelling, and punctuation that were not noted in checking the note before signing.
[2018-11-11 08:49] VITALS: BP 113/67; PULSE 86; RESP 18; TEMP 36.4; BMI 44.5
--- NOTE | 2018-11-11 10:22 | PCM.WC.HP ---
(1) Tibial plateau fracture Status: Chronic Current Visit: Yes Qualifiers: Encounter type: subsequent encounter Code(s): S82.143A - Displaced bicondylar fracture of unspecified tibia, initial encounter for closed fracture (2) Bronchial asthma Status: Chronic Current Visit: No Code(s): J45.909 - Unspecified asthma, uncomplicated (3) Debility Status: Chronic Current Visit: Yes Code(s): R53.81 - Other malaise (4) Diabetes mellitus Status: Chronic Current Visit: Yes Qualifiers: Diabetes mellitus type: type 2 Code(s): E11.9 - Type 2 diabetes mellitus without complications (5) Exposed orthopaedic hardware Status: Chronic Current Visit: Yes Code(s): T84.498A - Other mechanical complication of other internal orthopedic devices, implants and grafts, initial encounter (6) Hyperlipidemia Status: Chronic Current Visit: No Code(s): E78.5 - Hyperlipidemia, unspecified (7) Hypertension Status: Chronic Current Visit: No Code(s): I10 - Essential (primary) hypertension (8) Obesity Status: Chronic Current Visit: No Code(s): E66.9 - Obesity, unspecified (9) Wound dehiscence, surgical Status: Chronic Current Visit: Yes Qualifiers: Encounter type: subsequent encounter Qualified Code(s): T81.31XD - Disruption of external operation (surgical) wound, not elsewhere classified, subsequent encounter Code(s): T81.31XA - Disruption of external operation (surgical) wound, not elsewhere classified, initial encounter History of Present Illness Date of Service: 11/11/18 Chief Complaint: Nonhealing postsurgical wound; dehiscent right tibial plateau fracture ORIF incisional wound History of Wound: Ms. Mckoy is a 63-year-old who presented to the Wound Center due to nonhealing postsurgical wound. She had surgery on July 19, 2018, at which time she underwent ORIF of a right tibial plateau fracture by Dr. Matt Friedman. Surgery was apparently uneventful. However, she states that after surgery, and while doing physical therapy (at her nursing facility ) wearing a knee brace, she subsequently had breakdown of her wound. This had been managed at her nursing facility. She was unsure of what had been used for wound management. However due to poor wound healing/progress, she was referred here. On initial evaluation by the intake nurse, her hardware was easily seen through the wound. She denied chills, fever, or malaise. Past Medical History Past Medical History: Chronic Problems Tibial plateau fracture (Chronic) Debility (Chronic) Wound dehiscence, surgical (Chronic) Exposed orthopaedic hardware (Chronic) Bronchial asthma (Chronic) Diabetes mellitus (Chronic) Hyperlipidemia (Chronic) Hypertension (Chronic) Obesity (Chronic) Surgical History: appendectomy, cholecystectomy, hysterectomy Allergies/Adverse Reactions: Allergies cephalexin [From Keflex] Allergy (Verified 10/23/18 10:05) Breakouts insulin lispro [From Humalog] Allergy (Verified 10/23/18 10:05) Rash Penicillins Allergy (Verified 10/23/18 10:05) Rash Home Medications: Ambulatory Orders Medication Instructions Recorded Lisinopril [Zestril] 10 mg PO DAILY 08/25/14 Lovastatin [Mevacor] 40 mg PO LUNCH 08/25/14 Vitamin B Complex 1 each PO BID 11/23/15 metFORMIN HCl [Glucophage] 1,000 mg PO BIDCM 09/19/16 Acetaminophen [Tylenol Tablet] 650 mg PO Q6H PRN PRN #0 tablet 09/24/16 Aspirin [Aspirin EC] 81 mg PO DAILY 07/18/18 Insulin Detemir [Levemir FlexPen] 46 units SC QHS 07/18/18 Acetaminophen [Tylenol Tablet] 650 mg PO Q6H PRN PRN tablet 07/22/18 Insulin Lispro [Humalog KwikPen] See Protocol SC ACHS insuln.pen 07/22/18 Senna/Docusate Sodium [Senokot-S] 1 tablet PO BID tablet 07/22/18 - Family History Maternal Diabetes Paternal Diabetes Smoking Status: Never smoker Tobacco Use: Non-smoker Drugs: None Review of Systems Constitutional: Denies: Chills, Fever, Weight Change Eyes: Denies: Pain, Vision Change HEENT: Denies: Difficulty Hearing, Difficulty Swallowing, Sinus Congestion Cardiovascular: Denies: Chest Pain, Palpitations Respiratory: Denies: Cough, Shortness of Breath Gastrointestinal: Denies: Diarrhea, Nausea, Vomiting Genitourinary: Denies: Dysuria, Hematuria Endocrine: Denies: Heat/ Cold Intolerance, Polydipsia, Polyuria Hematologic/ Lymphatic: Denies: Easy Bruising, Easy Bleeding - Physical Exam Vital Signs Temp Pulse Resp BP 97.6 F L 86 18 113/67 11/11/18 08:49 11/11/18 08:49 11/11/18 08:49 11/11/18 08:49 General: Alert, Oriented x3, Cooperative, No apparent distress, Well developed, Well nourished HEENT: Atraumatic, PERRLA, EOMI, Normocephalic Oral: Moist Mucosa Neck: No JVD Lungs: Normal air movement Abdomen: Non-Distended Extremities: No clubbing, No cyanosis, No edema, No Calf Tenderness, - - The wound persists lateral to the right knee. When evaluated today, there is davidson purulent drainage noted at the site. There is no significant erythema or associated cellulitis. Swab cultures have been obtained of the purulent material at the site of the wound. Both aerobic and anaerobic swab cultures have been obtained. The dimensions of the wound are documented elsewhere. There is a moderate amount of bioburden. Skin: No rashes Wound Measurements and Assessment WC - Nurse 1 - General Ulcer Measurement Start: 11/05/18 13:11 Freq: Status: Active Protocol: Activity Type Activity Date Activity User E-Sign Co-Sign Detail Recorded Client Recorded Date Recorded By Document 11/11/18 08:49 [id number] 11/11/18 08:55 11/11/18 08:49 Wound Center Nurse 1 [Ulcer Assessment] #1- RT KNEE/LATERAL LAGUERRE -Combined with other wound No -Current Size (cm) - Length 1.2 -Current Size (cm) - Width 0.9 -Current Size (cm) - Depth 0.6 -Total Square Cm 1.08 -Photo Taken Yes -Epithelialization Small 1-33% -Tunneling No -Undermining/Tunneling No -Circular Undermining No -Exudate Amt Small -Exudate Type Serosanguineous -Wound Margin Flat & Intact -Granulation Amt Medium (34-66%) -Granulation Quality Fleischmanns -Slough/Fibrin Yes -Necrosis Amt Large (67-100%) -Necrotic Tissue Type Adherent Slough -Structure Exposed N/A -Texture (Tiana-wound Skin Appearance) Assessed, Excoriation -Moisture (Tiana-wound Skin Appearance Assessed,Dry/ ) Scaly -Color (Tiana-wound Skin Appearance) Assessed -Temperature (Tiana-wound Skin No Abnormality Appearance) (Pt Warm) -Tenderness on Palpation (Tiana-wound No Skin Appearance) -Ulcer Cleansing Rinsed/ Irrigated with Saline -Foul Odor after Cleansing No -Anesthetic Used 4% Lidocaine Solution [Edema Assessment] -Lower Limb Edema Present Yes -Right Calf (cm) 34 -Right Ankle (cm) 22.2 WC - Nurse 2 - General Ulcer CM Notes Start: 11/05/18 13:11 Freq: Status: Active Protocol: Activity Type Activity Date Activity User E-Sign Co-Sign Detail Recorded Client Recorded Date Recorded By Document 11/11/18 09:56 DV [id number] 11/11/18 10:15 DV 11/11/18 09:56 Wound Center Nurse 2 [Procedure/Treatment] #1- RT KNEE/LATERAL LAGUERRE -Time 09:56 -Correct Patient Yes -Correct Side, Site, Position Yes -Correct Procedure Yes -Procedure Performed Yes -Type of Procedure Debridement -Clinical Debridement Subcutaneous -Post Debridement Size (cm) - Length 1.5 -Post Debridement Size (cm) - Width 1.0 -Post Debridement Size (cm) - Depth 0.6 -Total Square Cm 1.50 -Wound/Ulcer Outcome Not Healed -Ulcer Cleansing Rinsed/ Irrigated with Saline -Foul Odor after Cleansing No -Bioengineered Tissue No -Bleeding Controlled with Pressure -Treatment Response Procedure Tolerated Well [See Physician Procedure note for Specifics] Pain Scale: 0-10 Numeric [Pain] -Is Patient Pain Free? Yes Neurological: Cranial nerves II-XII grossly intact, Neuro grossly intact Psych/Mental Status: Normal Affect, Appropriate, Alert and oriented to time, place, person, mood and affect Debridement Note Post-Debridement Measurements/Treatment WC - Nurse 2 - General Ulcer CM Notes Start: 11/05/18 13:11 Freq: Status: Active Protocol: Activity Type Activity Date Activity User E-Sign Co-Sign Detail Recorded Client Recorded Date Recorded By Document 11/05/18 13:29 MW [id number] 11/05/18 13:38 MW Document 11/11/18 09:56 DV [id number] 11/11/18 10:15 DV 11/05/18 11/11/18 13:29 09:56 Wound Center Nurse 2 #1- RT KNEE/LATERAL LAGUERRE -Time 13:29 09:56 -Correct Patient Yes Yes -Correct Side, Site, Position Yes Yes -Correct Procedure Yes Yes -Procedure Performed Yes Yes -Type of Procedure Debridement Debridement -Clinical Debridement Subcutaneous Subcutaneous -Post Debridement Size (cm) - Length 1.2 1.5 -Post Debridement Size (cm) - Width 0.9 1.0 -Post Debridement Size (cm) - Depth 0.7 0.6 -Total Square Cm 1.08 1.50 -Wound/Ulcer Outcome Not Healed Not Healed -Ulcer Cleansing Rinsed/ Rinsed/ Irrigated with Irrigated with Saline Saline -Foul Odor after Cleansing No No -Bioengineered Tissue No No -Bleeding Controlled with Pressure Pressure -Offloading No -Treatment Response Procedure Procedure Tolerated Well Tolerated Well Pain Scale: 0-10 Numeric Is Patient Pain Free? Yes Yes Laterality: Right - Lateral knee Type of Debridement: Excisional debridement Anesthesia Used: 5% Lidocaine Gel Depth: Down to and including healthy tissue, in the subcutaneous layer Percentage of wound debrided: 100 Instrument Used: 5mm curette Severity: Fat Layer Exposed - The wound appears to extend way down to underlying bone or hardware. Using the curette as a probe, it is possible to probe through all layers of the soft tissue, impacting the underlying bone or hardware. Amount of bleeding with debridement: Mild Bleeding Controlled with: Compression and gauze, Silver Nitrate - 1 silver nitrate stick was utilized to control a very small site of bleeding at the skin margin. Hemostasis in satisfactory fashion. Patient tolerated procedure well Assessment/Plan Active Problems Tibial plateau fracture (Chronic) Debility (Chronic) Wound dehiscence, surgical (Chronic) Exposed orthopaedic hardware (Chronic) Diabetes mellitus (Chronic) Assessment: Same as above. The patient's recent CT scan of the right knee has been reviewed, revealing the fracture line to be visible. There is evidence of the patient's prior open reduction and internal fixation of the distal tibia and tibiotalar joint. The patient indicates that she continues to take her antibiotic prescriptions, metronidazole and Levaquin. However, upon encountering davidson purulent drainage during examination today, swab cultures were obtained for both aerobic and anaerobic growth. Plan: The patient remains on Levaquin and metronidazole orally, as previously prescribed. As a result, the erythema and cellulitic changes about the patient's wound appeared to have improved significantly. However, today's examination reveals davidson purulent drainage from the site, and aerobic and anaerobic cultures have been obtained. Culture results will be awaited. The patient has been encouraged to continue with her current antibiotic regimen to completion. She denies any other constitutional symptoms. She did follow-up with her orthopedic surgeon Dr. Friedman 3-4 weeks ago, and no new interventions are planned. ESR and CRP are elevated. Last CT however with no acute concerns. We are to continue Violette with Adaptic topically, to be changed daily. Single-layer Tubigrip will be continued for edema management. Approved for a SNAP. However, we are to delay implementation. Patient has been advised to increase protein intake and optimal blood sugar control. At this juncture, there is concern as to the likelihood of infection involving the underlying orthopedic hardware. Were this to be the case, serious consideration should be given to the role of hardware removal. In such cases, antibiotic administration and conservative wound care measures often are inadequate in alleviating infection and bacterial colonization of prosthetic material or metal hardware. Furthermore, there may be a role for consultation with the Infectious Disease service, regarding their recommendations for ongoing management. Additionally, Dr. Friedman's involvement may be helpful as well in terms of optimizing the patient's management, and to determine whether underlying hardware removal may be necessary. All her questions were answered and she was advised to call with any further questions or concerns. Follow-up in 1 week. This note was generated with [employer] dictation software. It may contain incorrect words, spelling, and punctuation that were not noted in checking the note before signing.
--- NOTE | 2018-11-14 14:13 | WC ---
REVIEWED WOUND CX RESULTS W/ DR ARAUJO BY PHONE. HE DOES NOT WANT TO START ATB'S AT THIS TIME. REQUESTS DR RODARTE BE CONSULTED AT WOUND CENTER NEXT WEEK. [facility] TO SCHEDULE. LEFT MULT MESSAGES W/ PATIENT REGARDING THIS. SHE DOES NOT ANSWER HER PHONE. [facility] WILL CALL HER AND LET HER KNOW WHEN HER NEXT APPTS WILL BE. ALSO UPDATED KELSEY AT DR GONZALES'S OFFICE ON ALL.
[2018-11-19 11:09] VITALS: BP 141/92; PULSE 97; RESP 16; TEMP 36.2; BMI 44.5
--- NOTE | 2018-11-19 13:06 | PCM.WC.PN ---
(1) Ulcer of right lower extremity Status: Acute Current Visit: Yes Qualifiers: Non-pressure ulcer stage: limited to breakdown of skin Qualified Code(s): L97.911 - Non-pressure chronic ulcer of unspecified part of right lower leg limited to breakdown of skin Code(s): L97.919 - Non-pressure chronic ulcer of unspecified part of right lower leg with unspecified severity (2) Exposed orthopaedic hardware Status: Chronic Current Visit: Yes Code(s): T84.498A - Other mechanical complication of other internal orthopedic devices, implants and grafts, initial encounter (3) Wound dehiscence, surgical Status: Chronic Current Visit: Yes Qualifiers: Encounter type: subsequent encounter Qualified Code(s): T81.31XD - Disruption of external operation (surgical) wound, not elsewhere classified, subsequent encounter Code(s): T81.31XA - Disruption of external operation (surgical) wound, not elsewhere classified, initial encounter Type of Wound Date of Service: 11/19/18 Chief Complaint: Nonhealing postsurgical wound; dehiscent right tibial plateau fracture ORIF incisional wound History of Wound: Ms. Mckoy is a 63-year-old who presented to [facility] due to nonhealing postsurgical wound. She had surgery on July 19, 2018, at which time she underwent ORIF of a right tibial plateau fracture by Dr. Matt Friedman. Surgery was apparently uneventful. However, she states that after surgery, and while doing physical therapy (at her nursing facility ) wearing a knee brace, she subsequently had breakdown of her wound. This had been managed at her nursing facility. She was unsure of what had been used for wound management. However due to poor wound healing/progress, she was referred here. On initial evaluation by the intake nurse, her hardware was easily seen through the wound. She denied chills, fever, or malaise. Progress of Wound: No significant improvement. Still with worsening pain and warmth to her right lower extremity / knee. Has been to the ER twice in the last couple weeks due to the above. Prescribed Levofloxacin and Flagyl but is currently only on Flagyl...... Scheduled to see Dr Friedman on 11/24/18. - Physical Exam Vital Signs Temp Pulse Resp BP 97.1 F L 97 16 141/92 H 11/19/18 11:09 11/19/18 11:09 11/19/18 11:09 11/19/18 11:09 General: Alert, Oriented x3, Cooperative, No apparent distress HEENT: Atraumatic, Normocephalic Oral: Moist Mucosa Neck: Supple Lungs: Normal air movement Abdomen: Non Tender Extremities: No cyanosis Skin: Ulcer/ Wound Wound Measurements and Assessment WC - Nurse 1 - General Ulcer Measurement Start: 11/05/18 13:11 Freq: Status: Active Protocol: Activity Type Activity Date Activity User E-Sign Co-Sign Detail Recorded Client Recorded Date Recorded By Document 11/19/18 11:09 [facility] [id number] 11/19/18 11:17 [facility] 11/19/18 11:09 Wound Center Nurse 1 [Ulcer Assessment] #2- RT LAGUERRE -Combined with other wound No -Current Size (cm) - Length 1.1 -Current Size (cm) - Width 1 -Current Size (cm) - Depth 0.1 -Total Square Cm 1.1 -Date of Last Picture (Recall this 11/19/18 field) -Photo Taken Yes -Epithelialization None Present -Tunneling No -Undermining/Tunneling No -Circular Undermining No -Exudate Amt Small -Exudate Type Serosanguineous -Wound Margin Flat & Intact -Granulation Amt Large (67-100%) -Granulation Quality [place] -Slough/Fibrin Yes -Necrosis Amt Small (1-33%) -Necrotic Tissue Type Adherent Slough -Texture (Tiana-wound Skin Appearance) Assessed, Scarring -Moisture (Tiana-wound Skin Appearance Assessed,Dry/ ) Scaly -Color (Tiana-wound Skin Appearance) Assessed, Erythema -Temperature (Tiana-wound Skin No Abnormality Appearance) (Pt Warm) -Tenderness on Palpation (Tiana-wound Yes Skin Appearance) -Ulcer Cleansing Rinsed/ Irrigated with Saline -Foul Odor after Cleansing No -Anesthetic Used 5% Lidocaine Gel #1- RT KNEE/LATERAL LAGUERRE -Combined with other wound No -Current Size (cm) - Length 0.9 -Current Size (cm) - Width 0.9 -Current Size (cm) - Depth 0.3 -Total Square Cm 0.81 -Photo Taken No -Epithelialization None Present -Tunneling No -Undermining/Tunneling No -Circular Undermining No -Exudate Amt Medium -Exudate Type Sanguineous -Wound Margin Distinct, Outline Attached -Granulation Amt None Present (0 %) -Slough/Fibrin Yes -Necrosis Amt Large (67-100%) -Necrotic Tissue Type Adherent Slough -Texture (Tiana-wound Skin Appearance) Assessed, Excoriation, Localized Edema ,Scarring,Rash -Moisture (Tiana-wound Skin Appearance Assessed,Dry/ ) Scaly -Color (Tiana-wound Skin Appearance) Assessed -Temperature (Tiana-wound Skin No Abnormality Appearance) (Pt Warm) -Tenderness on Palpation (Tiana-wound Yes Skin Appearance) -Ulcer Cleansing Rinsed/ Irrigated with Saline -Foul Odor after Cleansing No -Anesthetic Used 5% Lidocaine Gel [Edema Assessment] -Lower Limb Edema Present Yes -Right Calf (cm) 36 -Right Ankle (cm) 26.1 WC - Nurse 2 - General Ulcer CM Notes Start: 11/05/18 13:11 Freq: Status: Active Protocol: Activity Type Activity Date Activity User E-Sign Co-Sign Detail Recorded Client Recorded Date Recorded By Document 11/19/18 11:38 MW [id number] 11/19/18 11:42 MW 11/19/18 11:38 Wound Center Nurse 2 [Procedure/Treatment] #2- RT LAGUERRE -Time 11:38 -Correct Patient Yes -Correct Side, Site, Position Yes -Correct Procedure Yes -Procedure Performed Yes -Type of Procedure Debridement -Clinical Debridement Subcutaneous -Post Debridement Size (cm) - Length 1.5 -Post Debridement Size (cm) - Width 1.2 -Post Debridement Size (cm) - Depth 0.1 -Total Square Cm 1.80 -Wound/Ulcer Outcome Not Healed -Ulcer Cleansing Rinsed/ Irrigated with Saline -Foul Odor after Cleansing No -Bioengineered Tissue No -Bleeding Controlled with Pressure -Offloading No -Treatment Response Procedure Tolerated Well #1- RT KNEE/LATERAL LAGUERRE -Time 11:38 -Correct Patient Yes -Correct Side, Site, Position Yes -Correct Procedure Yes -Procedure Performed Yes -Type of Procedure Debridement -Clinical Debridement Subcutaneous -Post Debridement Size (cm) - Length 1.0 -Post Debridement Size (cm) - Width 0.8 -Post Debridement Size (cm) - Depth 1.0 -Total Square Cm 0.80 -Wound/Ulcer Outcome Not Healed -Ulcer Cleansing Rinsed/ Irrigated with Saline -Foul Odor after Cleansing No -Bioengineered Tissue No -Bleeding Controlled with Pressure -Offloading No -Treatment Response Procedure Tolerated Well [See Physician Procedure note for Specifics] Pain Scale: 0-10 Numeric [Pain] -Is Patient Pain Free? Yes Musculoskeletal: No Muscle Wasting Neurological: Cranial nerves II-XII grossly intact Psych/Mental Status: Normal Affect Debridement Note Post-Debridement Measurements/Treatment WC - Nurse 2 - General Ulcer CM Notes Start: 11/05/18 13:11 Freq: Status: Active Protocol: Activity Type Activity Date Activity User E-Sign Co-Sign Detail Recorded Client Recorded Date Recorded By Document 11/05/18 13:29 MW [id number] 11/05/18 13:38 MW Document 11/11/18 09:56 DV [id number] 11/11/18 10:15 DV Document 11/19/18 11:38 MW [id number] 11/19/18 11:42 MW 11/05/18 11/11/18 11/19/18 13:29 09:56 11:38 Wound Center Nurse 2 #2- RT LAGUERRE -Time 11:38 -Correct Patient Yes -Correct Side, Site, Position Yes -Correct Procedure Yes -Procedure Performed Yes -Type of Procedure Debridement -Clinical Debridement Subcutaneous -Post Debridement Size (cm) - Length 1.5 -Post Debridement Size (cm) - Width 1.2 -Post Debridement Size (cm) - Depth 0.1 -Total Square Cm 1.80 -Wound/Ulcer Outcome Not Healed -Ulcer Cleansing Rinsed/ Irrigated with Saline -Foul Odor after Cleansing No -Bioengineered Tissue No -Bleeding Controlled with Pressure -Offloading No -Treatment Response Procedure Tolerated Well #1- RT KNEE/LATERAL LAGUERRE -Time 13:29 09:56 11:38 -Correct Patient Yes Yes Yes -Correct Side, Site, Position Yes Yes Yes -Correct Procedure Yes Yes Yes -Procedure Performed Yes Yes Yes -Type of Procedure Debridement Debridement Debridement -Clinical Debridement Subcutaneous Subcutaneous Subcutaneous -Post Debridement Size (cm) - Length 1.2 1.5 1.0 -Post Debridement Size (cm) - Width 0.9 1.0 0.8 -Post Debridement Size (cm) - Depth 0.7 0.6 1.0 -Total Square Cm 1.08 1.50 0.80 -Wound/Ulcer Outcome Not Healed Not Healed Not Healed -Ulcer Cleansing Rinsed/ Rinsed/ Rinsed/ Irrigated with Irrigated with Irrigated with Saline Saline Saline -Foul Odor after Cleansing No No No -Bioengineered Tissue No No No -Bleeding Controlled with Pressure Pressure Pressure -Offloading No No -Treatment Response Procedure Procedure Procedure Tolerated Well Tolerated Well Tolerated Well Pain Scale: 0-10 Numeric Is Patient Pain Free? Yes Yes Yes Wound debrided: Right lower extremity ( Superior ) Wound Grade/Stage: Stage III Type of Debridement: Excisional debridement Anesthesia Used: 4% Lidocaine Solution Depth: Down to and including healthy tissue, in the subcutaneous layer Percentage of wound debrided: 100 Instrument Used: 3mm curette Tissue Removed: Slough and devitalized tissue Severity: Fat Layer Exposed Amount of bleeding with debridement: Mild Bleeding Controlled with: Pressure Patient tolerated procedure well - Additional Wound Wound debrided: Riht lower extremity ( Inferior ) Wound Grade/Stage: Stage II Type of Debridement: Excisional debridement Anesthesia Used: 4% Lidocaine Solution Depth: Down to and including healthy tissue Percentage of wound debrided: 100 Instrument Used: 3mm curette Tissue Removed: Slough and devitalized tissue Severity: Fat Layer Exposed Amount of bleeding with debridement: Mild Bleeding Controlled with: Pressure Patient tolerated procedure: Patient tolerated procedure well Assessment/Plan Active Problems Tibial plateau fracture (Chronic) Debility (Chronic) Wound dehiscence, surgical (Chronic) Exposed orthopaedic hardware (Chronic) Ulcer of right lower extremity (Acute) Diabetes mellitus (Chronic) Assessment: Same as above. The patient's recent CT scan of the right knee has been reviewed, revealing the fracture line to be visible. There is evidence of the patient's prior open reduction and internal fixation of the distal tibia and tibiotalar joint. The patient indicates that she continues to take her antibiotic prescriptions, metronidazole and Levaquin. However, upon encountering davidson purulent drainage during examination today, swab cultures were obtained for both aerobic and anaerobic growth. Plan: Still has signiifcant warmth, tenderness and erythema to her right lower extremity. As stated above appears to not have picked up her Levofloxacin and is currently only on Flagyl. Still probes to hardware but not apparently visible. Scheduled to see Dr. Friedman on Saturday. Continue Pomogran with adaptic over top. Change daily. 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 Schedule consult with ID next week. Continue increased protein intake. Elevate lower exremities when seated and in bed. Follow up in 1 week. All her questions were answered and she was advised to call with any further questions or concerns. This note was generated with [employer] dictation software. It may contain incorrect words, spelling, and punctuation that were not noted in checking the note before signing.
== END 2018-11-23 23:59 ==
LOC: WC 10:30
PROVIDERS: Family Provider Family Medicine; PCP Family Medicine; Referring Provider Internal Medicine; Visit Provider Internal Medicine
DX: T81.31XA Disruption of external operation (surgical) wound, not elsewhere classified, initial encounter (principal); T84.498A Other mechanical complication of other internal orthopedic devices, implants and grafts, initial encounter; Y83.8 Other surgical procedures as the cause of abnormal reaction of the patient, or of later complication, without mention of misadventure at the time of the procedure; J45.909 Unspecified asthma, uncomplicated; E11.9 Type 2 diabetes mellitus without complications; E78.5 Hyperlipidemia, unspecified; I10 Essential (primary) hypertension; E66.9 Obesity, unspecified; Z71.3 Dietary counseling and surveillance; S82.141S Displaced bicondylar fracture of right tibia, sequela; X58.XXXS Exposure to other specified factors, sequela; Z79.899 Other long term (current) drug therapy; Z79.4 Long term (current) use of insulin; Z79.82 Long term (current) use of aspirin
CPT/HCPCS: 11042; 87070; 87075; 87077; 87186; 87205

== ENCOUNTER 2018-12-09 20:03 | Emergency (ER) | payer MEDICAID, SELFPAY ==
[2018-12-08 10:58] VITALS: BMI 30.7
[2018-12-09 20:03] VITALS: BP 155/77; PULSE 96; RESP 18; TEMP 36.2; O2SAT 97; BMI 34.0
--- NOTE | 2018-12-09 20:15 | RAD_ITS ---
STUDY: X-RAY - RIGHT KNEE REASON FOR EXAM: Female, 63 years old. Pain TECHNIQUE: 4 view(s) of the knee. COMPARISON: X-ray right knee July 19, 2018 FINDINGS: Internal fixation of the proximal tibia is present. There is a healed fracture of the proximal fibula. There is no evidence of complication. There is no new fracture or dislocation. RAD/Knee 4 or More Views IMPRESSION: Internal fixation of the proximal tibia. No new fracture or dislocation. Electronically Signed: Avinash Alvarez, at 21:01 EDT Tel , Service support ,
[2018-12-09 21:40] VITALS: BP 119/79; O2SAT 97
--- NOTE | 2018-12-09 22:26 | ED.VISSUMM ---
- ER Visit Summary Date of Service: 12/09/18 Chief Complaint: Right knee pain History of Present Illness: The patient is a 63 F who presents with right knee pain. She has a history of prior internal fixation. She has an open wound which is infected. She is seeing wound care. She has been told that she likely needs her hardware removed. She has an appointment with the wound care doctor on December 17 and another physician on December 20. She states that she has been having pain for a long time but really did not further clarify. She is a poor informant. However her pain has been worse for about a week. She states that today she fell. She actually fell onto her left side. She is not complaining of any left-sided pain. Physical Examination: Afebrile vitals normal Patient does have an open wound of the anterior right lower leg with purulent drainage the knee itself does not have focal bony tenderness erythema or appreciable effusion she has neurovascularly intact distally with brisk capillary refill normal sensation light touch Test Results: Knee x-ray shows internal fixation of the proximal tibia, no new fracture or dislocation Emergency Department Course and Treatment: Patient is being managed as an outpatient and is seeing wound care and has been referred for possible hardware removal. She essentially just presents with pain. She was given a Sayre here and a prescription for a short course of the same I advised that she follow-up with her physician as an outpatient for further pain management. She understands to return for new or worsening symptoms and was discharged home. Treatment Plan: [] Disposition: Discharge Impression: Chronic right knee pain Right leg wound This note was generated with [employer] dictation software. It may contain incorrect words, spelling, and punctuation that were not noted in review of the chart prior to signing ED Disposition - Plan for ED Patient: Referrals: Avinash Najera MD [Primary Care Provider] -
--- NOTE | 2018-12-09 22:28 | ED.DEP ---
ED Disposition - Plan for ED Patient: Prescriptions: Hydrocodone Bitart/Apap 5-325 [[place] 5MG-325MG] 1 tab PO Q6H PRN PRN 3 Days #12 tab PRN Reason: Pain Prescription Printed Referrals: Avinash Najera MD [Primary Care Provider] -
[2018-12-09] MEDS: HYDROcodone Bitartrate/Apap 5/325 Tablet PO (22:38)
--- NOTE | 2018-12-09 22:44 | ED.RN ---
TELFA TAPED ON TO KNEE PER PT REQUEST, REFUSED GAUZE WRAP
== END 2018-12-09 22:45 | disposition home or self-care (01) ==
PROVIDERS: Emergency Provider Emergency Medicine; Family Provider Family Medicine; PCP Family Medicine
DX: M25.561 Pain in right knee (principal); G89.29 Other chronic pain; S81.801A Unspecified open wound, right lower leg, initial encounter; Y93.9 Activity, unspecified; Y92.9 Unspecified place or not applicable; E11.9 Type 2 diabetes mellitus without complications; E78.00 Pure hypercholesterolemia, unspecified; Z79.82 Long term (current) use of aspirin; Z79.84 Long term (current) use of oral hypoglycemic drugs; Z79.899 Other long term (current) drug therapy
CPT/HCPCS: 73564; 99283

== ENCOUNTER 2018-12-16 16:22 | Emergency (ER) | payer MEDICAID, SELFPAY ==
[2018-12-16 16:23] VITALS: BP 122/79; PULSE 112; RESP 16; TEMP 36.6; O2SAT 97; BMI 43.7
--- NOTE | 2018-12-16 17:23 | RAD_ITS ---
STUDY: X-RAY - RIGHT TIBIA AND FIBULA REASON FOR EXAM: Female, 63 years old. Infection TECHNIQUE: 2 view(s) of the tibia and fibula were obtained. COMPARISON: 07/18/2018 FINDINGS: Healed fracture of the lateral tibial plateau after open reduction internal fixation with a lateral plate and screws. Healed fracture of the distal tibia after open reduction internal fixation with an anterior plate and screws in probable tibiotalar arthrodesis. Normal visualized fibula. No bony destruction to suggest osteomyelitis. The soft tissue structures are unremarkable. RAD/Tibia & Fibula 2 Views IMPRESSION: Healed fractures with surgical hardware but no radiographic evidence of osteomyelitis. Electronically Signed: Camden Emery MD at 18:14 EDT Tel , Service support ,
[2018-12-16 17:34] VITALS: RESP 18
[2018-12-16] MEDS: 0.9% Normal Saline 1,000 ML 999 ML IV ×2 (17:34→18:56)
[2018-12-16 17:46] LABS: Erythrocyte Sedimentation Rate 42 mm/hr (0-30)
[2018-12-16 17:48] LABS: Absolute Lymphocyte Count 3.81 X10^3/uL (0.83-4.51); Absolute Neutrophil Count 4.1 X10^3/uL (2.0-7.7); Basophil% 1.1 % (0-1); Eosinophil# 0.18 X10^3/uL; Hematocrit 43.2 % (37-47); Hemoglobin 14.3 g/dL (12.0-15.0); Lymphocyte # 3.81 X10^3/ul (4.0); Lymphocyte % 42.7 % (19-41); Mean Corp Hgb Conc 33.1 g/dL (32-36); Mean Corpuscular Hgb 27.8 pg (27.0-32.0); Mean Corpuscular Volume 83.9 fL (81-99); Mean Platelet Vol. 9.3 fl (6.2-12.0); Monocyte% 7.8 % (0-10); NRBC Flagged by Analyzer 0 % (0-5); Platelet Count 378 K/mm3 (150-450); RBC Distribution Width SD 45.1 fl (35.1-43.9); Red Blood Count 5.15 M/mm3 (4.2-5.4); White Blood Count 8.9 K/mm3 (4.4-11.0)
[2018-12-16 18:01] LABS: Bedside Glucose 312 mg/dL (70-110)
[2018-12-16 18:08] LABS: Anion Gap 9 (5-15); BUN 16 mg/dL (7-18); BUN/Creat Ratio 17.8 RATIO (10-20); CRP < 2.90 mg/L (0.0-3.0); Chloride 97 mmol/L (98-107); EST Glomerular Filtration Rate 67 mL/min (>60); Est Glom Filt Rate - Afr Amer 81 mL/min (>60); Estimated Creatinine Clearance 79.13 ml/min; Glucose 369 mg/dL (74-106); Potassium 4.2 mmol/L (3.5-5.1); Sodium Level 130 mmol/L (136-145)
[2018-12-16 20:01] LABS: Bedside Glucose 300 mg/dL (70-110)
[2018-12-16 20:41] VITALS: BP 138/67; PULSE 61; RESP 15; O2SAT 97
[2018-12-16] MEDS: Insulin Lispro 100 UNIT/ML INSULN.PEN 10 UNIT SC (20:42)
[2018-12-16 21:00] LABS: Bedside Glucose 267 mg/dL (70-110)
[2018-12-16 22:16] LABS: Bedside Glucose 233 mg/dL (70-110)
--- NOTE | 2018-12-16 22:28 | ED.DCSUM_ITS ---
- ER Visit Summary Date of Service: 12/16/18 Chief Complaint: Hyperglycemia History of Present Illness: The patient is a 63 F who was sent from the wound care center for hyperglycemia. She is being treated for an ulcer to her right lower leg with associated cellulitis. Her glucose today was over 400. She said it is normally in the 100s. She takes long-acting insulin at nighttime, but denies any other insulin. She also takes metformin. Physical Examination: Afebrile and vital signs unremarkable except for heart rate of 112. Patient has a 1 cm ulceration to her right mid castro with surrounding erythema. She is neurovascular intact distally. Otherwise exam is unremarkable. Test Results: Glucose 369. Sodium 130 and chloride 97. CBC unremarkable. ESR 42 and CRP less than 2.9. X-ray showed a healed fracture with hardware in place and no evidence of osteomyelitis. Emergency Department Course and Treatment: Patient was treated with IV fluids. She received a total of 2 L. She continued to have a glucose around 300. She was subsequently treated with Humalog, 10 units. Repeat blood sugar was 233. She did have a snack here. She intends to eat tonight and will take her long- acting insulin. She will follow-up with her primary care doctor tomorrow and her wound care physicians as instructed. Treatment Plan: As above Disposition: Discharge Impression: 1. Hyperglycemia 2. Right leg ulceration This note was generated with [email or web address] dictation software. It may contain incorrect words, spelling, and punctuation that were not noted in review of the chart prior to signing ED Disposition - Plan for ED Patient: Referrals: Avinash Najera MD [Primary Care Provider] -
--- NOTE | 2018-12-16 22:30 | ED.DEP ---
ED Disposition - Plan for ED Patient: Instructions: ED Diabetic Hyperglycemia Referrals: Avinash Najera MD [Primary Care Provider] -
[2018-12-16 22:43] VITALS: BP 134/79; PULSE 72; RESP 18; O2SAT 99
--- NOTE | 2018-12-16 22:44 | ED.RN ---
THIS NURSE REVIEWED D/C INSTRUCTIONS WITH PT. PT VERBALIZED UNDERSTANDING OF INSTRUCTIONS. IV D/C. IV CATHETER INTACT. PT TOLERATED WELL. PT DENIES FURTHER NEEDS OR QUESTIONS AT THIS TIME. PT AMBULATES FROM ROOM ON OWN WITHOUT ASSISTANCE FROM STAFF
== END 2018-12-16 22:46 | disposition home or self-care (01) ==
LOC: ED 17:13
PROVIDERS: Emergency Provider Emergency Medicine; Family Provider Family Medicine; PCP Family Medicine
DX: E11.65 Type 2 diabetes mellitus with hyperglycemia (principal); E11.622 Type 2 diabetes mellitus with other skin ulcer; L97.919 Non-pressure chronic ulcer of unspecified part of right lower leg with unspecified severity; L03.115 Cellulitis of right lower limb; I10 Essential (primary) hypertension; E78.00 Pure hypercholesterolemia, unspecified; Z79.4 Long term (current) use of insulin; Z79.84 Long term (current) use of oral hypoglycemic drugs; Z79.82 Long term (current) use of aspirin; Z79.01 Long term (current) use of anticoagulants; Z79.899 Other long term (current) drug therapy
CPT/HCPCS: 73590; 80048; 82962; 85025; 85652; 86140; 96360; 96361; 96372; 99283; J7030; A4216

== ENCOUNTER 2018-12-17 10:30 | Outpatient (RCR) | payer MEDICAID, SELFPAY ==
[2018-11-24 00:48] VITALS: BP 141/92; PULSE 97; RESP 16; TEMP 36.2; BMI 30.7
[2018-11-26 11:42] VITALS: BP 109/65; PULSE 94; RESP 18; TEMP 36.7; BMI 30.7
--- NOTE | 2018-11-26 12:56 | PCM.WC.PN ---
(1) Ulcer of right lower extremity Status: Acute Current Visit: Yes Qualifiers: Code(s): L97.919 - Non-pressure chronic ulcer of unspecified part of right lower leg with unspecified severity (2) Wound dehiscence, surgical Status: Chronic Current Visit: Yes Qualifiers: Code(s): T81.31XA - Disruption of external operation (surgical) wound, not elsewhere classified, initial encounter (3) Exposed orthopaedic hardware Status: Chronic Current Visit: No Code(s): T84.498A - Other mechanical complication of other internal orthopedic devices, implants and grafts, initial encounter Type of Wound Date of Service: 11/26/18 Chief Complaint: Nonhealing postsurgical wound; dehiscent right tibial plateau fracture ORIF incisional wound History of Wound: Ms. Mckoy is a 63-year-old who presented to the Wound Center due to nonhealing postsurgical wound. She had surgery on July 19, 2018, at which time she underwent ORIF of a right tibial plateau fracture by Dr. Matt Friedman. Surgery was apparently uneventful. However, she states that after surgery, and while doing physical therapy (at her nursing facility ) wearing a knee brace, she subsequently had breakdown of her wound. This had been managed at her nursing facility. She was unsure of what had been used for wound management. However due to poor wound healing/progress, she was referred here. On initial evaluation by the intake nurse, her hardware was easily seen through the wound. She denied chills, fever, or malaise. Progress of Wound: Improvement noted in the past week. She has been on Levofloxacin. Also did follow up Dr. Friedman and plan is for ? Flap closure. - Physical Exam Vital Signs Temp Pulse Resp BP 98.1 F 94 18 109/65 11/26/18 11:42 11/26/18 11:42 11/26/18 11:42 11/26/18 11:42 General: Alert, Oriented x3, Cooperative, No apparent distress HEENT: Atraumatic, Normocephalic Oral: Moist Mucosa Neck: Supple Extremities: No cyanosis Skin: Ulcer/ Wound Wound Measurements and Assessment WC - Nurse 1 - General Ulcer Measurement Start: 11/26/18 11:41 Freq: Status: Active Protocol: Activity Type Activity Date Activity User E-Sign Co-Sign Detail Recorded Client Recorded Date Recorded By Document 11/26/18 11:42 DV [id number] 11/26/18 11:54 DV 11/26/18 11:42 Wound Center Nurse 1 [Ulcer Assessment] #2- RT LAGUERRE -Combined with other wound No -Current Size (cm) - Length 0.6 -Current Size (cm) - Width 0.6 -Current Size (cm) - Depth 0.5 -Total Square Cm 0.36 #1- RT KNEE/LATERAL LAGUERRE -Combined with other wound No -Current Size (cm) - Length 0.8 -Current Size (cm) - Width 0.7 -Current Size (cm) - Depth 0.1 -Total Square Cm 0.56 -Photo Taken No -Epithelialization None Present -Tunneling No -Undermining/Tunneling No -Circular Undermining No -Exudate Amt Medium -Exudate Type Serous -Wound Margin Flat & Intact -Granulation Amt Small (1-33%) -Granulation Quality [place] -Slough/Fibrin Yes -Necrosis Amt Medium (34-66%) -Necrotic Tissue Type Adherent Slough -Structure Exposed None/Limited to Skin Breakdown -Texture (Tiana-wound Skin Appearance) Assessed, Localized Edema ,Scarring -Moisture (Tiana-wound Skin Appearance Assessed, ) Weeping -Color (Tiana-wound Skin Appearance) Assessed, Hemosiderin Staining -Temperature (Tiana-wound Skin No Abnormality Appearance) (Pt Warm) -Tenderness on Palpation (Tiana-wound No Skin Appearance) -Ulcer Cleansing Wound Cleanser -Foul Odor after Cleansing No -Anesthetic Used 4% Lidocaine Solution WC - Nurse 2 - General Ulcer CM Notes Start: 11/26/18 11:41 Freq: Status: Active Protocol: Activity Type Activity Date Activity User E-Sign Co-Sign Detail Recorded Client Recorded Date Recorded By Document 11/26/18 12:08 MW [id number] 11/26/18 12:15 MW 11/26/18 12:08 Wound Center Nurse 2 [Procedure/Treatment] #2- RT LAGUERRE -Time 12:09 -Correct Patient Yes -Correct Side, Site, Position Yes -Correct Procedure Yes -Procedure Performed Yes -Type of Procedure Debridement -Clinical Debridement Subcutaneous -Post Debridement Size (cm) - Length 0.8 -Post Debridement Size (cm) - Width 0.8 -Post Debridement Size (cm) - Depth 0.1 -Total Square Cm 0.64 -Wound/Ulcer Outcome Not Healed -Ulcer Cleansing Rinsed/ Irrigated with Saline -Foul Odor after Cleansing No -Bioengineered Tissue No -Bleeding Controlled with Pressure -Offloading No #1- RT KNEE/LATERAL LAGUERRE -Time 12:09 -Correct Patient Yes -Correct Side, Site, Position Yes -Correct Procedure Yes -Procedure Performed Yes -Type of Procedure Debridement -Clinical Debridement Subcutaneous -Post Debridement Size (cm) - Length 0.8 -Post Debridement Size (cm) - Width 0.6 -Post Debridement Size (cm) - Depth 0.7 -Total Square Cm 0.48 -Wound/Ulcer Outcome Not Healed -Ulcer Cleansing Rinsed/ Irrigated with Saline -Foul Odor after Cleansing No -Bioengineered Tissue No -Bleeding Controlled with Pressure -Offloading No -Treatment Response Procedure Tolerated Well [See Physician Procedure note for Specifics] Pain Scale: 0-10 Numeric [Pain] -Is Patient Pain Free? Yes Musculoskeletal: No Muscle Wasting Neurological: Cranial nerves II-XII grossly intact Psych/Mental Status: Normal Affect Debridement Note Post-Debridement Measurements/Treatment WC - Nurse 2 - General Ulcer CM Notes Start: 11/26/18 11:41 Freq: Status: Active Protocol: Activity Type Activity Date Activity User E-Sign Co-Sign Detail Recorded Client Recorded Date Recorded By Document 11/26/18 12:08 MW [id number] 11/26/18 12:15 MW 11/26/18 12:08 Wound Center Nurse 2 #2- RT LAGUERRE -Time 12:09 -Correct Patient Yes -Correct Side, Site, Position Yes -Correct Procedure Yes -Procedure Performed Yes -Type of Procedure Debridement -Clinical Debridement Subcutaneous -Post Debridement Size (cm) - Length 0.8 -Post Debridement Size (cm) - Width 0.8 -Post Debridement Size (cm) - Depth 0.1 -Total Square Cm 0.64 -Wound/Ulcer Outcome Not Healed -Ulcer Cleansing Rinsed/ Irrigated with Saline -Foul Odor after Cleansing No -Bioengineered Tissue No -Bleeding Controlled with Pressure -Offloading No #1- RT KNEE/LATERAL LAGUERRE -Time 12:09 -Correct Patient Yes -Correct Side, Site, Position Yes -Correct Procedure Yes -Procedure Performed Yes -Type of Procedure Debridement -Clinical Debridement Subcutaneous -Post Debridement Size (cm) - Length 0.8 -Post Debridement Size (cm) - Width 0.6 -Post Debridement Size (cm) - Depth 0.7 -Total Square Cm 0.48 -Wound/Ulcer Outcome Not Healed -Ulcer Cleansing Rinsed/ Irrigated with Saline -Foul Odor after Cleansing No -Bioengineered Tissue No -Bleeding Controlled with Pressure -Offloading No -Treatment Response Procedure Tolerated Well Pain Scale: 0-10 Numeric Is Patient Pain Free? Yes Wound debrided: Right lower extremity ( superior ) Wound Grade/Stage: Stage III Type of Debridement: Excisional debridement Anesthesia Used: 4% Lidocaine Solution Depth: Down to and including healthy tissue, in the subcutaneous layer Instrument Used: 3mm curette Tissue Removed: Slough and devitalized tissue Severity: Fat Layer Exposed Amount of bleeding with debridement: Mild Bleeding Controlled with: Pressure Patient tolerated procedure well - Additional Wound Wound debrided: Right lower extremity (inferior) Wound Grade/Stage: Stage II Type of Debridement: Excisional debridement Anesthesia Used: 4% Lidocaine Solution Depth: Down to and including healthy tissue, in the subcutaneous layer Percentage of wound debrided: 100 Instrument Used: 3mm curette Tissue Removed: Slough and devitalized tissue Severity: Fat Layer Exposed Amount of bleeding with debridement: Mild Bleeding Controlled with: Pressure Patient tolerated procedure: Patient tolerated procedure well Assessment/Plan Active Problems Wound dehiscence, surgical (Chronic) Ulcer of right lower extremity (Acute) Assessment: Same as above. Plan: Improvement noted in superior wound/ulcer last week. Has been on levofloxacin. To follow-up with Dr. Friedman who referred her to plastic surgery for possible flap closure. Appreciate input from ID today. Continue Pomogran with adaptic over top to both. Change daily. Continue increased protein intake. Elevate lower exremities when seated and in bed. Follow up in 1 week. All her questions were answered and she was advised to call with any further questions or concerns. This note was generated with [employer] software. It may contain incorrect words, spelling, and punctuation that were not noted in checking the note before signing.
--- NOTE | 2018-11-26 13:22 | PCM.HP.ID ---
Problem List (1) Exposed orthopaedic hardware Status: Chronic Reason for Consult: exposed hardware Consulted by: Dr. Juarez History of Present Illness: The patient is a 63 year old F with DM, had a fall 06/2018, taken to OR by Dr. Friedman for ORIF. Had been healing ok, but thought boot started rubbing a few months ago, developed R castro ulcer with some pain, redness, drainage and exposed hardware. Has been following at wound care, seen at ED a few times, given levaquin and flagyl. Reports hives with PCN in the past. Flagyl makes her nauseous, lose appetite. Wound improves with levaquin. No fever. Full ROS performed and neg except as noted above. - Medical History Past Medical History (Chronic Problems): Chronic Problems Tibial plateau fracture (Chronic) Debility (Chronic) Wound dehiscence, surgical (Chronic) Exposed orthopaedic hardware (Chronic) Bronchial asthma (Chronic) Diabetes mellitus (Chronic) Hyperlipidemia (Chronic) Hypertension (Chronic) Obesity (Chronic) Allergies/Adverse Reactions: Allergies cephalexin [From Keflex] Allergy (Verified 11/17/18 14:24) Breakouts insulin lispro [From Humalog] Allergy (Verified 11/17/18 14:24) Rash Penicillins Allergy (Verified 11/17/18 14:24) Rash Home Medications: Ambulatory Orders Medication Instructions Recorded Lisinopril [Zestril] 10 mg PO DAILY 08/25/14 Vitamin B Complex 1 each PO BID 11/23/15 metFORMIN HCl [Glucophage] 1,000 mg PO BIDCM 09/19/16 Aspirin [Aspirin EC] 81 mg PO DAILY 07/18/18 Insulin Detemir [Levemir FlexPen] 40 units SC QHS 07/18/18 Acetaminophen [Tylenol Tablet] 650 mg PO Q6H PRN PRN tablet 07/22/18 levoFLOXacin tablet [Levaquin] 500 mg PO DAILY #7 tab 11/14/18 metroNIDAZOLE [Flagyl] 500 mg PO Q6H #40 tab 11/14/18 Atorvastatin Calcium [Lipitor] 40 mg PO QHS 11/17/18 - Social History Tobacco Use: non-smoker Vital Signs Temp Pulse Resp BP 98.1 F 94 18 109/65 11/26/18 11:42 11/26/18 11:42 11/26/18 11:42 11/26/18 11:42 Oxygen Delivery Method Room Air Weight: 80.739 kg Body Mass Index (BMI) 30.7 Finger Stick Blood Glucose 229 - Other Studies Radiology: [] reviewed Other Studies: [] Route of nutrition/ use of supplements: [] Nutritional Intake: [] IV Site: [] [place] Catheter: [] - Physical Exam General: Alert, Oriented x3, Cooperative, No apparent distress HEENT: Atraumatic, PERRLA, EOMI Neck: Supple, No Nodes Lungs: Clear to auscultation, Normal air movement Cardiovascular: Regular rate, Regular Rhythm Abdomen: Soft, Non Tender, Non-Distended Extremities: Edema Skin: Ulcer/ Wound - R castro, relatively dry but hardware exposed Musculoskeletal: No Tenderness to Palpation of Joints or Extremities Neurological: Cranial nerves II-XII grossly intact - Assessment/Plan Antibiotics: [] Assessment/Plan: [] Active and Suspected Problems Ulcer of right lower extremity (Acute) R castro infected hardware s/p ORIF 06/[address] Friedman, recurrent growth of MSSA and Morganella. With infected hardware, will need long course of abx, so will change levaquin to bactrim which should be better tolerated over that timeframe. Counseled her to watch for rash/itching/fever/decreased UOP. She will need bmp next week for monitoring. Only cure will be hardware removal; if this cannot be done, will treat with bactrim for 6 weeks, then plan on senior care low dose suppressive therapy. Thank you for this referral, d/w Dr. Juarez.
[2018-12-03 11:38] VITALS: BP 109/68; PULSE 79; RESP 20; TEMP 36.3; BMI 30.7
--- NOTE | 2018-12-03 12:35 | PCM.WC.PN ---
(1) Ulcer of right lower extremity Status: Acute Current Visit: Yes Qualifiers: Code(s): L97.919 - Non-pressure chronic ulcer of unspecified part of right lower leg with unspecified severity (2) Wound dehiscence, surgical Status: Chronic Current Visit: Yes Qualifiers: Code(s): T81.31XA - Disruption of external operation (surgical) wound, not elsewhere classified, initial encounter (3) Exposed orthopaedic hardware Status: Chronic Current Visit: No Code(s): T84.498A - Other mechanical complication of other internal orthopedic devices, implants and grafts, initial encounter Type of Wound Date of Service: 12/03/18 Chief Complaint: Nonhealing postsurgical wound; dehiscent right tibial plateau fracture ORIF incisional wound History of Wound: Ms. Mckoy is a 63-year-old who [facility] due to nonhealing postsurgical wound. She had surgery on July 19, 2018, at which time she underwent ORIF of a right tibial plateau fracture by Dr. Matt Friedman. Surgery was apparently uneventful. However, she states that after surgery, and while doing physical therapy (at her nursing facility ) wearing a knee brace, she subsequently had breakdown of her wound. This had been managed at her nursing facility. She was unsure of what had been used for wound management. However due to poor wound healing/progress, she was referred here. On initial evaluation by the intake nurse, her hardware was easily seen through the wound. She denied chills, fever, or malaise. Progress of Wound: Improvement noted in the past week. Now on Bactrim prophylaxis. Also did follow up Dr. Friedman and plan is for hardware removal and ? Flap closure. - Physical Exam Vital Signs Temp Pulse Resp BP 97.3 F L 79 20 H 109/68 12/03/18 11:38 12/03/18 11:38 12/03/18 11:38 12/03/18 11:38 General: Alert, Oriented x3, Cooperative, No apparent distress HEENT: Atraumatic, Normocephalic Oral: Moist Mucosa Neck: Supple Lungs: Normal air movement Extremities: No cyanosis Skin: Ulcer/ Wound Wound Measurements and Assessment WC - Nurse 1 - General Ulcer Measurement Start: 11/26/18 11:41 Freq: Status: Active Protocol: Activity Type Activity Date Activity User E-Sign Co-Sign Detail Recorded Client Recorded Date Recorded By Document 12/03/18 11:38 DL [id number] 12/03/18 11:46 DL 12/03/18 11:38 Wound Center Nurse 1 [Ulcer Assessment] #2- RT LAGUERRE -Current Size (cm) - Length 0.4 -Current Size (cm) - Width 0.4 -Current Size (cm) - Depth 0.1 -Total Square Cm 0.16 -Photo Taken No -Exudate Amt None Present -Wound Margin Distinct, Outline Attached -Granulation Amt Large (67-100%) -Granulation Quality [place] -Necrosis Amt Small (1-33%) -Necrotic Tissue Type Adherent Slough -Structure Exposed N/A -Texture (Tiana-wound Skin Appearance) Scarring -Moisture (Tiana-wound Skin Appearance No Abnormality ) -Color (Tiana-wound Skin Appearance) Rubor -Temperature (Tiana-wound Skin No Abnormality Appearance) (Pt Warm) -Tenderness on Palpation (Tiana-wound No Skin Appearance) -Ulcer Cleansing Rinsed/ Irrigated with Saline -Foul Odor after Cleansing No -Anesthetic Used 5% Lidocaine Gel #1- RT KNEE/LATERAL LAGUERRE -Current Size (cm) - Length 0.6 -Current Size (cm) - Width 0.3 -Current Size (cm) - Depth 0.5 -Total Square Cm 0.18 -Photo Taken No -Undermining/Tunneling Starts (O' 1 clock) -Undermining/Tunneling Ends (O'clock) 4 -Maximum Distance (cm) 0.5 -Exudate Amt Small -Exudate Type Sanguineous -Wound Margin Distinct, Outline Attached -Granulation Amt Small (1-33%) -Granulation Quality [place] -Necrosis Amt None Present (0 %) -Structure Exposed Fat Layer Exposed -Texture (Tiana-wound Skin Appearance) Scarring -Moisture (Tiana-wound Skin Appearance No Abnormality ) -Color (Tiana-wound Skin Appearance) No Abnormality -Temperature (Tiana-wound Skin No Abnormality Appearance) (Pt Warm) -Tenderness on Palpation (Tiana-wound No Skin Appearance) -Ulcer Cleansing Rinsed/ Irrigated with Saline -Foul Odor after Cleansing No -Anesthetic Used 5% Lidocaine Gel [Edema Assessment] -Right Calf (cm) 35.5 -Right Ankle (cm) 23.5 WC - Nurse 2 - General Ulcer CM Notes Start: 11/26/18 11:41 Freq: Status: Active Protocol: Activity Type Activity Date Activity User E-Sign Co-Sign Detail Recorded Client Recorded Date Recorded By Document 12/03/18 12:07 MW [id number] 12/03/18 12:13 MW 12/03/18 12:07 Wound Center Nurse 2 [Procedure/Treatment] #2- RT LAGUERRE -Time 12:11 -Correct Patient Yes -Correct Side, Site, Position Yes -Correct Procedure Yes -Procedure Performed Yes -Type of Procedure Debridement -Clinical Debridement Selective -Post Debridement Size (cm) - Length 0.3 -Post Debridement Size (cm) - Width 0.4 -Post Debridement Size (cm) - Depth 0.1 -Total Square Cm 0.12 -Wound/Ulcer Outcome Not Healed -Ulcer Cleansing Rinsed/ Irrigated with Saline -Foul Odor after Cleansing No -Bleeding Controlled with Pressure -Offloading No -Treatment Response Procedure Tolerated Well #1- RT KNEE/LATERAL LAGUERRE -Time 12:08 -Correct Patient Yes -Correct Side, Site, Position Yes -Correct Procedure Yes -Procedure Performed Yes -Type of Procedure Debridement -Clinical Debridement Subcutaneous -Post Debridement Size (cm) - Length 0.7 -Post Debridement Size (cm) - Width 0.2 -Post Debridement Size (cm) - Depth 0.6 -Total Square Cm 0.14 -Wound/Ulcer Outcome Not Healed -Ulcer Cleansing Rinsed/ Irrigated with Saline -Foul Odor after Cleansing No -Bioengineered Tissue No -Bleeding Controlled with Pressure -Offloading No -Treatment Response Procedure Tolerated Well [See Physician Procedure note for Specifics] Pain Scale: 0-10 Numeric [Pain] -Is Patient Pain Free? Yes Musculoskeletal: No Muscle Wasting Neurological: Cranial nerves II-XII grossly intact Psych/Mental Status: Normal Affect Debridement Note Post-Debridement Measurements/Treatment WC - Nurse 2 - General Ulcer CM Notes Start: 11/26/18 11:41 Freq: Status: Active Protocol: Activity Type Activity Date Activity User E-Sign Co-Sign Detail Recorded Client Recorded Date Recorded By Document 11/26/18 12:08 MW [id number] 11/26/18 12:15 MW Document 12/03/18 12:07 MW [id number] 12/03/18 12:13 MW 11/26/18 12/03/18 12:08 12:07 Wound Center Nurse 2 #2- RT LAGUERRE -Time 12:09 12:11 -Correct Patient Yes Yes -Correct Side, Site, Position Yes Yes -Correct Procedure Yes Yes -Procedure Performed Yes Yes -Type of Procedure Debridement Debridement -Clinical Debridement Subcutaneous Selective -Post Debridement Size (cm) - Length 0.8 0.3 -Post Debridement Size (cm) - Width 0.8 0.4 -Post Debridement Size (cm) - Depth 0.1 0.1 -Total Square Cm 0.64 0.12 -Wound/Ulcer Outcome Not Healed Not Healed -Ulcer Cleansing Rinsed/ Rinsed/ Irrigated with Irrigated with Saline Saline -Foul Odor after Cleansing No No -Bioengineered Tissue No -Bleeding Controlled with Pressure Pressure -Offloading No No -Treatment Response Procedure Tolerated Well #1- RT KNEE/LATERAL LAGUERRE -Time 12: 12:08 -Correct Patient Yes Yes -Correct Side, Site, Position Yes Yes -Correct Procedure Yes Yes -Procedure Performed Yes Yes -Type of Procedure Debridement Debridement -Clinical Debridement Subcutaneous Subcutaneous -Post Debridement Size (cm) - Length 0.8 0.7 -Post Debridement Size (cm) - Width 0.6 0.2 -Post Debridement Size (cm) - Depth 0.7 0.6 -Total Square Cm 0.48 0.14 -Wound/Ulcer Outcome Not Healed Not Healed -Ulcer Cleansing Rinsed/ Rinsed/ Irrigated with Irrigated with Saline Saline -Foul Odor after Cleansing No No -Bioengineered Tissue No No -Bleeding Controlled with Pressure Pressure -Offloading No No -Treatment Response Procedure Procedure Tolerated Well Tolerated Well Pain Scale: 0-10 Numeric Is Patient Pain Free? Yes Yes Wound debrided: Right Leg Wound Grade/Stage: Stage III Type of Debridement: Excisional debridement Anesthesia Used: 4% Lidocaine Solution Depth: Down to and including healthy tissue, in the subcutaneous layer Percentage of wound debrided: 100 Instrument Used: 3mm curette Tissue Removed: Slough and devitalized tissue Severity: Fat Layer Exposed Amount of bleeding with debridement: Mild Bleeding Controlled with: Pressure Patient tolerated procedure well - Additional Wound Wound debrided: Right Leg ( Inferior ) Wound Grade/Stage: Stage II Type of Debridement: Selective debridement Anesthesia Used: 4% Lidocaine Solution Depth: Down to and including healthy tissue Percentage of wound debrided: 100 Instrument Used: 3mm curette Tissue Removed: SLough and devitalized tissue Severity: Limited To Skin Breakdown Amount of bleeding with debridement: Mild Bleeding Controlled with: Pressure Patient tolerated procedure: Patient tolerated procedure well Assessment/Plan Active Problems Wound dehiscence, surgical (Chronic) Ulcer of right lower extremity (Acute) Assessment: Same as above. Plan: Wound improvement noted. Mild brown drainage noted. No significant tenderness or differential warmth. Currently on Bactrim. Debridement done as documented above, procedure was well tolerated. Continue omogran daily with adaptic over top. Continue increased protein intake. Elevate lower exremities when seated and in bed. Follow up with Dr. Uribe on Saturday and with me in 2 weeks. Plan is for hardware removal by Dr. Friedman. All her questions were answered and she was advised to call with any further questions or concerns. This note was generated with [employer] dictation software. It may contain incorrect words, spelling, and punctuation that were not noted in checking the note before signing.
[2018-12-08 10:58] VITALS: BP 110/55; PULSE 97; RESP 20; TEMP 37; BMI 30.7
--- NOTE | 2018-12-08 14:36 | HP.PCM_ITS ---
History of Present Illness Date of Service: 12/08/18 - WOUND CENTER CONSULT REFERRING PHYSICIAN: Dr. Friedman. MACHINE SHORTHAND TEACHER: Dr. Uirbe. Chief Complaint: Nonhealing ulcer right proximal lateral leg with exposed hardware from previous fracture repair. History of Wound: Ms. Mckoy is a 63-year-old who presented to the Wound Center with a nonhealing ulcer right proximal lateral leg with exposed hardware from previous fracture repair. She had surgery on July 19, 2018, where she underwent ORIF of a right tibial plateau fracture by Dr. Friedman. After surgery, she was doing physical therapy at her nursing facility wearing a knee brace. This led to breakdown of her incision. She was started on Levaquin and Flagyl. When she came to the Wound Center, she was started on Violette dressing changes. Wound culture was done because of drainage and exposed hardware. It showed Staphylococcus aureus and Morganella morganii and was started on Bactrim. Today she denies fever. Her appetite is ok. I had talked to Dr. Friedman last week who stated the fracture shows stable healing and the hardware can be removed. She also developed superficial abrasions on her right anterior leg probably from her compression dressing. Her last HgbA1c was 11.1 on 07/19/18. Her ESR was 58 from 10/23/18. Her CRP was 15.10 from 10/23/18. 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 without evidence of necrosis (Chronic) nonhealing ulcer right proximal lateral leg with exposed hardware from previous fracture repair Chronic cellulitis (Chronic) nonhealing ulcer right proximal lateral leg with exposed hardware from previous fracture repair Tibial plateau fracture (Chronic) Debility (Chronic) Wound dehiscence, surgical (Chronic) Exposed orthopaedic hardware (Chronic) from right tibial plateau fracture with ulceration right proximal lateral leg Bronchial asthma (Chronic) Diabetes mellitus (Chronic) Hyperlipidemia (Chronic) Hypertension (Chronic) Obesity (Chronic) Surgical History: appendectomy, cholecystectomy, hysterectomy Allergies/Adverse Reactions: Allergies cephalexin [From Keflex] Allergy (Verified 12/17/18 16:09) Breakouts insulin lispro [From Humalog] Allergy (Verified 12/17/18 16:09) Rash Penicillins Allergy (Verified 12/17/18 16:09) Rash Home Medications: Ambulatory Orders Medication Instructions Recorded Lisinopril [Zestril] 10 mg PO DAILY 08/25/14 Vitamin B Complex 1 each PO BID 11/23/15 metFORMIN HCl [Glucophage] 1,000 mg PO BIDCM 09/19/16 Aspirin [Aspirin EC] 81 mg PO DAILY 07/18/18 Insulin Detemir [Levemir FlexPen] 40 units SC QHS 07/18/18 Acetaminophen [Tylenol Tablet] 650 mg PO Q6H PRN PRN tablet 07/22/18 levoFLOXacin tablet [Levaquin] 500 mg PO DAILY #7 tab 11/14/18 Atorvastatin Calcium [Lipitor] 40 mg PO QHS 11/17/18 Rivaroxaban [Xarelto] 10 mg PO DAILY 12/09/18 Hydrocodone Bitart/Apap 5-325 1 tab PO Q6H PRN PRN 3 Days #10 tab 12/17/18 [[place] 5MG-325MG] - Family History Maternal Diabetes Paternal Diabetes Smoking Status: Never smoker Tobacco Use: Non-smoker Review of Systems Constitutional: Denies: Chills, Fever, Weight Change. Eyes: Denies: Pain, Vision Change. HEENT: Denies: Difficulty Hearing, Difficulty Swallowing, Sinus Congestion. Cardiovascular: Denies: Chest Pain, Palpitations. Respiratory: Denies: Cough, Shortness of Breath. Gastrointestinal: Denies: Diarrhea, Nausea, Vomiting. Genitourinary: Denies: Dysuria, Hematuria. Endocrine: Denies: Heat/ Cold Intolerance, Polydipsia, Polyuria. Hematologic/ Lymphatic: Denies: Easy Bruising, Easy Bleeding - Physical Exam General: Alert, Oriented x3, Cooperative. HEENT: PERRLA, EOMI. Oral: Moist Mucosa. Neck: Supple nontender. No cervical adenopathy. Lungs: Clear to auscultation. Heart: Regular rate and rhythm. Abdomen: Soft, Non-Distended. Extremities: No clubbing, No cyanosis, No edema, No Calf Tenderness. There is a nonhealing ulcer right proximal lateral leg. There is some surrounding mild swelling and chronic redness. There is no fluctuance or purulent drainage. Some bioburden is present. Measures 0.7 x 0.6 x 0.6 cm. There is exposed hardware. No inguinal adenopathy. There is a superficial abrasion on the right anterior leg. Some granulation tissue seen. Measures 0.2 x 0.2 x 0.1 cm. Skin: No rashes. Neurological: Cranial nerves II-XII grossly intact. Psych/Mental Status: Normal Affect, Appropriate. Vital Signs Temp Pulse Resp BP 98.6 F 97 20 H 110/55 L 12/08/18 10:58 12/08/18 10:58 12/08/18 10:58 12/08/18 10:58 Wound Measurements and Assessment WC - Nurse 1 - General Ulcer Measurement Start: 11/26/18 11:41 Freq: Status: Active Protocol: Activity Type Activity Date Activity User E-Sign Co-Sign Detail Recorded Client Recorded Date Recorded By Document 12/08/18 10:58 DL [id number] 12/08/18 11:04 DL 12/08/18 10:58 Wound Center Nurse 1 [Ulcer Assessment] #2- RT LAGUERRE -Current Size (cm) - Length 0.2 -Current Size (cm) - Width 0.2 -Current Size (cm) - Depth 0.1 -Total Square Cm 0.04 -Photo Taken No -Exudate Amt None Present -Wound Margin Flat & Intact -Granulation Amt Small (1-33%) -Granulation Quality Benjamin Perez -Necrosis Amt None Present (0 %) -Structure Exposed N/A -Texture (Tiana-wound Skin Appearance) Scarring -Moisture (Tiana-wound Skin Appearance No Abnormality ) -Color (Tiana-wound Skin Appearance) Hemosiderin Staining -Temperature (Tiana-wound Skin No Abnormality Appearance) (Pt Warm) -Tenderness on Palpation (Tiana-wound No Skin Appearance) -Ulcer Cleansing Rinsed/ Irrigated with Saline -Foul Odor after Cleansing No -Anesthetic Used 5% Lidocaine Gel #1- RT KNEE/LATERAL LAGUERRE -Current Size (cm) - Length 0.7 -Current Size (cm) - Width 0.6 -Current Size (cm) - Depth 0.6 -Total Square Cm 0.42 -Photo Taken No -Undermining/Tunneling Starts (O' 1 clock) -Undermining/Tunneling Ends (O'clock) 4 -Maximum Distance (cm) 1 -Circular Undermining No -Exudate Amt Small -Exudate Type Sanguineous -Wound Margin Indistinct, Non -Visible -Granulation Amt Small (1-33%) -Granulation Quality Benjamin Perez -Necrosis Amt Small (1-33%) -Necrotic Tissue Type Adherent Slough -Structure Exposed N/A -Texture (Tiana-wound Skin Appearance) Localized Edema ,Scarring -Moisture (Tiana-wound Skin Appearance No Abnormality ) -Color (Tiana-wound Skin Appearance) Hemosiderin Staining,Rubor -Tenderness on Palpation (Tiana-wound Yes Skin Appearance) -Ulcer Cleansing Rinsed/ Irrigated with Saline -Foul Odor after Cleansing No -Anesthetic Used 5% Lidocaine Gel WC - Nurse 2 - General Ulcer CM Notes Start: 11/26/18 11:41 Freq: Status: Active Protocol: Activity Type Activity Date Activity User E-Sign Co-Sign Detail Recorded Client Recorded Date Recorded By Document 12/08/18 11:47 MW [id number] 12/08/18 11:52 MW 12/08/18 11:47 Wound Center Nurse 2 [Procedure/Treatment] #2- RT LAGUERRE -Time 11:47 -Correct Patient Yes -Correct Side, Site, Position Yes -Correct Procedure Yes -Procedure Performed Yes -Type of Procedure Debridement -Clinical Debridement Subcutaneous -Post Debridement Size (cm) - Length 0.4 -Post Debridement Size (cm) - Width 0.7 -Post Debridement Size (cm) - Depth 0.1 -Total Square Cm 0.28 -Wound/Ulcer Outcome Not Healed -Ulcer Cleansing Rinsed/ Irrigated with Saline -Foul Odor after Cleansing No -Bioengineered Tissue No -Bleeding Controlled with Pressure -Offloading No -Treatment Response Procedure Tolerated Well #1- RT KNEE/LATERAL LAGUERRE -Time 11:47 -Correct Patient Yes -Correct Side, Site, Position Yes -Correct Procedure Yes -Procedure Performed Yes -Type of Procedure Debridement -Clinical Debridement Subcutaneous -Post Debridement Size (cm) - Length 0.7 -Post Debridement Size (cm) - Width 0.5 -Post Debridement Size (cm) - Depth 0.7 -Total Square Cm 0.35 -Wound/Ulcer Outcome Not Healed -Ulcer Cleansing Rinsed/ Irrigated with Saline -Foul Odor after Cleansing No -Bioengineered Tissue No -Bleeding Controlled with Pressure -Offloading No -Treatment Response Procedure Tolerated Well [See Physician Procedure note for Specifics] Pain Scale: 0-10 Numeric [Pain] -Is Patient Pain Free? Yes Debridement Note Post-Debridement Measurements/Treatment WC - Nurse 2 - General Ulcer CM Notes Start: 11/26/18 11:41 Freq: Status: Active Protocol: Activity Type Activity Date Activity User E-Sign Co-Sign Detail Recorded Client Recorded Date Recorded By Document 11/26/18 12:08 MW [id number] 11/26/18 12:15 MW Document 12/03/18 12:07 MW [id number] 12/03/18 12:13 MW Document 12/08/18 11:47 MW [id number] 12/08/18 11:52 MW 11/26/18 12/03/18 12/08/18 12:08 12:07 11:47 Wound Center Nurse 2 #2- RT LAGUERRE -Time 12: 12:11 11:47 -Correct Patient Yes Yes Yes -Correct Side, Site, Position Yes Yes Yes -Correct Procedure Yes Yes Yes -Procedure Performed Yes Yes Yes -Type of Procedure Debridement Debridement Debridement -Clinical Debridement Subcutaneous Selective Subcutaneous -Post Debridement Size (cm) - Length 0.8 0.3 0.4 -Post Debridement Size (cm) - Width 0.8 0.4 0.7 -Post Debridement Size (cm) - Depth 0.1 0.1 0.1 -Total Square Cm 0.64 0.12 0.28 -Wound/Ulcer Outcome Not Healed Not Healed Not Healed -Ulcer Cleansing Rinsed/ Rinsed/ Rinsed/ Irrigated with Irrigated with Irrigated with Saline Saline Saline -Foul Odor after Cleansing No No No -Bioengineered Tissue No No -Bleeding Controlled with Pressure Pressure Pressure -Offloading No No No -Treatment Response Procedure Procedure Tolerated Well Tolerated Well #1- RT KNEE/LATERAL LAGUERRE -Time 12: 12:08 11:47 -Correct Patient Yes Yes Yes -Correct Side, Site, Position Yes Yes Yes -Correct Procedure Yes Yes Yes -Procedure Performed Yes Yes Yes -Type of Procedure Debridement Debridement Debridement -Clinical Debridement Subcutaneous Subcutaneous Subcutaneous -Post Debridement Size (cm) - Length 0.8 0.7 0.7 -Post Debridement Size (cm) - Width 0.6 0.2 0.5 -Post Debridement Size (cm) - Depth 0.7 0.6 0.7 -Total Square Cm 0.48 0.14 0.35 -Wound/Ulcer Outcome Not Healed Not Healed Not Healed -Ulcer Cleansing Rinsed/ Rinsed/ Rinsed/ Irrigated with Irrigated with Irrigated with Saline Saline Saline -Foul Odor after Cleansing No No No -Bioengineered Tissue No No No -Bleeding Controlled with Pressure Pressure Pressure -Offloading No No No -Treatment Response Procedure Procedure Procedure Tolerated Well Tolerated Well Tolerated Well Pain Scale: 0-10 Numeric Is Patient Pain Free? Yes Yes Yes Wound debrided: #1 Right proximal lateral leg. Laterality: Right Wound Grade/Stage: 4. Type of Debridement: Excisional debridement Anesthesia Used: 4% Lidocaine Solution Depth: Down to and including healthy tissue, in the subcutaneous layer, to bone - bone and hardware are exposed but not debrided. Percentage of wound debrided: 100 Instrument Used: 5mm curette Tissue Removed: subcutaneous tissue. Severity: Fat Layer Exposed - bone and hardware are exposed but not debrided. Amount of bleeding with debridement: Mild Bleeding Controlled with: Pressure Patient tolerated procedure well - Additional Wound Wound debrided: #2 Right anterior leg. Laterality: Right Wound Grade/Stage: 2. Type of Debridement: Excisional debridement Anesthesia Used: 4% Lidocaine Solution Depth: Down to and including healthy tissue, in the subcutaneous layer Percentage of wound debrided: 100 Instrument Used: 3mm curette Tissue Removed: subcutaneous tissue. Severity: Fat Layer Exposed Amount of bleeding with debridement: Mild Bleeding Controlled with: Pressure Patient tolerated procedure: Patient tolerated procedure well Assessment/Plan Assessment: 1. Nonhealing ulcer right proximal lateral leg with exposed hardware from previous fracture repair. 2. History of right tibial plateau fracture with ORIF. 3. Diabetes mellitus. 4. Superficial abrasion right anterior leg. Plan: CT scan right knee from 10/12 reviewed. It showed lateral plate screw fixation of the proximal tibia. The fracture line is visible. There is also evidence of prior open reduction internal fixation of the distal tibia and tibiotalar joint.. Continue Violette dressing changes daily. Continue Bactrim for the wound culture from 11/11/18 that showed Staphylococcus aureu and Morganella morganii. I talked to Dr. Friedman last week who stated the fracture is stable and the hardware can be removed. The ulcer will not heal without removing the hardware. At the time of the hardware removal, will biopsy the bone with a partial ostectomy for osteomyelitis. Would continue wound care with a Silver dressing change daily or the VAC. If the bone is positive for osteomyelitis, then senior living IV antibiotics will be necessary with the placement of a PICC line. After antibiotics are completed would need a followup bone biopsy until negative. At which time wound closure can be done with a muscle flap (lateral gastrocnemius muscle) followed by skin grafting. If the bone is negative for osteomyelitis, can continue wound care with a Silver dressing change daily or the VAC. If enough granulation tissue covers the exposed bone, can consider wound closure with skin grafting. However a muscle flap is more durable rn long term care. So if a skin graft is done initially and ulcerates in the future, then can proceed with the muscle flap. Surgery will be under general anesthesia with a surgical observation overnight stay in the hospital. After surgery would need to go to an ECF initially for wound care and IV antibiotics. At the time of the muscle flap, if done, would be under general anesthesia with a 3-5 day stay in the hospital prior to going to an ECF. When healed, would need PT for strengthening and ambulation. Because of the ulcer and the planned surgeries, I anticipate increased metabolic demands. Will check a Prealbumin. Will encourage nutritional supplementation with protein to help the healing process. At the time of the muscle flap, will need to maximize her nutrition and her diabetes control. Her last HgbA1c was 11.1 in 07/15. She would need better control of her diabetes with a HgbA1c less than 8 before proceeding with any complex wound reconstruction with a muscle flap and skin grafting. At the time of surgery, will have Infectious Diseases involved with antibiotic management. Will coordinate the surgery with Dr. Friedman's office. Patient was informed of the risks and complications of the procedure including alternatives to surgery. These were discussed with her personally. She voices understanding and wishes to proceed. Patient is aware that aggressive surgical intervention is needed for limb preservation. If osteomyelitis is present combined with her poorly controlled diabetes mellitus, she would be at increased risk for worsening infection and possible eventual amputation. She voices understanding and wants to proceed with surgical intervention along with maximizing her nutrition and getting her diabetes under control to improve her limb salvage. Continue Tubigrip to minimize swelling. She should elevate her left leg when sitting. Followup one week.
[2018-12-17 10:05] VITALS: BP 127/65; PULSE 80; RESP 22; TEMP 36.6; BMI 30.7
--- NOTE | 2018-12-17 10:55 | PN.PCM_ITS ---
(1) Ulcer of right lower extremity Status: Acute Current Visit: Yes Qualifiers: Code(s): L97.919 - Non-pressure chronic ulcer of unspecified part of right lower leg with unspecified severity (2) Wound dehiscence, surgical Status: Chronic Current Visit: Yes Qualifiers: Code(s): T81.31XA - Disruption of external operation (surgical) wound, not elsewhere classified, initial encounter (3) Exposed orthopaedic hardware Status: Chronic Current Visit: No Code(s): T84.498A - Other mechanical complication of other internal orthopedic devices, implants and grafts, initial encounter Type of Wound Date of Service: 12/17/18 Chief Complaint: Nonhealing postsurgical wound; dehiscent right tibial plateau fracture ORIF incisional wound History of Wound: Ms. Mckoy is a 63-year-old who presented to the [facility] Center due to nonhealing postsurgical wound. She had surgery on July 19, 2018, at which time she underwent ORIF of a right tibial plateau fracture by Dr. Matt Friedman. Surgery was apparently uneventful. However, she states that after surgery, and while doing physical therapy (at her nursing facility ) wearing a knee brace, she subsequently had breakdown of her wound. This had been managed at her nursing facility. She was unsure of what had been used for wound management. However due to poor wound healing/progress, she was referred here. On initial evaluation by the intake nurse, her hardware was easily seen through the wound. She denied chills, fever, or malaise. Progress of Wound: Recent ER visit (yesterday) for worsening right lower extremity pain, increased drainage from ulcer and increased redness. During the ER visit, was noted to have significantly elevated blood glucose. - Physical Exam Vital Signs Temp Pulse Resp BP 97.8 F 80 22 H 127/65 H 12/17/18 10:05 12/17/18 10:05 12/17/18 10:05 12/17/18 10:05 General: Alert, Oriented x3, Cooperative, No apparent distress HEENT: Atraumatic, Normocephalic Oral: Moist Mucosa Neck: Supple Lungs: Normal air movement Extremities: No cyanosis, Edema Skin: Ulcer/ Wound Wound Measurements and Assessment WC - Nurse 1 - General Ulcer Measurement Start: 11/26/18 11:41 Freq: Status: Active Protocol: Activity Type Activity Date Activity User E-Sign Co-Sign Detail Recorded Client Recorded Date Recorded By Document 12/17/18 10:05 DL [id number] 12/17/18 10:12 DL 12/17/18 10:05 Wound Center Nurse 1 [Ulcer Assessment] #2- RT LAGUERRE -Current Size (cm) - Length 0 -Current Size (cm) - Width 0 -Current Size (cm) - Depth 0 -Total Square Cm 0 -Photo Taken No -Exudate Amt None Present -Granulation Amt Large (67-100%) -Granulation Quality [place] -Necrosis Amt None Present (0 %) -Structure Exposed N/A -Texture (Tiana-wound Skin Appearance) Scarring -Moisture (Tiana-wound Skin Appearance No Abnormality ) -Color (Tiana-wound Skin Appearance) No Abnormality -Temperature (Tiana-wound Skin No Abnormality Appearance) (Pt Warm) -Tenderness on Palpation (Tiana-wound No Skin Appearance) -Ulcer Cleansing Rinsed/ Irrigated with Saline -Foul Odor after Cleansing No #1- RT KNEE/LATERAL LAGUERRE -Current Size (cm) - Length 0.7 -Current Size (cm) - Width 0.5 -Current Size (cm) - Depth 0.6 -Total Square Cm 0.35 -Photo Taken No -Exudate Amt Small -Exudate Type Yellow/Green -Wound Margin Distinct, Outline Attached -Granulation Amt Small (1-33%) -Granulation Quality [place] -Necrosis Amt Small (1-33%) -Necrotic Tissue Type Adherent Slough -Structure Exposed N/A -Texture (Tiana-wound Skin Appearance) Scarring -Moisture (Tiana-wound Skin Appearance No Abnormality ) -Color (Tiana-wound Skin Appearance) Hemosiderin Staining -Temperature (Tiana-wound Skin No Abnormality Appearance) (Pt Warm) -Tenderness on Palpation (Tiana-wound No Skin Appearance) -Ulcer Cleansing Rinsed/ Irrigated with Saline -Foul Odor after Cleansing No -Anesthetic Used 5% Lidocaine Gel [Edema Assessment] -Right Calf (cm) 35 -Right Ankle (cm) 22.2 WC - Nurse 2 - General Ulcer CM Notes Start: 11/26/18 11:41 Freq: Status: Active Protocol: Activity Type Activity Date Activity User E-Sign Co-Sign Detail Recorded Client Recorded Date Recorded By Document 12/17/18 10:43 MW [id number] 12/17/18 10:48 MW 12/17/18 10:43 Wound Center Nurse 2 [Procedure/Treatment] #2- RT LAGUERRE -Time 10:45 -Correct Patient Yes -Correct Side, Site, Position Yes -Correct Procedure Yes -Procedure Performed No -Post Debridement Size (cm) - Length 0 -Post Debridement Size (cm) - Width 0 -Post Debridement Size (cm) - Depth 0 -Total Square Cm 0 -Wound/Ulcer Outcome Healed- Epithelialized #1- RT KNEE/LATERAL LAGUERRE -Time 10:43 -Correct Patient Yes -Correct Side, Site, Position Yes -Correct Procedure Yes -Procedure Performed Yes -Type of Procedure Debridement -Clinical Debridement Subcutaneous -Post Debridement Size (cm) - Length 0.2 -Post Debridement Size (cm) - Width 0.7 -Post Debridement Size (cm) - Depth 0.7 -Total Square Cm 0.14 -Wound/Ulcer Outcome Not Healed -Ulcer Cleansing Rinsed/ Irrigated with Saline -Foul Odor after Cleansing No -Bioengineered Tissue No -Bleeding Controlled with Pressure -Offloading No -Treatment Response Procedure Tolerated Well [See Physician Procedure note for Specifics] Pain Scale: 0-10 Numeric [Pain] -Is Patient Pain Free? Yes Musculoskeletal: No Muscle Wasting Neurological: Cranial nerves II-XII grossly intact Psych/Mental Status: Normal Affect Debridement Note Post-Debridement Measurements/Treatment WC - Nurse 2 - General Ulcer CM Notes Start: 11/26/18 11:41 Freq: Status: Active Protocol: Activity Type Activity Date Activity User E-Sign Co-Sign Detail Recorded Client Recorded Date Recorded By Document 11/26/18 12:08 MW [id number] 11/26/18 12:15 MW Document 12/03/18 12:07 MW [id number] 12/03/18 12:13 MW Document 12/08/18 11:47 MW [id number] 12/08/18 11:52 MW Document 12/17/18 10:43 MW [id number] 12/17/18 10:48 MW 11/26/18 12/03/18 12/08/18 12:08 12:07 11:47 Wound Center Nurse 2 #2- RT LAGUERRE -Time 12:09 12:11 11:47 -Correct Patient Yes Yes Yes -Correct Side, Site, Position Yes Yes Yes -Correct Procedure Yes Yes Yes -Procedure Performed Yes Yes Yes -Type of Procedure Debridement Debridement Debridement -Clinical Debridement Subcutaneous Selective Subcutaneous -Post Debridement Size (cm) - Length 0.8 0.3 0.4 -Post Debridement Size (cm) - Width 0.8 0.4 0.7 -Post Debridement Size (cm) - Depth 0.1 0.1 0.1 -Total Square Cm 0.64 0.12 0.28 -Wound/Ulcer Outcome Not Healed Not Healed Not Healed -Ulcer Cleansing Rinsed/ Rinsed/ Rinsed/ Irrigated with Irrigated with Irrigated with Saline Saline Saline -Foul Odor after Cleansing No No No -Bioengineered Tissue No No -Bleeding Controlled with Pressure Pressure Pressure -Offloading No No No -Treatment Response Procedure Procedure Tolerated Well Tolerated Well #1- RT KNEE/LATERAL LAGUERRE -Time 12:09 12:08 11:47 -Correct Patient Yes Yes Yes -Correct Side, Site, Position Yes Yes Yes -Correct Procedure Yes Yes Yes -Procedure Performed Yes Yes Yes -Type of Procedure Debridement Debridement Debridement -Clinical Debridement Subcutaneous Subcutaneous Subcutaneous -Post Debridement Size (cm) - Length 0.8 0.7 0.7 -Post Debridement Size (cm) - Width 0.6 0.2 0.5 -Post Debridement Size (cm) - Depth 0.7 0.6 0.7 -Total Square Cm 0.48 0.14 0.35 -Wound/Ulcer Outcome Not Healed Not Healed Not Healed -Ulcer Cleansing Rinsed/ Rinsed/ Rinsed/ Irrigated with Irrigated with Irrigated with Saline Saline Saline -Foul Odor after Cleansing No No No -Bioengineered Tissue No No No -Bleeding Controlled with Pressure Pressure Pressure -Offloading No No No -Treatment Response Procedure Procedure Procedure Tolerated Well Tolerated Well Tolerated Well Pain Scale: 0-10 Numeric Is Patient Pain Free? Yes Yes Yes 12/17/18 10:43 Wound Center Nurse 2 #2- RT LAGUERRE -Time 10:45 -Correct Patient Yes -Correct Side, Site, Position Yes -Correct Procedure Yes -Procedure Performed No -Type of Procedure -Clinical Debridement -Post Debridement Size (cm) - Length 0 -Post Debridement Size (cm) - Width 0 -Post Debridement Size (cm) - Depth 0 -Total Square Cm 0 -Wound/Ulcer Outcome Healed- Epithelialized -Ulcer Cleansing -Foul Odor after Cleansing -Bioengineered Tissue -Bleeding Controlled with -Offloading -Treatment Response #1- RT KNEE/LATERAL LAGUERRE -Time 10:43 -Correct Patient Yes -Correct Side, Site, Position Yes -Correct Procedure Yes -Procedure Performed Yes -Type of Procedure Debridement -Clinical Debridement Subcutaneous -Post Debridement Size (cm) - Length 0.2 -Post Debridement Size (cm) - Width 0.7 -Post Debridement Size (cm) - Depth 0.7 -Total Square Cm 0.14 -Wound/Ulcer Outcome Not Healed -Ulcer Cleansing Rinsed/ Irrigated with Saline -Foul Odor after Cleansing No -Bioengineered Tissue No -Bleeding Controlled with Pressure -Offloading No -Treatment Response Procedure Tolerated Well Pain Scale: 0-10 Numeric Is Patient Pain Free? Yes Wound debrided: Right leg Wound Grade/Stage: Stage 3 Type of Debridement: Excisional debridement Anesthesia Used: 4% Lidocaine Solution Depth: Down to and including healthy tissue, in the subcutaneous layer Percentage of wound debrided: 100 Instrument Used: 3mm curette Tissue Removed: Slough and devitalized tissue Severity: Fat Layer Exposed Amount of bleeding with debridement: Mild Bleeding Controlled with: Pressure Patient tolerated procedure well Assessment/Plan Active Problems Wound dehiscence, surgical (Chronic) Ulcer of right lower extremity (Acute) Assessment: Same as above. Plan: No drainage appreciated today however, patient reports increased drainage over the past week with worsening tenderness and erythema appreciated. X-ray done in the emergency room yesterday with no concern for osteomyelitis but did show healed fractures. She has followed up with Dr. Uribe however does not have a date yet for surgery. Currently on Bactrim prophylaxis however, it appears that she has another episode of cellulitis/infection. Did well on levofloxacin in the past, will start on a short course of levofloxacin. Hold Bactrim while on levofloxacin. Continue increased protein intake. Elevate lower exremities when seated and in bed. Also asked that she speak with Dr. Friedman's office and get her scheduled for surgery as soon as possible. All her questions were answered and she was advised to call with any further questions or concerns. This note was generated with [employer] software. It may contain incorrect words, spelling, and punctuation that were not noted in checking the note before signing.
== END 2018-12-24 23:59 ==
LOC: WC 10:30
PROVIDERS: Family Provider Family Medicine; PCP Family Medicine; Referring Provider Internal Medicine; Visit Provider Internal Medicine
DX: T81.31XA Disruption of external operation (surgical) wound, not elsewhere classified, initial encounter (principal); T84.498A Other mechanical complication of other internal orthopedic devices, implants and grafts, initial encounter; X58.XXXS Exposure to other specified factors, sequela; S82.141S Displaced bicondylar fracture of right tibia, sequela; Y83.8 Other surgical procedures as the cause of abnormal reaction of the patient, or of later complication, without mention of misadventure at the time of the procedure; J45.909 Unspecified asthma, uncomplicated; E78.5 Hyperlipidemia, unspecified; I10 Essential (primary) hypertension; E66.9 Obesity, unspecified; Z68.41 Body mass index [BMI] 40.0-44.9, adult; Z71.3 Dietary counseling and surveillance; Z79.899 Other long term (current) drug therapy; Z79.4 Long term (current) use of insulin; Z79.82 Long term (current) use of aspirin; E11.9 Type 2 diabetes mellitus without complications
CPT/HCPCS: 11042

== ENCOUNTER 2018-12-17 16:08 | Emergency (ER) | payer MEDICAID, SELFPAY ==
[2018-12-17 16:08] VITALS: BMI 43.7
[2018-12-17 16:10] VITALS: BP 140/82; PULSE 98; RESP 17; TEMP 36.8; O2SAT 97; BMI 41.0
--- NOTE | 2018-12-17 16:41 | ED.VISSUMM ---
- ER Visit Summary Date of Service: 12/17/18 Chief Complaint: Right lower extremity wound History of Present Illness: The patient is a 63 F presents with chronic right lower extremity wound. She had ORIF per Dr. Friedman June,. She had subsequent breakdown of the wound. She was seen in the ED yesterday for hyperglycemia. She had x-ray performed at that time which showed no evidence of osteomyelitis. She was seen by the wound center today. The wound was debrided, she was started on Levaquin and her Bactrim was stopped.. She was advised to set up appointment with Dr. Friedman for surgery. She states surgery has been scheduled in the past and was canceled. She presents for pain control. Denies fever or other complaints. Physical Examination: Vitals are stable. Patient is afebrile. Alert no acute distress. HEENT exam is unremarkable. Neck is supple. Lungs are clear and equal bilaterally. Heart is regular rate and rhythm. Abdomen is soft nontender nondistended. Extremities 2 cm right lower extremity wound. No surrounding erythema. Neurovascularly intact distally. She is able to range her right knee. Skin is warm and dry. Remainder of exam is unremarkable. Emergency Department Course and Treatment: Basic metabolic panel shows glucose 231. She was given morphine, zofran IV. Discussed with Dr. Friedman. He has been in contact with Dr. Uribe and their offices are coordinating their schedules to have the surgery scheduled. On reevaluation, patient is resting comfortably. She is advised to call Dr. Friedman's office to check on the progress of her surgery scheduling. Advised to return to the ED for worsening complaints. Disposition: Discharge home Impression: Chronic right lower extremity wound This note was generated with [employer] dictation software. It may contain incorrect words, spelling, and punctuation that were not noted in review of the chart prior to signing ED Disposition - Plan for ED Patient: Prescriptions: Hydrocodone Bitart/Apap 5-325 [[place] 5MG-325MG] 1 tab PO Q6H PRN PRN 3 Days #10 tab PRN Reason: Pain Prescription Printed Referrals: Avinash Najera MD [Primary Care Provider] - Yury Friedman MD [STAFF PHYSICIAN] -
[2018-12-17] MEDS: Ondansetron 4 MG/2 ML Vial IV (17:04)
[2018-12-17] MEDS: Morphine 4 MG/ML Syringe IV (17:04)
[2018-12-17 17:12] VITALS: BP 97/48; PULSE 87; RESP 18; TEMP 36.6; O2SAT 97
[2018-12-17 17:30] LABS: Anion Gap 10 (5-15); BUN 11 mg/dL (7-18); BUN/Creat Ratio 15.1 RATIO (10-20); Calcium,Total 8.7 mg/dL (8.5-10.1); Chloride 102 mmol/L (98-107); Creatinine, Serum 0.73 mg/dL (0.55-1.02); EST Glomerular Filtration Rate 86 mL/min (>60); Est Glom Filt Rate - Afr Amer 104 mL/min (>60); Estimated Creatinine Clearance 91.44 ml/min; Glucose 231 mg/dL (74-106); Potassium 3.9 mmol/L (3.5-5.1); Sodium Level 139 mmol/L (136-145)
--- NOTE | 2018-12-17 17:35 | DCINST.ED_ITS ---
ED Disposition - Plan for ED Patient: Prescriptions: Hydrocodone Bitart/Apap 5-325 [[place] 5MG-325MG] 1 tablet PO Q6H PRN PRN 3 Days #10 tablet PRN Reason: Pain Referrals: Avinash Najera MD [Primary Care Provider] - Yury Friedman MD [STAFF PHYSICIAN] -
--- NOTE | 2018-12-17 18:04 | ED.RN ---
pt alert and oriented
== END 2018-12-17 18:04 | disposition home or self-care (01) ==
PROVIDERS: Emergency Provider Emergency Medicine; Family Provider Family Medicine; PCP Family Medicine
DX: S81.801A Unspecified open wound, right lower leg, initial encounter (principal); X58.XXXA Exposure to other specified factors, initial encounter; Y93.9 Activity, unspecified; Y92.9 Unspecified place or not applicable; J45.909 Unspecified asthma, uncomplicated; E11.9 Type 2 diabetes mellitus without complications; I10 Essential (primary) hypertension; E78.00 Pure hypercholesterolemia, unspecified; E66.9 Obesity, unspecified; Z79.82 Long term (current) use of aspirin; Z79.4 Long term (current) use of insulin; Z79.84 Long term (current) use of oral hypoglycemic drugs; Z79.01 Long term (current) use of anticoagulants; Z79.899 Other long term (current) drug therapy
CPT/HCPCS: 80048; 96374; 96375; 99284; J2405

== ENCOUNTER 2018-12-24 17:06 | Inpatient (IN) | payer MEDICAID, SELFPAY ==
--- NOTE | 2018-12-23 21:08 | HP.PCM_ITS ---
History and Physical Patient Name: Do Mckoy : 1955 From: ROSA RUTLEDGE PA-C DATE OF SURGERY: 12/24/2018 SCHEDULED PROCEDURE: hardware removal right knee HISTORY OF PRESENT ILLNESS: Preoperative history and physical exam was performed on December 22, 2018. This is a 63-year-old female who underwent a previous open reduction internal fixation right tibial plateau fracture on December 16, 2018. Patient has been treated at the wound center for wound care with no improvement of the wound. Patient continues to have pain over the lower leg and increased pain with flexion and weightbearing. The patient has been full weightbearing with continued pain. X- rays show a stable well-healed lateral tibial plateau fracture with plate and screws in place. After discussion with Dr. Yury Friedman, the patient would like to proceed with removal of hardware right knee. Patient has medical history pertinent for hypertension, type 2 diabetes mellitus, asthma. She currently denies any chest pain, shortness of breath, fevers chills, recent infections. REVIEW OF SYSTEMS: ROS: Const: Denies anorexia, change in appetite, fever, hard of hearing, vision problems and weight change. CV: Reports irregular heartbeat, but denies chest pain, heart murmur and peripheral vascular disease. Resp: Reports asthma, cough, SOB and wheezing, but denies pneumonia, sleep apnea and tuberculosis. GI: Denies constipation, diarrhea, difficulty swallowing, heartburn, nausea, bloody stools and vomiting. : Denies female genital problems. Urinary: denies incontinence. Musculo: Denies leg swelling, limp, trouble walking and weakness. Skin: Denies Raynaud's, history of shingles and tattoo. Neuro: Denies ambulatory dysfunction, dizziness, numbness/tingling and tremor. Psych: Denies anxiety, depression, insomnia, mental illness and stress. Murphy/Lymph: Denies anemia, bleeding/bruising tendency and past transfusion. Reviewed, no changes. PAST MEDICAL HISTORY: Advance Care Plan: No Advance Directives Effective Date: 03/20/2017 PMH: Medical Problems: High Blood Pressure, Diabetes, Asthma, Hypercholesterolemia Accidents: Fracture Surgical Hx: Ovaries Removed Bilat Palm SX - [facility] RT Ankle ORIF - (09/20/2016) [facility] RT Ankle Hardware Removal - (03/28/2017) [facility] ORIF right tibial plateau fracture - 07-19-18 Dr. Friedman Anesthesia Complications: None Assistive Devices: Glasses, Dentures Reviewed, no changes. 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 Personal Habits: Smoking: Patient has never smoked.Cigarette Use: Never Smoked Cigarettes.Alcohol: Denies use.Drug Use: Denies Use.Enjoy Exercising: Daily. Reviewed, no changes. VITALS: Ht: 57 Wt: 163lb Wt k.937 BMI: 35.3 BP: 122/74 Pulse: 80 T: 97.4 T: 36.3C ALLERGIES: Penicillin Insulin Lispro Cephalexin Humalog MEDICATIONS: Metformin HCL 500 mg 2po bid, B Complex-B12 1po qday, Aspir-81 81 mg 1 by mouth every day, Lisinopril 10 mg 1 by mouth every day, Atorvastatin Calcium 40 mg 1 by mouth every day, Tresiba Flextouch 100 Unit/ML inject 26 UNITS SUBCUTANEOUSLY DAILY AT BEDTIME, Lovastatin 40 mg 1 by mouth every day, Acetaminophen 325 mg 2 tablets every 4-6 hours for pain, Levofloxacin 750 mg TAKE 1 TABLET EVERY DAY for 5 days. PRE-OP EXAM: General appearance:NORMAL Other: Eyes: Conjunctivae and lids: NORMAL Pupils: ERR Ears, Nose, Mouth, and Throat: NORMAL Other: Inspection of lips, teeth and gums: NORMAL Other: Neck: Examination of neck: no masses noted. Respiratory: Assessment of respiratory effort: NORMAL Other: Auscultation of lungs: clear to auscultation no wheezes, rhonchi or rales. Cardiovascular: Auscultation of heart: regular rate and rhythm, no murmurs, gallops or rubs. Gastrointestinal: Exam of abdomen: soft, nontender, nondistended bowel sounds present. PHYSICAL EXAMINATION: Right knee shows active drainage with a 1 cm x 6 mm wound over the midportion of the incision. Range of motion of the right knee: Full extension to 115 flexion. Lateral laxity with firm endpoints instability with varus valgus testing. Sensation intact. IMAGING STUDIES: X-rays show a healed lateral tibial plateau fracture with stable plate and no lucencies over the plate or screws. IMPRESSION: 1. Painful right knee with previous ORIF lateral tibial plateau fracture with wound 2. Type 2 diabetes mellitus 3. Hypertension 4. Asthma 5. Hypercholesterolemia PLAN: Dr. Yury Friedman did discuss and review with the patient all treatment options including surgical versus nonsurgical options. Patient does wish to proceed with the above-stated procedure. Potential risks, benefits, and complications of the procedure were discussed in detail including but not limited to , infection, nerve and blood vessel damage, persistent pain, numbness, tingling, paresthesias, blood clot, pulmonary embolism, and requirement for possible further surgery. The patient expressed full understanding and has no further questions for the doctor. Patient does agree to proceed with the above-stated procedure and has signed the surgery consent form. This dictation was created using voice recognition software. Phonetic and/or grammatical errors may exist.. ___ I have re-examined the patient. There are no clinical changes since date of exam. ___ See progress notes for changes. ___ Dictated on admission Date: Time: Signature:
[2018-12-24] VITALS (7 sets, daily range): BP systolic 104–117; BP diastolic 50–58; PULSE 63–88; RESP 14–18; TEMP 36.2–37; O2SAT 93–97; BMI 30.9
[2018-12-24 13:31] LABS: Bedside Glucose 261 mg/dL (70-110)
[2018-12-24 13:33] LABS: Hemoglobin A1c 9.4 % (4.2-6.3)
[2018-12-24] MEDS: Vancomycin IV 1,000 MG/200 ML BAG 200 MG IV (13:57)
[2018-12-24 14:36] LABS: Prealbumin 16.1 mg/dL (20.0-40.0)
--- NOTE | 2018-12-24 15:00 | BON_PTH ---
PATIENT: JIMMIE FONSECA LOC: MS3 U#:[id number] AGE/SX: 63/F ROOM: TX325 RE12/24/[address]: Dr. Kaiden Carroll MD : 1955 BED: 1 DIS: 12/26/2018 SPEC #: [id number] RECD: 12/25/18 08:19 STATUS: DANN REShamika #: [id number] BRANDIE: 12/24/18 15:[address]: Yury Friedman DEPT: SURGICAL PATHOLOGY RECD BY: Jesse Vasquez ENTERED: 12/25/18 09:38 SP TYPE: Bone OTHR DR: MD Dr. Steven Bardales MD Dr. Jeffrey Burkey, MD Dr. James A Slaby, MD Dr. Robert Leininger, MD Tissues: A - Bone of lower extremity, NOS B - Soft tissues, NOS Procedures: Decalcification bone/plaque Surgery Specimen Level IV HEADER OPERATION: Surgical prep proximal lateral leg with I & D and debridement PRE-OP DIAGNOSIS: Nonhealing ulcer right proximal lateral leg with exposed hardware from previous fracture repair TISSUE SUBMITTED: A - Bone - nonhealing infected ulcer right proximal lateral with exposed hardware, B - Soft tissue - nonhealing infected ulcer right proximal lateral leg with exposed hardware MICROSCOPIC DIAGNOSIS A. Bone, right proximal leg, biopsy: Granulation with acute and chronic inflammation. Bone with chronic change and focal acute osteomyelitis. B. Skin and soft tissue of right proximal leg, excision: Ulceration wit associated acute and chronic inflammation and granulation. Fibrosis and fat necrosis. AM:luis 12/31/18 MICROSCOPIC DESCRIPTION Slides are reviewed. GROSS DESCRIPTION A - Received in fixative is one container labeled with the patient's name and designated bone of nonhealing infected ulcer, right proximal lateral leg. The specimen consists of multiple irregular fragments of light to dark goodson bone that in aggregate measure 2.5 x 2 x 0.2 cm. The specimen is totally submitted in one cassette after decalcification. B - Received in fixative is one container labeled with the patient's name and designated soft tissue right proximal lateral leg. The specimen consists of four irregular fragments of light goodson skin with attached goodson-white soft tissue that in aggregate measure 8 x 6 x 1.2 cm. Serial sections do not reveal mass lesions. The largest fragment contains a centrally located ulcer measuring 1 x 0.5 x 0.2 cm. Serial sections reveal what appears to be part of the linear scar which linear scar is well healed. Film Loader sections are submitted in two cassettes. / AM:luis 12/25/18 TC:2 CPT: 34370 x2, 79691
--- NOTE | 2018-12-24 15:00 | HP.PCM_ITS ---
History and Physical Date of Admission: 12/24/18 History of Present Illness Date of Service: 12/08/18 - WOUND CENTER CONSULT REFERRING PHYSICIAN: Dr. Friedman. TRIM AND BURR OPERATOR: Dr. Uribe. Chief Complaint: Nonhealing ulcer right proximal lateral leg with exposed hardware from previous fracture repair. History of Wound: Ms. Mckoy is a 63-year-old who presented to the Wound Center with a nonhealing ulcer right proximal lateral leg with exposed hardware from previous fracture repair. She had surgery on July 19, 2018, where she underwent ORIF of a right tibial plateau fracture by Dr. Friedman. After surgery, she was doing physical therapy at her nursing facility wearing a knee brace. This led to breakdown of her incision. She was started on Levaquin and Flagyl. When she came to the Wound Center, she was started on Violette dressing changes. Wound culture was done because of drainage and exposed hardware. It showed Staphylococcus aureus and Morganella morganii and was started on Bactrim. Today she denies fever. Her appetite is ok. I had talked to Dr. Friedman last week who stated the fracture shows stable healing and the hardware can be removed. She also developed superficial abrasions on her right anterior leg probably from her compression dressing. Her last HgbA1c was 11.1 on 07/19/18. Her ESR was 58 from 10/23/18. Her CRP was 15.10 from 10/23/18. 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 without evidence of necrosis (Chronic) nonhealing ulcer right proximal lateral leg with exposed hardware from previous fracture repair Chronic cellulitis (Chronic) nonhealing ulcer right proximal lateral leg with exposed hardware from previous fracture repair Tibial plateau fracture (Chronic) Debility (Chronic) Wound dehiscence, surgical (Chronic) Exposed orthopaedic hardware (Chronic) from right tibial plateau fracture with ulceration right proximal lateral leg Bronchial asthma (Chronic) Diabetes mellitus (Chronic) Hyperlipidemia (Chronic) Hypertension (Chronic) Obesity (Chronic) Surgical History: appendectomy, cholecystectomy, hysterectomy Allergies/Adverse Reactions: Allergies cephalexin [From Keflex] Allergy (Verified 12/17/18 16:09) Breakouts insulin lispro [From Humalog] Allergy (Verified 12/17/18 16:09) Rash Penicillins Allergy (Verified 12/17/18 16:09) Rash Home Medications: Ambulatory Orders Medication Instructions Recorded Lisinopril [Zestril] 10 mg PO DAILY 08/25/14 Vitamin B Complex 1 each PO BID 11/23/15 metFORMIN HCl [Glucophage] 1,000 mg PO BIDCM 09/19/16 Aspirin [Aspirin EC] 81 mg PO DAILY 07/18/18 Insulin Detemir [Levemir FlexPen] 40 units SC QHS 07/18/18 Acetaminophen [Tylenol Tablet] 650 mg PO Q6H PRN PRN tablet 07/22/18 levoFLOXacin tablet [Levaquin] 500 mg PO DAILY #7 tab 11/14/18 Atorvastatin Calcium [Lipitor] 40 mg PO QHS 11/17/18 Rivaroxaban [Xarelto] 10 mg PO DAILY 12/09/18 Hydrocodone Bitart/Apap 5-325 1 tab PO Q6H PRN PRN 3 Days #10 tab 12/17/18 [[place] 5MG-325MG] - Family History Maternal Diabetes Paternal Diabetes Smoking Status: Never smoker Tobacco Use: Non-smoker Review of Systems Constitutional: Denies: Chills, Fever, Weight Change. Eyes: Denies: Pain, Vision Change. HEENT: Denies: Difficulty Hearing, Difficulty Swallowing, Sinus Congestion. Cardiovascular: Denies: Chest Pain, Palpitations. Respiratory: Denies: Cough, Shortness of Breath. Gastrointestinal: Denies: Diarrhea, Nausea, Vomiting. Genitourinary: Denies: Dysuria, Hematuria. Endocrine: Denies: Heat/ Cold Intolerance, Polydipsia, Polyuria. Hematologic/ Lymphatic: Denies: Easy Bruising, Easy Bleeding - Physical Exam General: Alert, Oriented x3, Cooperative. HEENT: PERRLA, EOMI. Oral: Moist Mucosa. Neck: Supple nontender. No cervical adenopathy. Lungs: Clear to auscultation. Heart: Regular rate and rhythm. Abdomen: Soft, Non-Distended. Extremities: No clubbing, No cyanosis, No edema, No Calf Tenderness. There is a nonhealing ulcer right proximal lateral leg. There is some surrounding mild swelling and chronic redness. There is no fluctuance or purulent drainage. Some bioburden is present. Measures 0.7 x 0.6 x 0.6 cm. There is exposed hardware. No inguinal adenopathy. There is a superficial abrasion on the right anterior leg. Some granulation tissue seen. Measures 0.2 x 0.2 x 0.1 cm. Skin: No rashes. Neurological: Cranial nerves II-XII grossly intact. Psych/Mental Status: Normal Affect, Appropriate. Vital Signs Temp Pulse Resp BP 98.6 F 97 20 H 110/55 L 12/08/18 10:58 12/08/18 10:58 12/08/18 10:58 12/08/18 10:58 Wound Measurements and Assessment WC - Nurse 1 - General Ulcer Measurement Start: 11/26/18 11:41 Freq: Status: Active Protocol: Activity Type Activity Date Activity User E-Sign Co-Sign Detail Recorded Client Recorded Date Recorded By Document 12/08/18 10:58 DL [id number] 12/08/18 11:04 DL 12/08/18 10:58 Wound Center Nurse 1 [Ulcer Assessment] #2- RT LAGUERRE -Current Size (cm) - Length 0.2 -Current Size (cm) - Width 0.2 -Current Size (cm) - Depth 0.1 -Total Square Cm 0.04 -Photo Taken No -Exudate Amt None Present -Wound Margin Flat & Intact -Granulation Amt Small (1-33%) -Granulation Quality [place] -Necrosis Amt None Present (0 %) -Structure Exposed N/A -Texture (Tiana-wound Skin Appearance) Scarring -Moisture (Tiana-wound Skin Appearance No Abnormality ) -Color (Tiana-wound Skin Appearance) Hemosiderin Staining -Temperature (Tiana-wound Skin No Abnormality Appearance) (Pt Warm) -Tenderness on Palpation (Tiana-wound No Skin Appearance) -Ulcer Cleansing Rinsed/ Irrigated with Saline -Foul Odor after Cleansing No -Anesthetic Used 5% Lidocaine Gel #1- RT KNEE/LATERAL LAGUERRE -Current Size (cm) - Length 0.7 -Current Size (cm) - Width 0.6 -Current Size (cm) - Depth 0.6 -Total Square Cm 0.42 -Photo Taken No -Undermining/Tunneling Starts (O' 1 clock) -Undermining/Tunneling Ends (O'clock) 4 -Maximum Distance (cm) 1 -Circular Undermining No -Exudate Amt Small -Exudate Type Sanguineous -Wound Margin Indistinct, Non -Visible -Granulation Amt Small (1-33%) -Granulation Quality [place] -Necrosis Amt Small (1-33%) -Necrotic Tissue Type Adherent Slough -Structure Exposed N/A -Texture (Tiana-wound Skin Appearance) Localized Edema ,Scarring -Moisture (Tiana-wound Skin Appearance No Abnormality ) -Color (Tiana-wound Skin Appearance) Hemosiderin Staining,Rubor -Tenderness on Palpation (Tiana-wound Yes Skin Appearance) -Ulcer Cleansing Rinsed/ Irrigated with Saline -Foul Odor after Cleansing No -Anesthetic Used 5% Lidocaine Gel WC - Nurse 2 - General Ulcer CM Notes Start: 11/26/18 11:41 Freq: Status: Active Protocol: Activity Type Activity Date Activity User E-Sign Co-Sign Detail Recorded Client Recorded Date Recorded By Document 12/08/18 11:47 MW [id number] 12/08/18 11:52 MW 12/08/18 11:47 Wound Center Nurse 2 [Procedure/Treatment] #2- RT LAGUERRE -Time 11:47 -Correct Patient Yes -Correct Side, Site, Position Yes -Correct Procedure Yes -Procedure Performed Yes -Type of Procedure Debridement -Clinical Debridement Subcutaneous -Post Debridement Size (cm) - Length 0.4 -Post Debridement Size (cm) - Width 0.7 -Post Debridement Size (cm) - Depth 0.1 -Total Square Cm 0.28 -Wound/Ulcer Outcome Not Healed -Ulcer Cleansing Rinsed/ Irrigated with Saline -Foul Odor after Cleansing No -Bioengineered Tissue No -Bleeding Controlled with Pressure -Offloading No -Treatment Response Procedure Tolerated Well #1- RT KNEE/LATERAL LAGUERRE -Time 11:47 -Correct Patient Yes -Correct Side, Site, Position Yes -Correct Procedure Yes -Procedure Performed Yes -Type of Procedure Debridement -Clinical Debridement Subcutaneous -Post Debridement Size (cm) - Length 0.7 -Post Debridement Size (cm) - Width 0.5 -Post Debridement Size (cm) - Depth 0.7 -Total Square Cm 0.35 -Wound/Ulcer Outcome Not Healed -Ulcer Cleansing Rinsed/ Irrigated with Saline -Foul Odor after Cleansing No -Bioengineered Tissue No -Bleeding Controlled with Pressure -Offloading No -Treatment Response Procedure Tolerated Well [See Physician Procedure note for Specifics] Pain Scale: 0-10 Numeric [Pain] -Is Patient Pain Free? Yes Debridement Note Post-Debridement Measurements/Treatment WC - Nurse 2 - General Ulcer CM Notes Start: 11/26/18 11:41 Freq: Status: Active Protocol: Activity Type Activity Date Activity User E-Sign Co-Sign Detail Recorded Client Recorded Date Recorded By Document 11/26/18 12:08 MW [id number] 11/26/18 12:15 MW Document 12/03/18 12:07 MW [id number] 12/03/18 12:13 MW Document 12/08/18 11:47 MW [id number] 12/08/18 11:52 MW 11/26/18 12/03/18 12/08/18 12:08 12:07 11:47 Wound Center Nurse 2 #2- RT LAGUERRE -Time 12: 12:11 11:47 -Correct Patient Yes Yes Yes -Correct Side, Site, Position Yes Yes Yes -Correct Procedure Yes Yes Yes -Procedure Performed Yes Yes Yes -Type of Procedure Debridement Debridement Debridement -Clinical Debridement Subcutaneous Selective Subcutaneous -Post Debridement Size (cm) - Length 0.8 0.3 0.4 -Post Debridement Size (cm) - Width 0.8 0.4 0.7 -Post Debridement Size (cm) - Depth 0.1 0.1 0.1 -Total Square Cm 0.64 0.12 0.28 -Wound/Ulcer Outcome Not Healed Not Healed Not Healed -Ulcer Cleansing Rinsed/ Rinsed/ Rinsed/ Irrigated with Irrigated with Irrigated with Saline Saline Saline -Foul Odor after Cleansing No No No -Bioengineered Tissue No No -Bleeding Controlled with Pressure Pressure Pressure -Offloading No No No -Treatment Response Procedure Procedure Tolerated Well Tolerated Well #1- RT KNEE/LATERAL LAGUERRE -Time 12: 12:08 11:47 -Correct Patient Yes Yes Yes -Correct Side, Site, Position Yes Yes Yes -Correct Procedure Yes Yes Yes -Procedure Performed Yes Yes Yes -Type of Procedure Debridement Debridement Debridement -Clinical Debridement Subcutaneous Subcutaneous Subcutaneous -Post Debridement Size (cm) - Length 0.8 0.7 0.7 -Post Debridement Size (cm) - Width 0.6 0.2 0.5 -Post Debridement Size (cm) - Depth 0.7 0.6 0.7 -Total Square Cm 0.48 0.14 0.35 -Wound/Ulcer Outcome Not Healed Not Healed Not Healed -Ulcer Cleansing Rinsed/ Rinsed/ Rinsed/ Irrigated with Irrigated with Irrigated with Saline Saline Saline -Foul Odor after Cleansing No No No -Bioengineered Tissue No No No -Bleeding Controlled with Pressure Pressure Pressure -Offloading No No No -Treatment Response Procedure Procedure Procedure Tolerated Well Tolerated Well Tolerated Well Pain Scale: 0-10 Numeric Is Patient Pain Free? Yes Yes Yes Wound debrided: #1 Right proximal lateral leg. Laterality: Right Wound Grade/Stage: 4. Type of Debridement: Excisional debridement Anesthesia Used: 4% Lidocaine Solution Depth: Down to and including healthy tissue, in the subcutaneous layer, to bone - bone and hardware are exposed but not debrided. Percentage of wound debrided: 100 Instrument Used: 5mm curette Tissue Removed: subcutaneous tissue. Severity: Fat Layer Exposed - bone and hardware are exposed but not debrided. Amount of bleeding with debridement: Mild Bleeding Controlled with: Pressure Patient tolerated procedure well - Additional Wound Wound debrided: #2 Right anterior leg. Laterality: Right Wound Grade/Stage: 2. Type of Debridement: Excisional debridement Anesthesia Used: 4% Lidocaine Solution Depth: Down to and including healthy tissue, in the subcutaneous layer Percentage of wound debrided: 100 Instrument Used: 3mm curette Tissue Removed: subcutaneous tissue. Severity: Fat Layer Exposed Amount of bleeding with debridement: Mild Bleeding Controlled with: Pressure Patient tolerated procedure: Patient tolerated procedure well Assessment/Plan Assessment: 1. Nonhealing ulcer right proximal lateral leg with exposed hardware from previous fracture repair. 2. History of right tibial plateau fracture with ORIF. 3. Diabetes mellitus. 4. Superficial abrasion right anterior leg. Plan: CT scan right knee from 10/12 reviewed. It showed lateral plate screw fixation of the proximal tibia. The fracture line is visible. There is also evidence of prior open reduction internal fixation of the distal tibia and tibiotalar joint.. Continue Violette dressing changes daily. Continue Bactrim for the wound culture from 11/11/18 that showed Staphylococcus aureu and Morganella morganii. I talked to Dr. Friedman last week who stated the fracture is stable and the hardware can be removed. The ulcer will not heal without removing the hardware. At the time of the hardware removal, will biopsy the bone with a partial ostectomy for osteomyelitis. Would continue wound care with a Silver dressing change daily or the VAC. If the bone is positive for osteomyelitis, then penitentiary IV antibiotics will be necessary with the placement of a PICC line. After antibiotics are completed would need a followup bone biopsy until negative. At which time wound closure can be done with a muscle flap (lateral gastrocnemius muscle) followed by skin grafting. If the bone is negative for osteomyelitis, can continue wound care with a Silver dressing change daily or the VAC. If enough granulation tissue covers the exposed bone, can consider wound closure with skin grafting. However a muscle flap is more durable long term care administrator. So if a skin graft is done initially and ulcerates in the future, then can proceed with the muscle flap. Surgery will be under general anesthesia with a surgical observation overnight stay in the [facility]. After surgery would need to go to an ECF initially for wound care and IV antibiotics. At the time of the muscle flap, if done, would be under general anesthesia with a 3-5 day stay in the hospital prior to going to an ECF. When healed, would need PT for strengthening and ambulation. Because of the ulcer and the planned surgeries, I anticipate increased metabolic demands. Will check a Prealbumin. Will encourage nutritional supplementation with protein to help the healing process. At the time of the muscle flap, will need to maximize her nutrition and her diabetes control. Her last HgbA1c was 11.1 in 07/15. She would need better control of her diabetes with a HgbA1c less than 8 before proceeding with any complex wound reconstruction with a muscle flap and skin grafting. At the time of surgery, will have Infectious Diseases involved with antibiotic management. Will coordinate the surgery with Dr. Friedman's office. Patient was informed of the risks and complications of the procedure including alternatives to surgery. These were discussed with her personally. She voices understanding and wishes to proceed. Patient is aware that aggressive surgical intervention is needed for limb preservation. If osteomyelitis is present combined with her poorly controlled diabetes mellitus, she would be at increased risk for worsening infection and possible eventual amputation. She voices understanding and wants to proceed with surgical intervention along with maximizing her nutrition and getting her diabetes under control to improve her limb salvage. Continue Tubigrip to minimize swelling. She should elevate her left leg when sitting. Followup one week.
[2018-12-24] MEDS: levoFLOXacin IV 500 MG/100 ML BAG 100 MG IV (15:31)
--- NOTE | 2018-12-24 15:53 | RAD_ITS ---
STUDY: X-RAY - RIGHT KNEE REASON FOR EXAM: Female, 63 years old. Hardware removal. TECHNIQUE: Fluoroscopic assistance was provided to Dr. Friedman. A single fluoroscopic spot view(s) of the knee is submitted. FLUOROSCOPY TIME: 1.1 seconds. COMPARISON: 4 images of the right knee December 09, 2018. FINDINGS: Normal visualized distal femur. The metal fixation hardware seen previously along the lateral aspect of the proximal tibial metadiaphysis has been removed. There is chronic deformity of the lateral tibial plateau. Old healed fracture deformity of the proximal fibula. Grossly normal proximal tibiofibular articulation. Normal medial femorotibial compartment. There is some widening of the lateral femorotibial compartment secondary to depression of the lateral tibial plateau. Gas lucency overlapping the lateral aspect of the proximal calf is consistent with an open surgical wound. RAD/Knee 1 or 2 Views IMPRESSION: Removal of metal fixation hardware of the proximal tibia. There is chronic deformity of the lateral tibial metaphysis/tibial plateau, as well as old healed fracture of the proximal fibular diaphysis. Electronically Signed: Torres Epstein MD at 18:21 EDT , Service support ,
--- NOTE | 2018-12-24 16:56 | OP.PCM_ITS ---
Report of Operation Date of Procedure: 12/24/18 Pre-Operative Diagnosis: 1. Nonhealing infected ulcer right proximal lateral leg with exposed hardware from previous fracture repair. 2. History of right tibial plateau fracture with ORIF. 3. Diabetes mellitus. Post-Operative Diagnosis: 1. Nonhealing infected ulcer right proximal lateral leg with exposed hardware from previous fracture repair. 2. History of right tibial plateau fracture with ORIF. 3. Diabetes mellitus. 4. Osteomyelitis right tibia. Surgery/Procedure Performed:: 1. Surgical preparation right proximal lateral leg with incision and drainage and excisional debridement nonhealing infected ulcer with exposed hardware (52.5 cm2). 2. Partial ostectomy tibia for osteomyelitis. Description of Surgical Findings:: Ms. Mckoy is a 63-year-old who presented to the Wound Center with a nonhealing ulcer right proximal lateral leg with exposed hardware from previous fracture repair. She had surgery on July 19, 2018, where she underwent ORIF of a right tibial plateau fracture by Dr. Friedman. After surgery, she was doing physical therapy at her nursing facility wearing a knee brace. This led to breakdown of her incision. She was started on Levaquin and Flagyl. When she came to the Wound Center, she was started on Violette dressing changes. Wound culture was done because of drainage and exposed hardware. It showed Staphylococcus aureus and Morganella morganii and was started on Bactrim. Today she denies fever. Her appetite is ok. I had talked to Dr. Friedman a few weeks ago who stated the fracture shows stable healing and the hardware can be remove d. Her HgbA1c was 11.1 on 07/19/18 and has decreased to 9.4 on 12/24/18. Her ESR was 58 on 10/23/18 and has decreased to 42 on 12/16/18. Her CRP was 15.10 on 10/23/18 and has decreased to <2.90 on 12/16/18. Size of wound right proximal lateral leg - 10.5 x 5 x 3.5 cm. I used Yessenia absorbable hemostat. Reference Number - [id number]. Lot Number - [id number]. Expiration - June 23, 2023. costume cutter: Yury Friedman - He will dictate removal of hardware right tibial plateau fracture separately. costume cutter: Alirio Valdes. Type of Anesthesia:: General Specimen's removed: 1. Nonhealing ulcer right proximal lateral leg soft tissue to Pathology and Microbiology. 2. Nonhealing ulcer right proximnal lateral leg tibial bone to Pathology and Microbiology. 3. MRSA Wound DNA by PCR, superficial. 4. MRSA Wound DNA by PCR, deep. Drains: None. Estimated Blood Loss (mL): 50 ml. Description of Procedure: Patient was taken to OR in supine position and was placed under general anesthesia. The right leg was prepped and draped in the usual fashion. SCD's were placed on the left leg for DVT prophylaxis. Perioperative antibiotics were given intravenously. Using xylocaine with epinephrine, the nonhealing infected ulcer right proximal lateral leg with exposed hardware was infiltrated. After waiting 5 minutes for the anesthetic to take effect, I proceeded with incision and drainage of this infection. A small amount of pus was seen in the area of the ulceration that extended from the subcutaneous tissue down to the hardware. There was some fat necrosis present and indurated scarring. There were several tracts of abnormal mushy granulation tissue indicative of chronic infection that extended from the ulcer inferiorly down the fracture plate and anteriorly which was sharply excised and debrided. A curette was also used to assist in the excisional debridement. I then excised and debrided the ulcerated tissue which was adherent to and tracked down to the tibial plate which was exposed. I also excised and debrided the extensive fat necrosis present as well. The areas of bone that were adjacent to the abnormal mushy granulation tissue was excised as a partial ostectomy and will be analyzed for osteomyelitis. Additional bone will be removed after the hardware is removed. Hemostasis was obtained with electrocautery. Some of the tissue was sent to Pathology for analysis to rule out carcinoma and to Microbiology for culture. Some of the bone was sent to Pathology for analysis to rule out osteomyelitis and to Microbiology for culture. A positive culture may necessitate antibiotic modification. MRSA Wound DNA by PCR was also sent. Dr. Friedman then came in and removed the exposed hardware and will be dictated separately. It was noted after the plate was removed that there was a cavity in the fracture repair that was suspicious for infection. MRSA wound DNA by PCR was done again and labeled deep. The initial MRSA wound DNA by PCR was that obtained earlier would be labeled superficial. After the plate was removed, a few more areas of bone were excised as well mostly in the areas of the screw tracts and sent with the other bone to both Pathology and Microbiology. The wound was irrigated with saline. Hemostasis was obtained with electrocautery. Some bone wax was used to help with hemostasis in the residual bony cavity. The size of the defect after incision and drainage and excisional debridement was 10.5 x 5.5 x 3.5 cm or 52.5 cm2. The wound was dressed with Mepitel nonadherent dressing followed by Kerlix gauze and Betadine followed by dry Kerlix gauze and an ABD pad followed by a compression SHILO wrap. Patient tolerated the procedure well and was sent to PACU in satisfactory condition. Patient will be sent upstairs for continued postop care. Will plan on placing the VAC tomorrow. Anticipate ad terminal makeup operator IV antibiotics and will order a PICC line. Will need bone negative for osteomyelitis before proceeding with wound closure with a muscle flap. Dr. Friedman stated at the time of the muscle flap, he will place a bone graft in the residual bony cavity. In the meantime, he will limit her weight bearing status. Her latest HgbA1c is 9.4. Would like to see it around 8 before proceeding with the muscle flap. Also during the postop healing period, patient will be encouraged to maximize her nutrition with protein supplementation to help the healing process. While hospitalized, will consult Infectious Diseases for antibiotic management. Grafts/Implants Used: None. - Complications None. - Admit VTE Documentation VTE Present on Admission: No VTE Mechan Device Prophylaxis: SCD's VTE Pharm Prophylaxis ordered?: No Code Visit Surgery Charges CPT - 68386 ICD-10 - L97.916, L03.90, T84.622A, T84.196A, S82.141S, E11.9 50254 M86.9, T84.622A, T84.196A, S82.141S, L97.916, L03.90, E11.9
--- NOTE | 2018-12-24 17:02 | OP.PCM_ITS ---
Report of Operation Date of Procedure: 12/24/18 Pre-Operative Diagnosis: Infected hardware right tibia Post-Operative Diagnosis: Infected hardware right tibia Surgery/Procedure Performed:: Right tibia removal of hardware Description of Surgical Findings:: All components removed. Norian cement came out of wound leaving a bone defect hourly sales staff: Jeancarlos Uribe Type of Anesthesia:: General Anesthesiologist: Sherman Hanson Description of Procedure: On the date of the procedure the procedure was to be done with Dr. Uribe who is going to expose the wound so I can remove the hardware. I saw the patient in the preoperative area. We marked the operative site. Once Dr. Uribe saw the patient in the preoperative area and also marked the site she was taken back to the room. She was placed on the table in the supine position all bony prominences were identified well-padded and anesthesia assumed control C-spine airway. Anesthesia administered anesthetic. Dr. Uribe got started on the case. He did the approach and debridement. After debridement was done I came into the room using screwdrivers we removed the screws and the plate from the bone lateral proximal tibia. Once this was completely removed and x-rays taken to show that the plate had been removed. After removing we then debrided the proximal tibia area and the bone defect filler all came out of the wound leaving a bone defect in the medial tibial plateau. Once all the hardware was removed and I was able to visualize the extent of the bone debridement Dr. Uribe con tinue with the debridement and finished the case placing the dressing. Patient was eventually transferred to the PACU in stable condition. Postoperative plan: Wound care will be managed by the plastic surgery service. Patient will be seen by from infectious disease. And patient will be touchdown weightbearing for a total of 6 weeks. Patient will need to return to the operating room eventually for lateral gastroc flap should her blood sugars remain under control. At that time depending on her bony structures we may perform bone graft procedure as well. - Complications No intraoperative complications - Admit VTE Documentation VTE Present on Admission: No VTE Mechan Device Prophylaxis: SCD's
[2018-12-24 17:20] LABS: Bedside Glucose 224 mg/dL (70-110)
[2018-12-24] MEDS: Lactated Ringers 1,000 ML 60 ML IV (18:15)
[2018-12-24 18:24] LABS: M R Staph aureus DNA By PCR Negative (Negative); Probe Check PASS; Specimen Processing Control PASS; Staph aureus DNA By PCR POSITIVE (Negative)
[2018-12-24 18:35] LABS: Bedside Glucose 235 mg/dL (70-110)
--- NOTE | 2018-12-24 19:44 | NURSING ---
Dr. Hahn called on the pt in [phone] and I asked him if he knew which hospitalist was going to be seeing this pt. Dr. Juarez must have been sitting beside him because I heard Dr. Hahn talking and he said Dr. Juarez would be seeing this pt and the pt in 322.
--- NOTE | 2018-12-24 19:53 | PCM.RX.CS ---
Consult Pharmacy has been consulted to manage selected antiobiotic: Vancomycin Type of Consult: New start Suspected Infection: Skin/Soft tissue Prior Doses of Antibiotics Received/Current Regimen: VANCOMYCIN 1000MG IV PREOP X1 12/24/18 @1357 Weight used for dosin kg Estimated Creatinine Clearance: 91 ML/MIN Goal Trough: 15-20 mcg/mL Pharmacy Plan for Drug Dosing: Pharmacy consulted to manage vancomycin. The patient was ordered a loading dose with a high trough goal. The patient got 1000mg IV x1 Preop 12/24 @1357. In lieu of giving an additional 750mg to supplement to meet the loading dose criteria, will start scheduled dosing 8 hours from initial dose, rather than waiting the full 12 hours between doses. PLAN/RECOMMENDATIONS 1. Vancomycin 1500mg IV Q12hrs to start 8hrs from initial dose 12/24/18 @2200 2. Trough scheduled prior to 4th total dose per protocol 12/25/18 @2130 3. Pharmacy Service will continue to monitor and adjust dosing as required.
--- NOTE | 2018-12-24 21:39 | PCM.CONS.B ---
Problem List (1) Poorly controlled type 2 diabetes mellitus Status: Acute (2) Hypertension Status: Chronic - Consult Date of Consult: 12/24/18 63-year-old female who underwent knee surgery today. Hospital medicine consulted for routine medical management and specifically for inpatient management of diabetes which has been poorly controlled. He denies any active symptoms of chest pain or shortness of breath. Denies any nausea vomiting. Appears quite comfortable. Physical examination General examination. Middle-aged woman who is not in any obvious distress. Quite pleasant. And uncooperative. Heart examination. First and second heart sounds only heard no murmurs. Lung examination. Clear lung sounds. Assessment and plan. Poorly controlled diabetes. A1c of 12.0. Will make adjustments to insulin both of basal and mealtime. 2. Hypertension. Well-controlled. Continue current antihypertensive regimen. Code Visit Office Visits / Consults: 22601 IP Consult L5
[2018-12-24] MEDS: HYDROmorphone 1 MG/ML Syringe IV (21:40)
[2018-12-24] MEDS: Docusate Sodium 100 MG Capsule PO (23:13)
[2018-12-24] MEDS: Atorvastatin Calcium 40 MG Tablet PO (23:13)
--- NOTE | 2018-12-25 00:07 | NURSING ---
Talked to Luis Daniel in Pharmacy. We do not carry Novolog. Chances are if pt is allergic to Humalog she will also be allergic to Novolog. We could order it tomorrow if needed. Will notify
[2018-12-25] MEDS: oxyCODONE 5 MG Tablet 10 MG PO ×2 (00:32→07:47)
[2018-12-25 01:21] LABS: Bedside Glucose 282 mg/dL (70-110)
[2018-12-25 02:43] VITALS: BP 113/54; PULSE 78; RESP 16; TEMP 37.7; O2SAT 90
[2018-12-25 06:34] LABS: Hematocrit 36.4 % (37-47); Hemoglobin 11.9 g/dL (12.0-15.0); Mean Corp Hgb Conc 32.7 g/dL (32-36); Mean Corpuscular Hgb 28.4 pg (27.0-32.0); Mean Corpuscular Volume 86.9 fL (81-99); Mean Platelet Vol. 9.1 fl (6.2-12.0); Platelet Count 376 K/mm3 (150-450); RBC Distribution Width CV 15.6 % (11.6-14.6); RBC Distribution Width SD 49.1 fl (35.1-43.9); Red Blood Count 4.19 M/mm3 (4.2-5.4); White Blood Count 11.2 K/mm3 (4.4-11.0)
[2018-12-25 06:39] LABS: Erythrocyte Sedimentation Rate 36 mm/hr (0-30)
[2018-12-25 06:48] LABS: ALB/GLOB Ratio 0.8 RATIO (0.9-2.4); AST(SGOT) 7 U/L (15-37); Alanine Aminotransfer ALT/SGPT 16 U/L (13-56); Albumin, Serum 2.7 g/dL (3.2-5.0); Alkaline Phosphatase 135 U/L (45-117); Anion Gap 7 (5-15); BUN 8 mg/dL (7-18); BUN/Creat Ratio 13.5 RATIO (10-20); Calcium,Total 8.4 mg/dL (8.5-10.1); Chloride 103 mmol/L (98-107); Creatinine, Serum 0.59 mg/dL (0.55-1.02); EST Glomerular Filtration Rate 109 mL/min (>60); Est Glom Filt Rate - Afr Amer 132 mL/min (>60); Estimated Creatinine Clearance 69.19 ml/min; Globulin 3.6 g/dL (2.2-4.2); Glucose 245 mg/dL (74-106); Potassium 4.2 mmol/L (3.5-5.1); Protein, Total 6.3 g/dL (6.4-8.2); Sodium Level 136 mmol/L (136-145)
[2018-12-25 06:55] LABS: Bedside Glucose 242 mg/dL (70-110)
[2018-12-25] MEDS: Lactated Ringers 1,000 ML 60 ML IV (07:37)
[2018-12-25] MEDS: Vitamin B Comp W-C Capsule 1 CAP PO ×2 (07:38→16:01)
[2018-12-25] MEDS: Aspirin E.C. 81 MG Tablet PO (07:38)
[2018-12-25] MEDS: metFORMIN HCl 500 MG Tablet 1000 MG PO ×2 (07:38→16:01)
[2018-12-25] MEDS: Lisinopril 10 MG Tablet PO (07:38)
[2018-12-25] MEDS: Docusate Sodium 100 MG Capsule PO ×2 (07:39→21:57)
[2018-12-25 07:45] VITALS: BP 108/56; PULSE 78; RESP 18; TEMP 37.2; O2SAT 96
[2018-12-25] MEDS: Glucerna Shake 120 ML LIQUID PO ×3 (07:49→16:01)
[2018-12-25] MEDS: levoFLOXacin IV 500 MG/100 ML BAG 100 MG IV (09:42)
--- NOTE | 2018-12-25 09:43 | PCM.PN.HOSP ---
Patient Problems: Active and Suspected Problems Poorly controlled type 2 diabetes mellitus (Acute) Subjective: Patient is a 63-year-old lady admitted with Nonhealing ulcer right proximal lateral leg with exposed hardware from previous fracture repair. Patient underwent surgical preparation right proximal lateral leg with incision and drainage and excisional debridement nonhealing infected ulcer with exposed hardware as well as partial ostectomy tibia for osteomyelitis on 12/24/2018.. Objective: GENERAL: cooperative HEENT: Atraumatic; moist oral mucosa EYES; Anicteric, Normal Conjunctiva NECK; supple, normal thyroid, RESPIRATORY: Diminished to auscultation CARDIOVASCULAR: Regular S1 S2, GI: soft, non-tender, normoactive bowel sounds, : No Renal angle tenderness; EXTREMITIES: No edema, no clubbing, MUSCULOSKELETAL: Right knee surgical dressing NEURO: Awake; no lateralizing signs. SKIN: No Rash PSYCH; Normal affect Vitals/I&O's: Vital Signs Temp Pulse Resp BP Pulse Ox 99.0 F 78 18 108/56 L 96 12/25/18 07:45 12/25/18 07:45 12/25/18 07:45 12/25/18 07:45 12/25/18 07:45 Oxygen Delivery Method Room Air Weight: 71.758 kg Body Mass Index (BMI) 30.9 Finger Stick Blood Glucose 224 Intake and Output for Last 24 Hours 12/23/18 12/24/18 12/25/18 23:59 23:59 23:59 Intake Total 1957 804 / 804 Balance 1957 804 / 804 Laboratory Results 12/24/18 13:00: Hemoglobin A1c 9.4 H 12/24/18 13:11: POC Glucose 261 H 12/24/18 14:05: Prealbumin 16.1 L 12/24/18 17:14: POC Glucose 224 H 12/24/18 18:29: POC Glucose 235 H 12/24/18 23:02: POC Glucose 282 H 12/24/18 : S.aureus Protein A PCR POSITIVE H, MRSA (PCR) Negative 12/24/18 : S.aureus Protein A PCR POSITIVE H, MRSA (PCR) Negative 12/25/18 06:14: WBC 11.2 H, RBC 4.19 L, Hgb 11.9 L, Hct 36.4 L, MCV 86.9, MCH 28.4, MCHC 32.7, RDW Std Deviation 49.1 H, RDW Coeff of Dionisio 15.6 H, Plt Count 376, MPV 9.1, ESR 36 H 12/25/18 06:14: Sodium 136, Potassium 4.2, Chloride 103, Carbon Dioxide 26.0, Anion Gap 7, BUN 8, Creatinine 0.59, Estim Creat Clear Calc 69.19, Est GFR (MDRD) Af Amer 132, Est GFR (MDRD) Non-Af 109, BUN/Creatinine Ratio 13.5, Glucose 245 H, Calcium 8.4 L, Total Bilirubin 0.20, AST 7 L, ALT 16, Alkaline Phosphatase 135 H, C-React Prot Ext Range 11.50 H, Total Protein 6.3 L, Albumin 2.7 L, Globulin 3.6, Albumin/Globulin Ratio 0.8 L, Prealbumin 14.0 L 12/25/18 06:42: POC Glucose 242 H Current Medications Aspirin (Ecotrin) 81 mg PO DAILYCM [facility] Last Admin: 12/25/18 07:38 Dose: 81 mg Documented by: Atorvastatin Calcium (Lipitor) 40 mg PO QHS [facility] Last Admin: 12/24/18 23:13 Dose: 40 mg Documented by: Docusate Sodium (Colace) 100 mg PO BID [facility] Last Admin: 12/25/18 07:39 Dose: 100 mg Documented by: Hydromorphone HCl (Dilaudid Inj) 1 mg IV Q3H PRN PRN PRN Reason: SEVERE PAIN (6-10/10) Last Admin: 12/24/18 21:40 Dose: 1 mg Documented by: Lactated Ringer's () 1,000 mls @ 60 mls/hr IV .[id number] [facility] Last Admin: 12/25/18 07:37 Dose: 60 mls/hr Documented by: Clindamycin Phosphate 600 mg/ (Dextrose) 54 mls @ 100 mls/hr IV Q8 [facility] Last Admin: 12/25/18 05:52 Dose: 100 mls/hr Documented by: Vancomycin IV Pharmacy to Dose (1 ea/ Sodium Chloride) 500 mls @ 250 mls/hr IV PRN PRN; Protocol PRN Reason: Rx to Dose Levofloxacin (Levaquin Iv) 500 mg in 100 mls @ 100 mls/hr IV Q24 [facility] Last Admin: 12/25/18 09:42 Dose: 100 mls/hr Documented by: Vancomycin HCl 1,500 mg/ (Sodium Chloride) 530 mls @ 250 mls/hr IV Q12H [facility] Last Admin: 12/24/18 22:50 Dose: 250 mls/hr Documented by: Insulin Glargine (Lantus (Bkc)) 40 units SC QHS [facility] Last Admin: 12/25/18 00:21 Dose: 40 u Documented by: Insulin Glargine (Lantus (Bk)) 20 units SC BREAKFAST [facility] Last Admin: 12/25/18 07:39 Dose: 20 u Documented by: Insulin Human Lispro (Humalog Kwikpen ([facility])) 0 unit SC ACHS [facility]; Protocol Last Admin: 12/25/18 00:24 Dose: Not Given Documented by: Lisinopril (Zestril) 10 mg PO DAILY [facility] Last Admin: 12/25/18 07:38 Dose: 10 mg Documented by: Metformin HCl (Glucophage) 1,000 mg PO BIDCM [facility] Last Admin: 12/25/18 07:38 Dose: 1,000 mg Documented by: Multivitamins (Allbee W/C Caplet, Thera B Comp/C) 1 capsule PO BIDCM [facility] Last Admin: 12/25/18 07:38 Dose: 1 capsule Documented by: Nutritional Formula (Bk - Wirt Flavor) 1 packet PO BIDCM [facility] Last Admin: 12/25/18 07:39 Dose: 1 packet Documented by: Nutritional Formula (Lactose Free) (Glucerna Shake) 120 ml PO TIDCM [facility] Last Admin: 12/25/18 07:49 Dose: 120 ml Documented by: Ondansetron HCl (Zofran) 4 mg IV Q6H PRN PRN PRN Reason: NAUSEA Oxycodone HCl (Oxyir) 10 mg PO Q4H PRN PRN PRN Reason: SEVERE PAIN (6-10/10) Last Admin: 12/25/18 07:47 Dose: 10 mg Documented by: Promethazine HCl (Phenergan Tablet) 25 mg PO Q4H PRN PRN PRN Reason: NAUSEA/VOMITING Sodium Chloride () 10 - 40 ml IV UD PRN PRN Reason: SALINE FLUSH Medical Necessity - Tobacco Use Smoking Status: Never smoker Assessment/Plan All Active Problems Poorly controlled type 2 diabetes mellitus (Acute) Ulcer of right lower extremity (Acute) Closed right ankle fracture (Acute) Patient is a 63-year-old lady admitted with Nonhealing ulcer right proximal lateral leg with exposed hardware from previous fracture repair. Patient underwent surgical preparation right proximal lateral leg with incision and drainage and excisional debridement nonhealing infected ulcer with exposed hardware as well as partial ostectomy tibia for osteomyelitis on 12/24/2018.. 1. Status post incision and drainage and excisional debridement nonhealing infected ulcer with exposed hardware as well as partial ostectomy tibia for osteomyelitis on 12/24/2018 on account of Nonhealing ulcer right proximal lateral leg with exposed hardware from previous fracture repair. Procedure was performed by both Dr. Uribe as well as Dr. Friedman. The hospitalist service consulted for management of patient medical comorbidities 2. Diabetes mellitus type II: Patient blood glucose control not optimal adjusted doses. Her hemoglobin A1c of 9. Patient is on on metformin in addition to long acting insulin addition to Accu-Cheks a.c. and at bedtime and covered with sliding scale insulin 3. Hypertension-blood pressure controlled, home medications continued with dose adjustment as needed 4. Mild intermittent asthma currently not in exacerbation 5. Dyslipidemia-patient is on statin therapy, continued at home dose 6. DVT prophylaxis recommend low molecular weight heparin if no contraindications will defer decision to primary service Active Medications Aspirin (Ecotrin) 81 mg PO DAILYCM [facility] Last Admin: 12/25/18 07:38 Dose: 81 mg Documented by: Atorvastatin Calcium (Lipitor) 40 mg PO QHS [facility] Last Admin: 12/24/18 23:13 Dose: 40 mg Documented by: Docusate Sodium (Colace) 100 mg PO BID [facility] Last Admin: 12/25/18 07:39 Dose: 100 mg Documented by: Hydromorphone HCl (Dilaudid Inj) 1 mg IV Q3H PRN PRN PRN Reason: SEVERE PAIN (6-10/10) Last Admin: 12/24/18 21:40 Dose: 1 mg Documented by: Lactated Ringer's () 1,000 mls @ 60 mls/hr IV .[id number] [facility] Last Admin: 12/25/18 07:37 Dose: 60 mls/hr Documented by: Clindamycin Phosphate 600 mg/ (Dextrose) 54 mls @ 100 mls/hr IV Q8 [facility] Last Admin: 12/25/18 05:52 Dose: 100 mls/hr Documented by: Vancomycin IV Pharmacy to Dose (1 ea/ Sodium Chloride) 500 mls @ 250 mls/hr IV PRN PRN; Protocol PRN Reason: Rx to Dose Levofloxacin (Levaquin Iv) 500 mg in 100 mls @ 100 mls/hr IV Q24 [facility] Last Admin: 12/25/18 09:42 Dose: 100 mls/hr Documented by: Vancomycin HCl 1,500 mg/ (Sodium Chloride) 530 mls @ 250 mls/hr IV Q12H [facility] Last Admin: 12/24/18 22:50 Dose: 250 mls/hr Documented by: Insulin Glargine (Lantus (Bk)) 40 units SC QHS [facility] Last Admin: 12/25/18 00:21 Dose: 40 u Documented by: Insulin Glargine (Lantus (Bk)) 20 units SC BREAKFAST [facility] Last Admin: 12/25/18 07:39 Dose: 20 u Documented by: Insulin Human Lispro (Humalog Kwikpen ([facility])) 0 unit SC ACHS [facility]; Protocol Last Admin: 12/25/18 00:24 Dose: Not Given Documented by: Lisinopril (Zestril) 10 mg PO DAILY [facility] Last Admin: 12/25/18 07:38 Dose: 10 mg Documented by: Metformin HCl (Glucophage) 1,000 mg PO BIDCM [facility] Last Admin: 12/25/18 07:38 Dose: 1,000 mg Documented by: Multivitamins (Allbee W/C Caplet, Thera B Comp/C) 1 capsule PO BIDCM [facility] Last Admin: 12/25/18 07:38 Dose: 1 capsule Documented by: Nutritional Formula (Bk - Wirt Flavor) 1 packet PO BIDCM [facility] Last Admin: 12/25/18 07:39 Dose: 1 packet Documented by: Nutritional Formula (Lactose Free) (Glucerna Shake) 120 ml PO TIDCM [facility] Last Admin: 12/25/18 07:49 Dose: 120 ml Documented by: Ondansetron HCl (Zofran) 4 mg IV Q6H PRN PRN PRN Reason: NAUSEA Oxycodone HCl (Oxyir) 10 mg PO Q4H PRN PRN PRN Reason: SEVERE PAIN (6-10/10) Last Admin: 12/25/18 07:47 Dose: 10 mg Documented by: Promethazine HCl (Phenergan Tablet) 25 mg PO Q4H PRN PRN PRN Reason: NAUSEA/VOMITING Sodium Chloride () 10 - 40 ml IV UD PRN PRN Reason: SALINE FLUSH Code Visit Inpatient E&M: 46379 Subs Hosp L3
--- NOTE | 2018-12-25 10:46 | NURSING ---
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
--- NOTE | 2018-12-25 11:00 | CASEMGMT ---
JONATHAN EVRDE NEWS PRODUCTION SUPERVISOR CM to room to meet with patient for initial transition planning/care coordination assessment. JONATHAN VERDE introduced self and role at [facility]. Pt voices understanding and consents to assessment at this time. Pt resting in bed in no distress at this time. Pt's aunt, Jigna, @ bedside. Pt agreeable to assessment while Jigna present. Pt is A/O at this time and answers all questions appropriately. Care providers, pharmacy, and demographics verified/updated at this time. PCP: Dania Specialists: [facility] Preferred Pharmacy: [facility] Insurance: [facility] Prescription Benefit: Yes Living Will/HPOA: does not have LW or HCPOA . Interested in more information and states would like to talk to SW. YESSICA Woods, made aware. Living Arrangements: Lives alone. Transportation: Pt does not drive. Aunt Jigna or friends assist with transportation. DME: has the following DME: shower chair, rails/grab bars, walker. Pt states if she goes home, she feels like she would need a W/C. HHC/SNF: Pt has been to [facility] and [facility] in the past but does not want to return to either place. She states she has had HHC in the past but does not remember the name of the agency. Pt and her aunt Jigna states they would like for pt to go to TCU at discharge. They were made aware TCU is not In-network with [facility]. Per Jigna, she states she just spoke with someone from [facility] and they told her that pt could go there. Informed pt and Jigna that SW will be made aware of their wishes and would be in to talk with them. PLAN: SNF. Wayne LOTT RN, CM
[2018-12-25 11:25] LABS: Bedside Glucose 278 mg/dL (70-110)
--- NOTE | 2018-12-25 13:11 | CPS ---
STARTED BY NURSING
--- NOTE | 2018-12-25 14:07 | PCM.HP.ID ---
Problem List (1) Infection and inflammatory reaction due to internal fixation device of right tibia, initial encounter Status: Chronic Reason for Consult: osteo Consulted by: Dr. Uribe History of Present Illness: The patient is a 63 year old F with fall in 06/2018 requiring ORIF. Complicated by infection and exposed hardware. Had progressive pain, worsening ulcer. No fever or chills. Had been on bactrim for growth of mssa, morganella, and strep. Also with anaerobes on cx in 08/2018. Sx worsened over past few days, taken to OR 12/[address] Uribe and Dr. Friedman with hardware removal and debridement. On vanc, clinda, and levaquin. Feeling ok, pain controlled, no n/v/d. Full ROS Performed and neg except as noted above. 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 without evidence of necrosis (Chronic) nonhealing ulcer right proximal lateral leg with exposed hardware from previous fracture repair Chronic cellulitis (Chronic) nonhealing ulcer right proximal lateral leg with exposed hardware from previous fracture repair Tibial plateau fracture (Chronic) Debility (Chronic) Wound dehiscence, surgical (Chronic) Exposed orthopaedic hardware (Chronic) from right tibial plateau fracture with ulceration right proximal lateral leg Bronchial asthma (Chronic) Diabetes mellitus (Chronic) Hyperlipidemia (Chronic) Hypertension (Chronic) Obesity (Chronic) Allergies/Adverse Reactions: Allergies cephalexin [From Keflex] Allergy (Verified 12/17/18 16:09) Breakouts insulin lispro [From Humalog] Allergy (Verified 12/17/18 16:09) Rash Penicillins Allergy (Verified 12/17/18 16:09) Rash Home Medications: Ambulatory Orders Medication Instructions Recorded Lisinopril [Zestril] 10 mg PO DAILY 08/25/14 Vitamin B Complex 1 each PO BID 11/23/15 metFORMIN HCl [Glucophage] 1,000 mg PO BIDCM 09/19/16 Aspirin [Aspirin EC] 81 mg PO DAILY 07/18/18 Insulin Detemir [Levemir FlexPen] 40 units SC QHS 07/18/18 levoFLOXacin tablet [Levaquin] 500 mg PO DAILY #7 tab 11/14/18 Atorvastatin Calcium [Lipitor] 40 mg PO QHS 11/17/18 Hydrocodone/Acetaminophen 1 ea PO Q6H PRN 12/23/18 [Hydrocodone-Acetamin 5-325 mg] - Social History SMOKING STATUS:: Never smoker Vital Signs Temp Pulse Resp BP Pulse Ox 99.0 F 78 18 108/56 L 96 12/25/18 07:45 12/25/18 07:45 12/25/18 07:45 12/25/18 07:45 12/25/18 07:45 Oxygen Delivery Method Room Air Weight: 71.758 kg Body Mass Index (BMI) 30.9 Finger Stick Blood Glucose 224 Microbiology Past 72 Hours 12/24/18 17:00 Gram Stain - Final Tissue - Other Wound Culture - Preliminary No growth-Final to follow 12/24/18 16:53 Gram Stain - Final Bone - Other Wound Culture - Preliminary No growth-Final to follow Laboratory Tests Past 24 Hrs 12/24/18 12/24/18 12/24/18 14:05 Unknown Unknown WBC RBC Hgb Hct MCV MCH MCHC RDW Std Deviation RDW Coeff of Dionisio Plt Count MPV ESR Sodium Potassium Chloride Carbon Dioxide Anion Gap BUN Creatinine Estim Creat Clear Calc Est GFR (MDRD) Af Amer Est GFR (MDRD) Non-Af BUN/Creatinine Ratio Glucose Calcium Total Bilirubin AST ALT Alkaline Phosphatase C-React Prot Ext Range Total Protein Albumin Globulin Albumin/Globulin Ratio Prealbumin 16.1 L S.aureus Protein A PCR POSITIVE H POSITIVE H MRSA (PCR) Negative Negative 12/25/18 12/25/18 06:14 06:14 WBC 11.2 H RBC 4.19 L Hgb 11.9 L Hct 36.4 L MCV 86.9 MCH 28.4 MCHC 32.7 RDW Std Deviation 49.1 H RDW Coeff of Dionisio 15.6 H Plt Count 376 MPV 9.1 ESR 36 H Sodium 136 Potassium 4.2 Chloride 103 Carbon Dioxide 26.0 Anion Gap 7 BUN 8 Creatinine 0.59 Estim Creat Clear Calc 69.19 Est GFR (MDRD) Af Amer 132 Est GFR (MDRD) Non-Af 109 BUN/Creatinine Ratio 13.5 Glucose 245 H Calcium 8.4 L Total Bilirubin 0.20 AST 7 L ALT 16 Alkaline Phosphatase 135 H C-React Prot Ext Range 11.50 H Total Protein 6.3 L Albumin 2.7 L Globulin 3.6 Albumin/Globulin Ratio 0.8 L Prealbumin 14.0 L S.aureus Protein A PCR MRSA (PCR) - Other Studies Radiology: [] reviewed Other Studies: [] Route of nutrition/ use of supplements: [] Nutritional Intake: [] IV Site: [] [place] Catheter: [] - Physical Exam General: Alert, Oriented x3, Cooperative, No apparent distress HEENT: Atraumatic, PERRLA, EOMI Neck: Supple, No Nodes Lungs: Clear to auscultation, Normal air movement Cardiovascular: Regular rate, Regular Rhythm, No murmurs Abdomen: Soft, Non Tender, Non-Distended Extremities: No edema Skin: Incision - RLE wrapped IV Site: Peripheral, without redness Musculoskeletal: No Tenderness to Palpation of Joints or Extremities Neurological: Cranial nerves II-XII grossly intact - Assessment/Plan Antibiotics: [] Assessment/Plan: [] Active and Suspected Problems Poorly controlled type 2 diabetes mellitus (Acute) RLE proximal tibial osteo with hardware infection - now s/p hardware removal and debridement by Dr. Uribe and Dr. Friedman. Surg cx pending. Has grown MSSA, morganella, strep, and anaerobes in the past. Cont vanc/levaquin, will change clinda to flagyl to decrease risk of cdiff. Plan on 6 weeks of abx, but now that hardware is out she has a good chance of cure. Will follow, thank you.
[2018-12-25] MEDS: metroNIDAZOLE 500 MG Tablet PO ×2 (14:18→21:57)
[2018-12-25 14:20] VITALS: BP 120/51; PULSE 82; RESP 16; TEMP 36.8; O2SAT 97
--- NOTE | 2018-12-25 14:40 | CASEMGMT ---
Social Work Note RN AMMON Benjamin updated this worker that pt is agreeable to TCU at discharge, pt states she has been to [facility] before and doesn't want to go back there. SW reviewed pt's insurance. Pt has [employer] which is not in network with TCU. SW updated that [facility]. SW placed a call to Charla with [facility]CU[facility] who confirms TCU is not in network with [facility]. SW also received referral that pt would like to complete advanced directives. SW in to meet with pt to discuss discharge plans. SW introduced self and role at [facility]. Pt is alert and orientated x3. SW updated pt that TCU doesn't take pt's insurance. SW provided pt with list of area SNF that do accept pt's insurance. Pt is agreeable to [facility]. SW explained referral process and that pt will need pre-cert. Pt states understanding. Pt completed advanced directives. Original given to pt and copy placed on pt's chart. YESSICA placed a call to Lorene at [facility] and left her a message regarding referral. SW faxed referral to [facility]. Plan: [facility] pending acceptance and pre-cert Keiry Alexandra MSW, CLAIMS CUSTOMER SERVICE REPRESENTATIVE
[2018-12-25 16:11] LABS: Bedside Glucose 280 mg/dL (70-110)
--- NOTE | 2018-12-25 19:10 | PCM.PN.SRG ---
Patient Problems: Active and Suspected Problems Poorly controlled type 2 diabetes mellitus (Acute) Subjective: Postop #1 Patient is resting comfortably. Tolerated the Silver dressing change reasonably well today. There was a little oozing in the wound so the VAC will be placed tomorrow. - Physical Exam General: Alert, Oriented x3 HEENT: PERRLA, EOMI Oral: Moist Mucosa Neck: Supple Lungs: Clear to auscultation Cardiovascular: Regular rate, Regular Rhythm Abdomen: Soft, Non-Distended Extremities: Edema - mild edema in right leg. Skin: Ulcer/ Wound - right proximal lateral leg wound is stable. Small amount of oozing that was easily controlled with compression. Will hold off on the VAC until tomorrow. Aquacel Silver dressing was placed today. Neurological: Cranial nerves II-XII grossly intact Psych/Mental Status: Normal Affect Vital Signs Temp Pulse Resp BP Pulse Ox 99 F 78 18 112/45 L 95 12/26/18 03:25 12/26/18 03:25 12/26/18 03:25 12/26/18 03:25 12/26/18 03:25 Oxygen Delivery Method Room Air Weight: 158 lb 3.189 oz Body Mass Index (BMI) 30.9 Finger Stick Blood Glucose 224 Intake and Output for Last 24 Hours 12/24/18 12/25/18 23:59 23:59 Intake Total 1957 2797 / 3962 Output Total 1600 / 2600 Balance 1957 1197 / 1362 Microbiology Past 72 Hours 12/24/18 17:00 Gram Stain - Final Tissue - Other Wound Culture - Preliminary No growth-Final to follow 12/24/18 16:53 Gram Stain - Final Bone - Other Wound Culture - Preliminary No growth-Final to follow Laboratory Tests Past 24 Hrs 12/25/18 12/26/18 06:14 05:15 WBC 11.2 H RBC 4.19 L Hgb 11.9 L Hct 36.4 L MCV 86.9 MCH 28.4 MCHC 32.7 RDW Std Deviation 49.1 H RDW Coeff of Dionisio 15.0 H Plt Count 376 MPV 9.1 Sodium 136 Potassium 4.2 Chloride 103 Carbon Dioxide 26.0 Anion Gap 7 BUN 8 Creatinine 0.59 Estim Creat Clear Calc 69.19 Est GFR (MDRD) Af Amer 132 Est GFR (MDRD) Non-Af 109 BUN/Creatinine Ratio 13.5 Glucose 245 H Calcium 8.4 L Vancomycin Trough POC Glucose 12/25/18 12/25/18 12/25/18 06:42 11:04 16:04 POC Glucose 242 H 278 H 280 H Medical Necessity - Tobacco Use Smoking Status: Never smoker Assessment/Plan All Active Problems Poorly controlled type 2 diabetes mellitus (Acute) Ulcer of right lower extremity (Acute) Closed right ankle fracture (Acute) 1. Nonhealing infected ulcer right proximal lateral leg with exposed hardware from previous fracture repair. 2. History of right tibial plateau fracture with ORIF. 3. Diabetes mellitus. 4. s/p surgical preparation right proximal lateral leg with incision and drainage and excisional debridement nonhealing infected ulcer with exposed hardware and partial ostectomy tibia for osteomyelitis and removal of hardware. Wound was stable with no further evidence of infection. Mild oozing seen controlled with compression. Will place the VAC on tomorrow and the wound was dressed with Aquacel Silver today. Continue IV antibiotics. Infectious Diseases was consulted and the Vancomycin and Levaquin will be continued and the Cleocin was changed to Flagyl. PICC line to be placed. Prealbumin was 14.0. Encourage nutritional supplementation with protein to help the healing process. Patient is on limited weight bearing. Combined with the VAC and the need for IV antibiotics, it may be safer for her to consider a short stay at an F. Before proceeding with soft tissue coverage for wound closure with a muscle flap, would like the HgbA1c to be around 8 to help minimize wound healing issues. Right now it is at 9.4.
[2018-12-25 20:25] VITALS: BP 111/74; PULSE 84; RESP 18; TEMP 36.8; O2SAT 95
[2018-12-25] MEDS: Atorvastatin Calcium 40 MG Tablet PO (21:57)
[2018-12-25 22:15] LABS: Bedside Glucose 260 mg/dL (70-110)
[2018-12-25 22:55] LABS: Vancomycin, Trough Level 9.6 ug/mL (5.0-15.0)
--- NOTE | 2018-12-26 01:34 | PCM.RX.CS ---
Consult Pharmacy has been consulted to manage selected antiobiotic: Vancomycin Type of Consult: Follow-up Suspected Infection: Skin/Soft tissue Labs: Sodium 136 mmol/L (136-145) 12/25/18 06:14 Potassium 4.2 mmol/L (3.5-5.1) 12/25/18 06:14 Chloride 103 mmol/L (98-107) 12/25/18 06:14 Carbon Dioxide 26.0 mmol/L (21.0-32.0) 12/25/18 06:14 7 (5-15) 12/25/18 06:14 BUN 8 mg/dL (7-18) 12/25/18 06:14 0.59 mg/dL (0.55-1.02) 12/25/18 06:14 Est GFR (MDRD) Af Amer 132 mL/min (>60) 12/25/18 06:14 Est GFR (MDRD) Non-Af 109 mL/min (>60) 12/25/18 06:14 13.5 RATIO (10-20) 12/25/18 06:14 Glucose 245 mg/dL (74-106) H 12/25/18 06:14 Vancomycin Trough 9.6 ug/mL (5.0-15.0) 12/25/18 21:39 Microbiology: Microbiology 12/24/18 17:00 Tissue - Other Gram Stain - Final 12/24/18 17:00 Tissue - Other Wound Culture - Preliminary No growth-Final to follow 12/24/18 16:53 Bone - Other Gram Stain - Final 12/24/18 16:53 Bone - Other Wound Culture - Preliminary No growth-Final to follow Goal Trough: 15-20 mcg/mL Pharmacy Plan for Drug Dosing: Pharmacy Service will continue to monitor and adjust dosing as required. Medications Vancomycin HCl 2,000 mg/ (Sodium Chloride) 540 mls @ 250 mls/hr IV Q12H ROBERT TROUGH 9.6 NEW DOSE 2000MG Q12H NEXT TROUGH 12/27 @ 2129 Follow-Up Labs: Trough Vancomycin Labs to be done on [date and time ordered]: 12/27 @ 2129
[2018-12-26] MEDS: Lactated Ringers 1,000 ML 60 ML IV (03:22)
[2018-12-26 03:25] VITALS: BP 112/45; PULSE 78; RESP 18; TEMP 37.2; O2SAT 95
[2018-12-26] MEDS: metroNIDAZOLE 500 MG Tablet PO ×2 (05:17→14:18)
[2018-12-26] MEDS: 0.9% NaCl Peripheral Flush Adult/Peds IV (05:17)
[2018-12-26 05:24] LABS: Hematocrit 36.4 % (37-47); Hemoglobin 11.6 g/dL (12.0-15.0); Mean Corp Hgb Conc 31.9 g/dL (32-36); Mean Corpuscular Hgb 27.7 pg (27.0-32.0); Mean Corpuscular Volume 86.9 fL (81-99); Mean Platelet Vol. 8.9 fl (6.2-12.0); Platelet Count 325 K/mm3 (150-450); RBC Distribution Width CV 15.3 % (11.6-14.6); Red Blood Count 4.19 M/mm3 (4.2-5.4); White Blood Count 8.3 K/mm3 (4.4-11.0)
[2018-12-26 05:37] LABS: Anion Gap 7 (5-15); BUN 10 mg/dL (7-18); Calcium,Total 8.4 mg/dL (8.5-10.1); Chloride 106 mmol/L (98-107); Creatinine, Serum 0.56 mg/dL (0.55-1.02); EST Glomerular Filtration Rate 117 mL/min (>60); Est Glom Filt Rate - Afr Amer 141 mL/min (>60); Glucose 223 mg/dL (74-106); Potassium 3.9 mmol/L (3.5-5.1); Sodium Level 141 mmol/L (136-145)
--- NOTE | 2018-12-26 07:23 | PCM.PN.HOSP ---
Patient Problems: Active and Suspected Problems Poorly controlled type 2 diabetes mellitus (Acute) Subjective: Patient seen currently undergoing dressing changes with plans for wound VAC to be applied subsequently Objective: GENERAL: cooperative HEENT: Atraumatic; moist oral mucosa EYES; Anicteric, Normal Conjunctiva NECK; supple, normal thyroid, RESPIRATORY: Diminished to auscultation CARDIOVASCULAR: Regular S1 S2, GI: soft, non-tender, normoactive bowel sounds, : No Renal angle tenderness; EXTREMITIES: No edema, no clubbing, MUSCULOSKELETAL: Right knee surgical dressing NEURO: Awake; no lateralizing signs. SKIN: No Rash PSYCH; Normal affect Vitals/I&O's: Vital Signs Temp Pulse Resp BP Pulse Ox 99 F 78 18 112/45 L 95 12/26/18 03:25 12/26/18 03:25 12/26/18 03:25 12/26/18 03:25 12/26/18 03:25 Oxygen Delivery Method Room Air Weight: 71.758 kg Body Mass Index (BMI) 30.9 Finger Stick Blood Glucose 224 Intake and Output for Last 24 Hours 12/24/18 12/25/18 12/26/18 23:59 23:59 23:59 Intake Total 1957 2797 / 3962 1756 / 1756 Output Total 1600 / 2600 1000 / 1000 Balance 1957 1197 / 1362 756 / 756 Microbiology Past 72 Hours 12/24/18 17:00 Tissue - Other Gram Stain - Final 12/24/18 17:00 Tissue - Other Wound Culture - Preliminary No growth-Final to follow 12/24/18 16:53 Bone - Other Gram Stain - Final 12/24/18 16:53 Bone - Other Wound Culture - Preliminary No growth-Final to follow Laboratory Results 12/25/18 11:04: POC Glucose 278 H 12/25/18 16:04: POC Glucose 280 H 12/25/18 21:39: Vancomycin Trough 9.6 12/25/18 21:52: POC Glucose 260 H 12/26/18 05:15: WBC 8.3, RBC 4.19 L, Hgb 11.6 L, Hct 36.4 L, MCV 86.9, MCH 27.7, MCHC 31.9 L, RDW Std Deviation 49.0 H, RDW Coeff of Dionisio 15.3 H, Plt Count 325, MPV 8.9 12/26/18 05:15: Sodium 141, Potassium 3.9, Chloride 106, Carbon Dioxide 28.0, Anion Gap 7, BUN 10, Creatinine 0.56, Estim Creat Clear Calc 72.90, Est GFR (MDRD) Af Amer 141, Est GFR (MDRD) Non-Af 117, BUN/Creatinine Ratio 18.0, Glucose 223 H, Calcium 8.4 L Current Medications Aspirin (Ecotrin) 81 mg PO DAILYCM [facility] Last Admin: 12/25/18 07:38 Dose: 81 mg Documented by: Atorvastatin Calcium (Lipitor) 40 mg PO QHS [facility] Last Admin: 12/25/18 21:57 Dose: 40 mg Documented by: Docusate Sodium (Colace) 100 mg PO BID [facility] Last Admin: 12/25/18 21:57 Dose: 100 mg Documented by: Heparin Sodium (Beef Lung) () 50 units IV UD PRN PRN Reason: HEPARIN FLUSH Hydromorphone HCl (Dilaudid Inj) 1 mg IV Q3H PRN PRN PRN Reason: SEVERE PAIN (6-10/10) Last Admin: 12/24/18 21:40 Dose: 1 mg Documented by: Lactated Ringer's () 1,000 mls @ 60 mls/hr IV .[id number] [facility] Last Admin: 12/26/18 03:22 Dose: 60 mls/hr Documented by: Vancomycin IV Pharmacy to Dose (1 ea/ Sodium Chloride) 500 mls @ 250 mls/hr IV PRN PRN; Protocol PRN Reason: Rx to Dose Levofloxacin (Levaquin Iv) 500 mg in 100 mls @ 100 mls/hr IV Q24 [facility] Last Admin: 12/25/18 09:42 Dose: 100 mls/hr Documented by: Vancomycin HCl 2,000 mg/ (Sodium Chloride) 540 mls @ 250 mls/hr IV Q12H [facility] Insulin Glargine (Lantus (Bkc)) 20 units SC BREAKFAST [facility] Last Admin: 12/25/18 07:39 Dose: 20 u Documented by: Insulin Glargine (Lantus (Bkc)) 50 units SC QHS [facility] Last Admin: 12/25/18 21:57 Dose: 50 unit Documented by: Lisinopril (Zestril) 10 mg PO DAILY [facility] Last Admin: 12/25/18 07:38 Dose: 10 mg Documented by: Metformin HCl (Glucophage) 1,000 mg PO BIDCM [facility] Last Admin: 12/25/18 16:01 Dose: 1,000 mg Documented by: Metronidazole (Flagyl) 500 mg PO TID [facility] Last Admin: 12/26/18 05:17 Dose: 500 mg Documented by: Multivitamins (Allbee W/C Caplet, Thera B Comp/C) [facility] Last Admin: 12/25/18 16:01 Dose: 1 capsule Documented by: Nutritional Formula (Bk - [place] Flavor) 1 packet PO BIDCM [facility] Last Admin: 12/25/18 16:01 Dose: 1 packet Documented by: Nutritional Formula (Lactose Free) (Glucerna Shake) 120 ml PO TIDCM [facility] Last Admin: 12/25/18 16:01 Dose: 120 ml Documented by: Ondansetron HCl (Zofran) 4 mg IV Q6H PRN PRN PRN Reason: NAUSEA Oxycodone HCl (Oxyir) 10 mg PO Q4H PRN PRN PRN Reason: SEVERE PAIN (6-10/10) Last Admin: 12/25/18 07:47 Dose: 10 mg Documented by: Promethazine HCl (Phenergan Tablet) 25 mg PO Q4H PRN PRN PRN Reason: NAUSEA/VOMITING Sodium Chloride () 10 - 40 ml IV UD PRN PRN Reason: SALINE FLUSH Last Admin: 12/26/18 05:17 Dose: 30 ml Documented by: Sodium Chloride () 10 - 40 ml IV UD PRN PRN Reason: PICC FLUSH Medical Necessity - Tobacco Use Smoking Status: Never smoker Assessment/Plan All Active Problems Poorly controlled type 2 diabetes mellitus (Acute) Ulcer of right lower extremity (Acute) Closed right ankle fracture (Acute) Patient is a 63-year-old lady admitted with Nonhealing ulcer right proximal lateral leg with exposed hardware from previous fracture repair. Patient underwent surgical preparation right proximal lateral leg with incision and drainage and excisional debridement nonhealing infected ulcer with exposed hardware as well as partial ostectomy tibia for osteomyelitis on 12/24/2018.. 1. Status post incision and drainage and excisional debridement nonhealing infected ulcer with exposed hardware as well as partial ostectomy tibia for osteomyelitis on 12/24/2018 on account of Nonhealing ulcer right proximal lateral leg with exposed hardware from previous fracture repair. Procedure was performed by both Dr. Uribe as well as Dr. Friedman. The hospitalist service consulted for management of patient medical comorbidities ~12/26/18: Was seen in consultation by Dr. Puentes with infectious disease the day prior. His recommendations regarding antibiotic therapy reviewed. Plan is for patient to have wound VAC applied with plans for patient to be discharged to a longterm facility 2. Diabetes mellitus type II: Patient blood glucose control not optimal adjusted doses. Her hemoglobin A1c of 9. Patient is on on metformin in addition to long acting insulin addition to Accu-Cheks a.c. and at bedtime and covered with sliding scale insulin 3. Hypertension-blood pressure controlled, home medications continued with dose adjustment as needed 4. Mild intermittent asthma currently not in exacerbation 5. Dyslipidemia-patient is on statin therapy, continued at home dose 6. DVT prophylaxis recommend low molecular weight heparin if no contraindications will defer decision to primary service Code Visit Inpatient E&M: 87844 Subs Hosp L2
[2018-12-26 07:36] LABS: Bedside Glucose 217 mg/dL (70-110)
--- NOTE | 2018-12-26 07:49 | PCM.PN.ORT ---
Patient Problems: Active and Suspected Problems Poorly controlled type 2 diabetes mellitus (Acute) Subjective: The patient was sitting in bed upon examination. Patient denies any chest pain, shortness of breath, dizziness, lightheadedness, nausea or vomiting, or calf pain. Pain is controlled on medications. No adverse overnight events. Patient is getting PICC line for IV antibiotics for 6 weeks postoperatively. Also being set up for wound VAC today.. Objective: Vital signs stable and afebrile. Patient is able to plantarflex and dorsiflex actively. Sensation is intact to light touch to saphenous, sural, superficial and deep peroneal, and tibial distribution. Dressing is clean dry and intact. Negative Homans bilaterally, negative signs and symptoms of DVT. - Physical Exam General: Alert, Oriented x3, Cooperative, No apparent distress Vital Signs Temp Pulse Resp BP Pulse Ox 99 F 78 18 112/45 L 95 12/26/18 03:25 12/26/18 03:25 12/26/18 03:25 12/26/18 03:25 12/26/18 03:25 Oxygen Delivery Method Room Air Weight: 71.758 kg Body Mass Index (BMI) 30.9 Finger Stick Blood Glucose 224 Intake and Output for Last 24 Hours 12/24/18 12/25/18 12/26/18 23:59 23:59 23:59 Intake Total 1957 2797 / 3962 1756 / 1756 Output Total 1600 / 2600 1000 / 1000 Balance 1957 / 1957 1197 / 1362 756 / 756 Microbiology Past 72 Hours 12/24/18 17:00 Gram Stain - Final Tissue - Other Wound Culture - Preliminary No growth-Final to follow 12/24/18 16:53 Gram Stain - Final Bone - Other Wound Culture - Preliminary No growth-Final to follow Laboratory Tests Past 24 Hrs 12/25/18 12/26/18 12/26/18 21:39 05:15 05:15 WBC 8.3 RBC 4.19 L Hgb 11.6 L Hct 36.4 L MCV 86.9 MCH 27.7 MCHC 31.9 L RDW Std Deviation 49.0 H RDW Coeff of Dionisio 15.3 H Plt Count 325 MPV 8.9 Sodium 141 Potassium 3.9 Chloride 106 Carbon Dioxide 28.0 Anion Gap 7 BUN 10 Creatinine 0.56 Estim Creat Clear Calc 72.90 Est GFR (MDRD) Af Amer 141 Est GFR (MDRD) Non-Af 117 BUN/Creatinine Ratio 18.0 Glucose 223 H Calcium 8.4 L Vancomycin Trough 9.6 POC Glucose 12/26/18 12/25/18 12/25/18 07:26 21:52 16:04 POC Glucose 217 H 260 H 280 H 12/25/18 11:04 POC Glucose 278 H Medical Necessity - Tobacco Use Smoking Status: Never smoker Assessment/Plan All Active Problems Poorly controlled type 2 diabetes mellitus (Acute) Ulcer of right lower extremity (Acute) Closed right ankle fracture (Acute) 1. S/P removal of hardware right knee POD #1 2. Continue Pain Medications: Currently on OxyIR 3. PT/OT: Touchdown weightbearing right lower extremity for 6 weeks postoperatively 4. H & H: 11.6/36.4, asymptomatic 5. Continue postoperative medical management per medicine 6. Encouraged Incentive Spirometry 7. Disposition: From an orthopedic standpoint patient will need to be seen 2 weeks postoperatively with repeat x-rays. Otherwise wound is being followed by Dr. uribe. Patient will be getting 6 weeks antibiotics per infectious disease. Also having wound VAC placed today. Please contact orthopedics with any complications. Otherwise defer further wound care to Dr. Uribe.
[2018-12-26 08:01] VITALS: BP 126/72; PULSE 79; RESP 16; TEMP 36.6; O2SAT 97
[2018-12-26] MEDS: Glucerna Shake 120 ML LIQUID PO ×3 (08:01→16:16)
[2018-12-26] MEDS: Lisinopril 10 MG Tablet PO (08:01)
[2018-12-26] MEDS: Docusate Sodium 100 MG Capsule PO (08:02)
[2018-12-26] MEDS: Aspirin E.C. 81 MG Tablet PO (08:02)
[2018-12-26] MEDS: Vitamin B Comp W-C Capsule 1 CAP PO ×2 (08:02→16:16)
[2018-12-26] MEDS: metFORMIN HCl 500 MG Tablet 1000 MG PO ×2 (08:02→16:16)
[2018-12-26] MEDS: oxyCODONE 5 MG Tablet 10 MG PO (08:10)
[2018-12-26] MEDS: levoFLOXacin IV 500 MG/100 ML BAG 100 MG IV (10:03)
--- NOTE | 2018-12-26 10:04 | NURSING ---
wound photo: right knee
[2018-12-26 11:35] LABS: Bedside Glucose 258 mg/dL (70-110)
--- NOTE | 2018-12-26 12:16 | CASEMGMT ---
Addendum entered by Keiry Alexandra 12/26/18 13:18: SW is leaving the floor. YESSICA placed green sheet, HENS and transportation form on pt's chart. YESSICA wrote on green sheet for staff to fax over IV antibiotic script when antibiotics are confirmed. YESSICA completed convalescent 7000 in HENS. YESSICA placed a call to Lorene at [facility] and informed her this worker is leaving soon and if pre-cert is obtained to call [facility] main number. [facility] main number provided. Lorene states she is not sure even if pre-cert will be obtained today as she submitted referral late yesterday (around 4:30pm). Lorene is not sure if pre-cert was started yesterday or this morning. Plan: [facility] pending pre-cert. Green sheet on chart in the event pre-cert is obtained. Lorene at [facility] to call [facility] if pre-cert is obtained. Keiry Alexandra LATEXER, DISTANCE LEARNING ADMINISTRATOR Original Note: Social Work Note YESSICA updated pt on acceptance to [facility] pending pre-cert. Pt states understanding. YESSICA informed pt that this worker is still waiting to hear from pt's insurance. YESSICA informed pt that if this worker doesn't hear from insurance today then pt will be at [facility] over the weekend waiting for insurance. YESSICA asked pt if she will have transportation available at discharge and pt states she is not sure and will likely need transportation arranged. YESSICA informed pt that pt will likely have to be transported via wheelchair van and she may get a bill for for it. YESSICA informed pt that this worker is still waiting for for pre-cert through insurance though. Pt states understanding. YESSICA is waiting to speak with ID doctor to confirm IV antibiotics for pt. Plan: [facility] pending pre-cert Keiry FONSECA, DISTANCE LEARNING ADMINISTRATOR
--- NOTE | 2018-12-26 13:08 | PCM.PN.SRG ---
Patient Problems: Active and Suspected Problems Poorly controlled type 2 diabetes mellitus (Acute) Subjective: Postop #2 Patient is resting comfortably. VAC applied today without difficulty. - Physical Exam General: Alert, Oriented x3 HEENT: PERRLA, EOMI Oral: Moist Mucosa Neck: Supple Abdomen: Soft, Non-Distended Extremities: Edema - mild edema right leg. Skin: Ulcer/ Wound - right proximal lateral leg wound is stable. VAC applied today without difficulty. Neurological: Cranial nerves II-XII grossly intact Psych/Mental Status: Normal Affect, Appropriate Vital Signs Temp Pulse Resp BP Pulse Ox 98 F 79 16 126/72 H 97 12/26/18 08:01 12/26/18 08:01 12/26/18 08:01 12/26/18 08:01 12/26/18 08:01 Oxygen Delivery Method Room Air Weight: 158 lb 3.189 oz Body Mass Index (BMI) 30.9 Finger Stick Blood Glucose 224 Intake and Output for Last 24 Hours 12/24/18 12/25/18 12/26/18 23:59 23:59 23:59 Intake Total 1957 2797 / 3962 2603 / 2603 Output Total 1600 / 2600 1999 / 1999 Balance 1957 / 1957 1197 / 1362 603 / 603 Microbiology Past 72 Hours 12/24/18 17:00 Gram Stain - Final Tissue - Other Wound Culture - Preliminary No growth-Final to follow 12/24/18 16:53 Gram Stain - Final Bone - Other Wound Culture - Preliminary No growth-Final to follow Laboratory Tests Past 24 Hrs 12/25/18 12/26/18 12/26/18 21:39 05:15 05:15 WBC 8.3 RBC 4.19 L Hgb 11.6 L Hct 36.4 L MCV 86.9 MCH 27.7 MCHC 31.9 L RDW Std Deviation 49.0 H RDW Coeff of Dionisio 15.3 H Plt Count 325 MPV 8.9 Sodium 141 Potassium 3.9 Chloride 106 Carbon Dioxide 28.0 Anion Gap 7 BUN 10 Creatinine 0.56 Estim Creat Clear Calc 72.90 Est GFR (MDRD) Af Amer 141 Est GFR (MDRD) Non-Af 117 BUN/Creatinine Ratio 18.0 Glucose 223 H Calcium 8.4 L Vancomycin Trough 9.6 POC Glucose 12/26/18 12/26/18 12/25/18 11:16 07:26 21:52 POC Glucose 258 H 217 H 260 H 12/25/18 16:04 POC Glucose 280 H Medical Necessity - Tobacco Use Smoking Status: Never smoker Assessment/Plan All Active Problems Poorly controlled type 2 diabetes mellitus (Acute) Ulcer of right lower extremity (Acute) Closed right ankle fracture (Acute) 1. Nonhealing infected ulcer right proximal lateral leg with exposed hardware from previous fracture repair. 2. History of right tibial plateau fracture with ORIF. 3. Diabetes mellitus. 4. s/p surgical preparation right proximal lateral leg with incision and drainage and excisional debridement nonhealing infected ulcer with exposed hardware and partial ostectomy tibia for osteomyelitis and removal of hardware. Wound was stable with no further evidence of infection. No active bleeding seen. VAC applied today. Continue IV antibiotics. Infectious Diseases was consulted. Currently on Vancomycin, Levaquin and Flagyl. Operative cultures are pending. The swab was negative for MRSA and positive for MSSA. PICC line in place. Anticipate 6 weeks of IV antibiotics. Prealbumin was 14.0. Encourage nutritional supplementation with protein to help the healing process. Patient is on limited weight bearing. Combined with the VAC and the need for IV antibiotics, it may be safer for her to consider a short stay at an ECF. ECF evaluation in process. Before proceeding with soft tissue coverage for wound closure with a muscle flap, would like the HgbA1c to be around 8 to help minimize wound healing issues. Right now it is at 9.4. After discharge, [facility] in couple [facility] weeks.
[2018-12-26 14:07] VITALS: BP 124/65; PULSE 89; RESP 18; TEMP 36.3; O2SAT 100
--- NOTE | 2018-12-26 14:45 | PCM.PN.ID ---
Patient Problems: Active and Suspected Problems Poorly controlled type 2 diabetes mellitus (Acute) Subjective: Picc in place, feeling well, no fever. - Physical Exam General: Alert, Cooperative Lungs: Clear to auscultation, Normal air movement Cardiovascular: Regular rate, Regular Rhythm Abdomen: Soft, Non Tender, Non-Distended Skin: No rashes, Ulcer/ Wound - wrapped Vital Signs Temp Pulse Resp BP Pulse Ox 97.4 F L 89 18 124/65 H 100 12/26/18 14:07 12/26/18 14:07 12/26/18 14:07 12/26/18 14:07 12/26/18 14:07 Oxygen Delivery Method Room Air Weight: 71.758 kg Body Mass Index (BMI) 30.9 Finger Stick Blood Glucose 224 Intake and Output for Last 24 Hours 12/24/18 12/25/18 12/26/18 23:59 23:59 23:59 Intake Total 1957 2797 / 3962 2603 / 2603 Output Total 1600 / 2600 1999 / 1999 Balance 1957 1197 / 1362 603 / 603 Microbiology Past 72 Hours 12/24/18 17:00 Gram Stain - Final Tissue - Other Wound Culture - Preliminary No growth-Final to follow 12/24/18 16:53 Gram Stain - Final Bone - Other Wound Culture - Preliminary No growth-Final to follow Laboratory Tests Past 24 Hrs 12/25/18 12/26/18 12/26/18 21:39 05:15 05:15 WBC 8.3 RBC 4.19 L Hgb 11.6 L Hct 36.4 L MCV 86.9 MCH 27.7 MCHC 31.9 L RDW Std Deviation 49.0 H RDW Coeff of Dionisio 15.3 H Plt Count 325 MPV 8.9 Sodium 141 Potassium 3.9 Chloride 106 Carbon Dioxide 28.0 Anion Gap 7 BUN 10 Creatinine 0.56 Estim Creat Clear Calc 72.90 Est GFR (MDRD) Af Amer 141 Est GFR (MDRD) Non-Af 117 BUN/Creatinine Ratio 18.0 Glucose 223 H Calcium 8.4 L Vancomycin Trough 9.6 POC Glucose 12/26/18 12/26/18 12/25/18 11:16 07:26 21:52 POC Glucose 258 H 217 H 260 H 12/25/18 16:04 POC Glucose 280 H Medical Necessity - Tobacco Use Smoking Status: Never smoker Route of nutrition/ use of supplements: [] Nutritional Intake: [] IV Site: [] [place] Catheter: [] - Assessment/Plan Antibiotics: [] Assessment/Plan: [] Active and Suspected Problems Poorly controlled type 2 diabetes mellitus (Acute) RLE proximal tibial osteo with hardware infection - now s/p hardware removal and debridement by Dr. Uribe and Dr. Friedman. Surg cx neg so far. Has grown MSSA, morganella, strep, and anaerobes in the past. Will change abx to cefepime with po flagyl to try to limit risk of residential side effects; will monitor for rash. Plan on 6 weeks of abx, but now that hardware is out she has a good chance of cure. Stop date 02/04/19, weekly, bmp/cbc/esr. ID followup in 2-3 weeks. Will follow, rx written, d/w nursing.
[2018-12-26 16:26] LABS: Bedside Glucose 216 mg/dL (70-110)
--- NOTE | 2018-12-26 17:02 | PCM.TXEXTCAR ---
- Diet 12/24/18 17:55 Diet: Carbohydrate Controlled - Routine Orders/Code Status Code Status: Full Code - Wound(s) RIGHT KNEE Wound Type: Open Surgical Wound Dressing Change: applied KCI wound VAC - Therapies Weight Bearing: Toe-touch weight bearing Physical Therapy: Eval and Treat Occupational Therapy: Eval and Treat - Allergies/Procedures Done in Hospital Allergies/Adverse Reactions: Allergies cephalexin [From Keflex] Allergy (Verified 12/17/18 16:09) Breakouts insulin lispro [From Humalog] Allergy (Verified 12/17/18 16:09) Rash Penicillins Allergy (Verified 12/17/18 16:09) Rash - Type of Care/Length of Stay Estimated LOS: Convalescent Care Less Than 30 days Type of Care Needed: Skilled Rehab Potential: Good Prognosis: Good - Additional Orders/Day of Discharge Day of Discharge: 12/26/18 - Dietary and Speech Recommendations Dietitian Recommendations/Changes: Recommend continue 1600 calorie controlled diet. Continue 1 packet Bk BID and Glucerna TID for wound healing. May benefit from outpatient [facility] if interested in ongoing DM education. - Follow Up Care Primary Care Physician: Avinash Najera MD [Primary Care Provider] - Please follow up with your Primary Care Physician in: in 1-2 weeks Please Follow Up With: Jeancarlos Uribe MD When: in 1-2 weeks Please Follow Up With: Yury Friedman MD When: in 1-2 weeks Please Follow Up With: Caleb Puentes MD When: in 1-2 weeks
--- NOTE | 2018-12-26 17:05 | DS.PCM_ITS ---
Discharge Date and Diagnosis - Problem List Patient Problems: Active and Suspected Problems Poorly controlled type 2 diabetes mellitus (Acute) Date of Admission: 12/24/18 Date of Discharge: 12/26/18 - Primary Discharge Diagnosis Active and Suspected Problems Poorly controlled type 2 diabetes mellitus (Acute) - Secondary Discharge Diagnosis Chronic Problems Other mechanical complication of internal fixation device of bone of right lower leg, initial encounter (Chronic) from right tibial plateau fracture with ulceration right proximal lateral leg Infection and inflammatory reaction due to internal fixation device of right tibia, initial encounter (Chronic) Displaced bicondylar fracture of right tibia, sequela (Chronic) 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 without evidence of necrosis (Chronic) nonhealing ulcer right proximal lateral leg with exposed hardware from previous fracture repair Chronic cellulitis (Chronic) nonhealing ulcer right proximal lateral leg with exposed hardware from previous fracture repair Tibial plateau fracture (Chronic) Debility (Chronic) Wound dehiscence, surgical (Chronic) Exposed orthopaedic hardware (Chronic) from right tibial plateau fracture with ulceration right proximal lateral leg Bronchial asthma (Chronic) Diabetes mellitus (Chronic) Hyperlipidemia (Chronic) Hypertension (Chronic) Obesity (Chronic) Hospital Course and Treatment Consultations 12/26/18 06:49 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 Patient underwent surgical preparation right proximal lateral leg with incision and drainage and excisional debridement nonhealing infected ulcer with exposed hardware as well as partial ostectomy tibia for osteomyelitis on 12/24/2018.. 1. Status post incision and drainage and excisional debridement nonhealing infected ulcer with exposed hardware as well as partial ostectomy tibia for osteomyelitis on 12/24/2018 on account of Nonhealing ulcer right proximal lateral leg with exposed hardware from previous fracture repair. Procedure was per formed by both Dr. Uribe as well as Dr. Friedman. The hospitalist service consulted for management of patient medical comorbidities. Patient was transferred to [facility] facility following application of the wound VAC. 2. Diabetes mellitus type II: Patient blood glucose control not optimal adjusted doses. Her hemoglobin A1c of 9. Patient is on on metformin in addition to long acting insulin addition to Accu-Cheks a.c. and at bedtime and covered with sliding scale insulin 3. Hypertension-blood pressure controlled, home medications continued with dose adjustment as needed 4. Mild intermittent asthma currently not in exacerbation 5. Dyslipidemia-patient is on statin therapy, continued at home dose 6. DVT prophylaxis recommend low molecular weight heparin if no contraindicat ions will defer decision to primary service Patient Problems: Active and Suspected Problems Poorly controlled type 2 diabetes mellitus (Acute) Objective: GENERAL: cooperative HEENT: Atraumatic; EYES; Anicteric, NECK; supple, normal thyroid, RESPIRATORY: Diminished to auscultation CARDIOVASCULAR: Regular S1 S2, GI: soft, non-tender, normoactive bowel sounds, : No Renal angle tenderness; EXTREMITIES: No edema, no clubbing, MUSCULOSKELETAL: Right knee surgical dressing NEURO: Awake; no lateralizing signs. SKIN: No Rash PSYCH; Normal affect - Physical Exam Vital Signs Temp Pulse Resp BP Pulse Ox 97.4 F L 89 18 124/65 H 100 12/26/18 14:07 12/26/18 14:07 12/26/18 14:07 12/26/18 14:07 12/26/18 14:07 Oxygen Delivery Method Room Air Weight: 71.758 kg Body Mass Index (BMI) 30.9 Finger Stick Blood Glucose 224 Intake and Output for Last 24 Hours 12/24/18 12/25/18 12/26/18 23:59 23:59 23:59 Intake Total 1957 2797 / 3962 2603 / 2603 Output Total 1600 / 2600 1999 Balance 1957 / 1957 1197 / 1362 603 / 603 Microbiology Past 72 Hours 12/24/18 17:00 Gram Stain - Final Tissue - Other Wound Culture - Preliminary No growth-Final to follow 12/24/18 16:53 Gram Stain - Final Bone - Other Wound Culture - Preliminary No growth-Final to follow Laboratory Tests Past 24 Hrs 12/25/18 12/26/18 12/26/18 21:39 05:15 05:15 WBC 8.3 RBC 4.19 L Hgb 11.6 L Hct 36.4 L MCV 86.9 MCH 27.7 MCHC 31.9 L RDW Std Deviation 49.0 H RDW Coeff of Dionisio 15.3 H Plt Count 325 MPV 8.9 Sodium 141 Potassium 3.9 Chloride 106 Carbon Dioxide 28.0 Anion Gap 7 BUN 10 Creatinine 0.56 Estim Creat Clear Calc 72.90 Est GFR (MDRD) Af Amer 141 Est GFR (MDRD) Non-Af 117 BUN/Creatinine Ratio 18.0 Glucose 223 H Calcium 8.4 L Vancomycin Trough 9.6 POC Glucose 12/26/18 12/26/18 12/26/18 16:18 11:16 07:26 POC Glucose 216 H 258 H 217 H 12/25/18 21:52 POC Glucose 260 H Discharge Diet: 1800 Calorie Control Diet Home Medications: Medications to take at Discharge Lisinopril [Zestril] 10 mg PO DAILY 08/25/14 Vitamin B Complex 1 each PO BID 11/23/15 metFORMIN HCl [Glucophage] 1,000 mg PO BIDCM 09/19/16 Aspirin [Aspirin EC] 81 mg PO DAILY 07/18/18 Insulin Detemir [Levemir FlexPen] 40 units SC QHS 07/18/18 Atorvastatin Calcium [Lipitor] 40 mg PO QHS 11/17/18 Cefepime HCl [Maxipime] 2 gm IV Q8 40 Days #120 vial 12/26/18 Docusate Sodium [Colace] 100 mg PO BID capsule 12/26/18 Glucerna Shake 120 ml PO TIDCM liquid 12/26/18 Hydrocodone/Acetaminophen [Hydrocodone-Acetamin 5-325 mg] 1 ea PO Q6H PRN 3 Days #14 tab 12/26/18 Metronidazole [Flagyl] 500 mg PO TID 40 Days #120 tab 12/26/18 Walker [Ultra-Light Rollator] 1 ea MC .QDAILY 90 Days #1 ea 12/26/18 Following Prescrptions Were Given to Patient: Metronidazole [Flagyl] 500 mg PO TID 40 Days #120 tab Prescription Printed Hydrocodone/Acetaminophen [Hydrocodone-Acetamin 5-325 mg] 1 ea PO Q6H PRN 3 Days #14 tab PRN Reason: Pain Prescription Printed Cefepime HCl [Maxipime] 2 gm IV Q8 40 Days #120 vial Prescription Printed Walker [Ultra-Light Rollator] 1 ea MC .QDAILY 90 Days #1 ea Prescription Printed Primary Care Physician: Avinash Najera MD [Primary Care Provider] - Please follow up with your Primary Care Physician in: in 1-2 weeks Please Follow Up With: Jeancarlos Uribe MD When: in 1-2 weeks Please Follow Up With: Yruy Friedman MD When: in 1-2 weeks Please Follow Up With: Caleb Puentes MD When: in 1-2 weeks Disposition: Residential facility Minutes spent on discharge:: 35 Patient Condition:: Stable Medical Necessity - Tobacco Use Smoking Status: Never smoker Meaningful Use Info Meaningful Use Diagnoses (Choose all that apply): None applicable Code Visit Inpatient E&M: 10304 Disch Hosp
--- NOTE | 2018-12-26 17:27 | NURSING ---
Report called to JONATHAN Galo at [facility] wing at this time.
== END 2018-12-26 18:57 | disposition home or self-care (01) | DRG 313 ==
LOC: SDC 17:28 → MS3 18:27
PROVIDERS: Anesthesiology; Admitting Provider Surgery; Family Provider Family Medicine; PCP Family Medicine; Referring Provider Specialist; Visit Provider Internal Medicine
PROC: 0QPG04Z Removal of Internal Fixation Device from Right Tibia, Open Approach (ICD-10-PCS; principal; 2018-12-24 14:45)
PROC: 0QBG0ZZ Excision of Right Tibia, Open Approach (ICD-10-PCS; 2018-12-24 14:45)
DX: T84.622A Infection and inflammatory reaction due to internal fixation device of right tibia, initial encounter (principal); E11.65 Type 2 diabetes mellitus with hyperglycemia; E11.69 Type 2 diabetes mellitus with other specified complication; M86.8X6 Other osteomyelitis, lower leg; L97.819 Non-pressure chronic ulcer of other part of right lower leg with unspecified severity; I10 Essential (primary) hypertension; J45.20 Mild intermittent asthma, uncomplicated; E78.5 Hyperlipidemia, unspecified; Z79.4 Long term (current) use of insulin; Z87.81 Personal history of (healed) traumatic fracture
CPT/HCPCS: 36415; 36569; 73560; 76000; 80048; 80053; 80202; 82962; 83036; 84134; 85027; 85652; 86140; 87070; 87075; 87102; 87176; 87205; 87206; 87640; 88305; 88311; 97162; 97166; 97530; 97802; J7040; J7120; A4216

== ENCOUNTER 2019-01-12 09:40 | Outpatient (RCR) | payer MEDICAID, SELFPAY ==
[2018-12-24 17:56] VITALS: BMI 30.9
[2018-12-25 00:48] VITALS: BP 127/65; PULSE 80; RESP 22; TEMP 36.6
[2019-01-12 10:27] VITALS: BP 119/64; PULSE 96; RESP 16; TEMP 36.3; BMI 30.9
--- NOTE | 2019-01-12 22:36 | PN.PCM_ITS ---
Type of Wound Date of Service: 01/12/19 Chief Complaint: Nonhealing ulcer right proximal lateral leg with exposed hardware from previous fracture repair. History of Wound: Surgery 12/24/18 - 1. Surgical preparation right proximal lateral leg with incision and drainage and excisional debridement nonhealing infected ulcer with exposed hardware (52.5 cm2). 2. Partial ostectomy tibia for osteomyelitis by Dr. Uribe. Right tibia removal of hardware by Dr. Friedman. Wound care - VAC. Operative culture - Staphylococcus aureus from MRSA Wound DNA by PCR. Preop she had cultures that showed Staphylococcus aureus, Morganella morganii, Streptococcus mitis/oralis, and Anaerobic cocci. She was placed on Cefipime IV for 6 weeks and Flagyl PO for 6 weeks until 02/04/19. Pathology - positive for focal acute osteomyelitis. Prealbumin from 12/25/18 was 14.0. Encouraged nutritional supplementation with protein to help the healing process. HgbA1c from 12/24/18 was 9.4. It should be 8 or less before proceeding on any elective reconstructive procedure. Today she denies fever. Her appetite is ok. Progress of Wound: Recent surgery 12/24/18. - Physical Exam Vital Signs Temp Pulse Resp BP 97.3 F L 96 16 119/64 01/12/19 10:27 01/12/19 10:27 01/12/19 10:27 01/12/19 10:27 Wound Measurements and Assessment WC - Nurse 1 - General Ulcer Measurement Start: 01/12/19 10:27 Freq: Status: Active Protocol: Activity Type Activity Date Activity User E-Sign Co-Sign Detail Recorded Client Recorded Date Recorded By Document 01/12/19 10:27 MW [id number] 01/12/19 10:40 MW 01/12/19 10:27 Wound Center Nurse 1 [Ulcer Assessment] #1- RT KNEE/LATERAL LAGUERRE -Combined with other wound No -Current Size (cm) - Length 9.0 -Current Size (cm) - Width 5.5 -Current Size (cm) - Depth 1.0 -Total Square Cm 49.50 -Date of Last Picture (Recall this 01/12/19 field) -Photo Taken Yes -Epithelialization None Present -Tunneling No -Undermining/Tunneling No -Circular Undermining No -Exudate Amt Medium -Exudate Type Serosanguineous -Wound Margin Distinct, Outline Attached -Granulation Amt Medium (34-66%) -Granulation Quality Red -Slough/Fibrin Yes -Necrosis Amt Small (1-33%) -Necrotic Tissue Type Adherent Slough -Structure Exposed Bone -Texture (Tiana-wound Skin Appearance) No Abnormality, Localized Edema ,Scarring -Moisture (Tiana-wound Skin Appearance No Abnormality, ) Assessed -Color (Tiana-wound Skin Appearance) No Abnormality, Assessed -Temperature (Tiana-wound Skin No Abnormality Appearance) (Pt Warm) -Tenderness on Palpation (Tiana-wound No Skin Appearance) -Ulcer Cleansing soap and water -Foul Odor after Cleansing No -Anesthetic Used 4% Lidocaine Solution [Edema Assessment] -Lower Limb Edema Present No WC - Nurse 2 - General Ulcer CM Notes Start: 01/12/19 10:27 Freq: Status: Active Protocol: Activity Type Activity Date Activity User E-Sign Co-Sign Detail Recorded Client Recorded Date Recorded By Document 01/12/19 10:47 CLARA [id number] 01/12/19 10:49 CLARA 01/12/19 10:47 Wound Center Nurse 2 [Procedure/Treatment] #1- RT KNEE/LATERAL LAGUERRE -Time 10:48 -Correct Patient Yes -Correct Side, Site, Position Yes -Correct Procedure Yes -Procedure Performed Yes -Type of Procedure Debridement -Clinical Debridement Muscle -Post Debridement Size (cm) - Length 9 -Post Debridement Size (cm) - Width 5.6 -Post Debridement Size (cm) - Depth 1.1 -Total Square Cm 50.4 -Wound/Ulcer Outcome Not Healed -Ulcer Cleansing Rinsed/ Irrigated with Saline -Foul Odor after Cleansing No -Bioengineered Tissue No -Bleeding Controlled with Pressure -Offloading No -Treatment Response Procedure Tolerated Well [See Physician Procedure note for Specifics] Pain Scale: 0-10 Numeric [Pain] -Is Patient Pain Free? Yes Debridement Note Post-Debridement Measurements/Treatment WC - Nurse 2 - General Ulcer CM Notes Start: 01/12/19 10:27 Freq: Status: Active Protocol: Activity Type Activity Date Activity User E-Sign Co-Sign Detail Recorded Client Recorded Date Recorded By Document 01/12/19 10:47 CLARA [id number] 01/12/19 10:49 CLARA 01/12/19 10:47 Wound Center Nurse 2 #1- RT KNEE/LATERAL LAGUERRE -Time 10:48 -Correct Patient Yes -Correct Side, Site, Position Yes -Correct Procedure Yes -Procedure Performed Yes -Type of Procedure Debridement -Clinical Debridement Muscle -Post Debridement Size (cm) - Length 9 -Post Debridement Size (cm) - Width 5.6 -Post Debridement Size (cm) - Depth 1.1 -Total Square Cm 50.4 -Wound/Ulcer Outcome Not Healed -Ulcer Cleansing Rinsed/ Irrigated with Saline -Foul Odor after Cleansing No -Bioengineered Tissue No -Bleeding Controlled with Pressure -Offloading No -Treatment Response Procedure Tolerated Well Pain Scale: 0-10 Numeric Is Patient Pain Free? Yes Wound debrided: #1 Right proximal lateral leg. Laterality: Right Wound Grade/Stage: 4. Type of Debridement: Excisional debridement Anesthesia Used: 4% Lidocaine Solution Depth: Down to and including healthy tissue, in the subcutaneous layer, to muscle, to bone - bone is exposed but not debrided. Percentage of wound debrided: 100 Instrument Used: 5mm curette Tissue Removed: subcutaneous tissue and muscle. Severity: Fat Layer Exposed - muscle is exposed. bone is exposed but not debrided. Amount of bleeding with debridement: Mild Bleeding Controlled with: Pressure Patient tolerated procedure well Assessment/Plan Assessment: 1. Nonhealing infected ulcer right proximal lateral leg with exposed hardware from previous fracture repair. 2. History of right tibial plateau fracture with ORIF. 3. Diabetes mellitus. 4. Osteomyelitis right tibia. 5. s/p removal of hardware right tibia. Plan: Continue the VAC to be changed three times per week at 150 mmHg continuous suction. Continue Cefepime IV and Flagyl PO until 02/04/19 for Staphylococcus aureus (from operative culture) and Staphylococcus aureus, Morganella morganii, Streptococcus mitis/oralis, and Anaerobic cocci (from preop culture). Prealbumin from 12/25/18 was 14.0. Encourage nutritional supplementation with protein to help the healing process. HgbA1c from 12/24/18 was 9.4. Would like it to be 8 or less before proceeding with any elective reconstructive surgery. After the antibiotics are done, she will need a repeat partial ostectomy. Would like the bone to be negative for osteomyelitis prior to complex recosntructive surgery with a muscle flap and skin graft along with placement of a bone graft. Also at the time of her surgery, her nutrition should be maximized to promote healing as well. Followup 3 weeks. Hold Bactrim while on levofloxacin. Continue increased protein intake. Elevate lower exremities when seated and in b ed. Also asked that she speak with Dr. Friedman's office and get her scheduled for surgery as soon as possible. All her questions were answered and she was advised to call with any further questions or concerns. This note was generated with Beam. dictation software. It may contain incorrect words, spelling, and punctuation that were not noted in checking the note before signing.
== END 2019-01-24 23:59 ==
LOC: WC 09:40
PROVIDERS: Family Provider Family Medicine; PCP Family Medicine; Referring Provider Internal Medicine; Visit Provider Internal Medicine
DX: T81.31XA Disruption of external operation (surgical) wound, not elsewhere classified, initial encounter (principal); T84.498A Other mechanical complication of other internal orthopedic devices, implants and grafts, initial encounter; X58.XXXS Exposure to other specified factors, sequela; S82.141S Displaced bicondylar fracture of right tibia, sequela; Y83.8 Other surgical procedures as the cause of abnormal reaction of the patient, or of later complication, without mention of misadventure at the time of the procedure; E11.9 Type 2 diabetes mellitus without complications
CPT/HCPCS: 11043; 11046

== ENCOUNTER 2019-02-23 10:30 | Outpatient (RCR) | payer MEDICAID, SELFPAY ==
[2019-01-25 00:40] VITALS: BP 119/64; PULSE 96; RESP 16; TEMP 36.3
[2019-02-02 10:24] VITALS: BP 120/61; PULSE 83; RESP 18; TEMP 36.9; BMI 30.9
--- NOTE | 2019-02-02 22:32 | PCM.WC.PN ---
Type of Wound Date of Service: 02/02/19 Chief Complaint: Nonhealing ulcer right proximal lateral leg with exposed hardware from previous fracture repair. History of Wound: Surgery 12/24/18 - 1. Surgical preparation right proximal lateral leg with incision and drainage and excisional debridement nonhealing infected ulcer with exposed hardware (52.5 cm2). 2. Partial ostectomy tibia for osteomyelitis by Dr. Uribe. Right tibia removal of hardware by Dr. Friedman. Wound care - VAC. Operative culture - Staphylococcus aureus from MRSA Wound DNA by PCR. Preop she had cultures that showed Staphylococcus aureus, Morganella morganii, Streptococcus mitis/oralis, and Anaerobic cocci. She was placed on Cefipime IV for 6 weeks and Flagyl PO for 6 weeks until 02/04/19. Pathology - positive for focal acute osteomyelitis. Prealbumin from 12/25/18 was 14.0. Encouraged nutritional supplementation with protein to help the healing process. HgbA1c from 12/24/18 was 9.4. It should be 8 or less before proceeding on any elective reconstructive procedure. Today she denies fever. Her appetite is ok. Progress of Wound: Improved. - Physical Exam Vital Signs Temp Pulse Resp BP 98.4 F 83 18 120/61 02/02/19 10:24 02/02/19 10:24 02/02/19 10:24 02/02/19 10:24 Wound Measurements and Assessment WC - Nurse 1 - General Ulcer Measurement Start: 02/02/19 10:23 Freq: Status: Active Protocol: Activity Type Activity Date Activity User E-Sign Co-Sign Detail Recorded Client Recorded Date Recorded By Document 02/02/19 10:24 AN [id number] 02/02/19 10:49 AN 02/02/19 10:24 Wound Center Nurse 1 [Ulcer Assessment] #1- RT KNEE/LATERAL LAGUERRE -Current Size (cm) - Length 8.6 -Current Size (cm) - Width 3.5 -Current Size (cm) - Depth 1.2 -Total Square Cm 30.10 -Classification - Thickness Full Thickness with Exposed Support Structure -Exudate Amt Medium -Exudate Type Serosanguineous -Wound Margin Distinct, Outline Attached -Granulation Amt Large (67-100%) -Granulation Quality Red -Slough/Fibrin Yes -Necrosis Amt Small (1-33%) -Necrotic Tissue Type Adherent Slough -Structure Exposed Tendon,Muscle, Bone,Fat Layer Exposed -Texture (Tiana-wound Skin Appearance) Localized Edema -Moisture (Tiana-wound Skin Appearance Assessed ) -Color (Tiana-wound Skin Appearance) Not Assessed, Erythema -Temperature (Tiana-wound Skin Hot Appearance) -Tenderness on Palpation (Tiana-wound Yes Skin Appearance) -Ulcer Cleansing soap and water -Foul Odor after Cleansing No -Anesthetic Used 4% Lidocaine Solution - Nurse 2 - General Ulcer CM Notes Start: 02/02/19 10:23 Freq: Status: Active Protocol: Activity Type Activity Date Activity User E-Sign Co-Sign Detail Recorded Client Recorded Date Recorded By Document 02/02/19 11:04 CLARA [id number] 02/02/19 11:07 CLARA 02/02/19 11:04 Wound Center Nurse 2 [Procedure/Treatment] -Time 11:05 -Correct Patient Yes -Correct Side, Site, Position Yes -Correct Procedure Yes -Procedure Performed Yes -Type of Procedure Debridement -Clinical Debridement Muscle -Post Debridement Size (cm) - Length 8.2 -Post Debridement Size (cm) - Width 3.2 -Post Debridement Size (cm) - Depth 2.0 -Total Square Cm 26.24 -Wound/Ulcer Outcome Not Healed -Ulcer Cleansing Rinsed/ Irrigated with Saline -Foul Odor after Cleansing No -Bioengineered Tissue No -Bleeding Controlled with Pressure -Offloading No -Treatment Response Procedure Tolerated Well [See Physician Procedure note for Specifics] Pain Scale: 0-10 Numeric [Pain] -Is Patient Pain Free? Yes Debridement Note Post-Debridement Measurements/Treatment - Nurse 2 - General Ulcer CM Notes Start: 02/02/19 10:23 Freq: Status: Active Protocol: Activity Type Activity Date Activity User E-Sign Co-Sign Detail Recorded Client Recorded Date Recorded By Document 02/02/19 11:04 JF [id number] 02/02/19 11:07 02/02/19 11:04 Wound Center Nurse 2 #1- RT KNEE/LATERAL LAGUERRE -Time 11:05 -Correct Patient Yes -Correct Side, Site, Position Yes -Correct Procedure Yes -Procedure Performed Yes -Type of Procedure Debridement -Clinical Debridement Muscle -Post Debridement Size (cm) - Length 8.2 -Post Debridement Size (cm) - Width 3.2 -Post Debridement Size (cm) - Depth 2.0 -Total Square Cm 26.24 -Wound/Ulcer Outcome Not Healed -Ulcer Cleansing Rinsed/ Irrigated with Saline -Foul Odor after Cleansing No -Bioengineered Tissue No -Bleeding Controlled with Pressure -Offloading No -Treatment Response Procedure Tolerated Well Pain Scale: 0-10 Numeric Is Patient Pain Free? Yes Wound debrided: #1 Rigth proximal lateral leg. Laterality: Right Wound Grade/Stage: 4. Type of Debridement: Excisional debridement Anesthesia Used: 4% Lidocaine Solution Depth: Down to and including healthy tissue, in the subcutaneous layer, to muscle, to bone - bone is exposed but not debrided. Percentage of wound debrided: 100 Instrument Used: 5mm curette Tissue Removed: subcutaneous tissue and muscle. Severity: Fat Layer Exposed - muscle is exposed. bone is exposed but not debrided. Amount of bleeding with debridement: Mild Bleeding Controlled with: Pressure Patient tolerated procedure well Assessment/Plan Assessment: 1. Nonhealing infected ulcer right proximal lateral leg with exposed hardware from previous fracture repair. 2. History of right tibial plateau fracture with ORIF. 3. Diabetes mellitus. 4. Osteomyelitis right tibia. 5. s/p removal of hardware right tibia. Plan: Continue the VAC to be changed three times per week at 150 mmHg continuous suction. Continue Cefepime IV and Flagyl PO until 02/04/19 for Staphylococcus aureus (from operative culture) and Staphylococcus aureus, Morganella morganii, Streptococcus mitis/oralis, and Anaerobic cocci (from preop culture). Prealbumin from 12/25/18 was 14.0. Encourage nutritional supplementation with protein to help the healing process. HgbA1c from 12/24/18 was 9.4. Would like it to be 8 or less before proceeding with any elective reconstructive surgery. After the antibiotics are done, she will need a repeat partial ostectomy. Would like the bone to be negative for osteomyelitis prior to complex recosntructive surgery with a muscle flap and skin graft along with placement of a bone graft. Also at the time of her surgery, her nutrition should be maximized to promote healing as well. Followup 2 weeks.
[2019-02-23 10:52] VITALS: BP 118/65; PULSE 89; RESP 18; TEMP 36.4; BMI 30.9
--- NOTE | 2019-02-23 12:44 | PN.PCM_ITS ---
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 without evidence of necrosis Status: Chronic Code(s): L97.916 - Non-pressure chronic ulcer of unspecified part of right lower leg with bone involvement without evidence of necrosis Comment: nonhealing ulcer right proximal lateral leg with exposed hardware from previous fracture repair (2) Osteomyelitis of right tibia Status: Chronic Code(s): M86.9 - Osteomyelitis, unspecified (3) Poorly controlled type 2 diabetes mellitus Status: Chronic Code(s): E11.65 - Type 2 diabetes mellitus with hyperglycemia Type of Wound Date of Service: 02/23/19 Chief Complaint: Nonhealing ulcer right proximal lateral leg with exposed hardware from previous fracture repair. History of Wound: Surgery 12/24/18 - 1. Surgical preparation right proximal lateral leg with incision and drainage and excisional debridement nonhealing infected ulcer with exposed hardware (52.5 cm2). 2. Partial ostectomy tibia for osteomyelitis by Dr. Uribe. Right tibia removal of hardware by Dr. Friedman. Wound care - VAC. Operative culture - Staphylococcus aureus from MRSA Wound DNA by PCR. Preop she had cultures that showed Staphylococcus aureus, Morganella morganii, Streptococcus mitis/oralis, and Anaerobic cocci. She was placed on Cefipime IV for 6 weeks and Flagyl PO for 6 weeks until 02/04/19. Pathology - positive for focal acute osteomyelitis. Prealbumin from 12/25/18 was 14.0. Wound care - Wound VAC at 150 mmHg with adaptic to the wound bed where there is exposed bone. Encouraged nutritional supplementation with protein to help the healing process. HgbA1c from 12/24/18 was 9.4. It should be 8 or less before proceeding on any elective reconstructive procedure. Today she denies fever. Her appetite is ok. Progress of Wound: Improved. - Physical Exam Vital Signs Temp Pulse Resp BP 97.6 F L 89 18 118/65 02/23/19 10:52 02/23/19 10:52 02/23/19 10:52 02/23/19 10:52 General: Alert, Oriented x3 HEENT: Atraumatic Oral: Moist Mucosa Lungs: Normal air movement Cardiovascular: Regular rate Abdomen: Soft Extremities: Capillary Refill Less than 3 Seconds, Diminished Peripheral Pulses, Edema Skin: Ulcer/ Wound - right proximal leg ulcer with exposed bone. Wound Measurements and Assessment WC - Nurse 1 - General Ulcer Measurement Start: 02/02/19 10:23 Freq: Status: Active Protocol: Activity Type Activity Date Activity User E-Sign Co-Sign Detail Recorded Client Recorded Date Recorded By Document 02/23/19 10:52 DL [id number] 02/23/19 10:58 DL 02/23/19 10:52 Wound Center Nurse 1 [Ulcer Assessment] #1- RT KNEE/LATERAL LAGUERRE -Current Size (cm) - Length 7.7 -Current Size (cm) - Width 2.8 -Current Size (cm) - Depth 1.5 -Total Square Cm 21.56 -Photo Taken No -Exudate Amt Small -Exudate Type Serosanguineous -Wound Margin Distinct, Outline Attached -Necrosis Amt Small (1-33%) -Necrotic Tissue Type Adherent Slough -Structure Exposed Bone -Texture (Tiana-wound Skin Appearance) Scarring -Moisture (Tiana-wound Skin Appearance Maceration ) -Color (Tiana-wound Skin Appearance) Hemosiderin Staining,Rubor -Temperature (Tiana-wound Skin No Abnormality Appearance) (Pt Warm) -Ulcer Cleansing Wound Cleanser -Foul Odor after Cleansing No -Anesthetic Used 4% Lidocaine Solution - Nurse 2 - General Ulcer CM Notes Start: 02/02/19 10:23 Freq: Status: Active Protocol: Activity Type Activity Date Activity User E-Sign Co-Sign Detail Recorded Client Recorded Date Recorded By Document 02/23/19 11:42 JF [id number] 02/23/19 11:45 CLARA 02/23/19 11:42 Wound Center Nurse 2 [Procedure/Treatment] -Time 11:43 -Correct Patient Yes -Correct Side, Site, Position Yes -Correct Procedure Yes -Procedure Performed Yes -Type of Procedure Debridement -Clinical Debridement Subcutaneous -Post Debridement Size (cm) - Length 7.6 -Post Debridement Size (cm) - Width 3.0 -Post Debridement Size (cm) - Depth 1.7 -Total Square Cm 22.80 -Wound/Ulcer Outcome Not Healed -Ulcer Cleansing Rinsed/ Irrigated with Saline -Foul Odor after Cleansing No -Bioengineered Tissue No -Bleeding Controlled with Pressure -Offloading No -Treatment Response Procedure Tolerated Well [See Physician Procedure note for Specifics] Pain Scale: 0-10 Numeric [Pain] -Is Patient Pain Free? Yes Musculoskeletal: No Tenderness to Palpation of Joints or Extremities Neurological: Neuro grossly intact Psych/Mental Status: Normal Affect, Appropriate Debridement Note Post-Debridement Measurements/Treatment WC - Nurse 2 - General Ulcer CM Notes Start: 02/02/19 10:23 Freq: Status: Active Protocol: Activity Type Activity Date Activity User E-Sign Co-Sign Detail Recorded Client Recorded Date Recorded By Document 02/02/19 11:04 [id number] 02/02/19 11:07 Document 02/23/19 11:42 [id number] 02/23/19 11:45 02/02/19 02/23/19 11:04 11:42 Wound Center Nurse 2 #1- RT KNEE/LATERAL LAGUERRE -Time 11:05 11:43 -Correct Patient Yes Yes -Correct Side, Site, Position Yes Yes -Correct Procedure Yes Yes -Procedure Performed Yes Yes -Type of Procedure Debridement Debridement -Clinical Debridement Subcutaneous Subcutaneous -Post Debridement Size (cm) - Length 8.2 7.6 -Post Debridement Size (cm) - Width 3.2 3.0 -Post Debridement Size (cm) - Depth 2.0 1.7 -Total Square Cm 26.24 22.80 -Wound/Ulcer Outcome Not Healed Not Healed -Ulcer Cleansing Rinsed/ Rinsed/ Irrigated with Irrigated with Saline Saline -Foul Odor after Cleansing No No -Bioengineered Tissue No No -Bleeding Controlled with Pressure Pressure -Offloading No No -Treatment Response Procedure Procedure Tolerated Well Tolerated Well Pain Scale: 0-10 Numeric Is Patient Pain Free? Yes Yes Wound debrided: proximal leg Laterality: Right Type of Debridement: Excisional debridement Anesthesia Used: 4% Lidocaine Solution, 5% Lidocaine Gel Depth: Down to and including healthy tissue, in the subcutaneous layer Percentage of wound debrided: 100 Tissue Removed: Subcutaneous tissue and slough Severity: Limited To Skin Breakdown Amount of bleeding with debridement: Mild Bleeding Controlled with: Pressure, Compression and gauze Patient tolerated procedure well Assessment/Plan Assessment: 1. Nonhealing infected ulcer right proximal lateral leg with exposed hardware from previous fracture repair. 2. History of right tibial pl ateau fracture with ORIF. 3. Diabetes mellitus. 4. Osteomyelitis right tibia. 5. s/p removal of hardware right tibia. Plan: Continue the VAC to be changed three times per week at 150 mmHg continuous suction. Completed Cefepime IV and Flagyl PO for Staphylococcus aureus (from operative culture) and Staphylococcus aureus, Morganella morganii, Streptococcus mitis/oralis, and Anaerobic cocci (from preop culture). Prealbumin from 12/25/18 was 14.0. Encourage nutritional supplementation with protein to help the healing process. HgbA1c from 12/24/18 was 9.4. Would like it to be 8 or less before proceeding with any elective reconstructive surgery. After the antibiotics are done, she will need a repeat partial ostectomy. Would like the bone to be negative for osteomyelitis prior to complex recosntructive surgery with a muscle flap and skin graft along with placement of a bone graft. Also at the time of her surgery, her nutrition should be maximized to promote healing as well. Followup 1 week. Code Visit 111xxx-113xx: [id number] Coby subq tissue 20 sq cm/< Add On Codes: 26348 Coby subq tissue add-on
== END 2019-02-23 23:59 ==
LOC: WC 10:30
PROVIDERS: Family Provider Family Medicine; PCP Family Medicine; Referring Provider Internal Medicine; Visit Provider Internal Medicine
DX: T81.31XA Disruption of external operation (surgical) wound, not elsewhere classified, initial encounter (principal); T84.498A Other mechanical complication of other internal orthopedic devices, implants and grafts, initial encounter; X58.XXXS Exposure to other specified factors, sequela; S82.141S Displaced bicondylar fracture of right tibia, sequela; Y83.8 Other surgical procedures as the cause of abnormal reaction of the patient, or of later complication, without mention of misadventure at the time of the procedure; L97.916 Non-pressure chronic ulcer of unspecified part of right lower leg with bone involvement without evidence of necrosis; E11.65 Type 2 diabetes mellitus with hyperglycemia; M86.8X6 Other osteomyelitis, lower leg
CPT/HCPCS: 11042; 11045; 97605

== ENCOUNTER 2019-03-06 09:49 | Observation (INO) | payer MEDICAID, SELFPAY ==
[2019-02-02 10:24] VITALS: BMI 30.9
[2019-03-02 08:12] VITALS: BMI 30.9
--- NOTE | 2019-03-05 21:50 | PCM.HP.BLA ---
History and Physical Date of Admission: 03/06/19 HISTORY OF PRESENT ILLNESS 63-year-old woman presents to the Wound Center with a nonhealing ulcer right proximal lateral leg with exposed hardware from previous fracture repair. She had surgery on July 19, 2018, where she underwent ORIF of a right tibial plateau fracture by Dr. Friedman. After surgery, she was doing physical therapy at her nursing facility wearing a knee brace. This led to breakdown of her incision. She was started on Levaquin and Flagyl. When she came to the Wound Center, she was started on Violette dressing changes. Wound culture was done because of drainage and exposed hardware. It showed Staphylococcus aureus and Morganella morganii and was started on Bactrim. She was taken to surgery on 12/24/18 where she underwent surgical preparation right proximal lateral leg with incision and drainage and excisional debridement nonhealing infected ulcer with exposed hardware (52.5 cm2) and partial ostectomy tibia for osteomyelitis by Dr. Storey and right tibia removal of hardware by Dr. Friedman. She was started on the wound VAC. Operative culture showed Staphylococcus aureus from MRSA Wound DNA by PCR. Preop she had cultures that showed Staphylococcus aureus, Morganella morganii, Streptococcus mitis/oralis, and Anaerobic cocci. She was placed on Cefipime IV for 6 weeks and Flagyl PO for 6 weeks until 02/04/19. Pathology was positive for focal acute osteomyelitis. Prealbumin from 12/25/18 was 14.0. Encouraged nutritional supplementation with protein to help the healing process. HgbA1c from 12/24/18 was 9.4. It should be 8 or less before proceeding on any elective reconstructive procedure. Today she denies fever. Her appetite is ok. PAST MEDICAL HISTORY Infection and inflammatory reaction due to internal fixation device of right tibia, initial encounter Displaced bicondylar fracture of right tibia, sequela nonhealing ulcer right proximal lateral leg with exposed hardware from previous fracture repair Tibial plateau fracture Debility Wound dehiscence, surgical Exposed orthopaedic hardware from right tibial plateau fracture with ulceration right proximal lateral leg Bronchial asthma Diabetes mellitus Hyperlipidemia Hypertension Obesity Osteomyelitis PAST SURGICAL HISTORY appendectomy, cholecystectomy, hysterectomy ORIF right tibial plateau fracture - surgical preparation right proximal lateral leg with incision and drainage and excisional debridement nonhealing infected ulcer with exposed hardware (52.5 cm2) and partial ostectomy tibia for osteomyelitis by Dr. Storey and right tibia removal of hardware by Dr. Friedman - 12/24/18 ALLERGIES cephalexin [From Keflex] insulin lispro [From Humalog] Penicillins MEDICATIONS Aspirin Lipitor Levemir Zestril Glucophage Vitamin B Complex FAMILY HISTORY Maternal - Diabetes Paternal - Diabetes SOCIAL HISTORY Smoking Status: Never smoker REVIEW OF SYSTEMS Constitutional: Denies: Chills, Fever, Weight Change. Eyes: Denies: Pain, Vision Change. HEENT: Denies: Difficulty Hearing, Difficulty Swallowing, Sinus Congestion. Cardiovascular: Denies: Chest Pain, Palpitations. Respiratory: Denies: Cough, Shortness of Breath. Gastrointestinal: Denies: Diarrhea, Nausea, Vomiting. Genitourinary: Denies: Dysuria, Hematuria. Endocrine: Denies: Heat/ Cold Intolerance, Polydipsia, Polyuria. Hematologic/ Lymphatic: Denies: Easy Bruising, Easy Bleeding PHYSICAL EXAMINATION General: Alert, Oriented x3, Cooperative. HEENT: PERRLA, EOMI. Oral: Moist Mucosa. Neck: Supple nontender. No cervical adenopathy. Lungs: Clear to auscultation. Heart: Regular rate and rhythm. Abdomen: Soft, Non-Distended. Extremities: No clubbing, No cyanosis, No edema, No Calf Tenderness. There is a nonhealing ulcer right proximal lateral leg. Measure 8 x 3 x 2 cm. There is exposed bone. There is no fluctuance or purulent drainage. Some bioburden is present. No inguinal adenopathy. Skin: No rashes. Neurological: Cranial nerves II-XII grossly intact. Psych/Mental Status: Normal Affect, Appropriate. ASSESSMENT 1. Nonhealing infected ulcer right proximal lateral leg with exposed hardware from previous fracture repair. 2. History of right tibial plateau fracture with ORIF. 3. Diabetes mellitus. 4. Osteomyelitis right tibia. 5. s/p removal of hardware right tibia. PLAN Patient has osteomyelitis and will need a followup bone biopsy until negative. At which time wound closure can be done with a muscle flap (lateral gastrocnemius muscle) followed by skin grafting. She will continue the VAC after surgery. Surgery will be under general anesthesia with a surgical observation overnight stay in the hospital. Postoperatively, if the bone is still positive then additional IV antibiotics will be necessary with a PICC line. This may necessitate going to an ECF. At the time of the muscle flap, would be under general anesthesia with a 3-5 day stay in the hospital prior to going to an ECF. At the time of the muscle flap, Dr. Friedman will place a bone graft to help with the healing process. When healed, would need PT for strengthening and ambulation. Because of the ulcer and the planned surgeries, I anticipate increased metabolic demands. Her last Prealbumin from 12/25/18 was 14.0. Will encourage nutritional supplementation with protein to help the healing process. At the time of the muscle flap, will need to maximize her nutrition and her diabetes control. Her last HgbA1c was 9.4 on 12/24/18. She would need better control of her diabetes with a HgbA1c less than 8 before proceeding with any complex wound reconstruction with a muscle flap and skin grafting. Patient was informed of the risks and complications of the procedure including alternatives to surgery. These were discussed with her personally. She voices understanding and wishes to proceed. Patient is aware that aggressive surgical intervention is needed for limb preservation. Since osteomyelitis is present combined with her poorly controlled diabetes mellitus, she is at increased risk for worsening infection and possible eventual amputation. She voices understanding and wants to proceed with surgical intervention along with maximizing her nutrition and getting her diabetes under control to improve her limb salvage.
[2019-03-06] VITALS (9 sets, daily range): BP systolic 82–114; BP diastolic 42–87; PULSE 67–84; RESP 16–18; TEMP 36.1–36.8; O2SAT 94–100; BMI 27.8
--- NOTE | 2019-03-06 | BON_PTH ---
PATIENT: JIMMIE FONSECA LOC: [facility] U#:[id number] AGE/SX: 63/F ROOM: [facility]321 RE03/06/[address]: Dr. Jeancarlos Uribe MD : [id number] BED: 1 DIS: 03/07/2019 SPEC #: [id number] RECD: 03/06/19 13:24 STATUS: DANN REShamika #: [id number] BRANDIE: 03/06/19 00:[address]: Jeancarlos Uribe DEPT: SURGICAL PATHOLOGY RECD BY: Usama Doss ENTERED: 03/06/19 13:25 SP TYPE: Bone OTHR DR: Dr. Avinash Najera MD Tissues: A - Soft tissues, NOS Bone of lower extremity, NOS Procedures: Decalcification bone/plaque Surgery Specimen Level III HEADER OPERATION: Surg prep right proximal lateral leg with excisional debridement PRE-OP DIAGNOSIS: Nonhealing infected ulcer right proximal lateral leg with exposed hardware from previous fracture repair; history of right tibial plateau fracture with ORIF; osteomyelitis TISSUE SUBMITTED: A - Soft tissue right leg, B - Bone right tibia MICROSCOPIC DIAGNOSIS A. Soft tissue right leg: Pieces of fibroconnective tissue with extensive acute and chronic inflammation and granulation tissue reaction and foreign body giant cell reaction. B. Bone right tibia: Pieces of bone with reactive changes and minimal chronic inflammation. Adherent pieces of fibroconnective tissue with mild acute and chronic inflammation. Negative for acute osteomyelitis. VALENTIN:luis 03/11/19 MICROSCOPIC DESCRIPTION Slides are reviewed. GROSS DESCRIPTION A - Received in fixative is one container labeled with the patient's name and designated soft tissue right leg lateral. The specimen consists of multiple irregular fragments of pink-goodson soft tissue that in aggregate measure 3 x 2.5 x 0.5 cm. Underwriting Assistant sections are submitted in one cassette. B - Received in fixative is one container labeled with the patient's name and designated bone right tibia. The specimen consists of multiple irregular fragments of pink-goodson bone that in aggregate measure 2.5 x 2 x 0.2 cm. The specimen is totally submitted in one cassette after decalcification. / AM:luis 03/06/19 TC:2 CPT: 09489 x2, [id number]
[2019-03-06 07:56] LABS: Bedside Glucose 264 mg/dL (70-110)
[2019-03-06] MEDS: Lactated Ringers 1,000 ML 100 ML IV (07:57)
[2019-03-06] MEDS: Cefepime HCl 2 GM in 0.9% NS 100 ML Minibag Q12 IV (08:28)
--- NOTE | 2019-03-06 09:40 | PCM.OPRPT ---
Report of Operation Date of Procedure: 03/06/19 Pre-Operative Diagnosis: 1. Nonhealing infected ulcer right proximal lateral leg with exposed hardware from previous fracture repair. 2. History of right tibial plateau fracture with ORIF. 3. Diabetes mellitus. 4. Osteomyelitis right tibia. 5. s/p removal of hardware right tibia. Post-Operative Diagnosis: Same. Surgery/Procedure Performed:: 1. Surgical preparation right proximal lateral leg with excisional debridement nonhealing ulcer (17.5 cm2). 2. Partial ostectomy tibia for osteomyelitis. Description of Surgical Findings:: 63-year-old woman presents to the Wound Center with a nonhealing ulcer right proximal lateral leg with exposed hardware from previous fracture repair. She had surgery on July 19, 2018, where she underwent ORIF of a right tibial plateau fracture by Dr. Friedman. After surgery, she was doing physical therapy at her nursing facility wearing a knee brace. This led to breakdown of her incision. She was started on Levaquin and Flagyl. When she came to the Wound Center, she was started on Violette dressing changes. Wound culture was done because of drainage and exposed hardware. It showed Staphylococcus aureus and Morganella morganii and was started on Bactrim. She was taken to surgery on 12/24/18 where she underwent surgical preparation right proximal lateral leg with incision and drainage and excisional debridement nonhealing infected ulcer with exposed hardware (52.5 cm2) and partial ostectomy tibia for osteomyelitis by Dr. Storey and right tibia removal of hardware by Dr. Friedman. She was started on the wound VAC. Operative culture showed Staphylococcus aureus from MRSA Wound DNA by PCR. Preop she had cultures that showed Staphylococcus aureus, Morganella morganii, Streptococcus mitis/oralis, and Anaerobic cocci. She was placed on Cefipime IV for 6 weeks and Flagyl PO for 6 weeks until 02/04/19. Pathology was positive for focal acute osteomyelitis. Prealbumin from 12/25/18 was 14.0. Encouraged nutritional supplementation with protein to help the healing process. HgbA1c from 12/24/18 was 9.4. It should be 8 or less before proceeding on any elective reconstructive procedure. Patient was informed of the risks and complications of the procedure including alternatives to surgery. These were discussed with the patient personally. Patient voices understanding and wishes to proceed. Size of defect right proximal lateral leg - 7 x 2.5 x 2 cm. I used AmnioFill Placental Connective Tissue Powder, 250 mg. Lot Number - [id number]. Expiration - May 27, 2023. ad terminal makeup operator: None Type of Anesthesia:: General Specimen's removed: 1. Nonhealing ulcer right proximal lateral leg soft tissue to Pathology and Microbiology. 2. Nonhealing ulcer right proximal lateral leg bone to Pathology and Microbiology. Drains: None. Estimated Blood Loss (mL): 20 ml. Description of Procedure: Patient was taken to OR in supine position and was placed under general anesthesia. The right leg was prepped and draped in the usual fashion. SCD's were placed on the left leg for DVT prophylaxis. Perioperative antibiotics were given intravenously. Using xylocaine with epinephrine, the nonhealing infected ulcer right proximal lateral leg was infiltrated. After waiting 5 minutes for the anesthetic to take effect, I proceeded with surgical preparation with excisional debridement of this ulcer. There was some fat necrosis present and indurated scarring. A curette was also used to assist in the excisional debridement. There was exposed bone at the base of the ulcer. I proceeded with partial ostectomy for osteomyelitis and took bone samples from several areas. A rasp was used to smooth out the bony edges. Hemostasis was obtained with electrocautery. Some of the tissue was sent to Pathology for analysis to rule out carcinoma and to Microbiology for culture. Some of the bone was sent to Pathology for analysis to rule out osteomyelitis and to Microbiology for culture. A positive culture may necessitate antibiotic therapy. The wound was irrigated with saline. Hemostasis was obtained with electrocautery. The size of the defect after excisional debridement was 7 x 2.5 x 2 cm or 17.5 cm2. I then sprayed AmnioFill placental connective tissue powder into the base of the wound to aid in the healing process. This was covered with Mepitel nonadherent dressing followed by Kerlix gauze and Betadine followed by dry Kerlix gauze and an ABD pad followed by a compression SHILO wrap. Patient tolerated the procedure well and was sent to PACU in satisfactory condition. Patient will be sent upstairs for continued postop care. Will plan on placing the VAC tomorrow. Anticipate discharge tomorrow. Will need bone negative for osteomyelitis before proceeding with wound closure with a muscle flap. At the time of the muscle flap, Dr. Friedman will place a bone graft in the residual bony cavity. Her latest HgbA1c is 9.4. Would like to see it around 8 before proceeding with the muscle flap. Also during the postop healing period, patient will be encouraged to maximize her nutrition with protein supplementation to help the healing process. Grafts/Implants Used: AmnioFill Placental Connective Tissue Powder. - Complications None. - Admit VTE Documentation VTE Present on Admission: No VTE Mechan Device Prophylaxis: SCD's VTE Pharm Prophylaxis ordered?: Yes Code Visit Surgery Charges CPT - 60131 ICD-10 - L97.916, T84.196S, L03.90, T84.622A, S82.141S, E11.9, M86.9 57097 M86.9 L97.916, T84.196S, L03.90, T84.622A, S82.141S, E11.9
[2019-03-06 10:00] LABS: Bedside Glucose 236 mg/dL (70-110)
[2019-03-06] MEDS: Lactated Ringers 1,000 ML 60 ML IV ×2 (10:06→17:40)
[2019-03-06 12:11] LABS: Bedside Glucose 219 mg/dL (70-110)
[2019-03-06] MEDS: Aspirin E.C. 81 MG Tablet PO (12:11)
[2019-03-06] MEDS: Lisinopril 10 MG Tablet PO (12:11)
--- NOTE | 2019-03-06 13:56 | CASEMGMT ---
JONATHAN VERDE called and spoke to surgeon patient is established with [facility] and already has home wound vac and discharge is planned for tomorrow. JONATHAN VERDE in to discuss discharge plans with patient and inquire whom her HHC is through. Patient gave number for her nurse [facility] [phone]. Patient states she plans to discharge home with resumption of HHC. JONATHAN VERDE attempted to call nurse, no answer and mailbox is full. JONATHAN VERDE called [facility] who patient is established with for [facility] companyKyree Olivas at the wound center confirmed HHC is through [facility]. JONATHAN VERDE called [facility] and confirmed patient is active with [facility]. JONATHAN VERDE updated that plan is for patient to return home tomorrow and is under observation level of care. JONATHAN VERDE confirmed fax number to send discharge instructions when patient is discharged. [facility] P: [phone] F: [phone] JONATHAN VERDE updated patient regarding HHC through [facility]. Patient voiced understanding. CM will continue to follow this patient and plan for a safe discharge.
[2019-03-06] MEDS: Vitamin B Comp W-C Capsule 1 CAP PO ×2 (14:05→22:31)
[2019-03-06] MEDS: Docusate Sodium 100 MG Capsule PO ×2 (14:06→22:30)
[2019-03-06] MEDS: metFORMIN HCl 500 MG Tablet 1000 MG PO (16:21)
[2019-03-06 16:25] LABS: Bedside Glucose 274 mg/dL (70-110)
[2019-03-06] MEDS: Atorvastatin Calcium 40 MG Tablet PO (22:31)
[2019-03-07 00:06] LABS: Bedside Glucose 303 mg/dL (70-110)
[2019-03-07 02:38] VITALS: BP 97/50; PULSE 74; RESP 16; TEMP 36.8; O2SAT 97
[2019-03-07 07:00] LABS: Bedside Glucose 258 mg/dL (70-110)
[2019-03-07] MEDS: Enoxaparin 40 MG/0.4 ML Syringe SC (07:00)
[2019-03-07 07:29] VITALS: BP 106/60; PULSE 72; RESP 16; TEMP 36.4; O2SAT 98
[2019-03-07 07:31] LABS: Hematocrit 43.1 % (37-47); Hemoglobin 13.7 g/dL (12.0-15.0); Mean Corp Hgb Conc 31.8 g/dL (32-36); Mean Corpuscular Hgb 28.1 pg (27.0-32.0); Mean Corpuscular Volume 88.5 fL (81-99); Mean Platelet Vol. 9.5 fl (6.2-12.0); Platelet Count 308 K/mm3 (150-450); RBC Distribution Width CV 13.5 % (11.6-14.6); RBC Distribution Width SD 43.7 fl (35.1-43.9); Red Blood Count 4.87 M/mm3 (4.2-5.4); White Blood Count 5.3 K/mm3 (4.4-11.0)
[2019-03-07 07:56] LABS: Anion Gap 6 (5-15); BUN 11 mg/dL (7-18); BUN/Creat Ratio 16.1 RATIO (10-20); Calcium,Total 8.7 mg/dL (8.5-10.1); Chloride 103 mmol/L (98-107); Creatinine, Serum 0.68 mg/dL (0.55-1.02); EST Glomerular Filtration Rate 92 mL/min (>60); Est Glom Filt Rate - Afr Amer 112 mL/min (>60); Estimated Creatinine Clearance 72.17 ml/min; Glucose 242 mg/dL (74-106); Potassium 4.4 mmol/L (3.5-5.1); Prealbumin 17.7 mg/dL (20.0-40.0); Sodium Level 139 mmol/L (136-145)
[2019-03-07] MEDS: metFORMIN HCl 500 MG Tablet 1000 MG PO (09:00)
[2019-03-07] MEDS: Docusate Sodium 100 MG Capsule PO (09:00)
[2019-03-07] MEDS: Lisinopril 10 MG Tablet PO (09:00)
[2019-03-07] MEDS: Aspirin E.C. 81 MG Tablet PO (09:01)
[2019-03-07] MEDS: Vitamin B Comp W-C Capsule 1 CAP PO (09:01)
[2019-03-07 11:06] LABS: Bedside Glucose 335 mg/dL (70-110)
[2019-03-07] MEDS: Lactated Ringers 1,000 ML 60 ML IV (11:08)
[2019-03-07 11:14] VITALS: BP 119/59; PULSE 81; RESP 16; TEMP 36.7; O2SAT 98
--- NOTE | 2019-03-07 12:51 | PCM.PN.SRG ---
Subjective: Postop #1 Patient is resting comfortably. VAC reapplied today. - Physical Exam General: Alert, Oriented x3 HEENT: PERRLA, EOMI Oral: Moist Mucosa Neck: Supple Abdomen: Soft, Non-Distended Extremities: Edema - mild edema right knee area. Skin: Ulcer/ Wound - right proximal lateral leg wound is stable. No active bleeding seen. VAC applied today over adaptic because of the AmnioFill at the base of the wound. Neurological: Cranial nerves II-XII grossly intact Psych/Mental Status: Normal Affect, Appropriate Vital Signs Temp Pulse Resp BP Pulse Ox 98.1 F 81 16 119/59 L 98 03/07/19 11:14 03/07/19 11:14 03/07/19 11:14 03/07/19 11:14 03/07/19 11:14 Oxygen Delivery Method Room Air Weight: 162 lb 9.6 oz Body Mass Index (BMI) 27.8 Finger Stick Blood Glucose 236 Intake and Output for Last 24 Hours 03/05/19 03/06/19 03/07/19 23:59 23:59 23:59 Intake Total 2493 / 2493 1307 / 1307 Output Total 1000 / 1000 Balance 2493 / 2493 307 / 307 Microbiology Past 72 Hours 03/06/19 Unknown Gram Stain - Final Biopsy - Leg, Right Wound Culture - Preliminary No growth-Final to follow 03/06/19 Unknown Gram Stain - Final Biopsy - Leg, Right Wound Culture - Preliminary Staphylococcus species Laboratory Tests Past 24 Hrs 03/07/19 03/07/19 06:58 06:58 WBC 5.3 RBC 4.87 Hgb 13.7 Hct 43.1 MCV 88.5 MCH 28.1 MCHC 31.8 L RDW Std Deviation 43.7 RDW Coeff of Dionisio 13.5 Plt Count 308 MPV 9.5 Sodium 139 Potassium 4.4 Chloride 103 Carbon Dioxide 30.0 Anion Gap 6 BUN 11 Creatinine 0.68 Estim Creat Clear Calc 72.17 Est GFR (MDRD) Af Amer 112 Est GFR (MDRD) Non-Af 92 BUN/Creatinine Ratio 16.1 Glucose 242 H Calcium 8.7 Prealbumin 17.7 L POC Glucose 03/07/19 03/07/19 03/06/19 11:01 06:54 22:30 POC Glucose 335 H 258 H 303 H 03/06/19 16:19 POC Glucose 274 H Medical Necessity - Tobacco Use Smoking Status: Never smoker Tobacco Use: Non-smoker Assessment/Plan All Active Problems Ulcer of right lower extremity (Acute) Closed right ankle fracture (Acute) 1. Nonhealing infected ulcer right proximal lateral leg with exposed hardware from previous fracture repair. 2. History of right tibial plateau fracture with ORIF. 3. Diabetes mellitus. 4. Osteomyelitis right tibia. 5. s/p removal of hardware right tibia. 6. s/p surgical preparation right proximal lateral leg with excisional debridement nonhealing ulcer and partial ostectomy tibia for osteomyelitis. Wound is stable with no active bleeding seen. VAC reapplied over adaptic today because of the AmnioFill at the base. To be changed three times per week at 150 mmHg continuous suction. Operative culture shows Staphylococcal species thus far. Pathology is pending. Patient is tolerating po analgesia. Discharge home today on po antibiotics. When the culture is finalized and the Pathology is available, the patient may need IV antibiotics which would necessitate the need for a PICC line. If pathology is negative for osteomyelitis, can then set up further surgery with placement of a muscle flap and skin grafting along with a bone graft. Will coordinate that surgery with Dr. Friedman. Wrote script for Doxycycline. Followup Wound Center one week. Keep right leg elevated when sitting.
--- NOTE | 2019-03-07 13:03 | DCINST_ITS ---
You will use the following diet at home:: Calorie/Carbohydrate Controlled (specify 1200, 1400, etc), Other - encourage nutritional supplementation with protein to help the healing process. Discharge Activity: May Shower - place a plastic bag over the right leg when showering., Use Walker, - - keep right leg elevated when sitting. minimize standing. may ambulate. May shower in (days): 1 - wear plastic bag over right leg when showering. May resume sexual activity in: No Restrictions Weight Bearing Status: Weight bearing as tolerated Keep extremity elevated above heart level: Right Leg Call your doctor if your incision/area has: Continuous Slow Oozing, Sudden Increased Bleeding, Increased Pain/ Swelling, Increased Redness, Foul Smelling Discharge, Swelling at the incision site Call your doctor if you observe: Fever of 101 or Higher, Coldness, Increased Pain, Shortness of breath, Chest pain, Calf discomfort, Uncontrolled pain Suture Line Care: - - vac dressing changes with adaptic at 150 mmHg continuous suction three times per week. Change Dressing in (Days):: 2 - vac changes three times per week. Cleanse incision/area with: Soap & Water - after seen at the wound center, may cleanse the wound with soap and water at the time of the vac dressing changes., - - wear plastic bag over right leg dressing when showering. Additional Dressing/Incision Instructions:: Home Health to assist with VAC dressing changes to right proximal lateral leg at 150 mmHg continuous suction. Please use adaptic with the vac change. After patient is seen at the Wound Center on 03/16/19, can stop the adaptic with the vac changes and may cleanse the wound with soap and water on the days the vac is changed. Allergies/Adverse Reactions: Allergies cephalexin [From Keflex] Allergy (Verified 03/06/19 07:40) Breakouts insulin lispro [From Humalog] Allergy (Verified 03/06/19 07:40) Rash Penicillins Allergy (Verified 03/06/19 07:40) Rash Medications to take at Discharge Lisinopril [Zestril] 10 mg PO DAILY 08/25/14 Vitamin B Complex 1 each PO BID 11/23/15 metFORMIN HCl [Glucophage] 1,000 mg PO BIDCM 09/19/16 Aspirin [Aspirin EC] 81 mg PO DAILY 07/18/18 Insulin Detemir [Levemir FlexPen] 40 units SC QHS 07/18/18 Atorvastatin Calcium [Lipitor] 40 mg PO QHS 11/17/18 Doxycycline [Vibramycin] 100 mg PO BID #60 cap 03/07/19 Vitamin B Comp W-C [Allbee W/C Caplet, Thera B Comp/C] 1 capsule PO BID capsule 03/07/19 The following prescriptions were given: Doxycycline [Vibramycin] 100 mg PO BID #60 cap Prescription Printed Primary Care Physician: Avinash Najera MD [Primary Care Provider] - Test Results: Test results from this visit will be discussed in further detail at your follow- up appointment, if applicable. Please Follow Up With: Jeancarlos Uribe MD When: one week at wound center on 03/16/19. call [phone] for appt. Proposed Discharge Date: 03/07/19
--- NOTE | 2019-03-07 13:21 | NURSING ---
Called [facility] to notify of pt reapplication of home vac and that she will be d/c'ed after having home vac reapplied. Notified that there was no note or anything on her account regarding hospital stay. Asked [place] if there was anything else we needed to do to prevent errant charges and S[place] states no one called to say pt was admitted. She states there is nothing further we can do at this point.
--- NOTE | 2019-03-07 13:31 | NURSING ---
Called home health care to inform patient is leaving
== END 2019-03-07 13:20 | disposition home or self-care (01) ==
LOC: SDC 10:01
PROVIDERS: Admitting Provider Surgery; Family Provider Family Medicine; PCP Family Medicine; Referring Provider Surgery; Visit Provider Surgery
PROC: (CPT 15002; principal; 2019-03-06 07:15)
DX: T84.622A Infection and inflammatory reaction due to internal fixation device of right tibia, initial encounter (principal); S82.141S Displaced bicondylar fracture of right tibia, sequela; X58.XXXS Exposure to other specified factors, sequela; E11.9 Type 2 diabetes mellitus without complications; Y79.8 Miscellaneous orthopedic devices associated with adverse incidents, not elsewhere classified; L97.816 Non-pressure chronic ulcer of other part of right lower leg with bone involvement without evidence of necrosis; E78.5 Hyperlipidemia, unspecified; I10 Essential (primary) hypertension; J45.909 Unspecified asthma, uncomplicated; Z79.899 Other long term (current) drug therapy; Z79.4 Long term (current) use of insulin; Z79.82 Long term (current) use of aspirin; E11.65 Type 2 diabetes mellitus with hyperglycemia; E11.69 Type 2 diabetes mellitus with other specified complication; M86.8X6 Other osteomyelitis, lower leg; E11.622 Type 2 diabetes mellitus with other skin ulcer
CPT/HCPCS: 01480; 15002; 27640; 80048; 82962; 84134; 85027; 87070; 87075; 87077; 87102; 87176; 87186; 87205; 87206; 88304; 88305; 88311; 96365; 96366; 96372; 99218; J7120; G0378; G0379; J2405

== ENCOUNTER → 2019-03-11 10:57 | Outpatient (CLI) | payer MEDICAID, SELFPAY ==
[2019-03-06 07:43] VITALS: BMI 27.8
[2019-03-11 11:15] LABS: Anion Gap 6 (5-15); BUN 9 mg/dL (7-18); BUN/Creat Ratio 15.4 RATIO (10-20); Calcium,Total 9.2 mg/dL (8.5-10.1); Chloride 103 mmol/L (98-107); Creatinine, Serum 0.59 mg/dL (0.55-1.02); EST Glomerular Filtration Rate 110 mL/min (>60); Est Glom Filt Rate - Afr Amer 133 mL/min (>60); Glucose 162 mg/dL (74-106); Sodium Level 137 mmol/L (136-145)
[2019-03-11 11:23] LABS: Hemoglobin A1c 9.9 % (4.2-6.3)
== END ==
PROVIDERS: Family Provider Family Medicine; PCP Family Medicine; Referring Provider Family Medicine; Visit Provider Family Medicine
DX: T84.622D Infection and inflammatory reaction due to internal fixation device of right tibia, subsequent encounter (principal)
CPT/HCPCS: 80048; 83036

== ENCOUNTER 2019-03-23 08:00 | Outpatient (RCR) | payer MEDICAID, SELFPAY ==
[2019-02-24 00:40] VITALS: BP 118/65; PULSE 89; RESP 18; TEMP 36.4
[2019-03-02 08:12] VITALS: BP 120/77; PULSE 79; RESP 20; TEMP 36.6; BMI 30.9
--- NOTE | 2019-03-03 11:25 | PN.PCM_ITS ---
(1) Ulcer of right lower extremity Status: Chronic Qualifiers: Code(s): L97.919 - Non-pressure chronic ulcer of unspecified part of right lower leg with unspecified severity (2) Osteomyelitis of right tibia Status: Chronic Code(s): M86.9 - Osteomyelitis, unspecified (3) Poorly controlled type 2 diabetes mellitus Status: Chronic Code(s): E11.65 - Type 2 diabetes mellitus with hyperglycemia Type of Wound Date of Service: 03/02/19 Chief Complaint: Nonhealing ulcer right proximal lateral leg with exposed hardwa re from previous fracture repair. History of Wound: Surgery 12/24/18 - 1. Surgical preparation right proximal lateral leg with incision and drainage and excisional debridement nonhealing infected ulcer with exposed hardware (52.5 cm2). 2. Partial ostectomy tibia for osteomyelitis by Dr. Uribe. Right tibia removal of hardware by Dr. Friedman. Wound care - VAC. Operative culture - Staphylococcus aureus from MRSA Wound DNA by PCR. Preop she had cultures that showed Staphylococcus aureus, Morganella morganii, Streptococcus mitis/oralis, and Anaerobic cocci. She was placed on Cefipime IV for 6 weeks and Flagyl PO for 6 weeks until 02/04/19. Pathology - positive for focal acute osteomyelitis. Prealbumin from 12/25/18 was 14.0. Wound care - Wound VAC at 150 mmHg with adaptic to the wound bed where there is exposed bone. Encouraged nutritional supplementation with protein to help the healing process. HgbA1c from 12/24/18 was 9.4. It should be 8 or less before proceeding on any elective reconstructive procedure. Today she denies fever. Her appetite is ok. Progress of Wound: Improved. - Physical Exam Vital Signs Temp Pulse Resp BP 97.8 F 79 20 H 120/77 03/02/19 08:12 03/02/19 08:12 03/02/19 08:12 03/02/19 08:12 General: Alert, Oriented x3, Cooperative HEENT: Atraumatic Oral: Moist Mucosa Lungs: Normal air movement Cardiovascular: Regular rate Extremities: Capillary Refill Less than 3 Seconds, Diminished Peripheral Pulses, Edema Skin: Ulcer/ Wound - right proximal laterl lower leg/knee area Wound Measurements and Assessment WC - Nurse 1 - General Ulcer Measurement Start: 03/02/19 08:12 Freq: Status: Active Protocol: Activity Type Activity Date Activity User E-Sign Co-Sign Detail Recorded Client Recorded Date Recorded By Document 03/02/19 08:12 DL [id number] 03/02/19 08:17 DL 03/02/19 08:12 Wound Center Nurse 1 [Ulcer Assessment] #1- RT KNEE/LATERAL LAGUERRE -Current Size (cm) - Length 7.7 -Current Size (cm) - Width 2.5 -Current Size (cm) - Depth 1.5 -Total Square Cm 19.25 -Photo Taken No -Exudate Amt Small -Exudate Type Serosanguineous -Wound Margin Distinct, Outline Attached -Granulation Amt Large (67-100%) -Granulation Quality Red -Necrosis Amt Small (1-33%) -Necrotic Tissue Type Adherent Slough -Structure Exposed Bone -Texture (Tiana-wound Skin Appearance) Scarring -Moisture (Tiana-wound Skin Appearance No Abnormality ) -Color (Tiana-wound Skin Appearance) No Abnormality, Rubor -Temperature (Tiana-wound Skin No Abnormality Appearance) (Pt Warm) -Tenderness on Palpation (Tiana-wound No Skin Appearance) -Ulcer Cleansing Wound Cleanser -Foul Odor after Cleansing No -Anesthetic Used 4% Lidocaine Solution WC - Nurse 2 - General Ulcer CM Notes Start: 03/02/19 08:12 Freq: Status: Active Protocol: Activity Type Activity Date Activity User E-Sign Co-Sign Detail Recorded Client Recorded Date Recorded By Document 03/02/19 08:47 [id number] 03/02/19 08:47 03/02/19 08:47 Wound Center Nurse 2 [Procedure/Treatment] -Time 08:47 -Correct Patient Yes -Correct Side, Site, Position Yes -Correct Procedure Yes -Procedure Performed Yes -Type of Procedure Debridement -Clinical Debridement Subcutaneous -Post Debridement Size (cm) - Length 2 -Post Debridement Size (cm) - Width 7 -Post Debridement Size (cm) - Depth 1.2 -Total Square Cm 14 -Wound/Ulcer Outcome Not Healed -Ulcer Cleansing Rinsed/ Irrigated with Saline -Foul Odor after Cleansing No -Bioengineered Tissue No -Bleeding Controlled with Pressure -Offloading No -Treatment Response Procedure Tolerated Well [See Physician Procedure note for Specifics] Pain Scale: 0-10 Numeric [Pain] -Is Patient Pain Free? Yes Musculoskeletal: No Tenderness to Palpation of Joints or Extremities Neurological: Neuro grossly intact Psych/Mental Status: Normal Affect, Appropriate Debridement Note Post-Debridement Measurements/Treatment WC - Nurse 2 - General Ulcer CM Notes Start: 03/02/19 08:12 Freq: Status: Active Protocol: Activity Type Activity Date Activity User E-Sign Co-Sign Detail Recorded Client Recorded Date Recorded By Document 03/02/19 08:47 CLARA [id number] 03/02/19 08:47 CLARA 03/02/19 08:47 Wound Center Nurse 2 #1- RT KNEE/LATERAL LAGUERRE -Time 08:47 -Correct Patient Yes -Correct Side, Site, Position Yes -Correct Procedure Yes -Procedure Performed Yes -Type of Procedure Debridement -Clinical Debridement Subcutaneous -Post Debridement Size (cm) - Length 2 -Post Debridement Size (cm) - Width 7 -Post Debridement Size (cm) - Depth 1.2 -Total Square Cm 14 -Wound/Ulcer Outcome Not Healed -Ulcer Cleansing Rinsed/ Irrigated with Saline -Foul Odor after Cleansing No -Bioengineered Tissue No -Bleeding Controlled with Pressure -Offloading No -Treatment Response Procedure Tolerated Well Pain Scale: 0-10 Numeric Is Patient Pain Free? Yes Wound debrided: right knee/proximal lower leg Laterality: Right Type of Debridement: Excisional debridement Anesthesia Used: 4% Lidocaine Solution, 5% Lidocaine Gel Depth: Down to and including healthy tissue, in the subcutaneous layer, to bone Percentage of wound debrided: 100 Instrument Used: 5mm curette Tissue Removed: Subcutaneous tissue and slough Severity: Fat Layer Exposed Amount of bleeding with debridement: Mild Bleeding Controlled with: Pressure, Compression and gauze Patient tolerated procedure well Assessment/Plan Assessment: 1. Nonhealing infected ulcer right proximal lateral leg with exposed hardware from previous fracture repair. 2. History of right tibial plateau fracture with ORIF. 3. Diabetes mellitus. 4. Osteomyelitis right tibia. 5. s/p removal of hardware right tibia. Plan: Continue the VAC to be changed three times per week at 150 mmHg continuous suction. Cover bone with adaptic. Completed Cefepime IV and Flagyl PO for Staphylococcus aureus (from operative culture) and Staphylococcus aureus, Morganella morganii, Streptococcus mitis/oralis, and Anaerobic cocci (from preop culture). Prealbumin from 12/25/18 was 14.0. Encourage nutritional supplementation with protein to help the healing process. HgbA1c from 12/24/18 was 9.4. Would like it to be 8 or less before proceeding with any elective reconstructive surgery. After the antibiotics are done, she will need a repeat partial ostectomy. Would like the bone to be negative for osteomyelitis prior to complex recosntructive surgery with a muscle flap and skin graft along with placement of a bone graft. Also at the time of her surgery, her nutrition should be maximized to promote healing as well. She has a debridement with bone biopsy scheduled for Saturday. Followup 1 week. Code Visit 111xxx-113xx: [id number] Coby subq tissue 20 sq cm/<
[2019-03-16 08:23] VITALS: BP 136/80; PULSE 94; RESP 20; TEMP 36.5; BMI 30.9
--- NOTE | 2019-03-16 09:45 | PN.PCM_ITS ---
(1) Ulcer of right lower extremity Status: Chronic Qualifiers: Code(s): L97.919 - Non-pressure chronic ulcer of unspecified part of right lower leg with unspecified severity (2) Osteomyelitis of right tibia Status: Chronic Code(s): M86.9 - Osteomyelitis, unspecified (3) Poorly controlled type 2 diabetes mellitus Status: Chronic Code(s): E11.65 - Type 2 diabetes mellitus with hyperglycemia Type of Wound Date of Service: 03/16/19 Chief Complaint: Nonhealing ulcer right proximal lateral leg with exposed hardwa re from previous fracture repair. History of Wound: Surgery 12/24/18 - 1. Surgical preparation right proximal lateral leg with incision and drainage and excisional debridement nonhealing infected ulcer with exposed hardware (52.5 cm2). 2. Partial ostectomy tibia for osteomyelitis by Dr. Uribe. Right tibia removal of hardware by Dr. Friedman. Wound care - VAC. Operative culture - Staphylococcus aureus from MRSA Wound DNA by PCR. Preop she had cultures that showed Staphylococcus aureus, Morganella morganii, Streptococcus mitis/oralis, and Anaerobic cocci. She was placed on Cefipime IV for 6 weeks and Flagyl PO for 6 weeks until 02/04/19. Pathology - positive for focal acute osteomyelitis. Prealbumin from 12/25/18 was 14.0. Encouraged nutritional supplementation with protein to help the healing process. HgbA1c from 12/24/18 was 9.4. It should be 8 or less before proceeding on any elective reconstructive procedure. On 02/24/19 she underwent 1. Surgical preparat ion of right proximal lateral leg with excisional debridement of non healing ulcer (17.5 cm2) and partial ostectomy tibia for osteomyelitis. Pathology was negative for osteomylitis. Operative culture positive for Kocuria kristinae. Today she denies fever. Her appetite is ok. Progress of Wound: Improved. - Physical Exam Vital Signs Temp Pulse Resp BP 97.7 F L 94 20 H 136/80 H 03/16/19 08:23 03/16/19 08:23 03/16/19 08:23 03/16/19 08:23 General: Alert, Oriented x3, Cooperative HEENT: Atraumatic Oral: Moist Mucosa Lungs: Normal air movement Cardiovascular: Regular rate Skin: Ulcer/ Wound - right lateral proximal leg ulcer Wound Measurements and Assessment WC - Nurse 1 - General Ulcer Measurement Start: 03/02/19 08:12 Freq: Status: Active Protocol: Activity Type Activity Date Activity User E-Sign Co-Sign Detail Recorded Client Recorded Date Recorded By Document 03/16/19 08:23 DL [id number] 03/16/19 08:28 DL 03/16/19 08:23 Wound Center Nurse 1 [Ulcer Assessment] #1- RT KNEE/LATERAL LAGUERRE -Current Size (cm) - Length 6.8 -Current Size (cm) - Width 2 -Current Size (cm) - Depth 2 -Total Square Cm 13.6 -Photo Taken No -Exudate Amt Medium -Exudate Type Serosanguineous -Wound Margin Distinct, Outline Attached -Granulation Amt Medium (34-66%) -Granulation Quality Red -Necrosis Amt Medium (34-66%) -Necrotic Tissue Type Adherent Slough -Structure Exposed Bone -Texture (Tiana-wound Skin Appearance) Localized Edema ,Scarring -Moisture (Tiana-wound Skin Appearance No Abnormality ) -Color (Tiana-wound Skin Appearance) Rubor -Temperature (Itana-wound Skin No Abnormality Appearance) (Pt Warm) -Tenderness on Palpation (Tiana-wound No Skin Appearance) -Ulcer Cleansing Wound Cleanser -Foul Odor after Cleansing No -Anesthetic Used 4% Lidocaine Solution WC - Nurse 2 - General Ulcer CM Notes Start: 03/02/19 08:12 Freq: Status: Active Protocol: Activity Type Activity Date Activity User E-Sign Co-Sign Detail Recorded Client Recorded Date Recorded By Document 03/16/19 08:55 [id number] 03/16/19 08:58 03/16/19 08:55 Wound Center Nurse 2 [Procedure/Treatment] -Time 08:56 -Correct Patient Yes -Correct Side, Site, Position Yes -Correct Procedure Yes -Procedure Performed Yes -Type of Procedure Debridement -Clinical Debridement Bone -Post Debridement Size (cm) - Length 7 -Post Debridement Size (cm) - Width 2.5 -Post Debridement Size (cm) - Depth 2.6 -Total Square Cm 17.5 -Wound/Ulcer Outcome Not Healed -Ulcer Cleansing Rinsed/ Irrigated with Saline -Foul Odor after Cleansing No -Bioengineered Tissue No -Bleeding Controlled with Pressure -Offloading No -Treatment Response Procedure Tolerated Well [See Physician Procedure note for Specifics] Pain Scale: 0-10 Numeric [Pain] -Is Patient Pain Free? Yes Musculoskeletal: No Tenderness to Palpation of Joints or Extremities, No Muscle Wasting Neurological: Neuro grossly intact Psych/Mental Status: Normal Affect, Appropriate Debridement Note Post-Debridement Measurements/Treatment WC - Nurse 2 - General Ulcer CM Notes Start: 03/02/19 08:12 Freq: Status: Active Protocol: Activity Type Activity Date Activity User E-Sign Co-Sign Detail Recorded Client Recorded Date Recorded By Document 03/02/19 08:47 [id number] 03/02/19 08:47 Document 03/16/19 08:55 [id number] 03/16/19 08:58 03/02/19 03/16/19 08:47 08:55 Wound Center Nurse 2 #1- RT KNEE/LATERAL LAGUERRE -Time 08:47 08:56 -Correct Patient Yes Yes -Correct Side, Site, Position Yes Yes -Correct Procedure Yes Yes -Procedure Performed Yes Yes -Type of Procedure Debridement Debridement -Clinical Debridement Subcutaneous Bone -Post Debridement Size (cm) - Length 2 7 -Post Debridement Size (cm) - Width 7 2.5 -Post Debridement Size (cm) - Depth 1.2 2.6 -Total Square Cm 14 17.5 -Wound/Ulcer Outcome Not Healed Not Healed -Ulcer Cleansing Rinsed/ Rinsed/ Irrigated with Irrigated with Saline Saline -Foul Odor after Cleansing No No -Bioengineered Tissue No No -Bleeding Controlled with Pressure Pressure -Offloading No No -Treatment Response Procedure Procedure Tolerated Well Tolerated Well Pain Scale: 0-10 Numeric Is Patient Pain Free? Yes Yes Wound debrided: right latearl proximal leg ulcer Laterality: Right Type of Debridement: Excisional debridement Anesthesia Used: 4% Lidocaine Solution, 5% Lidocaine Gel Depth: Down to and including healthy tissue, in the subcutaneous layer Percentage of wound debrided: 100 Instrument Used: 7mm curette Tissue Removed: Subcutaneous tissue and slough Severity: Fat Layer Exposed Amount of bleeding with debridement: Mild Bleeding Controlled with: Pressure, Compression and gauze Patient tolerated procedure well Assessment/Plan Assessment: 1. Nonhealing infected ulcer right proximal lateral leg with exposed hardware from previous fracture repair. 2. History of right tibial plateau fracture with ORIF. 3. Diabetes mellitus. 4. Osteomyelitis right tibia. 5. s/p removal of hardware right tibia. Plan: Continue the VAC to be changed three times per week at [address] adaptic over exposed bone. Wrap with SHILO wrap for compression. Staphylococcus aureus (from operative culture)- treated with Cefepime- and St aphylococcus aureus, Morganella morganii, Streptococcus mitis/oralis, and Anaerobic cocci (from preop culture). Prealbumin from 12/25/18 was 14.0. Encourage nutritional supplementation with protein to help the healing process. HgbA1c from 12/24/18 was 9.4. Would like it to be 8 or less before proceeding with any elective reconstructive surgery. After the antibiotics are done, she will need a repeat partial ostectomy. Would like the bone to be negative for osteomyelitis prior to complex recosntructive surgery with a muscle flap and skin graft along with placement of a bone graft. Also at the time of her surgery, her nutrition should be maximized to promote healing as well. On 03/06/19 she underwent 1. Surgical preparation of right proximal lateral leg with excisional debridement of non healing ulcer (17.5 cm2) and partial ostectomy tibia for osteomyelitis. Pathology was negative for osteomylitis. Operative culture positive for Kocuria kristinae. PreAlbumin 17.7 on 03/07. HgA1C 9.9% on 03/11/19. Followup 1 week. Code Visit [id number]
[2019-03-23 09:14] VITALS: BP 137/77; PULSE 99; RESP 16; TEMP 36.6; BMI 30.9
--- NOTE | 2019-03-23 18:26 | PCM.WC.PN ---
Type of Wound Date of Service: 03/23/19 Chief Complaint: Nonhealing ulcer right proximal lateral leg with exposed hardware from previous fracture repair that has been removed. History of Wound: Surgery 03/06/19 - Surgical preparation right proximal lateral leg with excisional debridement nonhealing ulcer (17.5 cm2) and partial ostectomy tibia for osteomyelitis. Surgery 12/24/18 - Surgical preparation right proximal lateral leg with incision and drainage and excisional debridement nonhealing infected ulcer with exposed hardware (52.5 cm2) and partial ostectomy tibia for osteomyelitis by Dr. Uribe and right tibia removal of hardware by Dr. Friedman. Wound care - VAC. Operative culture - Gorge simmons. She was discharged on Doxycycline. Her previous culture at the time of her surgery in November, showed Staphylococcus aureus from MRSA Wound DNA by PCR and preoperative cultures showed Staphylococcus aureus, Morganella morganii, Streptococcus mitis/oralis, and Anaerobic cocci. She was placed on Cefipime IV for 6 weeks and Flagyl PO for 6 weeks until 02/04/19. Pathology - negative for osteomyelitis. Her previous pathology on 12/24/18 was positive for focal acute osteomyelitis. Prealbumin from 03/07/19 was 17.7. Encouraged nutritional supplementation with protein to help the healing process. HgbA1c from 12/24/18 was 9.4. It should be 8 or less before proceeding on any elective reconstructive procedure. Her repeat HgbA1c from 03/11/19 increased to 9.9. Her last CT was on 10/23/18 which showed the patient is status post lateral plate screw fixation of the proximal tibia. The fracture line is visible. There is also evidence of prior open reduction internal fixation of the distal tibia and tibiotalar joint. Small joint effusion. Will repeat the CT prior to complex reconstruction of the ulcer with a muscle flap with skin graft and placement of a bone graft. Today she denies fever. Her appetite is ok. Progress of Wound: Improved. - Physical Exam Vital Signs Temp Pulse Resp BP 98 F 99 16 137/77 H 03/23/19 09:14 03/23/19 09:14 03/23/19 09:14 03/23/19 09:14 Wound Measurements and Assessment WC - Nurse 1 - General Ulcer Measurement Start: 03/02/19 08:12 Freq: Status: Active Protocol: Activity Type Activity Date Activity User E-Sign Co-Sign Detail Recorded Client Recorded Date Recorded By Document 03/23/19 09:14 [facility] [id number] 03/23/19 09:21 [facility] 03/23/19 09:14 Wound Center Nurse 1 [Ulcer Assessment] #1- RT KNEE/LATERAL LAGUERRE -Current Size (cm) - Length 5.1 -Current Size (cm) - Width 2.6 -Current Size (cm) - Depth 2.5 -Total Square Cm 13.26 -Photo Taken No -Exudate Amt Medium -Exudate Type Serosanguineous -Wound Margin Distinct, Outline Attached -Granulation Amt Small (1-33%) -Granulation Quality Red -Necrosis Amt Large (67-100%) -Necrotic Tissue Type Adherent Slough -Structure Exposed Bone -Texture (Tiana-wound Skin Appearance) Localized Edema ,Scarring -Moisture (Tiana-wound Skin Appearance No Abnormality ) -Color (Tiana-wound Skin Appearance) Rubor -Temperature (Tiana-wound Skin No Abnormality Appearance) (Pt Warm) -Ulcer Cleansing Wound Cleanser -Foul Odor after Cleansing No -Anesthetic Used 4% Lidocaine Solution WC - Nurse 2 - General Ulcer CM Notes Start: 03/02/19 08:12 Freq: Status: Active Protocol: Activity Type Activity Date Activity User E-Sign Co-Sign Detail Recorded Client Recorded Date Recorded By Document 03/23/19 09:37 [id number] 03/23/19 09:38 03/23/19 09:37 Wound Center Nurse 2 [Procedure/Treatment] -Time 09:37 -Correct Patient Yes -Correct Side, Site, Position Yes -Correct Procedure Yes -Procedure Performed Yes -Type of Procedure Debridement -Clinical Debridement Muscle -Post Debridement Size (cm) - Length 5.2 -Post Debridement Size (cm) - Width 2.6 -Post Debridement Size (cm) - Depth 2.5 -Total Square Cm 13.52 -Wound/Ulcer Outcome Not Healed -Ulcer Cleansing Rinsed/ Irrigated with Saline -Foul Odor after Cleansing No -Bioengineered Tissue No -Bleeding Controlled with Pressure -Offloading No -Treatment Response Procedure Tolerated Well [See Physician Procedure note for Specifics] Pain Scale: 0-10 Numeric [Pain] -Is Patient Pain Free? Yes Debridement Note Post-Debridement Measurements/Treatment WC - Nurse 2 - General Ulcer CM Notes Start: 03/02/19 08:12 Freq: Status: Active Protocol: Activity Type Activity Date Activity User E-Sign Co-Sign Detail Recorded Client Recorded Date Recorded By Document 03/02/19 08:47 [id number] 03/02/19 08:47 Document 03/16/19 08:55 [id number] 03/16/19 08:58 Document 03/23/19 09:37 [id number] 03/23/19 09:38 03/02/19 03/16/19 03/23/19 08:47 08:55 09:37 Wound Center Nurse 2 #1- RT KNEE/LATERAL LAGUERRE -Time 08:47 08:56 09:37 -Correct Patient Yes Yes Yes -Correct Side, Site, Position Yes Yes Yes -Correct Procedure Yes Yes Yes -Procedure Performed Yes Yes Yes -Type of Procedure Debridement Debridement Debridement -Clinical Debridement Subcutaneous Bone Muscle -Post Debridement Size (cm) - Length 2 7 5.2 -Post Debridement Size (cm) - Width 7 2.5 2.6 -Post Debridement Size (cm) - Depth 1.2 2.6 2.5 -Total Square Cm 14 17.5 13.52 -Wound/Ulcer Outcome Not Healed Not Healed Not Healed -Ulcer Cleansing Rinsed/ Rinsed/ Rinsed/ Irrigated with Irrigated with Irrigated with Saline Saline Saline -Foul Odor after Cleansing No No No -Bioengineered Tissue No No No -Bleeding Controlled with Pressure Pressure Pressure -Offloading No No No -Treatment Response Procedure Procedure Procedure Tolerated Well Tolerated Well Tolerated Well Pain Scale: 0-10 Numeric Is Patient Pain Free? Yes Yes Yes Wound debrided: #1 Right proximal lateral leg. Laterality: Right Wound Grade/Stage: 4. Type of Debridement: Excisional debridement Anesthesia Used: 4% Lidocaine Solution Depth: Down to and including healthy tissue, in the subcutaneous layer, to muscle, to bone - bone is exposed but not debrided. Percentage of wound debrided: 100 Instrument Used: 5mm curette Tissue Removed: subcutaneous tissue and muscle. Severity: Fat Layer Exposed - muscle is exposed. bone is exposed but not debrided. Amount of bleeding with debridement: Mild Bleeding Controlled with: Pressure Patient tolerated procedure well Assessment/Plan Assessment: 1. Nonhealing infected ulcer right proximal lateral leg with exposed hardware from previous fracture repair. 2. History of right tibial plateau fracture with ORIF. 3. Diabetes mellitus. 4. Osteomyelitis right tibia. 5. s/p removal of hardware right tibia. 6. s/p surgical preparation right proximal lateral leg with excisional debridement nonhealing ulcer (17.5 cm2) and partial ostectomy tibia for osteomyelitis. Plan: Continue the VAC to be changed three times per week at [address] adaptic over exposed bone. Wrap with SHILO wrap for compression. Operative culture showed Kocuria kristinae. She was discharged on Doxycycline. Pathology from recent surgery on 03/06/19 was negative for osteomyelitis. Prealbumin from 03/07/19 was 17.7. Encourage nutritional supplementation with protein to help the healing process. HgbA1c from 12/24/18 was 9.4. Would like it to be 8 or less before proceeding with any elective reconstructive surgery. The repeat HgbA1c from 03/11/19 increased to 9.9. Since the bone is negative for osteomyelitis, normally we can proceed with complex reconstructive surgery with a muscle flap and skin graft along with placement of a bone graft. Also at the time of her surgery, her nutrition should be maximized to promote healing as well. Also before any complex reconstructive surgery, will obtain a CT. Since her HgbA1c has increased to 9.9, will need to postpone the complex reconstructive surgery at this time. Will repeat the HgbA1c in a couple of months. It needs to be trending downward below 9 before proceeding with surgery. Ideally it should be 8 or less. But since there is exposed bone, I will compromise a little bit in order to cover the bone, but I need to see definite trending downward. Depending on the time lapse between this recent operative debridement with partial ostectomy, I may need to repeat the operative debridement and obtain another piece of bone to be sent to Pathology to check for osteomyelitis before proceeding with complex reconstructive surgery with muscle flap and skin graft and bone graft. Patient is aware of that possibility and will followup with her PCP to help manage her diabetes. She will keep her right leg elevated when sitting. Followup 2 weeks.
== END 2019-03-26 23:59 ==
LOC: WC 08:00
PROVIDERS: Family Provider Family Medicine; PCP Family Medicine; Referring Provider Internal Medicine; Visit Provider Internal Medicine
DX: T81.31XA Disruption of external operation (surgical) wound, not elsewhere classified, initial encounter (principal); T84.498A Other mechanical complication of other internal orthopedic devices, implants and grafts, initial encounter; X58.XXXS Exposure to other specified factors, sequela; S82.141S Displaced bicondylar fracture of right tibia, sequela; Y83.8 Other surgical procedures as the cause of abnormal reaction of the patient, or of later complication, without mention of misadventure at the time of the procedure; L97.916 Non-pressure chronic ulcer of unspecified part of right lower leg with bone involvement without evidence of necrosis; E11.65 Type 2 diabetes mellitus with hyperglycemia; M86.8X6 Other osteomyelitis, lower leg
CPT/HCPCS: 11043; 11044; 97605

== ENCOUNTER 2019-04-13 09:15 | Outpatient (RCR) | payer MEDICAID, SELFPAY ==
[2019-03-27 00:42] VITALS: BP 137/77; PULSE 99; RESP 16; TEMP 36.6; BMI 27.8
[2019-03-31 14:13] VITALS: BP 124/76; PULSE 102; RESP 16; TEMP 36.2; BMI 27.8
[2019-04-13 08:28] VITALS: BP 132/73; PULSE 87; RESP 16; TEMP 36.8; BMI 27.8
--- NOTE | 2019-04-13 23:10 | PCM.WC.PN ---
Type of Wound Date of Service: 04/13/19 Chief Complaint: Nonhealing ulcer right proximal lateral leg with exposed hardware from previous fracture repair that has been removed. History of Wound: Surgery 03/06/19 - Surgical preparation right proximal lateral leg with excisional debridement nonhealing ulcer (17.5 cm2) and partial ostectomy tibia for osteomyelitis. Surgery 12/24/18 - Surgical preparation right proximal lateral leg with incision and drainage and excisional debridement nonhealing infected ulcer with exposed hardware (52.5 cm2) and partial ostectomy tibia for osteomyelitis by Dr. Uribe and right tibia removal of hardware by Dr. Firedman. Wound care - VAC. Operative culture - Gorge simmons. She was discharged on Doxycycline. Her previous culture at the time of her surgery in November, showed Staphylococcus aureus from MRSA Wound DNA by PCR and preoperative cultures showed Staphylococcus aureus, Morganella morganii, Streptococcus mitis/oralis, and Anaerobic cocci. She was placed on Cefipime IV for 6 weeks and Flagyl PO for 6 weeks until 02/04/19. Pathology - negative for osteomyelitis. Her previous pathology on 12/24/18 was positive for focal acute osteomyelitis. Prealbumin from 03/07/19 was 17.7. Encouraged nutritional supplementation with protein to help the healing process. HgbA1c from 12/24/18 was 9.4. It should be 8 or less before proceeding on any elective reconstructive procedure. Her repeat HgbA1c from 03/11/19 increased to 9.9. Her last CT was on 10/23/18 which showed the patient is status post lateral plate screw fixation of the proximal tibia. The fracture line is visible. There is also evidence of prior open reduction internal fixation of the distal tibia and tibiotalar joint. Small joint effusion. Will repeat the CT prior to complex reconstruction of the ulcer with a muscle flap with skin graft and placement of a bone graft. Today she denies fever. Her appetite is ok. Progress of Wound: Improved. - Physical Exam Vital Signs Temp Pulse Resp BP 98.2 F 87 16 132/73 H 04/13/19 08:28 04/13/19 08:28 04/13/19 08:28 04/13/19 08:28 Wound Measurements and Assessment WC - Nurse 1 - General Ulcer Measurement Start: 03/31/19 14:13 Freq: Status: Active Protocol: Activity Type Activity Date Activity User E-Sign Co-Sign Detail Recorded Client Recorded Date Recorded By Document 04/13/19 08:28 MW [id number] 04/13/19 08:31 MW 04/13/19 08:28 Wound Center Nurse 1 [Ulcer Assessment] #1- RT KNEE/LATERAL LAGUERRE -Combined with other wound No -Current Size (cm) - Length 4.5 -Current Size (cm) - Width 2.0 -Current Size (cm) - Depth 2.0 -Total Square Cm 9.00 -Photo Taken No -Epithelialization Small 1-33% -Tunneling No -Undermining/Tunneling No -Circular Undermining No -Exudate Amt Medium -Exudate Type Serosanguineous -Wound Margin Distinct, Outline Attached -Granulation Amt Medium (34-66%) -Granulation Quality Purcell -Slough/Fibrin Yes -Necrosis Amt Medium (34-66%) -Necrotic Tissue Type Adherent Slough -Structure Exposed Bone -Texture (Itana-wound Skin Appearance) Assessed -Moisture (Tiana-wound Skin Appearance Assessed ) -Color (Tiana-wound Skin Appearance) Assessed -Temperature (Tiana-wound Skin No Abnormality Appearance) (Pt Warm) -Tenderness on Palpation (Tiana-wound Yes Skin Appearance) -Ulcer Cleansing soap and water -Foul Odor after Cleansing No -Anesthetic Used 4% Lidocaine Solution [Edema Assessment] -Lower Limb Edema Present Yes -Right Calf (cm) 34.2 -Right Ankle (cm) 23.0 WC - Nurse 2 - General Ulcer CM Notes Start: 03/31/19 14:13 Freq: Status: Active Protocol: Activity Type Activity Date Activity User E-Sign Co-Sign Detail Recorded Client Recorded Date Recorded By Document 04/13/19 08:56 [id number] 04/13/19 08:57 04/13/19 08:56 Wound Center Nurse 2 [Procedure/Treatment] #1- RT KNEE/LATERAL LAGUERRE -Time 08:56 -Correct Patient Yes -Correct Side, Site, Position Yes -Correct Procedure Yes -Procedure Performed Yes -Type of Procedure Debridement -Clinical Debridement Muscle -Post Debridement Size (cm) - Length 4.6 -Post Debridement Size (cm) - Width 2.1 -Post Debridement Size (cm) - Depth 2.1 -Total Square Cm 9.66 -Wound/Ulcer Outcome Not Healed -Ulcer Cleansing Rinsed/ Irrigated with Saline -Foul Odor after Cleansing No -Bioengineered Tissue No -Bleeding Controlled with Pressure -Offloading No -Treatment Response Procedure Tolerated Well [See Physician Procedure note for Specifics] Pain Scale: 0-10 Numeric [Pain] -Is Patient Pain Free? Yes Debridement Note Post-Debridement Measurements/Treatment WC - Nurse 2 - General Ulcer CM Notes Start: 03/31/19 14:13 Freq: Status: Active Protocol: Activity Type Activity Date Activity User E-Sign Co-Sign Detail Recorded Client Recorded Date Recorded By Document 04/13/19 08:56 [id number] 04/13/19 08:57 CLARA 04/13/19 08:56 Wound Center Nurse 2 #1- RT KNEE/LATERAL LAGUERRE -Time 08:56 -Correct Patient Yes -Correct Side, Site, Position Yes -Correct Procedure Yes -Procedure Performed Yes -Type of Procedure Debridement -Clinical Debridement Muscle -Post Debridement Size (cm) - Length 4.6 -Post Debridement Size (cm) - Width 2.1 -Post Debridement Size (cm) - Depth 2.1 -Total Square Cm 9.66 -Wound/Ulcer Outcome Not Healed -Ulcer Cleansing Rinsed/ Irrigated with Saline -Foul Odor after Cleansing No -Bioengineered Tissue No -Bleeding Controlled with Pressure -Offloading No -Treatment Response Procedure Tolerated Well Pain Scale: 0-10 Numeric Is Patient Pain Free? Yes Wound debrided: #1 Right proximal lateral leg. Laterality: Right Wound Grade/Stage: 4. Type of Debridement: Excisional debridement Anesthesia Used: 4% Lidocaine Solution Depth: Down to and including healthy tissue, in the subcutaneous layer, to muscle, to bone - bone is exposed but not debrided. Percentage of wound debrided: 100 Instrument Used: 5mm curette Tissue Removed: subcutaneous tissue and muscle. Severity: Fat Layer Exposed - muscle is exposed. bone is exposed but not debrided. Amount of bleeding with debridement: Mild Bleeding Controlled with: Pressure Patient tolerated procedure well Assessment/Plan Assessment: 1. Nonhealing infected ulcer right proximal lateral leg with exposed hardware from previous fracture repair. 2. History of right tibial plateau fracture with ORIF. 3. Diabetes mellitus. 4. Osteomyelitis right tibia. 5. s/p removal of hardware right tibia. 6. s/p surgical preparation right proximal lateral leg with excisional debridement nonhealing ulcer (17.5 cm2) and partial ostectomy tibia for osteomyelitis. Plan: Continue the VAC to be changed three times per week at [address] adaptic over exposed bone. Wrap with SHILO wrap for compression. Operative culture showed Hemalria walterae. She was discharged on Doxycycline. She will continue them for another 2 weeks. Pathology from recent surgery on 03/06/19 was negative for osteomyelitis. Prealbumin from 03/07/19 was 17.7. Encourage nutritional supplementation with protein to help the healing process. HgbA1c from 12/24/18 was 9.4. Would like it to be 8 or less before proceeding with any elective reconstructive surgery. The repeat HgbA1c from 03/11/19 increased to 9.9. Since the bone is negative for osteomyelitis, normally we can proceed with complex reconstructive surgery with a muscle flap and skin graft along with placement of a bone graft. Also at the time of her surgery, her nutrition should be maximized to promote healing as well. Also before any complex reconstructive surgery, will obtain a CT. Since her HgbA1c has increased to 9.9, will need to postpone the complex reconstructive surgery at this time. Will repeat the HgbA1c today. It needs to be trending downward below 9 before proceeding with surgery. Ideally it should be 8 or less. But since there is exposed bone, I will compromise a little bit in order to cover the bone, but I need to see definite trending downward. Depending on the time lapse between this recent operative debridement with partial ostectomy, I may need to repeat the operative debridement and obtain another piece of bone to be sent to Pathology to check for osteomyelitis before proceeding with complex reconstructive surgery with muscle flap and skin graft and bone graft. Patient is aware of that possibility and will followup with her PCP to help manage her diabetes. She will keep her right leg elevated when sitting. Followup 2 weeks. Code Visit Wound Center Charges CPT - 07834 ICD-10 - V58.49, L97.916, T84.196S, M86.9, L03.90, T84.622A, S82.141S, E11.9
== END 2019-04-25 23:59 ==
LOC: WC 09:15
PROVIDERS: Family Provider Family Medicine; PCP Family Medicine; Referring Provider Internal Medicine; Visit Provider Internal Medicine
DX: T81.31XA Disruption of external operation (surgical) wound, not elsewhere classified, initial encounter (principal); T84.498A Other mechanical complication of other internal orthopedic devices, implants and grafts, initial encounter; X58.XXXS Exposure to other specified factors, sequela; S82.141S Displaced bicondylar fracture of right tibia, sequela; Y83.8 Other surgical procedures as the cause of abnormal reaction of the patient, or of later complication, without mention of misadventure at the time of the procedure; E11.65 Type 2 diabetes mellitus with hyperglycemia; E11.69 Type 2 diabetes mellitus with other specified complication; M86.8X6 Other osteomyelitis, lower leg
CPT/HCPCS: 11043; 36415; 83036; 97605; 99213; G0463

== ENCOUNTER 2019-04-24 16:10 | Emergency (ER) | payer MEDICAID, SELFPAY ==
[2019-04-24 16:12] VITALS: BP 161/75; PULSE 99; RESP 16; TEMP 36.6; O2SAT 100; BMI 42.5
[2019-04-24 16:14] VITALS: BP 161/75; PULSE 99; RESP 16; TEMP 36.6; O2SAT 100
--- NOTE | 2019-04-24 16:29 | ED.VISSUMM ---
- ER Visit Summary Date of Service: 04/24/19 Chief Complaint: Burning to right lower leg History of Present Illness: The patient is a 63 F who presents with burning sensation to her right lower leg that began today. Patient states it is over the anterior aspect of her lower leg distal to her wound VAC. Patient states it feels like it is on fire. Patient states nothing makes it better or worse. Patient denies any fevers or chills. Patient states she has an appointment in 3 days at the wound care center. Patient denies any paresthesias or weakness. Patient states she has not been itching or scratching at her leg. Physical Examination: Vital signs are stable. Patient is afebrile. Patient is in no acute distress. Skin is warm and dry. There is some excoriations noted over the anterior aspect of the right lower leg. There is some mild erythema and warmth. There is no discharge or drainage. There is no abscess formation. Sensation was intact light touch bilaterally in the lower extremities. There are no sensory deficits noted. Emergency Department Course and Treatment: Patient was given a prescription for clindamycin due to her allergy to Keflex and penicillin. Patient was instructed to follow-up with the wound care center as scheduled. Patient was instructed to keep the area clean and dry. Patient understood and was agreeable with the plan. All questions were answered. Disposition: Discharge home Impression: Cellulitis right lower leg This note was generated with [employer] dictation software. It may contain incorrect words, spelling, and punctuation that were not noted in review of the chart prior to signing ED Disposition - Plan for ED Patient: Disposition: Home or Assisted Living Diagnosis: Cellulitis of right lower leg Instructions: Cellulitis Prescriptions: Clindamycin HCl [Cleocin] 300 mg PO Q6H #40 cap Prescription Printed Referrals: Avinash Najera MD [Primary Care Provider] - 5-7 Days Clinic,Wound [None] - Keep Ismael appointment
--- NOTE | 2019-04-24 16:42 | ED.RN ---
DISCHARGE INSTRUCTIONS GIVEN TO AND REVIEWED WITH PATIENT, PATENT DENIES QUESTIONS OR CONCERNS AND VOICES UNDERSTANDING OF DISCHARGE INSTRUCTIONS.
--- NOTE | 2019-04-24 16:44 | ED.RN ---
PT AMBULATES OUT OF ROOM WITHOUT DIFFICULTY.
== END 2019-04-24 16:44 | disposition home or self-care (01) ==
LOC: ED 16:43
PROVIDERS: Emergency Provider Emergency Medicine; Family Provider Family Medicine; PCP Family Medicine
DX: L03.115 Cellulitis of right lower limb (principal); E11.9 Type 2 diabetes mellitus without complications; Z79.84 Long term (current) use of oral hypoglycemic drugs; Z79.4 Long term (current) use of insulin
CPT/HCPCS: 99282

== ENCOUNTER 2019-05-18 09:00 | Outpatient (RCR) | payer MEDICAID, SELFPAY ==
[2019-04-26 00:35] VITALS: BP 132/73; PULSE 87; RESP 16; TEMP 36.8
[2019-04-27 09:00] VITALS: RESP 16; TEMP 36.6; BMI 42.5
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
[2019-05-04 08:34] VITALS: BP 118/71; PULSE 101; RESP 18; TEMP 36.1; BMI 42.5
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
[2019-05-18 08:52] VITALS: BP 114/70; PULSE 92; RESP 18; TEMP 36.1; BMI 42.5
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
== END 2019-05-26 23:59 ==
LOC: WC 09:00
PROVIDERS: Family Provider Family Medicine; PCP Family Medicine; Referring Provider Internal Medicine; Visit Provider Internal Medicine
DX: T81.31XA Disruption of external operation (surgical) wound, not elsewhere classified, initial encounter (principal); T84.498A Other mechanical complication of other internal orthopedic devices, implants and grafts, initial encounter; X58.XXXS Exposure to other specified factors, sequela; S82.141S Displaced bicondylar fracture of right tibia, sequela; E11.65 Type 2 diabetes mellitus with hyperglycemia; E11.69 Type 2 diabetes mellitus with other specified complication; M86.8X6 Other osteomyelitis, lower leg; Y83.8 Other surgical procedures as the cause of abnormal reaction of the patient, or of later complication, without mention of misadventure at the time of the procedure
CPT/HCPCS: 11042; 97605

== ENCOUNTER 2019-05-18 16:53 | Emergency (ER) | payer MEDICAID, SELFPAY ==
[2019-05-18 08:52] VITALS: BMI 42.5
[2019-05-18 16:54] VITALS: BP 142/86; PULSE 101; RESP 18; TEMP 36.6; O2SAT 99; BMI 43.7
--- NOTE | 2019-05-18 17:03 | ED.VISSUMM ---
- ER Visit Summary Date of Service: 05/18/19 Chief Complaint: Left lower back pain History of Present Illness: The patient is a 63 F who has left lumbar back pain. She has had this for 3 days. She states that she was playing with her small dog when she started having pain in her left lumbar region. It does not radiate. It is worse with bending and with sneezing. No numbness or tingling in her arms or legs. No saddle anesthesia. No urinary or bowel incontinence. She took no medications for this at home. She denies any history of back pain. No dysuria or hematuria. She denies fevers. Physical Examination: Vital signs reviewed. HEENT exam unremarkable. Heart is regular rate and rhythm without murmurs. Lungs are clear to auscultation. Abdomen is soft and nontender. Back exam reveals left lumbar tenderness to palpation. There is no CVA tenderness. She has no spinal tenderness. Extremities reveal no edema. Skin exam normal. Neurologic exam normal. Test Results: None performed Emergency Department Course and Treatment: I feel this is likely a muscular strain. There are no red flag symptoms. I do not feel she requires any imaging studies at this time. I will give her Tylenol for pain here. She will continue Tylenol at home. I will give her some Lidoderm patches to use as well. She will follow-up with her PCP if pain persist. Treatment Plan: [] Disposition: Discharge Impression: Left lumbar strain This note was generated with [employer] dictation software. It may contain incorrect words, spelling, and punctuation that were not noted in review of the chart prior to signing ED Disposition - Plan for ED Patient: Disposition: Home or Assisted Living Instructions: Back Sprain/Strain Prescriptions: Lidocaine [Lidoderm] 1 ea TP DAILY #10 adh..patch Transmission Status: Pending to [facility] Referrals: Avinash Najera MD [Primary Care Provider] - Additional Instructions: Your prescription was transmitted to [facility]
[2019-05-18] MEDS: Acetaminophen 500 MG Tablet 1000 MG PO (17:10)
== END 2019-05-18 17:20 | disposition home or self-care (01) ==
LOC: ED 17:13
PROVIDERS: Emergency Provider Emergency Medicine; Family Provider Family Medicine; PCP Family Medicine
DX: S39.012A Strain of muscle, fascia and tendon of lower back, initial encounter (principal); X58.XXXA Exposure to other specified factors, initial encounter; Y93.89 Activity, other specified; Y99.8 Other external cause status; I10 Essential (primary) hypertension; E11.9 Type 2 diabetes mellitus without complications; Z79.84 Long term (current) use of oral hypoglycemic drugs; Z79.4 Long term (current) use of insulin; Z79.899 Other long term (current) drug therapy
CPT/HCPCS: 99283

== ENCOUNTER 2019-06-15 08:15 | Outpatient (RCR) | payer MEDICAID, SELFPAY ==
[2019-05-27 00:30] VITALS: BP 114/70; PULSE 92; RESP 18; TEMP 36.1
[2019-06-01 09:22] VITALS: BP 118/63; PULSE 82; RESP 16; TEMP 36.7; BMI 43.7
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
[2019-06-15 08:12] VITALS: BP 105/51; PULSE 98; RESP 18; TEMP 36.3; BMI 43.7
--- NOTE | 2019-06-15 17:33 | PCM.WC.PN ---
Type of Wound Date of Service: 06/15/19 Chief Complaint: Nonhealing ulcer right proximal lateral leg with exposed hardware from previous fracture repair that has been removed. History of Wound: Surgery 03/06/19 - Surgical preparation right proximal lateral leg with excisional debridement nonhealing ulcer (17.5 cm2) and partial ostectomy tibia for osteomyelitis. Surgery 12/24/18 - Surgical preparation right proximal lateral leg with incision and drainage and excisional debridement nonhealing infected ulcer with exposed hardware (52.5 cm2) and partial ostectomy tibia for osteomyelitis by Dr. Uribe and right tibia removal of hardware by Dr. Friedman. Wound care - Silver. Operative culture - Gorge simmons. She was discharged on Doxycycline. Her previous culture at the time of her surgery in November, showed Staphylococcus aureus from MRSA Wound DNA by PCR and preoperative cultures showed Staphylococcus aureus, Morganella morganii, Streptococcus mitis/oralis, and Anaerobic cocci. She was placed on Cefipime IV for 6 weeks and Flagyl PO for 6 weeks until 02/04/19. Pathology - negative for osteomyelitis. Her previous pathology on 12/24/18 was positive for focal acute osteomyelitis. Prealbumin from 03/07/19 was 17.7. Encouraged nutritional supplementation with protein to help the healing process. HgbA1c from 12/24/18 was 9.4. It should be 8 or less before proceeding on any elective reconstructive procedure. Her repeat HgbA1c from 03/11/19 increased to 9.9. Her last CT was on 10/23/18 which showed the patient is status post lateral plate screw fixation of the proximal tibia. The fracture line is visible. There is also evidence of prior open reduction internal fixation of the distal tibia and tibiotalar joint. Small joint effusion. Will repeat the CT prior to complex reconstruction of the ulcer with a muscle flap with skin graft and placement of a bone graft. Today she denies fever. Her appetite is ok. Progress of Wound: Improved with granulation tissue over the bone. - Physical Exam Vital Signs Temp Pulse Resp BP 97.3 F L 98 18 105/51 L 06/15/19 08:12 06/15/19 08:12 06/15/19 08:12 06/15/19 08:12 Wound Measurements and Assessment WC - Nurse 1 - General Ulcer Measurement Start: 06/01/19 09:22 Freq: Status: Active Protocol: Activity Type Activity Date Activity User E-Sign Co-Sign Detail Recorded Client Recorded Date Recorded By Document 06/15/19 08:12 DL [id number] 06/15/19 08:21 DL 06/15/19 08:12 Wound Center Nurse 1 [Ulcer Assessment] #1- RT KNEE/LATERAL LAGUERRE -Current Size (cm) - Length 1.1 -Current Size (cm) - Width 2.6 -Current Size (cm) - Depth 0.1 -Total Square Cm 2.86 -Photo Taken No -Exudate Amt Small -Exudate Type Serosanguineous -Wound Margin Distinct, Outline Attached -Granulation Amt Large (67-100%) -Granulation Quality Red -Necrosis Amt None Present (0 %) -Structure Exposed N/A -Texture (Tiana-wound Skin Appearance) Scarring -Moisture (Tiana-wound Skin Appearance No Abnormality ) -Color (Tiana-wound Skin Appearance) No Abnormality -Temperature (Tiana-wound Skin No Abnormality Appearance) (Pt Warm) -Tenderness on Palpation (Tiana-wound No Skin Appearance) -Ulcer Cleansing Rinsed/ Irrigated with Saline -Foul Odor after Cleansing No -Anesthetic Used 5% Lidocaine Gel WC - Nurse 2 - General Ulcer CM Notes Start: 06/01/19 09:22 Freq: Status: Active Protocol: Activity Type Activity Date Activity User E-Sign Co-Sign Detail Recorded Client Recorded Date Recorded By Document 06/15/19 08:36 CLARA [id number] 06/15/19 08:37 CLARA 06/15/19 08:36 Wound Center Nurse 2 [Procedure/Treatment] -Time 08:36 -Correct Patient Yes -Correct Side, Site, Position Yes -Correct Procedure Yes -Procedure Performed Yes -Type of Procedure Debridement -Clinical Debridement Subcutaneous -Post Debridement Size (cm) - Length 3.0 -Post Debridement Size (cm) - Width 1.3 -Post Debridement Size (cm) - Depth 1.2 -Total Square Cm 3.90 -Wound/Ulcer Outcome Not Healed -Ulcer Cleansing Rinsed/ Irrigated with Saline -Foul Odor after Cleansing No -Bioengineered Tissue No -Bleeding Controlled with Pressure -Offloading No -Treatment Response Procedure Tolerated Well [See Physician Procedure note for Specifics] Pain Scale: 0-10 Numeric [Pain] -Is Patient Pain Free? Yes Debridement Note Post-Debridement Measurements/Treatment WC - Nurse 2 - General Ulcer CM Notes Start: 06/01/19 09:22 Freq: Status: Active Protocol: Activity Type Activity Date Activity User E-Sign Co-Sign Detail Recorded Client Recorded Date Recorded By Document 06/01/19 10:28 CLARA [id number] 06/01/19 10:29 JF Document 06/15/19 08:36 CLARA [id number] 06/15/19 08:37 06/01/19 06/15/19 10:28 08:36 Wound Center Nurse 2 #1- RT KNEE/LATERAL LAGUERRE -Time 10:29 08:36 -Correct Patient Yes Yes -Correct Side, Site, Position Yes Yes -Correct Procedure Yes Yes -Procedure Performed Yes Yes -Type of Procedure Debridement Debridement -Clinical Debridement Subcutaneous Subcutaneous -Post Debridement Size (cm) - Length 0.7 3.0 -Post Debridement Size (cm) - Width 2.7 1.3 -Post Debridement Size (cm) - Depth 1.0 1.2 -Total Square Cm 1.89 3.90 -Wound/Ulcer Outcome Not Healed Not Healed -Ulcer Cleansing Rinsed/ Rinsed/ Irrigated with Irrigated with Saline Saline -Foul Odor after Cleansing No No -Bioengineered Tissue No No -Bleeding Controlled with Pressure Pressure -Offloading No No -Treatment Response Procedure Procedure Tolerated Well Tolerated Well Pain Scale: 0-10 Numeric Is Patient Pain Free? Yes Yes Wound debrided: #1 Right proximal lateral leg. Laterality: Right Wound Grade/Stage: 4. Type of Debridement: Excisional debridement Anesthesia Used: 4% Lidocaine Solution Depth: Down to and including healthy tissue, in the subcutaneous layer, - - bone is palpable but not exposed and not debrided. Percentage of wound debrided: 100 Instrument Used: 5mm curette Tissue Removed: subcutaneous tissue. Severity: Fat Layer Exposed - bone is palpable but not exposed and not debrided. 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 Nonhealing infected ulcer right proximal lateral leg with exposed hardware from previous fracture repair. 2. History of right tibial plateau fracture with ORIF. 3. Diabetes mellitus. 4. Osteomyelitis right tibia. 5. s/p removal of hardware right tibia. 6. s/p surgical preparation right proximal lateral leg with excisional debridement nonhealing ulcer (17.5 cm2) and partial ostectomy tibia for osteomyelitis. Plan: Continue Silver dressing changes daily with SHILO wrap for compression. Operative culture showed Kocuria kristinae. She was discharged on Doxycycline and has finished them. Pathology from recent surgery on 03/06/19 was negative for osteomyelitis. Prealbumin from 03/07/19 was 17.7. Encourage nutritional supplementation with protein to help the healing process. HgbA1c from 12/24/18 was 9.4. Would like it to be 8 or less before proceeding with any elective reconstructive surgery. The repeat HgbA1c from 03/11/19 increased to 9.9. Since the bone is negative for osteomyelitis, normally we can proceed with complex reconstructive surgery with a muscle flap and skin graft along with placement of a bone graft. Also at the time of her surgery, her nutrition should be maximized to promote healing as well. Also before any complex reconstructive surgery, will obtain a CT. Since her HgbA1c has increased to 9.9, will need to postpone the complex reconstructive surgery at this time. Will need an improved repeat HgbA1c prior to reconstructive surgery. It needs to be trending downward below 9 before proceeding with surgery. Ideally it should be 8 or less. But since there is exposed bone, I will compromise a little bit in order to cover the bone, but I need to see definite trending downward. Depending on the time lapse between this recent operative debridement with partial ostectomy, I may need to repeat the operative debridement and obtain another piece of bone to be sent to Pathology to check for osteomyelitis before proceeding with complex reconstructive surgery with muscle flap and skin graft and bone graft. Patient is aware of that possibility and will followup with her PCP to help manage her diabetes. She will keep her right leg elevated when sitting. Followup 2 weeks. Code Visit [id number]: [id number] Coby subq tissue 20 sq cm/< - ICD-10 - L97.916, T84.196S, M86.9, L03.90, T84.622A, S82.141S, E11.9
== END 2019-06-26 23:59 ==
LOC: WC 08:15
PROVIDERS: Family Provider Family Medicine; PCP Family Medicine; Referring Provider Internal Medicine; Visit Provider Internal Medicine
DX: T81.31XA Disruption of external operation (surgical) wound, not elsewhere classified, initial encounter (principal); T84.498A Other mechanical complication of other internal orthopedic devices, implants and grafts, initial encounter; X58.XXXS Exposure to other specified factors, sequela; S82.141S Displaced bicondylar fracture of right tibia, sequela; E11.69 Type 2 diabetes mellitus with other specified complication; E11.65 Type 2 diabetes mellitus with hyperglycemia; M86.8X6 Other osteomyelitis, lower leg; Y83.8 Other surgical procedures as the cause of abnormal reaction of the patient, or of later complication, without mention of misadventure at the time of the procedure
CPT/HCPCS: 11042

== ENCOUNTER 2019-06-25 02:24 | Emergency (ER) | payer MEDICAID, SELFPAY ==
[2019-06-25 02:24] VITALS: BP 139/64; PULSE 99; RESP 18; TEMP 36.2; O2SAT 100; BMI 41.3
--- NOTE | 2019-06-25 02:46 | RAD_ITS ---
STUDY: X-RAY CHEST REASON FOR EXAM: Female, 63 years old patient complains of right-sided shoulder and breast pain after mammogram. TECHNIQUE: PA and lateral views of the chest. COMPARISON: July 18, 2018. FINDINGS: The lungs are expanded with prominence of bronchovascular markings. There is no demonstrated pleural abnormality. Normal size heart. Normal mediastinum and ash. Normal visualized pulmonary arteries. There is atherosclerotic calcification of the aortic arch with tortuosity. Normal visualized thoracic spine. There are degenerative changes of both shoulders. There is no demonstrated abnormality of the visualized soft tissue structures of the upper abdomen. RAD/Chest PA and Lateral IMPRESSION: No radiographic evidence of acute cardiopulmonary disease. Electronically Signed: Britni Harris MD at 3:26 EST , Service support ,
--- NOTE | 2019-06-25 02:46 | EKG12_ITS ---
Test Reason : CP Blood Pressure : / mmHG Vent. Rate : 087 BPM Atrial Rate : 087 BPM P-R Int : 146 ms QRS Dur : 084 ms QT Int : 358 ms P-R-T Axes : 048 041 023 degrees QTc Int : 430 ms Normal sinus rhythm Normal ECG Confirmed by TRELL GERARDO, ANDRE ([id number]), senior technical editor ANNABELLE DEVI ([id number]) on 06/26/2019 1:20:20 PM Referred By: VALENTIN Confirmed By:ARLENE CAI MD
--- NOTE | 2019-06-25 02:47 | ED.DCSUM_ITS ---
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 deep inspiration, cough. Relieved by: remaining still and breathing regular. 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 Associated Symptoms: none. Narrative: Patient states she had a mammogram yesterday. She states during this, she had to hold her arm up on a bar, essentially flexed and abducted at the shoulder. The mammogram hurt her right breast. Then, she woke up the next morning with mild discomfort in her right chest and shoulder that was present all day today. Tonight, she got up to use the bathroom about 30 minutes prior to arrival, and while sitting in bed, she used her right, arm to help to push herself up against the bed and this initiated severe pain in the same location. Essentially an acute worsening of the mild pain she has been having all day. - Past Medical History (1) Bronchial asthma Status: Chronic (2) Diabetes mellitus Status: Chronic (3) Hyperlipidemia Status: Chronic (4) Hypertension Status: Chronic (5) Obesity Status: Chronic Past Medical History - Allergies and Home Meds Allergies/Adverse Reactions: Allergies cephalexin [From Keflex] Allergy (Verified 04/24/19 16:11) Breakouts diflunisal [From Dolobid] Allergy (Verified 05/18/19 16:56) Rash insulin lispro [From Humalog] Allergy (Verified 04/24/19 16:11) Rash Penicillins Allergy (Verified 04/24/19 16:11) Rash Primary Care Physician: Avinash Najera MD [Primary Care Provider] - Surgical History: appendectomy, cholecystectomy, hysterectomy Lives: Alone Smoking Status: Current every day smoker - Family History Maternal Family History: Reports: Diabetes Paternal Family History: Reports: Diabetes Review of Systems General: Denies: Chills, Fever, Sweats Eyes: Denies: Visual changes - bilaterally, Diplopia ENT: Denies: Bilateral ear pain, Rhinorrhea, Sore throat Cardiovascular: Reports: Chest pain. Denies: Palpitations Respiratory: Denies: Dyspnea, Cough, Dyspnea on exertion Gastrointestinal: Denies: Abdominal pain, Nausea, Vomiting, Diarrhea, Melena, Hematochezia Genitourinary: Denies: Dysuria, Hematuria, Frequency Musculoskeletal: Reports: Extremity Pain - Right shoulder only. No lower extremity pains or calf pain. Denies: Back pain, Swelling Skin: Denies: Rash, Wounds Neurological: Denies: Headache, Weakness, Numbness Physical Exam Vital Signs/Narrative: Vital Signs Temp Pulse Resp BP Pulse Ox 06/25/19 02:24 97.1 F L 99 18 139/64 H 100 Inital Vital Signs reviewed: Yes General: Well nourished, Well developed, Obese, No Acute Distress Head: Normocephalic, Atraumatic Eyes: Perrl, EOMI ENT: Moist mucous membranes, No rhinorrhea Neck: Supple, Nontender, No lymphadenopathy Cardiovascular: Regular rate, Regular rhythm, No murmurs Respiratory: No distress, CTA bilaterally, Chest tenderness - throughout right chest wall and into most of upper half of right breast. no palpable breast lump/mass. no skin lesions or evidence of injury to chest wall or breast. no nipple discharge. no cellulitis. Abdomen: Soft, Nontender, Nondistended, Normal bowel sounds Back: Nontender, Normal Inspection Extremities: No edema, Tenderness - right mid-clavicle and coracoid process; no ACJ tenderness/swelling/crepitance. no subacromial tenderness. FROM right shoulder, and rest of extremity joints.. Negative for: Calf Tenderness Skin: Normal color, No rash, No Trauma Neurological: Alert, Oriented x3, Cranial nerves II-XII grossly intact, Normal Strength, Normal Sensation, Normal Gait Psychological: Normal affect, Normal Mood Diagnostic/Tx/Re-eval Clinical Impression(s) from Imaging Studies Chest X-Ray 06/25/19 02:46 IMPRESSION: No radiographic evidence of acute cardiopulmonary disease. Electronically Signed: Britni Harris MD at 3:26 EST , Service support , - Rhythm Strip Rhythm Strip: Sinus Rhythm Rate: 87 Ectopy: None - EKG Initial EKG Interpretation: Sinus Rhythm, No Acute Injury Pattern - Normal EKG Prior: Unchanged - Medical Decision Making EKG and chest x-ray are normal. I reassured the patient, this is all likely in her chest wall and breast. Unknown if this is all due to the mammogram that she had, or if she strained something in the mammogram exacerbated it. Regardless, the etiology appears to be in her chest wall. It is possible that she sprained 1 or more of the ligaments and her acromioclavicular joint complex, as she seems to be tender in the coracoid process area but it is possible it is simply the overlying chest wall musculature. She was given an injection of Toradol and some Tylenol and an ice pack, and advised to follow-up and she is comfortable with that plan. ED Disposition - Plan for ED Patient: Disposition: Home or Assisted Living Diagnosis: Strain of chest wall Instructions: Chest Wall Strain Referrals: Avinash Najera MD [Primary Care Provider] - 3-5 Days if not improving Additional Instructions: ice, tylenol as needed for pain.
[2019-06-25] MEDS: Ketorolac 30 MG/ML Syringe IM (02:53)
[2019-06-25] MEDS: Acetaminophen 325 MG Tablet 650 MG PO (03:46)
== END 2019-06-25 03:50 | disposition home or self-care (01) ==
PROVIDERS: Emergency Provider Emergency Medicine; PCP Family Medicine
DX: S29.011A Strain of muscle and tendon of front wall of thorax, initial encounter (principal); X50.1XXA Overexertion from prolonged static or awkward postures, initial encounter; Y93.9 Activity, unspecified; Y92.9 Unspecified place or not applicable; E66.9 Obesity, unspecified; E11.9 Type 2 diabetes mellitus without complications; E78.5 Hyperlipidemia, unspecified; I10 Essential (primary) hypertension; J45.909 Unspecified asthma, uncomplicated; Z79.82 Long term (current) use of aspirin; Z79.4 Long term (current) use of insulin; Z79.84 Long term (current) use of oral hypoglycemic drugs; Z79.899 Other long term (current) drug therapy; F17.200 Nicotine dependence, unspecified, uncomplicated
CPT/HCPCS: 71046; 93005; 96372; 99284

== ENCOUNTER 2019-07-13 08:45 | Outpatient (RCR) | payer MEDICAID, SELFPAY ==
[2019-06-27 00:34] VITALS: BP 105/51; PULSE 98; RESP 18; TEMP 36.3
[2019-06-29 09:02] VITALS: BP 117/57; PULSE 92; RESP 18; TEMP 36.2; BMI 41.3
--- NOTE | 2019-06-29 15:08 | PCM.WC.PN ---
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 without evidence of necrosis Status: Chronic Code(s): L97.916 - Non-pressure chronic ulcer of unspecified part of right lower leg with bone involvement without evidence of necrosis Comment: nonhealing ulcer right proximal lateral leg with exposed hardware from previous fracture repair (2) Other mechanical complication of internal fixation device of bone of right lower leg, initial encounter Status: Chronic Code(s): T84.196A - Other mechanical complication of internal fixation device of bone of right lower leg, initial encounter Comment: from right tibial plateau fracture with ulceration right proximal lateral leg (3) Osteomyelitis of right tibia Status: Chronic Code(s): M86.9 - Osteomyelitis, unspecified (4) Poorly controlled type 2 diabetes mellitus Status: Chronic Code(s): E11.65 - Type 2 diabetes mellitus with hyperglycemia Type of Wound Date of Service: 06/29/19 Chief Complaint: Nonhealing ulcer right proximal lateral leg with exposed hardware from previous fracture repair that has been removed. History of Wound: Surgery 03/06/19 - Surgical preparation right proximal lateral leg with excisional debridement nonhealing ulcer (17.5 cm2) and partial ostectomy tibia for osteomyelitis. Surgery 12/24/18 - Surgical preparation right proximal lateral leg with incision and drainage and excisional debridement nonhealing infected ulcer with exposed hardware (52.5 cm2) and partial ostectomy tibia for osteomyelitis by Dr. Uribe and right tibia removal of hardware by Dr. Friedman. Wound care - Silver cover with Allelvyn and will change 3 times per week with the assistance of home health. Operative culture - Kobrianria walterae. She was discharged on Doxycycline. Her previous culture at the time of her surgery in November, showed Staphylococcus aureus from MRSA Wound DNA by PCR and preoperative cultures showed Staphylococcus aureus, Morganella morganii, Streptococcus mitis/oralis, and Anaerobic cocci. She was placed on Cefipime IV for 6 weeks and Flagyl PO for 6 weeks until 02/04/19. Pathology - negative for osteomyelitis. Her previous pathology on 12/24/18 was positive for focal acute osteomyelitis. Prealbumin from 03/07/19 was 17.7. Encouraged nutritional supplementation with protein to help the healing process. HgbA1c from 12/24/18 was 9.4. It should be 8 or less before proceeding on any elective reconstructive procedure. Her repeat HgbA1c from 03/11/19 increased to 9.9. Her last CT was on 10/23/18 which showed the patient is status post lateral plate screw fixation of the proximal tibia. The fracture line is visible. There is also evidence of prior open reduction internal fixation of the distal tibia and tibiotalar joint. Small joint effusion. Will repeat the CT prior to complex reconstruction of the ulcer with a muscle flap with skin graft and placement of a bone graft. Today she denies fever. Her appetite is ok. Progress of Wound: Improved with granulation tissue over the bone. - Physical Exam Vital Signs Temp Pulse Resp BP 97.2 F L 92 18 117/57 L 06/29/19 09:02 06/29/19 09:02 06/29/19 09:02 06/29/19 09:02 General: Alert, Oriented x3, Cooperative HEENT: Atraumatic Oral: Moist Mucosa Lungs: Normal air movement Cardiovascular: Regular rate Extremities: Capillary Refill Less than 3 Seconds Skin: Ulcer/ Wound - Right knee ulcer continues to have granulation over the bone Wound Measurements and Assessment WC - Nurse 1 - General Ulcer Measurement Start: 06/29/19 09:02 Freq: Status: Active Protocol: Activity Type Activity Date Activity User E-Sign Co-Sign Detail Recorded Client Recorded Date Recorded By Document 06/29/19 09:02 AMY [id number] 06/29/19 09:04 AMY 06/29/19 09:02 Wound Center Nurse 1 [Ulcer Assessment] #1- RT KNEE/LATERAL LAGUERRE -Current Size (cm) - Length 1.8 -Current Size (cm) - Width 1 -Current Size (cm) - Depth 0.2 -Total Square Cm 1.8 -Photo Taken No -Exudate Amt Small -Exudate Type Serosanguineous -Wound Margin Distinct, Outline Attached -Granulation Amt Large (67-100%) -Granulation Quality Red -Necrosis Amt None Present (0 %) -Structure Exposed N/A -Texture (Tiana-wound Skin Appearance) Scarring -Moisture (Tiana-wound Skin Appearance No Abnormality ) -Color (Tiana-wound Skin Appearance) No Abnormality -Temperature (Tiana-wound Skin No Abnormality Appearance) (Pt Warm) -Tenderness on Palpation (Tiana-wound No Skin Appearance) -Ulcer Cleansing Rinsed/ Irrigated with Saline -Foul Odor after Cleansing No -Anesthetic Used 4% Lidocaine Solution WC - Nurse 2 - General Ulcer CM Notes Start: 06/29/19 09:02 Freq: Status: Active Protocol: Activity Type Activity Date Activity User E-Sign Co-Sign Detail Recorded Client Recorded Date Recorded By Document 06/29/19 09:24 [id number] 06/29/19 09:25 06/29/19 09:24 Wound Center Nurse 2 [Procedure/Treatment] -Time 09:25 -Correct Patient Yes -Correct Side, Site, Position Yes -Correct Procedure Yes -Procedure Performed Yes -Type of Procedure Debridement -Clinical Debridement Subcutaneous -Post Debridement Size (cm) - Length 2 -Post Debridement Size (cm) - Width 1.2 -Post Debridement Size (cm) - Depth 1.0 -Total Square Cm 2.4 -Wound/Ulcer Outcome Not Healed -Ulcer Cleansing Rinsed/ Irrigated with Saline -Foul Odor after Cleansing No -Bioengineered Tissue No -Bleeding Controlled with Pressure -Offloading No -Treatment Response Procedure Tolerated Well [See Physician Procedure note for Specifics] Pain Scale: 0-10 Numeric [Pain] -Is Patient Pain Free? Yes Musculoskeletal: No Muscle Wasting Neurological: Neuro grossly intact Psych/Mental Status: Normal Affect, Appropriate Debridement Note Post-Debridement Measurements/Treatment WC - Nurse 2 - General Ulcer CM Notes Start: 06/29/19 09:02 Freq: Status: Active Protocol: Activity Type Activity Date Activity User E-Sign Co-Sign Detail Recorded Client Recorded Date Recorded By Document 06/29/19 09:24 [id number] 06/29/19 09:25 06/29/19 09:24 Wound Center Nurse 2 #1- RT KNEE/LATERAL LAGUERRE -Time 09:25 -Correct Patient Yes -Correct Side, Site, Position Yes -Correct Procedure Yes -Procedure Performed Yes -Type of Procedure Debridement -Clinical Debridement Subcutaneous -Post Debridement Size (cm) - Length 2 -Post Debridement Size (cm) - Width 1.2 -Post Debridement Size (cm) - Depth 1.0 -Total Square Cm 2.4 -Wound/Ulcer Outcome Not Healed -Ulcer Cleansing Rinsed/ Irrigated with Saline -Foul Odor after Cleansing No -Bioengineered Tissue No -Bleeding Controlled with Pressure -Offloading No -Treatment Response Procedure Tolerated Well Pain Scale: 0-10 Numeric Is Patient Pain Free? Yes Wound debrided: lateral knee Laterality: Right Type of Debridement: Excisional debridement Anesthesia Used: 5% Lidocaine Gel Depth: Down to and including healthy tissue, in the subcutaneous layer Percentage of wound debrided: 100 Instrument Used: 3mm curette Tissue Removed: subcutaneous tissue and slough Severity: Fat Layer Exposed Amount of bleeding with debridement: Mild Bleeding Controlled with: Pressure Patient tolerated procedure well Assessment/Plan Assessment: 1. Nonhealing infected ulcer right proximal lateral leg with exposed hardware from previous fracture repair. 2. History of right tibial plateau fracture with ORIF. 3. Diabetes mellitus. 4. Osteomyelitis right tibia. 5. s/p removal of hardware right tibia. 6. s/p surgical preparation right proximal lateral leg with excisional debridement nonhealing ulcer (17.5 cm2) and partial ostectomy tibia for osteomyelitis. Plan: Continue Silver dressing changes covered by Allevyn three times per week per home health with SHILO wrap for compression. Operative culture showed Kocuria kristinae. She was discharged on Doxycycline and has finished them. Pathology from recent surgery on 03/06/19 was negative for osteomyelitis. Prealbumin from 03/07/19 was 17.7. Encourage nutritional supplementation with protein to help the healing process. HgbA1c from 12/24/18 was 9.4. Would like it to be 8 or less before proceeding with any elective reconstructive surgery. The repeat HgbA1c from 03/11/19 increased to 9.9. Since the bone is negative for osteomyelitis, normally we can proceed with complex reconstructive surgery with a muscle flap and skin graft along with placement of a bone graft. Also at the time of her surgery, her nutrition should be maximized to promote healing as well. Also before any complex reconstructive surgery, will obtain a CT. Since her HgbA1c has increased to 9.9, will need to postpone the complex reconstructive surgery at this time. Will need an improved repeat HgbA1c prior to reconstructive surgery. It needs to be trending downward below 9 before proceeding with surgery. Ideally it should be 8 or less. But since there is exposed bone, I will compromise a little bit in order to cover the bone, but I need to see definite trending downward. Depending on the time lapse between this recent operative debridement with partial ostectomy, I may need to repeat the operative debridement and obtain another piece of bone to be sent to Pathology to check for osteomyelitis before proceeding with complex reconstructive surgery with muscle flap and skin graft and bone graft. Patient is aware of that possibility and will followup with her PCP to help manage her diabetes. She will keep her right leg elevated when sitting. Followup 2 weeks. Code Visit [id number]: [id number] Coby subq tissue 20 sq cm/<
[2019-07-13 08:56] VITALS: BP 116/76; PULSE 90; RESP 16; TEMP 36.6; BMI 41.3
--- NOTE | 2019-07-13 17:25 | PN.PCM_ITS ---
Type of Wound Date of Service: 07/13/19 Chief Complaint: Nonhealing ulcer right proximal lateral leg with exposed hardware from previous fracture repair that has been removed. History of Wound: Surgery 03/06/19 - Surgical preparation right proximal lateral leg with excisional debridement nonhealing ulcer (17.5 cm2) and partial ostectomy tibia for osteomyelitis. Surgery 12/24/18 - Surgical preparation right proximal lateral leg with incision and drainage and excisional debridement nonhealing infected ulcer with exposed hardware (52.5 cm2) and partial ostectomy tibia for osteomyelitis by Dr. Uribe and right tibia removal of hardware by Dr. Friedman. Wound care - Silver. Operative culture - Gorge simmons. She was discharged on Doxycycline and has finished them. Her previous culture at the time of her surgery in November, showed Staphylococcus aureus from MRSA Wound DNA by PCR and preoperative cultures showed Staphylococcus aureus, Morganella morganii, Streptococcus mitis/oralis, and Anaerobic cocci. She was placed on Cefipime IV for 6 weeks and Flagyl PO for 6 weeks until 02/04/19. Pathology - negative for osteomyelitis. Her previous pathology on 12/24/18 was positive for focal acute osteomyelitis. Prealbumin from 03/07/19 was 17.7. Encouraged nutritional supplementation with protein to help the healing process. Recent HgbA1c from 06/17/19 was 9.6. It should be 8 or less before proceeding on any elective reconstructive procedure. Her last CT was on 10/23/18 which showed the patient is status post lateral plate screw fixation of the proximal tibia. The fracture line is visible. There is also evidence of prior open reduction internal fixation of the distal tibia and tibiotalar joint. Small joint effusion. Will repeat the CT prior to complex reconstruction of the ulcer with a muscle flap with skin graft and placement of a bone graft. Today she denies fever. Her appetite is ok. Progress of Wound: Improved with granulation tissue over the bone. - Physical Exam Vital Signs Temp Pulse Resp BP 97.8 F 90 16 116/76 07/13/19 08:56 07/13/19 08:56 07/13/19 08:56 07/13/19 08:56 Wound Measurements and Assessment WC - Nurse 1 - General Ulcer Measurement Start: 06/29/19 09:02 Freq: Status: Active Protocol: Activity Type Activity Date Activity User E-Sign Co-Sign Detail Recorded Client Recorded Date Recorded By Document 07/13/19 08:56 MW [id number] 07/13/19 09:01 MW 07/13/19 08:56 Wound Center Nurse 1 [Ulcer Assessment] #1- RT KNEE/LATERAL LAGUERRE -Combined with other wound No -Current Size (cm) - Length 0.6 -Current Size (cm) - Width 0.3 -Current Size (cm) - Depth 0.1 -Total Square Cm 0.18 -Date of Last Picture (Recall this 07/13/19 field) -Photo Taken Yes -Epithelialization Medium 34-66% -Tunneling No -Undermining/Tunneling No -Circular Undermining No -Exudate Amt Small -Exudate Type Serosanguineous -Wound Margin Flat & Intact -Granulation Amt Large (67-100%) -Granulation Quality [place] -Slough/Fibrin Yes -Necrosis Amt Small (1-33%) -Necrotic Tissue Type Adherent Slough -Structure Exposed N/A -Texture (Tiana-wound Skin Appearance) Assessed, Scarring -Moisture (Tiana-wound Skin Appearance No Abnormality, ) Assessed -Color (Tiana-wound Skin Appearance) No Abnormality, Assessed -Temperature (Tiana-wound Skin No Abnormality Appearance) (Pt Warm) -Tenderness on Palpation (Tiana-wound No Skin Appearance) -Ulcer Cleansing Rinsed/ Irrigated with Saline -Foul Odor after Cleansing No -Anesthetic Used 5% Lidocaine Gel [Edema Assessment] -Lower Limb Edema Present No WC - Nurse 2 - General Ulcer CM Notes Start: 06/29/19 09:02 Freq: Status: Active Protocol: Activity Type Activity Date Activity User E-Sign Co-Sign Detail Recorded Client Recorded Date Recorded By Document 07/13/19 09:20 [id number] 07/13/19 09:24 JF 07/13/19 09:20 Wound Center Nurse 2 [Procedure/Treatment] #1- RT KNEE/LATERAL LAGUERRE -Time 09:21 -Correct Patient Yes -Correct Side, Site, Position Yes -Correct Procedure Yes -Procedure Performed Yes -Type of Procedure Debridement -Clinical Debridement Subcutaneous -Post Debridement Size (cm) - Length 1.2 -Post Debridement Size (cm) - Width 0.5 -Post Debridement Size (cm) - Depth 0.2 -Total Square Cm 0.60 -Wound/Ulcer Outcome Not Healed -Ulcer Cleansing Rinsed/ Irrigated with Saline -Foul Odor after Cleansing No -Bioengineered Tissue No -Bleeding Controlled with Pressure -Offloading No -Treatment Response Procedure Tolerated Well [See Physician Procedure note for Specifics] Pain Scale: 0-10 Numeric [Pain] -Is Patient Pain Free? Yes Debridement Note Post-Debridement Measurements/Treatment WC - Nurse 2 - General Ulcer CM Notes Start: 06/29/19 09:02 Freq: Status: Active Protocol: Activity Type Activity Date Activity User E-Sign Co-Sign Detail Recorded Client Recorded Date Recorded By Document 06/29/19 09:24 [id number] 06/29/19 09:25 Document 07/13/19 09:20 [id number] 07/13/19 09:24 JF 06/29/19 07/13/19 09:24 09:20 Wound Center Nurse 2 #1- RT KNEE/LATERAL LAGUERRE -Time 09:25 09:21 -Correct Patient Yes Yes -Correct Side, Site, Position Yes Yes -Correct Procedure Yes Yes -Procedure Performed Yes Yes -Type of Procedure Debridement Debridement -Clinical Debridement Subcutaneous Subcutaneous -Post Debridement Size (cm) - Length 2 1.2 -Post Debridement Size (cm) - Width 1.2 0.5 -Post Debridement Size (cm) - Depth 1.0 0.2 -Total Square Cm 2.4 0.60 -Wound/Ulcer Outcome Not Healed Not Healed -Ulcer Cleansing Rinsed/ Rinsed/ Irrigated with Irrigated with Saline Saline -Foul Odor after Cleansing No No -Bioengineered Tissue No No -Bleeding Controlled with Pressure Pressure -Offloading No No -Treatment Response Procedure Procedure Tolerated Well Tolerated Well Pain Scale: 0-10 Numeric Is Patient Pain Free? Yes Yes Wound debrided: #1 Right proximal lateral leg. Laterality: Right Wound Grade/Stage: 4. Type of Debridement: Excisional debridement Anesthesia Used: 4% Lidocaine Solution Depth: Down to and including healthy tissue, in the subcutaneous layer, - - bone is palpable but not exposed and not debrided. Percentage of wound debrided: 100 Instrument Used: 3mm curette Tissue Removed: subcutaneous tissue. Severity: Fat Layer Exposed - bone is palpable but not exposed and not debrided. Amount of bleeding with debridement: Mild Bleeding Controlled with: Pressure Patient tolerated procedure well Assessment/Plan Assessment: 1. Nonhealing infected ulcer right proximal lateral leg with exposed hardware from previous fracture repair. 2. History of right tibial plateau fracture with ORIF. 3. Diabetes mellitus. 4. Osteomyelitis right tibia. 5. s/p removal of hardware right tibia. 6. s/p surgical preparation right proximal lateral leg with excisional debridement nonhealing ulcer (17.5 cm2) and partial ostectomy tibia for osteomyelitis. Plan: Continue Silver dressing changes daily with SHILO wrap for compression. Operative culture showed Kocuria kristinae. She was discharged on Doxycycline and has finished them. Pathology from recent surgery on 03/06/19 was negative for osteomyelitis. Prealbumin from 03/07/19 was 17.7. Encourage nutritional supplementation with protein to help the healing process. HgbA1c from 06/17/19 was 9.6. Would like it to be 8 or less before proceeding with any elective reconstructive surgery. Since the bone is negative for osteomyelitis, normally we can proceed with complex reconstructive surgery with a muscle flap and skin graft along with placement of a bone graft. Also at the time of her surgery, her nutrition should be maximized to promote healing as well. Also before any complex reconstructive surgery, will obtain a CT. Since her HgbA1c is still high at 9.6, will need to postpone the complex reconstructive surgery at this time. Will need an improved repeat HgbA1c prior to reconstructive surgery. It needs to be trending downward below 9 before proceeding with surgery. Ideally it should be 8 or less. But since there is exposed bone, I will compromise a little bit in order to cover the bone, but I need to see definite trending downward. Depending on the time lapse between this recent operative debridement with partial ostectomy, I may need to repeat the operative debridement and obtain another piece of bone to be sent to Pathology to check for osteomyelitis before proceeding with complex reconstructive surgery with muscle flap and skin graft and bone graft. Patient is aware of that possibility and will followup with her PCP to help manage her diabetes. She will keep her right leg elevated when sitting. Followup 2 weeks. Code Visit [id number]: [id number] Coby subq tissue 20 sq cm/< - ICD-10 - L97.916, T84.196S, M86.9, L03.90, T84.622A, S82.141S, E11.9
== END 2019-07-25 23:59 ==
LOC: WC 08:45
PROVIDERS: Family Provider Family Medicine; PCP Family Medicine; Referring Provider Internal Medicine; Visit Provider Internal Medicine
DX: T81.31XA Disruption of external operation (surgical) wound, not elsewhere classified, initial encounter (principal); T84.498A Other mechanical complication of other internal orthopedic devices, implants and grafts, initial encounter; S82.141S Displaced bicondylar fracture of right tibia, sequela; X58.XXXS Exposure to other specified factors, sequela; E11.69 Type 2 diabetes mellitus with other specified complication; E11.65 Type 2 diabetes mellitus with hyperglycemia; Y83.8 Other surgical procedures as the cause of abnormal reaction of the patient, or of later complication, without mention of misadventure at the time of the procedure; M86.8X6 Other osteomyelitis, lower leg
CPT/HCPCS: 11042

== ENCOUNTER 2019-08-10 08:00 | Outpatient (RCR) | payer MEDICAID, SELFPAY ==
[2019-07-26 00:28] VITALS: BP 116/76; PULSE 90; RESP 16; TEMP 36.6
[2019-08-03 08:18] VITALS: BP 114/60; PULSE 88; RESP 18; TEMP 36.1; BMI 41.3
--- NOTE | 2019-08-03 10:02 | PCM.WC.PN ---
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 without evidence of necrosis Status: Chronic Current Visit: Yes Code(s): L97.916 - Non-pressure chronic ulcer of unspecified part of right lower leg with bone involvement without evidence of necrosis Comment: nonhealing ulcer right proximal lateral leg with exposed hardware from previous fracture repair (2) Osteomyelitis of right tibia Status: Chronic Current Visit: Yes Code(s): M86.9 - Osteomyelitis, unspecified (3) Poorly controlled type 2 diabetes mellitus Status: Chronic Current Visit: Yes Code(s): E11.65 - Type 2 diabetes mellitus with hyperglycemia Type of Wound Date of Service: 08/03/19 Chief Complaint: Nonhealing ulcer right proximal lateral leg with exposed hardware from previous fracture repair that has been removed. History of Wound: Surgery 03/06/19 - Surgical preparation right proximal lateral leg with excisional debridement nonhealing ulcer (17.5 cm2) and partial ostectomy tibia for osteomyelitis. Surgery 12/24/18 - Surgical preparation right proximal lateral leg with incision and drainage and excisional debridement nonhealing infected ulcer with exposed hardware (52.5 cm2) and partial ostectomy tibia for osteomyelitis by Dr. Uribe and right tibia removal of hardware by Dr. Friedman. Wound care -collagen hydrogel with Adaptic. Operative culture - Kobrianria walterae. She was discharged on Doxycycline and has finished them. Her previous culture at the time of her surgery in November, showed Staphylococcus aureus from MRSA Wound DNA by PCR and preoperative cultures showed Staphylococcus aureus, Morganella morganii, Streptococcus mitis/oralis, and Anaerobic cocci. She was placed on Cefipime IV for 6 weeks and Flagyl PO for 6 weeks until 02/04/19. Pathology - negative for osteomyelitis. Her previous pathology on 12/24/18 was positive for focal acute osteomyelitis. Prealbumin from 03/07/19 was 17.7. Encouraged nutritional supplementation with protein to help the healing process. Recent HgbA1c from 06/17/19 was 9.6. It should be 8 or less before proceeding on any elective reconstructive procedure. Her last CT was on 10/23/18 which showed the patient is status post lateral plate screw fixation of the proximal tibia. The fracture line is visible. There is also evidence of prior open reduction internal fixation of the distal tibia and tibiotalar joint. Small joint effusion. Will repeat the CT prior to complex reconstruction of the ulcer with a muscle flap with skin graft and placement of a bone graft. Today she denies fever. Her appetite is ok. Progress of Wound: Improved with granulation tissue over the bone. - Physical Exam Vital Signs Temp Pulse Resp BP 96.9 F L 88 18 114/60 08/03/19 08:18 08/03/19 08:18 08/03/19 08:18 08/03/19 08:18 General: Alert, Oriented x3 HEENT: Atraumatic Oral: Moist Mucosa Lungs: Normal air movement Cardiovascular: Regular rate Extremities: No edema, Capillary Refill Less than 3 Seconds Skin: Ulcer/ Wound - Right knee ulcer Wound Measurements and Assessment WC - Nurse 1 - General Ulcer Measurement Start: 08/03/19 08:18 Freq: Status: Active Protocol: Activity Type Activity Date Activity User E-Sign Co-Sign Detail Recorded Client Recorded Date Recorded By Document 08/03/19 08:18 [id number] 08/03/19 08:20 08/03/19 08:18 Wound Center Nurse 1 [Ulcer Assessment] #1- RT KNEE/LATERAL LAGUERRE -Combined with other wound No -Current Size (cm) - Length 0.1 -Current Size (cm) - Width 0.1 -Current Size (cm) - Depth 0.1 -Total Square Cm 0.01 -Photo Taken No -Epithelialization Large 67-100% -Tunneling No -Undermining/Tunneling No -Circular Undermining No -Exudate Amt None Present -Wound Margin Flat & Intact -Granulation Amt None Present (0 %) -Slough/Fibrin Yes -Necrosis Amt Large (67-100%) -Necrotic Tissue Type Adherent Slough -Structure Exposed N/A -Texture (Tiana-wound Skin Appearance) Assessed, Scarring -Moisture (Tiana-wound Skin Appearance Assessed,Dry/ ) Scaly -Color (Tiana-wound Skin Appearance) Assessed -Temperature (Tiana-wound Skin No Abnormality Appearance) (Pt Warm) -Tenderness on Palpation (Tiana-wound No Skin Appearance) -Ulcer Cleansing Rinsed/ Irrigated with Saline -Foul Odor after Cleansing No -Anesthetic Used 5% Lidocaine Gel [Edema Assessment] -Lower Limb Edema Present NA - Nurse 2 - General Ulcer CM Notes Start: 08/03/19 08:18 Freq: Status: Active Protocol: Activity Type Activity Date Activity User E-Sign Co-Sign Detail Recorded Client Recorded Date Recorded By Document 08/03/19 08:54 [id number] 08/03/19 08:57 08/03/19 08:54 Wound Center Nurse 2 [Procedure/Treatment] #1- RT KNEE/LATERAL LAGUERRE -Time 08:57 -Correct Patient Yes -Correct Side, Site, Position Yes -Correct Procedure Yes -Procedure Performed Yes -Type of Procedure Debridement -Clinical Debridement Subcutaneous -Post Debridement Size (cm) - Length 0.4 -Post Debridement Size (cm) - Width 0.9 -Post Debridement Size (cm) - Depth 0.1 -Total Square Cm 0.36 -Wound/Ulcer Outcome Not Healed -Ulcer Cleansing Rinsed/ Irrigated with Saline -Foul Odor after Cleansing No -Bioengineered Tissue No -Bleeding Controlled with Pressure -Offloading No -Treatment Response Procedure Tolerated Well [See Physician Procedure note for Specifics] Pain Scale: 0-10 Numeric [Pain] -Is Patient Pain Free? Yes Musculoskeletal: No Tenderness to Palpation of Joints or Extremities Neurological: Neuro grossly intact Debridement Note Post-Debridement Measurements/Treatment - Nurse 2 - General Ulcer CM Notes Start: 08/03/19 08:18 Freq: Status: Active Protocol: Activity Type Activity Date Activity User E-Sign Co-Sign Detail Recorded Client Recorded Date Recorded By Document 08/03/19 08:54 [id number] 08/03/19 08:57 08/03/19 08:54 Wound Center Nurse 2 #1- RT KNEE/LATERAL LAGUERRE -Time 08:57 -Correct Patient Yes -Correct Side, Site, Position Yes -Correct Procedure Yes -Procedure Performed Yes -Type of Procedure Debridement -Clinical Debridement Subcutaneous -Post Debridement Size (cm) - Length 0.4 -Post Debridement Size (cm) - Width 0.9 -Post Debridement Size (cm) - Depth 0.1 -Total Square Cm 0.36 -Wound/Ulcer Outcome Not Healed -Ulcer Cleansing Rinsed/ Irrigated with Saline -Foul Odor after Cleansing No -Bioengineered Tissue No -Bleeding Controlled with Pressure -Offloading No -Treatment Response Procedure Tolerated Well Pain Scale: 0-10 Numeric Is Patient Pain Free? Yes Wound debrided: We will ulcer Laterality: Right Type of Debridement: Excisional debridement Anesthesia Used: 5% Lidocaine Gel Depth: Down to and including healthy tissue, in the subcutaneous layer Percentage of wound debrided: 100 Instrument Used: 3mm curette Tissue Removed: Subcutaneous tissue and slough Severity: Limited To Skin Breakdown Amount of bleeding with debridement: Mild Bleeding Controlled with: Pressure Patient tolerated procedure well Assessment/Plan Active Problems Osteomyelitis of right tibia (Chronic) Poorly controlled type 2 diabetes mellitus (Chronic) 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 without evidence of necrosis (Chronic) nonhealing ulcer right proximal lateral leg with exposed hardware from previous fracture repair Assessment: 1. Nonhealing infected ulcer right proximal lateral leg with exposed hardware from previous fracture repair. 2. History of right tibial plateau fracture with ORIF. 3. Diabetes mellitus. 4. Osteomyelitis right tibia. 5. s/p removal of hardware right tibia. 6. s/p surgical preparation right proximal lateral leg with excisional debridement nonhealing ulcer (17.5 cm2) and partial ostectomy tibia for osteomyelitis. Plan: Start collagen hydrogel covered by Adaptic dressing changes daily with SHILO wrap for compression. Operative culture showed Kocuria kristinae. She was discharged on Doxycycline and has finished them. Pathology from recent surgery on 03/06/19 was negative for osteomyelitis. Prealbumin from 03/07/19 was 17.7. Encourage nutritional supplementation with protein to help the healing process. HgbA1c from 06/17/19 was 9.6. Would like it to be 8 or less before proceeding with any elective reconstructive surgery. Since the bone is negative for osteomyelitis, normally we can proceed with complex reconstructive surgery with a muscle flap and skin graft along with placement of a bone graft. Also at the time of her surgery, her nutrition should be maximized to promote healing as well. Also before any complex reconstructive surgery, will obtain a CT. Since her HgbA1c is still high at 9.6, will need to postpone the complex reconstructive surgery at this time. Will need an improved repeat HgbA1c prior to reconstructive surgery. It needs to be trending downward below 9 before proceeding with surgery. Ideally it should be 8 or less. But since there is exposed bone, I will compromise a little bit in order to cover the bone, but I need to see definite trending downward. Depending on the time lapse between this recent operative debridement with partial ostectomy, I may need to repeat the operative debridement and obtain another piece of bone to be sent to Pathology to check for osteomyelitis before proceeding with complex reconstructive surgery with muscle flap and skin graft and bone graft. Patient is aware of that possibility and will followup with her PCP to help manage her diabetes. She will keep her right leg elevated when sitting. Followup 2 weeks. [id number]: [id number] Coby subq tissue 20 sq cm/<
[2019-08-10 08:10] VITALS: BP 111/61; PULSE 91; RESP 16; TEMP 37; BMI 41.3
--- NOTE | 2019-08-10 09:56 | PCM.WC.PN ---
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 without evidence of necrosis Status: Chronic Current Visit: Yes Code(s): L97.916 - Non-pressure chronic ulcer of unspecified part of right lower leg with bone involvement without evidence of necrosis Comment: nonhealing ulcer right proximal lateral leg with exposed hardware from previous fracture repair (2) Osteomyelitis of right tibia Status: Chronic Current Visit: Yes Code(s): M86.9 - Osteomyelitis, unspecified (3) Poorly controlled type 2 diabetes mellitus Status: Chronic Current Visit: Yes Code(s): E11.65 - Type 2 diabetes mellitus with hyperglycemia Type of Wound Date of Service: 08/10/19 Chief Complaint: Nonhealing ulcer right proximal lateral leg with exposed hardware from previous fracture repair that has been removed. History of Wound: Surgery 03/06/19 - Surgical preparation right proximal lateral leg with excisional debridement nonhealing ulcer (17.5 cm2) and partial ostectomy tibia for osteomyelitis. Surgery 12/24/18 - Surgical preparation right proximal lateral leg with incision and drainage and excisional debridement nonhealing infected ulcer with exposed hardware (52.5 cm2) and partial ostectomy tibia for osteomyelitis by Dr. Uribe and right tibia removal of hardware by Dr. Friedman. Wound care -collagen hydrogel with Adaptic. Operative culture - Kobrianria walterae. She was discharged on Doxycycline and has finished them. Her previous culture at the time of her surgery in November, showed Staphylococcus aureus from MRSA Wound DNA by PCR and preoperative cultures showed Staphylococcus aureus, Morganella morganii, Streptococcus mitis/oralis, and Anaerobic cocci. She was placed on Cefipime IV for 6 weeks and Flagyl PO for 6 weeks until 02/04/19. Pathology - negative for osteomyelitis. Her previous pathology on 12/24/18 was positive for focal acute osteomyelitis. Prealbumin from 03/07/19 was 17.7. Encouraged nutritional supplementation with protein to help the healing process. Recent HgbA1c from 06/17/19 was 9.6. It should be 8 or less before proceeding on any elective reconstructive procedure. Her last CT was on 10/23/18 which showed the patient is status post lateral plate screw fixation of the proximal tibia. The fracture line is visible. There is also evidence of prior open reduction internal fixation of the distal tibia and tibiotalar joint. Small joint effusion. Will repeat the CT prior to complex reconstruction of the ulcer with a muscle flap with skin graft and placement of a bone graft. Today she denies fever. Her appetite is ok. Today she is healed. Progress of Wound: She is healed today - Physical Exam Vital Signs Temp Pulse Resp BP 98.6 F 91 16 111/61 08/10/19 08:10 08/10/19 08:10 08/10/19 08:10 08/10/19 08:10 General: Alert, Oriented x3, Cooperative HEENT: Atraumatic Oral: Moist Mucosa Lungs: Normal air movement Cardiovascular: Regular rate Abdomen: Soft Extremities: Capillary Refill Less than 3 Seconds Skin: Ulcer/ Wound - right lateral knee is healed today Wound Measurements and Assessment WC - Nurse 1 - General Ulcer Measurement Start: 08/03/19 08:18 Freq: Status: Active Protocol: Activity Type Activity Date Activity User E-Sign Co-Sign Detail Recorded Client Recorded Date Recorded By Document 08/10/19 08:10 MW [id number] 08/10/19 08:13 MW 08/10/19 08:10 Wound Center Nurse 1 [Ulcer Assessment] #1- RT KNEE/LATERAL LAGUERRE -Combined with other wound No -Current Size (cm) - Length 0.1 -Current Size (cm) - Width 0.1 -Current Size (cm) - Depth 0.1 -Total Square Cm 0.01 -Photo Taken No -Epithelialization Large 67-100% -Tunneling No -Undermining/Tunneling No -Circular Undermining No -Exudate Amt None Present -Wound Margin Flat & Intact -Granulation Amt None Present (0 %) -Granulation Quality N/A -Slough/Fibrin No -Necrosis Amt None Present (0 %) -Structure Exposed N/A -Texture (Tiana-wound Skin Appearance) Assessed, Localized Edema -Moisture (Tiana-wound Skin Appearance No Abnormality, ) Assessed -Color (Tiana-wound Skin Appearance) No Abnormality, Assessed -Temperature (Tiana-wound Skin No Abnormality Appearance) (Pt Warm) -Tenderness on Palpation (Tiana-wound No Skin Appearance) -Ulcer Cleansing Rinsed/ Irrigated with Saline -Foul Odor after Cleansing No -Anesthetic Used 5% Lidocaine Gel [Edema Assessment] -Lower Limb Edema Present No WC - Nurse 2 - General Ulcer CM Notes Start: 08/03/19 08:18 Freq: Status: Active Protocol: Activity Type Activity Date Activity User E-Sign Co-Sign Detail Recorded Client Recorded Date Recorded By Document 08/10/19 08:47 [id number] 08/10/19 08:48 08/10/19 08:47 Wound Center Nurse 2 [Procedure/Treatment] #1- RT KNEE/LATERAL LAGUERRE -Correct Patient No -Correct Side, Site, Position No -Correct Procedure No -Procedure Performed No -Post Debridement Size (cm) - Length 0 -Post Debridement Size (cm) - Width 0 -Post Debridement Size (cm) - Depth 0 -Total Square Cm 0 -Wound/Ulcer Outcome Healed- Epithelialized [See Physician Procedure note for Specifics] Pain Scale: 0-10 Numeric [Pain] -Is Patient Pain Free? Yes Musculoskeletal: No Tenderness to Palpation of Joints or Extremities Neurological: Neuro grossly intact Psych/Mental Status: Normal Affect, Appropriate Debridement Note Post-Debridement Measurements/Treatment WC - Nurse 2 - General Ulcer CM Notes Start: 08/03/19 08:18 Freq: Status: Active Protocol: Activity Type Activity Date Activity User E-Sign Co-Sign Detail Recorded Client Recorded Date Recorded By Document 08/03/19 08:54 [id number] 08/03/19 08:57 Document 08/10/19 08:47 [id number] 08/10/19 08:48 08/03/19 08/10/19 08:54 08:47 Wound Center Nurse 2 #1- RT KNEE/LATERAL LAGUERRE -Time 08:57 -Correct Patient Yes No -Correct Side, Site, Position Yes No -Correct Procedure Yes No -Procedure Performed Yes No -Type of Procedure Debridement -Clinical Debridement Subcutaneous -Post Debridement Size (cm) - Length 0.4 0 -Post Debridement Size (cm) - Width 0.9 0 -Post Debridement Size (cm) - Depth 0.1 0 -Total Square Cm 0.36 0 -Wound/Ulcer Outcome Not Healed Healed- Epithelialized -Ulcer Cleansing Rinsed/ Irrigated with Saline -Foul Odor after Cleansing No -Bioengineered Tissue No -Bleeding Controlled with Pressure -Offloading No -Treatment Response Procedure Tolerated Well Pain Scale: 0-10 Numeric Is Patient Pain Free? Yes Yes No debridement was completed today Assessment/Plan Active Problems Osteomyelitis of right tibia (Chronic) Poorly controlled type 2 diabetes mellitus (Chronic) 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 without evidence of necrosis (Chronic) nonhealing ulcer right proximal lateral leg with exposed hardware from previous fracture repair Assessment: 1. Nonhealing infected ulcer right proximal lateral leg with exposed hardware from previous fracture repair. 2. History of right tibial plateau fracture with ORIF. 3. Diabetes mellitus. 4. Osteomyelitis right tibia. 5. s/p removal of hardware right tibia. 6. s/p surgical preparation right proximal lateral leg with excisional debridement nonhealing ulcer (17.5 cm2) and partial ostectomy tibia for osteomyelitis. Plan: Today she is healed. Encouraged her to massage wit lotion daily to help soften scarring. She will be discharged from the wound healing center today. She can follow-up as needed.
== END 2019-08-25 23:59 ==
LOC: WC 08:00
PROVIDERS: Family Provider Family Medicine; PCP Family Medicine; Referring Provider Internal Medicine; Visit Provider Internal Medicine
DX: T84.498A Other mechanical complication of other internal orthopedic devices, implants and grafts, initial encounter (principal); L97.916 Non-pressure chronic ulcer of unspecified part of right lower leg with bone involvement without evidence of necrosis; Y83.8 Other surgical procedures as the cause of abnormal reaction of the patient, or of later complication, without mention of misadventure at the time of the procedure; S82.101S Unspecified fracture of upper end of right tibia, sequela; X58.XXXS Exposure to other specified factors, sequela; E11.69 Type 2 diabetes mellitus with other specified complication; M86.661 Other chronic osteomyelitis, right tibia and fibula; E11.65 Type 2 diabetes mellitus with hyperglycemia; Z79.82 Long term (current) use of aspirin; Z79.4 Long term (current) use of insulin; Z79.899 Other long term (current) drug therapy
CPT/HCPCS: 11042; 99213; G0463

== ENCOUNTER 2020-12-10 23:17 | Emergency (ER) | payer MEDICARE, MEDICAID, SELFPAY ==
[2020-12-10 23:18] VITALS: BP 141/74; PULSE 90; RESP 14; TEMP 36.6; O2SAT 98; BMI 33.7
--- NOTE | 2020-12-10 23:24 | EKG12_ITS ---
Test Reason : CHEST PAIN Blood Pressure : / mmHG Vent. Rate : 084 BPM Atrial Rate : 084 BPM P-R Int : 148 ms QRS Dur : 088 ms QT Int : 356 ms P-R-T Axes : 056 036 031 degrees QTc Int : 420 ms Normal sinus rhythm Normal ECG Confirmed by LIVIER GERARDO, ED ([id number]), publications editor YOGESH VERGARA ([id number]) on 12/12/2020 2:25:11 PM Referred By: [email or web address] Confirmed By:ED MAIER MD
--- NOTE | 2020-12-10 23:24 | RAD_ITS ---
STUDY: X-RAY CHEST REASON FOR EXAM: Female, 65 years old. chest pain TECHNIQUE: Single frontal view of the chest. COMPARISON: 06/25/2019 FINDINGS: The lungs are clear and expanded. There is no demonstrated pleural abnormality. Normal size heart. Aortic calcifications. There are diffuse degenerative changes of the visualized thoracic spine. There is degenerative osteoarthritis of the bilateral shoulders. Calcific structure adjacent to the LEFT humeral head which can be seen with calcific tendinitis. There is no demonstrated abnormality of the visualized soft tissue structures of the upper abdomen. RAD/Chest 1 View (Portable) IMPRESSION: Degenerative changes, as described above. No demonstrated acute cardiopulmonary process. Electronically Signed: Boris Alberts MD at 0:08 EDT Tel , Service support ,
[2020-12-10 23:26] VITALS: O2SAT 100
[2020-12-10 23:31] LABS: Bedside Glucose > 500 mg/dL (70-110)
[2020-12-10 23:41] LABS: Absolute Lymphocyte Count 2.86 X10^3/uL (0.83-4.51); Basophil# 0.07 X10^3/uL; Basophil% 0.9 % (0-1); Eosinophil# 0.21 X10^3/uL; Eosinophils% 2.7 % (0-5); Hematocrit 40.9 % (37-47); Hemoglobin 13.7 g/dL (12.0-15.0); Lymphocyte # 2.86 X10^3/ul (0.83-4.51); Lymphocyte % 36.9 % (19-41); Mean Corp Hgb Conc 33.5 g/dL (32-36); Mean Corpuscular Hgb 29.7 pg (27.0-32.0); Mean Corpuscular Volume 88.7 fL (81-99); Mean Platelet Vol. 9.7 fl (6.2-12.0); Monocyte# 0.58 X10^3/uL; Monocyte% 7.5 % (0-10); NRBC Flagged by Analyzer 0 % (0-5); Neutrophil # 3.97 X10^3/uL (2.7-7.7); Neutrophil % 51.1 % (47-70); Platelet Count 351 K/mm3 (150-450); RBC Distribution Width CV 12.7 % (11.6-14.6); RBC Distribution Width SD 41.1 fl (35.1-43.9); Red Blood Count 4.61 M/mm3 (4.2-5.4); White Blood Count 7.8 K/mm3 (4.4-11.0)
--- NOTE | 2020-12-10 23:52 | ED.VIS.CHEST ---
HPI History of Present Illness Chief Complaint: Chest Pain Informant: patient Onset/Context/Timing Onset: Today and Yesterday Activity at onset: gradual Timing: Continuous Quality: Positive for Sharp Location: Left Chest Current Severity: Mild Maximum Severity: Mild Worsened By: Movement of Torso; Not Worsened By Exertion, Breathing and Coughing Relieved By: Remaining Still Associated Symptoms: Negative for Nausea, Vomiting, Diaphoresis, Dyspnea, Cough, Fever, Lightheadedness, Acid Reflux and Palpitations Narrative Narrative: 65-year-old female diabetes, hypertension high cholesterol. No prior cardiac history. Has never had a heart catheterization. Said she got an argument with friends of her sister on Saturday night. At that time she developed left chest discomfort. She denies any recent dyspnea or exertional chest pain. She denies any trouble with steps. She denies any nausea, vomiting or diarrhea. No fever or chills. No exertional shortness of breath nor exertional chest pain. States the episode with these people had her upset. The pain is worse with movement. She denies any recent falls or trauma or any stress to her chest wall. She is never had a DVT or PE. No recent risk factors. No hemoptysis. Prior Similar Symptoms: No Recent Illness/Hospitalization: No CVD Risk Factors: Positive for Hypertension, Diabetes and Hypercholesterolemia; Negative for Family History 1' </=55 and Smoking PE Risk Factors: Negative for Recent Travel/Surgery, Recent Immobilization, Prior DVT or PE, Cancer and OCP + Smoking + >/=35 TAD Risk Factors: Negative for Marfan's Syndrome and Hypertension [facility] Medical History Diabetes Hypertension Kidney stones Home Medications lisinopril 10 mg PO DAILY 08/25/14 [History Last Taken 03/06/19 03:00 10 MG] vitamin B complex 1 ea PO BID 11/23/15 [History Last Taken 03/06/19 03:00 1 EACH] metformin 1,000 mg PO BIDCM 09/19/16 [History Last Taken 03/06/19 03:00 1000 MG] Levemir FlexTouch U-100 Insuln 40 units SUBCUT QHS 07/18/18 [History Last Taken 12/23/18] aspirin 81 mg PO DAILY 07/18/18 [History Last Taken 12/21/18] atorvastatin 40 mg PO QHS 11/17/18 [History Last Taken 12/23/18] B-complex with vitamin C 1 cap PO BID cap 03/07/19 [Rx Last Taken Unknown] insulin detemir U-100 [Levemir FlexTouch U-100 Insuln] 40 unit SUBCUT QHS 30 Days #12 ml 12/11/20 [Rx Last Taken Unknown] lisinopril 10 mg PO DAILY 30 Days #30 tab 12/11/20 [Rx Last Taken Unknown] metformin 1,000 mg PO BID 30 Days #60 tab 12/11/20 [Rx Last Taken Unknown] Allergy/AdvReac Type Severity Reaction Status Date / Time cephalexin [From Keflex] Allergy Breakouts Verified 12/10/20 23:22 diflunisal [From Dolobid] Allergy Rash Verified 12/10/20 23:22 insulin lispro [From Humalog] Allergy Rash Verified 12/10/20 23:22 Penicillins Allergy Rash Verified 12/10/20 23:22 Surgical History History of appendectomy Social History Smoking Status: Never smoker ROS ROS ED ROS Narrative Denies recent illness. Review of Systems ROS Unobtainable: Denies due to encephalopathy Constitutional Constitutional ED: Denies chills or fever(s) Eyes Eyes: Denies none ENT ENT ED: Denies sore throat Cardiovascular Cardiovascular: Reports as per HPI and chest pain; Denies palpitations or racing heartbeat Respiratory/Chest Respiratory/Chest: Denies cough, dyspnea or sputum Gastrointestinal Gastrointestinal: Denies abdominal pain, diarrhea, nausea or vomiting Genitourinary Genitourinary ED: Denies dysuria or hematuria Musculoskeletal Musculoskeletal: Denies myalgias Integumentary Denies rash Neurologic Neurologic: Denies headache(s) Psychiatric Psychiatric: Denies depression Endocrine Endocrinology: Denies polyuria Hematologic/Lymphatic Hematologic/Lymphatic: Denies easy bruising Allergic/Immunologic Allergic/Immunologic ED: Denies urticaria EXAM Physical Exam Narrative Exam Narrative: Well-appearing older female no acute distress. Vital signs stable afebrile. Pulse ox 98% on room air no hypoxia. HEENT exam unremarkable. Lungs clear to auscultation bilaterally. Left chest wall reproducibly tender. No ecchymosis or bruising no redness or warmth. No crepitance or subcu air. Heart regular rate and rhythm rate about 80 no murmur. Abdomen soft nontender normal bowel sounds no peritoneal signs. Moving all 4 extremities. Calves are nontender without edema or cords. Neurologically awake alert with no focal motor deficits. Const Vital Signs: 12/10/20 23:18 12/10/20 23:26 12/11/20 01:18 Temperature 97.8 F Temperature Source Temporal Pulse Rate 90 74 Respiratory Rate 14 15 Blood Pressure 141/74 H 114/53 L Blood Pressure Mean 96 73 Pulse Ox 98 100 99 Oxygen Delivery Method Room Air Room Air Room Air Positive well nourished and well developed; Negative for unkempt General Appearance ED: well developed and NAD; Negative for unkempt HEENT Reports moist mucous membranes normocephalic and atraumatic; Negative for trauma or tenderness Eyes PERRL and EOMs intact bilaterally Neck no lymphadenopathy, supple and no JVD General: Negative for tenderness Chest Wall inspection of chest normal and palpation of chest normal Resp normal respiratory effort and clear to auscultation bilaterally Effort and Inspection: respiratory distress Auscultation: Negative for rales, rhonchi or wheezes Cardio regular rate, regular rhythm, S1 normal heart sound, S2 normal heart sound and no murmurs Rate: Negative for bradycardia or tachycardic GI normal to inspection, nondistended, normoactive bowel sounds, soft to palpation, non-tender and non-distended Back/Spine no CVA tenderness Extremity normal to inspection General Extremety ED: Yes edema and tenderness General Extremity: edema Neuro oriented x3 and CN's II-XII intact bilaterally Sensorium / Orientation: awake, alert, oriented to person, oriented to place and oriented to time Motor Exam: strength 5/5 throughout Psych mental status grossly normal Appearance: Negative for unkempt Skin no rashes or lesions noted and no wounds Skin Narrative: Mild reproducible tenderness left chest wall. Exam otherwise unremarkable. Heart Score History: Slightly/Non-Suspicious ECG: Normal Age: >/= 65 years Risk Factors: >/= 3 Risk Factors or History of CAD Troponin: </= Normal Limit Score: 4 MDM MDM MDM Narrative Medical decision making narrative: 65-year-old female noncardiac sounding reproducible left chest wall pain that started last night is greater than 24 hours old. It is totally reproducible. She has no exertional symptoms. She does have risk factors with her age, diabetes, cholesterol and hypertension. We will do a cardiac work-up but at least clinically this appears to be chest wall pain. Repeat exam patient is doing well at 12:35 AM. Her CBC is unremarkable. Her blood sugar is elevated 621. She is not in DKA. She will be given insulin and reassessed. The chest pain is reproducible. Her troponin is normal and she has had the pain for more than 24 hours. Her EKG and chest x-ray unremarkable. From that standpoint she can be sent home. We will give her subcu insulin and reassess her blood sugar prior to discharge. Patient doing well at 3:11 AM blood sugars 382. She will be discharged to home. I wrote her 1 month prescription for her blood pressure and diabetic meds. Also she needs a follow-up and get primary care physician. Lab Data Attestation: I reviewed the patient's lab results. Lab results narrative: EKG normal sinus rhythm rate 84 no acute signs of WI or ischemia. CBC normal white count 7. Hemoglobin 13. Portable chest x-ray unremarkable normal cardiac silhouette mediastinum. No acute processes. CBC White count is 7. Hemoglobin 13. Electrolytes sodium 131. Gap 8. Normal creatinine. Glucose elevated at 621 but has a normal gap. Serum ketones are negative also. Labs: Laboratory Results - last 24 hr 12/10/20 12/10/20 12/10/20 23:23 23:30 23:30 WBC 7.8 RBC 4.61 Hgb 13.7 Hct 40.9 MCV 88.7 MCH 29.7 MCHC 33.5 RDW Std Deviation 41.1 RDW Coeff of Dionisio 12.7 Plt Count 351 MPV 9.7 Immature Gran % (Auto) 0.900 Neut % (Auto) 51.1 Lymph % (Auto) 36.9 [place] % (Auto) 7.5 Eos % (Auto) 2.7 Baso % (Auto) 0.9 Absolute Neuts (auto) 4.0 Absolute Lymphs (auto) 2.86 Nucleated RBC % 0 Sodium 131 L Potassium 4.6 Chloride 98 Carbon Dioxide 25.0 Anion Gap 8 BUN 15 Creatinine 0.89 Estim Creat Clear Calc 74.40 Est GFR (MDRD) Af Amer 82 Est GFR (MDRD) Non-Af 68 BUN/Creatinine Ratio 16.9 Glucose 621 H* Calcium 8.6 Troponin I High Sens 3.0 Acetone Level POC Glucose > 500 H* 12/11/20 00:02 WBC RBC Hgb Hct MCV MCH MCHC RDW Std Deviation RDW Coeff of Dionisio Plt Count MPV Immature Gran % (Auto) Neut % (Auto) Lymph % (Auto) [place] % (Auto) Eos % (Auto) Baso % (Auto) Absolute Neuts (auto) Absolute Lymphs (auto) Nucleated RBC % Sodium Potassium Chloride Carbon Dioxide Anion Gap BUN Creatinine Estim Creat Clear Calc Est GFR (MDRD) Af Amer Est GFR (MDRD) Non-Af BUN/Creatinine Ratio Glucose Calcium Troponin I High Sens Acetone Level NEGATIVE POC Glucose Radiography Chest X-Ray - ED: 1 View, Read by ED Physician, Heart, Lungs, Mediastinum, Bony Structures, No Acute Disease, Chronic Changes, Cardiomegaly, CHF and No Infiltrates Diagnostic Testing: Radiology Impression Chest X-Ray 12/10/20 23:24 IMPRESSION: Degenerative changes, as described above. No demonstrated acute cardiopulmonary process. Electronically Signed: Boris Alberts MD at 0:08 EDT Tel , Service support , Portable 1 view chest x-ray interpreted by myself unremarkable. Chronic changes. Normal cardiac silhouette mediastinum. No infiltrate. Rhythm Strip Rhythm Strip: Sinus Rhythm Rate: 84 Ectopy: None EKG Initial EKG: Attestation: I personally reviewed and interpreted this EKG as follows: Interpretation: Sinus Rhythm and No Acute Injury Pattern Comments: Normal sinus rhythm rate 84 no acute signs of WI nor ischemia. Prior EKG tracings: not available for review Discharge Plan Triage Chief Complaint: Chest Pain ED Provider: Corey Jasso Dx/Rx/DC Orders Clinical Impression: Hyperglycemia due to diabetes mellitus, Acute chest wall pain Instructions: ED Chest Wall Pain, Costochondritis, ED Diabetic Hyperglycemia Prescriptions: New Levemir FlexTouch U-100 Insuln 100 unit/mL (3 mL) insulin pen 40 unit subcut QHS 30 Days Qty: 12 RF: 1 lisinopril 10 mg tablet 10 mg PO DAILY 30 Days Qty: 30 RF: 0 metformin 1,000 mg tablet 1,000 mg PO BID 30 Days Qty: 60 RF: 0 No Action lisinopril 10 MG tablet 10 mg PO DAILY RF: 0 vitamin B complex 1 EACH capsule 1 ea PO BID RF: 0 metformin 500 MG tablet 1,000 mg PO BIDCM RF: 0 aspirin 81 MG tablet,delayed release (DR/EC) 81 mg PO DAILY RF: 0 Levemir FlexTouch U-100 Insuln 100 UNITS/ML insulin pen 40 units subcut QHS RF: 0 atorvastatin 40 MG tablet 40 mg PO QHS RF: 0 B-complex with vitamin C 1 CAPSULE capsule 1 cap PO BID RF: 0 Primary Care Provider: Care Physician,No Primary Referrals: Luis Daniel Leiva MD [STAFF PHYSICIAN] - As soon as possible Care Physician,No Primary [Primary Care Provider] - Activity Restrictions/Additional Instructions: Follow-up with your primary care provider. Take your medications as prescribed. I wrote you a prescription for your insulin, Metformin and your blood pressure medication lisinopril. This will be at your pharmacy to be picked up tomorrow. Take your medications as prescribed. Check your blood sugars at least twice daily. Return to the emergency department if you are feeling worse. Disposition Disposition: Home, Self Care
[2020-12-11 00:04] LABS: Anion Gap 8 (5-15); BUN 15 mg/dL (7-18); BUN/Creat Ratio 16.9 RATIO (10-20); Calcium,Total 8.6 mg/dL (8.5-10.1); Chloride 98 mmol/L (98-107); Creatinine, Serum 0.89 mg/dL (0.55-1.02); EST Glomerular Filtration Rate 68 mL/min (>60); Est Glom Filt Rate - Afr Amer 82 mL/min (>60); Glucose 621 mg/dL (74-106); Potassium 4.6 mmol/L (3.5-5.1); Sodium Level 131 mmol/L (136-145)
[2020-12-11] MEDS: 0.9% Normal Saline 1,000 ML 999 ML IV (01:11)
[2020-12-11] MEDS: Insulin Lispro 100 UNIT/ML INSULN.PEN 15 UNIT SC (01:12)
[2020-12-11 01:18] VITALS: BP 114/53; PULSE 74; RESP 15; O2SAT 99
[2020-12-11 03:14] VITALS: BP 130/63; PULSE 83; RESP 17; O2SAT 97
[2020-12-11 03:16] LABS: Bedside Glucose 382 mg/dL (70-110)
== END 2020-12-11 03:16 | disposition home or self-care (01) ==
PROVIDERS: Emergency Provider Emergency Medicine
DX: E11.65 Type 2 diabetes mellitus with hyperglycemia (principal); R07.89 Other chest pain; I10 Essential (primary) hypertension; E78.00 Pure hypercholesterolemia, unspecified; Z87.442 Personal history of urinary calculi; Z79.4 Long term (current) use of insulin; Z79.82 Long term (current) use of aspirin; Z79.899 Other long term (current) drug therapy
CPT/HCPCS: 71045; 80048; 82009; 82962; 84484; 85025; 93005; 96360; 96361; 96372; 99285; J7030; A4216

== ENCOUNTER 2021-02-26 19:52 | Emergency (ER) | payer OTHER, MEDICARE, MEDICAID, SELFPAY ==
[2021-02-26 19:53] VITALS: BP 114/62; PULSE 89; RESP 14; TEMP 35.9; O2SAT 97; BMI 44.5
--- NOTE | 2021-02-26 20:24 | ED.VIS.FALL ---
HPI HPI - Fall History of Present Illness Chief Complaint: Fall Informant: patient Occured/Mechanism Occurred: Today Pain/Injury Current Severity: Mild Maximum Severity: Mild Narrative Narrative: Patient presents secondary to right knee injury at work. She states that she slipped on a greasy floor and fell injuring her right knee. She has increased pain of the anterior knee with ambulation. She has had prior right knee surgery. No paresthesias. Denies any other injury. [facility] Medical History Diabetes Hypertension Kidney stones Home Medications lisinopril 10 mg PO DAILY 08/25/14 [History Last Taken 03/06/19 03:00 10 MG] vitamin B complex 1 ea PO BID 11/23/15 [History Last Taken 03/06/19 03:00 1 EACH] metformin 1,000 mg PO BIDCM 09/19/16 [History Last Taken 03/06/19 03:00 1000 MG] Levemir FlexTouch U-100 Insuln 40 units SUBCUT QHS 07/18/18 [History Last Taken 12/23/18] aspirin 81 mg PO DAILY 07/18/18 [History Last Taken 12/21/18] atorvastatin 40 mg PO QHS 11/17/18 [History Last Taken 12/23/18] B-complex with vitamin C 1 cap PO BID cap 03/07/19 [Rx Last Taken Unknown] insulin detemir U-100 [Levemir FlexTouch U-100 Insuln] 40 unit SUBCUT QHS 30 Days #12 ml 12/11/20 [Rx Last Taken Unknown] lisinopril 10 mg PO DAILY 30 Days #30 tab 12/11/20 [Rx Last Taken Unknown] metformin 1,000 mg PO BID 30 Days #60 tab 12/11/20 [Rx Last Taken Unknown] Allergy/AdvReac Type Severity Reaction Status Date / Time cephalexin [From Keflex] Allergy Breakouts Verified 02/26/21 19:53 diflunisal [From Dolobid] Allergy Rash Verified 02/26/21 19:53 insulin lispro [From Humalog] Allergy Rash Verified 02/26/21 19:53 Penicillins Allergy Rash Verified 02/26/21 19:53 Surgical History H/O right knee surgery History of appendectomy Social History Smoking Status: Never smoker ROS ROS ED Constitutional Constitutional ED: Denies chills or fever(s) Eyes Eyes: Denies change in vision ENT ENT ED: Denies sore throat Cardiovascular Cardiovascular: Denies chest pain Respiratory/Chest Respiratory/Chest: Denies cough or dyspnea Gastrointestinal Gastrointestinal: Denies abdominal pain, diarrhea, nausea or vomiting Genitourinary Genitourinary ED: Denies dysuria Musculoskeletal Musculoskeletal: Reports arthralgias; Denies back pain Integumentary Denies rash Neurologic Neurologic: Denies headache(s) or weakness Allergic/Immunologic Allergic/Immunologic ED: Denies urticaria EXAM Physical Exam Const Vital Signs: 02/26/21 19:53 02/26/21 20:55 Temperature 96.6 F L Temperature Source Temporal Pulse Rate 89 Respiratory Rate 14 Respiratory Effort Normal Non-Labored Respiratory Depth Normal Respiratory Pattern Normal Blood Pressure 114/62 Blood Pressure Mean 79 Pulse Ox 97 Positive well nourished and well developed General Appearance ED: well developed HEENT Reports normocephalic and head/scalp atraumatic Eyes PERRL and EOMs intact bilaterally Neck supple Chest Wall inspection of chest normal and palpation of chest normal Resp normal respiratory effort and clear to auscultation bilaterally Cardio regular rate and regular rhythm GI normal to inspection, nondistended, normoactive bowel sounds Palpation: soft Extremity normal to inspection Extremity Narrative: Old surgical scar on the inferior lateral right knee. No tenderness to this area. Mild tenderness over the anterior patella. Good range of motion patient able to lift leg off bed without difficulty. Neuro oriented x3 and no sensory deficits noted Sensorium / Orientation: alert Motor Exam: strength 5/5 throughout Psych mental status grossly normal Skin no rashes or lesions noted MDM MDM MDM Narrative Medical decision making narrative: Right knee x-rays are obtained. Patient declined anything for pain. Treatment and Re-Evaluation Comments:: Right knee x-ray per my interpretation reveals no acute findings. Normal patella. Postop changes over the proximal tibia are noted. Joe wrap is applied to the knee. Patient will follow up with corporate care as needed. Discharge Plan Triage Chief Complaint: Fall ED Provider: Apryl Carrera Dx/Rx/DC Orders Clinical Impression: Contusion of knee, right Instructions: ED Contusion, Lower Extremity Prescriptions: No Action lisinopril 10 MG tablet 10 mg PO DAILY RF: 0 vitamin B complex 1 EACH capsule 1 ea PO BID RF: 0 metformin 500 MG tablet 1,000 mg PO BIDCM RF: 0 aspirin 81 MG tablet,delayed release (DR/EC) 81 mg PO DAILY RF: 0 Levemir FlexTouch U-100 Insuln 100 UNITS/ML insulin pen 40 units subcut QHS RF: 0 atorvastatin 40 MG tablet 40 mg PO QHS RF: 0 B-complex with vitamin C 1 CAPSULE capsule 1 cap PO BID RF: 0 Levemir FlexTouch U-100 Insuln 100 unit/mL (3 mL) insulin pen 40 unit subcut QHS 30 Days Qty: 12 RF: 1 lisinopril 10 mg tablet 10 mg PO DAILY 30 Days Qty: 30 RF: 0 metformin 1,000 mg tablet 1,000 mg PO BID 30 Days Qty: 60 RF: 0 Stand Alone Forms: Work Status Form Primary Care Provider: Care Physician,No Primary Referrals: Corporate,Care [GROUP OF PHYSICIANS] - 5-7 Days Care Physician,No Primary [Primary Care Provider] - Disposition Disposition: Home, Self Care
--- NOTE | 2021-02-26 20:34 | RAD_ITS ---
HISTORY: fall EXAMINATION/TECHNIQUE: XR Knee Complete 4 Views or More: Right knee COMPARISON: Right knee radiographs from 12/16/18 FINDINGS: SOFT TISSUES: No significant soft tissue swelling. Punctate subcutaneous calcification within suprapatellar region, likely chronic and benign. BONES/JOINTS: No acute fracture or subluxation. In the interval, patient is status post tibial ORIF hardware removal. Healed fracture deformity lateral tibial plateau again noted. Stable small chronic ossified body along side medial femoral condyle (chronic avulsion fragment versus calcific tendinopathy). Adequate alignment. Preservation of the joint spaces. RAD/Knee 4 or More Views IMPRESSION: Chronic changes right knee with no evidence of acute injury. at 2132 Reported and signed by: Servando Boucher MD Electronically Signed: Servando Boucher MD at 21:31 EDT Tel , Service support ,
== END 2021-02-26 21:49 | disposition home or self-care (01) ==
PROVIDERS: Emergency Provider Emergency Medicine
DX: S80.01XA Contusion of right knee, initial encounter (principal); W01.0XXA Fall on same level from slipping, tripping and stumbling without subsequent striking against object, initial encounter; Y93.9 Activity, unspecified; Y92.9 Unspecified place or not applicable; I10 Essential (primary) hypertension; E11.9 Type 2 diabetes mellitus without complications; Z87.442 Personal history of urinary calculi; Z79.4 Long term (current) use of insulin; Z79.82 Long term (current) use of aspirin; Z79.899 Other long term (current) drug therapy
CPT/HCPCS: 73564; 99282

== ENCOUNTER 2021-11-14 20:39 | Emergency (ER) | payer MEDICARE, MEDICAID, SELFPAY ==
[2021-11-14 20:48] VITALS: BP 108/76; RESP 18; TEMP 36.9; O2SAT 100; BMI 40.9
--- NOTE | 2021-11-14 22:09 | EX.ED.DYSGE1 ---
HPI History of Present Illness Chief Complaint: Abscess Informant: patient Onset/Context/Timing Onset: Days Context: Gradual Onset Timing: Continuous Current Severity: Mild Maximum Severity: Mild Narrative Narrative: 66-year-old diabetic female with a right groin abscess. Prior history of the same and that she needed I&D years ago. She denies any other complaints. No fever or chills. States this is been going on for the last several days. Prior similar symptoms: Yes Recent Illness/Hospitalization: No PFSH PFSH Medical History Diabetes Hypertension Kidney stones Home Medications lisinopril 10 mg tablet 10 mg PO DAILY BLOOD PRESSURE 08/25/14 [History Last Taken 03/06/19 03:00 10 MG] vitamin B complex 1 ea PO BID SUPPLEMENT 11/23/15 [History Last Taken 03/06/19 03:00 1 EACH] metformin 500 mg tablet 1,000 mg PO BIDCM BLOOD SURGAR 09/19/16 [History Last Taken 03/06/19 03:00 1000 MG] aspirin 81 mg tablet,delayed release 81 mg PO DAILY HEART HEALTH 07/18/18 [History Last Taken 12/21/18] insulin detemir U-100 100 unit/mL (3 mL) subcutaneous pen (Levemir FlexTouch U-100 Insulin) 40 units subcut QHS INSULIN 07/18/18 [History Last Taken 12/23/18] atorvastatin 40 mg tablet 40 mg PO QHS 11/17/18 [History Last Taken 12/23/18] B-complex with vitamin C 1 cap PO BID 03/07/19 [Rx Last Taken Unknown] cephalexin 500 mg capsule 500 mg PO Q6 #40 caps 11/14/21 [Rx Last Taken Unknown] sulfamethoxazole 800 mg-trimethoprim 160 mg tablet (Bactrim DS) 1 tab PO BID 10 days #20 tabs 11/14/21 [Rx Last Taken Unknown] Allergy/AdvReac Type Severity Reaction Status Date / Time cephalexin [From Keflex] Allergy Breakouts Verified 11/14/21 20:39 diflunisal [From Dolobid] Allergy Rash Verified 11/14/21 20:39 insulin lispro [From Humalog] Allergy Rash Verified 11/14/21 20:39 Penicillins Allergy Rash Verified 11/14/21 20:39 Surgical History H/O right knee surgery History of appendectomy Social History Smoking Status: Never smoker ROS ROS ED ROS Narrative Denies recent illness. Review of Systems ROS Unobtainable: Denies due to encephalopathy Constitutional Constitutional ED: Denies chills Eyes Eyes: Denies blurry vision ENT ENT ED: Denies ear pain Cardiovascular Cardiovascular: Denies chest pain Respiratory/Chest Respiratory/Chest: Denies cough Gastrointestinal Gastrointestinal: Denies abdominal pain Genitourinary Genitourinary ED: Denies dysuria Musculoskeletal Musculoskeletal: Denies arthralgias Integumentary Reports abscess Neurologic Neurologic: Denies headache(s) Psychiatric Psychiatric: Denies anxiety Endocrine Endocrinology: Denies cold intolerance Allergic/Immunologic Allergic/Immunologic ED: Denies mouth swelling EXAM Physical Exam Narrative Exam Narrative: 66-year-old female no acute distress vital signs stable afebrile. HEENT exam unremarkable. Without dentition. Neck nontender. Lungs are clear. Heart regular rhythm. Abdomen soft nontender. Moving all 4 extremities. With a female nurse present in the room she has an abscess on the right lateral side of her labia majora. It has an open wound of about 1 to 2 inches. There is a small amount of draining pus. There is no significant cellulitis. There is no crepitance. There is no signs of Clinton's gangrene. Const Vital Signs: 11/14/21 20:48 Temperature 98.4 F Temperature Source Temporal Respiratory Rate 18 Blood Pressure 108/76 Blood Pressure Mean 86 Pulse Ox 100 Oxygen Delivery Method Room Air Positive well nourished, well developed and obese; Negative for cachectic, contractures or unkempt General Appearance ED: well developed; Negative for unkempt, cachectic or contractures Nutritional Appearance: obese; Negative for cachectic HEENT Reports moist mucous membranes Negative for trauma Eyes PERRL and EOMs intact bilaterally General Eye ED: Negative for pale conjunctiva Neck no lymphadenopathy, supple and no JVD General: Negative for tenderness Lymph Lymphatic: Negative for other Chest Wall inspection of chest normal and palpation of chest normal Resp normal respiratory effort and clear to auscultation bilaterally Effort and Inspection: Negative for retractions Auscultation: Negative for rales, rhonchi or wheezes Cardio regular rate, regular rhythm, S1 normal heart sound, S2 normal heart sound and no murmurs Palpation: Negative for palpable S3 Rate: Negative for bradycardia GI normal to inspection, nondistended, normoactive bowel sounds, non-tender, non-distended and no masses Inspection: Negative for abdominal distention Auscultation: normoactive bowel sounds Palpation: soft; Negative for tender, guarding or splenomegaly Narrative: Right labia majora laterally there is an open abscess small amount of pus. No significant cellulitis. No crepitance. No foreign years gangrene. Examined with female nurse present in room. Back/Spine no CVA tenderness General Back: Negative for CVA tenderness Cervical Spine: Negative for cervical spine tenderness Thoracic Spine / Upper Back: Negative for thoracic spinal tenderness Lumbar Spine / Lower Back: Negative for lumbar spinal tenderness Extremity normal to inspection Psych Appearance: Negative for unkempt Attitude: No agitated Mood & Affect: Negative for depressed, anxious or tearful Skin no rashes or lesions noted MDM MDM MDM Narrative Medical decision making narrative: Patient with a right labia majora abscess that is open and draining. He does not need I&D. Patient be started on Bactrim and Keflex. Follow-up with [employer] [employer]. She was specifically instructed if this is looking worse or she develops a fever or feeling ill she should return. Her blood sugar be checked prior to discharge. Discharge Plan Triage Chief Complaint: Abscess ED Provider: Corey Jasso Dx/Rx/DC Orders Clinical Impression: Labial abscess, History of diabetes mellitus Instructions: ED Abscess Antibiotic Treatment Only Prescriptions: New cephalexin 500 mg capsule 500 mg PO Q6 Qty: 40 0RF sulfamethoxazole-trimethoprim [Bactrim DS] 800-160 mg tablet 1 tab PO BID 10 Days Qty: 20 0RF No Action lisinopril 10 MG tablet 10 mg PO DAILY Label Comments: BLOOD PRESSURE vitamin B complex 1 EACH capsule 1 ea PO BID Label Comments: MINERAL SUPPLEMENT metformin 500 MG tablet 1,000 mg PO BIDCM Label Comments: diabetes aspirin 81 MG tablet,delayed release (DR/EC) 81 mg PO DAILY Label Comments: Take 1 tablet by mouth once daily. Levemir FlexTouch U-100 Insuln 100 UNITS/ML insulin pen 40 units subcut QHS atorvastatin 40 MG tablet 40 mg PO QHS B-complex with vitamin C 1 CAPSULE capsule 1 cap PO BID 0RF Primary Care Provider: Care Physician,No Primary Referrals: Jewell Lee MD [STAFF PHYSICIAN] - As soon as possible Care Physician,No Primary [Primary Care Provider] - Activity Restrictions/Additional Instructions: Clean the area daily with soap and water. Make sure it is good and dry. Take both antibiotics as prescribed for the next 10 days. Call and follow-up with her DIRECTOR [employer]ICATION[employer] doctor to have this reevaluated. Watch her blood sugars closely. If the area of the abscess gets worse increased swelling, redness, fever or you are feeling worse return. Disposition Disposition: Home, Self Care
[2021-11-14 22:26] LABS: Bedside Glucose 492 mg/dL (74-106)
[2021-11-14] MEDS: Smz/Tmp Ds Tablet 1 TABLET PO (22:44)
[2021-11-14] MEDS: Cephalexin 250 MG Capsule 500 MG PO (22:44)
--- NOTE | 2021-11-15 00:18 | EDS_ITS ---
[facility] <Dr. Corey Jasso MD - Last Filed: 11/15/21 00:23> History of Present Illness Chief Complaint: Abscess [facility] <Dr. Corey Jasso MD - Last Filed: 11/15/21 00:23> [facility] Medical History Diabetes Hypertension Kidney stones Home Medications lisinopril 10 mg tablet 10 mg PO DAILY BLOOD PRESSURE 08/25/14 [History Last Taken 03/06/19 03:00 10 MG] vitamin B complex 1 ea PO BID SUPPLEMENT 11/23/15 [History Last Taken 03/06/19 03:00 1 EACH] metformin 500 mg tablet 1,000 mg PO BIDCM BLOOD SURGAR 09/19/16 [History Last Taken 03/06/19 03:00 1000 MG] aspirin 81 mg tablet,delayed release 81 mg PO DAILY HEART HEALTH 07/18/18 [History Last Taken 12/21/18] insulin detemir U-100 100 unit/mL (3 mL) subcutaneous pen (Levemir FlexTouch U- 100 Insulin) 40 units subcut QHS INSULIN 07/18/18 [History Last Taken 12/23/18] atorvastatin 40 mg tablet 40 mg PO QHS 11/17/18 [History Last Taken 12/23/18] B-complex with vitamin C 1 cap PO BID 03/07/19 [Rx Last Taken Unknown] cephalexin 500 mg capsule 500 mg PO Q6 #40 caps 11/14/21 [Rx Last Taken Unknown] sulfamethoxazole 800 mg-trimethoprim 160 mg tablet (Bactrim DS) 1 tab PO BID 10 days #20 tabs 11/14/21 [Rx Last Taken Unknown] metformin 500 mg tablet 500 mg PO BID diabetes 30 days #60 tabs 11/15/21 [Rx Last Taken Unknown] Allergy/AdvReac Type Severity Reaction Status Date / Time cephalexin [From Keflex] Allergy Breakouts Verified 11/14/21 20:39 diflunisal [From Dolobid] Allergy Rash Verified 11/14/21 20:39 insulin lispro [From Humalog] Allergy Rash Verified 11/14/21 20:39 Penicillins Allergy Rash Verified 11/14/21 20:39 Surgical History H/O right knee surgery History of appendectomy Social History Smoking Status: Never smoker EXAM <Dr. Corey Jasso MD - Last Filed: 11/15/21 00:23> Physical Exam Const Vital Signs: 11/14/21 20:48 Temperature 98.4 F Temperature Source Temporal Respiratory Rate 18 Blood Pressure 108/76 Blood Pressure Mean 86 Pulse Ox 100 Oxygen Delivery Method Room Air <Dr. Miguel A Mehta MD - Last Filed: 11/15/21 01:35> Physical Exam Const Vital Signs: 11/14/21 20:48 Temperature 98.4 F Temperature Source Temporal Respiratory Rate 18 Blood Pressure 108/76 Blood Pressure Mean 86 Pulse Ox 100 Oxygen Delivery Method Room Air MDM <Dr. Corey Jasso MD - Last Filed: 11/15/21 00:23> MDM MDM Narrative Medical decision making narrative: This is an addendum to my original dictation. We checked the patient's blood sugar prior to her being discharged and its 492. She has not been compliant with either her metformin as she is visiting twice a day or her insulin that she takes at night. She is not even sure what type of insulin she supposed to be taking. I do not believe she has been on either one of them for some time. States that her prescriptions ran out and she has not followed up with her doctor to get them refilled. She will be given a prescription for metformin 500 twice daily #60 no refill. She was started follow-up with her doctor to get a new insulin prescription because it is nowhere in the computer system to know what exactly had her on or how much. Due to her sugars being elevated 492 on given her a liter of fluid. Also 12 units of subcu insulin. We will check a chemistry panel, CBC and an acetone. I suspect clinically she is not in DKA. She will be turned over to the overnight physician. He will check those labs. Otherwise the nurses will clean the right groin abscess area. She is discharged on both Keflex and Bactrim for 10 days and follow-up with her doctor. Impressions: 1. Acute right labial abscess 2. Hyperglycemia with a history of diabetes 3. Prescription refill for metformin. Lab Data Labs: Laboratory Results - last 24 hr 11/14/21 11/15/21 11/15/21 22:22 00:36 00:36 WBC 9.1 RBC 4.81 Hgb 14.1 Hct 42.2 MCV 87.7 MCH 29.3 MCHC 33.4 RDW Std Deviation 39.8 RDW Coeff of Dionisio 12.3 Plt Count 334 MPV 9.7 Immature Gran % (Auto) 0.900 Neut % (Auto) 58.6 Lymph % (Auto) 27.3 [place] % (Auto) 10.5 H Eos % (Auto) 1.8 Baso % (Auto) 0.9 Absolute Neuts (auto) 5.3 Absolute Lymphs (auto) 2.49 Nucleated RBC % 0 Sodium 133 L Potassium 3.9 Chloride 99 Carbon Dioxide 27.0 Anion Gap 7 BUN 14 Creatinine 0.65 Estim Creat Clear Calc 59.18 Est GFR (MDRD) Af Amer 117 Est GFR (MDRD) Non-Af 96 BUN/Creatinine Ratio 21.5 H Glucose 399 H Calcium 9.2 Acetone Level POC Glucose 492 H* 11/15/21 00:36 WBC RBC Hgb Hct MCV MCH MCHC RDW Std Deviation RDW Coeff of Dionisio Plt Count MPV Immature Gran % (Auto) Neut % (Auto) Lymph % (Auto) [place] % (Auto) Eos % (Auto) Baso % (Auto) Absolute Neuts (auto) Absolute Lymphs (auto) Nucleated RBC % Sodium Potassium Chloride Carbon Dioxide Anion Gap BUN Creatinine Estim Creat Clear Calc Est GFR (MDRD) Af Amer Est GFR (MDRD) Non-Af BUN/Creatinine Ratio Glucose Calcium Acetone Level NEGATIVE POC Glucose <Dr. Miguel A Mehta MD - Last Filed: 11/15/21 01:35> MDM MDM Narrative Medical decision making narrative: This is an addendum to my original dictation. We checked the patient's blood sugar prior to her being discharged and its 492. She has not been compliant with either her metformin as she is visiting twice a day or her insulin that she takes at night. She is not even sure what type of insulin she supposed to be taking. I do not believe she has been on either one of them for some time. States that her prescriptions ran out and she has not followed up with her doctor to get them refilled. She will be given a prescription for metformin 500 twice daily #60 no refill. She was started follow-up with her doctor to get a new insulin prescription because it is nowhere in the computer system to know what exactly had her on or how much. Due to her sugars being elevated 492 on given her a liter of fluid. Also 12 units of subcu insulin. We will check a chemistry panel, CBC and an acetone. I suspect clinically she is not in DKA. She will be turned over to the overnight physician. He will check those labs. Otherwise the nurses will clean the right groin abscess area. She is discharged on both Keflex and Bactrim for 10 days and follow-up with her doctor. Impressions: 1. Acute right labial abscess 2. Hyperglycemia with a history of diabetes 3. Prescription refill for metformin. Patient was turned over to me pending rechecked and her blood results. CBC is overall normal. White counts okay. Electrolytes show minimally decreased sodium which is likely factitious due to her high glucose of 399. Renal function is preserved. Original glucose was 492. She is given IV fluids and lispro. Her glucose has come down a little bit to 344. Acetone was negative. She wants to go home. I will give her a little bit more insulin here. She has prescriptions. We discussed follow-up and reasons to return. Lab Data Labs: Laboratory Results - last 24 hr 11/14/21 11/15/21 11/15/21 22:22 00:36 00:36 WBC 9.1 RBC 4.81 Hgb 14.1 Hct 42.2 MCV 87.7 MCH 29.3 MCHC 33.4 RDW Std Deviation 39.8 RDW Coeff of Dionisio 12.3 Plt Count 334 MPV 9.7 Immature Gran % (Auto) 0.900 Neut % (Auto) 58.6 Lymph % (Auto) 27.3 [place] % (Auto) 10.5 H Eos % (Auto) 1.8 Baso % (Auto) 0.9 Absolute Neuts (auto) 5.3 Absolute Lymphs (auto) 2.49 Nucleated RBC % 0 Sodium 133 L Potassium 3.9 Chloride 99 Carbon Dioxide 27.0 Anion Gap 7 BUN 14 Creatinine 0.65 Estim Creat Clear Calc 59.18 Est GFR (MDRD) Af Amer 117 Est GFR (MDRD) Non-Af 96 BUN/Creatinine Ratio 21.5 H Glucose 399 H Calcium 9.2 Acetone Level POC Glucose 492 H* 11/15/21 00:36 WBC RBC Hgb Hct MCV MCH MCHC RDW Std Deviation RDW Coeff of Dionisio Plt Count MPV Immature Gran % (Auto) Neut % (Auto) Lymph % (Auto) [place] % (Auto) Eos % (Auto) Baso % (Auto) Absolute Neuts (auto) Absolute Lymphs (auto) Nucleated RBC % Sodium Potassium Chloride Carbon Dioxide Anion Gap BUN Creatinine Estim Creat Clear Calc Est GFR (MDRD) Af Amer Est GFR (MDRD) Non-Af BUN/Creatinine Ratio Glucose Calcium Acetone Level NEGATIVE POC Glucose Discharge Plan Triage Chief Complaint: Abscess ED Provider: Corey Jasso Dx/Rx/DC Orders Clinical Impression: Labial abscess, History of diabetes mellitus Instructions: ED Abscess Antibiotic Treatment Only Prescriptions: New cephalexin 500 mg capsule 500 mg PO Q6 Qty: 40 0RF sulfamethoxazole-trimethoprim [Bactrim DS] 800-160 mg tablet 1 tab PO BID 10 Days Qty: 20 0RF metformin 500 mg tablet 500 mg PO BID 30 Days Qty: 60 0RF No Action lisinopril 10 MG tablet 10 mg PO DAILY Label Comments: BLOOD PRESSURE vitamin B complex 1 EACH capsule 1 ea PO BID Label Comments: MINERAL SUPPLEMENT metformin 500 MG tablet 1,000 mg PO BIDCM Label Comments: diabetes aspirin 81 MG tablet,delayed release (DR/EC) 81 mg PO DAILY Label Comments: Take 1 tablet by mouth once daily. Levemir FlexTouch U-100 Insuln 100 UNITS/ML insulin pen 40 units subcut QHS atorvastatin 40 MG tablet 40 mg PO QHS B-complex with vitamin C 1 CAPSULE capsule 1 cap PO BID 0RF Primary Care Provider: Care Physician,No Primary Referrals: Jewell Lee MD [STAFF PHYSICIAN] - As soon as possible Care Physician,No Primary [Primary Care Provider] - Activity Restrictions/Additional Instructions: Clean the area daily with soap and water. Make sure it is good and dry. Take both antibiotics as prescribed for the next 10 days. 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 Watch her blood sugars closely. If the area of the abscess gets worse increased swelling, redness, fever or you are feeling worse return. Disposition Disposition: Home, Self Care
[2021-11-15] MEDS: 0.9% Normal Saline 1,000 ML 999 ML IV (00:36)
[2021-11-15] MEDS: Insulin Lispro 100 UNIT/ML INSULN.PEN 12 UNIT SC (00:37)
[2021-11-15 00:46] LABS: Absolute Lymphocyte Count 2.49 X10^3/uL (0.83-4.51); Absolute Neutrophil Count 5.3 X10^3/uL (2.0-7.7); Basophil# 0.08 X10^3/uL; Basophil% 0.9 % (0-1); Eosinophil# 0.16 X10^3/uL; Eosinophils% 1.8 % (0-5); Hematocrit 42.2 % (37-47); Hemoglobin 14.1 g/dL (12.0-15.0); Lymphocyte # 2.49 X10^3/ul (0.83-4.51); Lymphocyte % 27.3 % (19-41); Mean Corp Hgb Conc 33.4 g/dL (32-36); Mean Corpuscular Hgb 29.3 pg (27.0-32.0); Mean Corpuscular Volume 87.7 fL (81-99); Mean Platelet Vol. 9.7 fl (6.2-12.0); Monocyte# 0.96 X10^3/uL; Monocyte% 10.5 % (0-10); NRBC Flagged by Analyzer 0 % (0-5); Neutrophil # 5.34 X10^3/uL (2.7-7.7); Neutrophil % 58.6 % (47-70); Platelet Count 334 K/mm3 (150-450); RBC Distribution Width CV 12.3 % (11.6-14.6); RBC Distribution Width SD 39.8 fl (35.1-43.9); Red Blood Count 4.81 M/mm3 (4.2-5.4); White Blood Count 9.1 K/mm3 (4.4-11.0)
[2021-11-15 01:07] LABS: Anion Gap 7 (5-15); BUN 14 mg/dL (7-18); BUN/Creat Ratio 21.5 RATIO (10-20); Calcium,Total 9.2 mg/dL (8.5-10.1); Chloride 99 mmol/L (98-107); Creatinine, Serum 0.65 mg/dL (0.55-1.02); EST Glomerular Filtration Rate 96 mL/min (>60); Est Glom Filt Rate - Afr Amer 117 mL/min (>60); Estimated Creatinine Clearance 59.18 ml/min; Glucose 399 mg/dL (74-106); Potassium 3.9 mmol/L (3.5-5.1); Sodium Level 133 mmol/L (136-145)
[2021-11-15 01:44] VITALS: PULSE 86; RESP 17
[2021-11-15 02:10] LABS: Bedside Glucose 344 mg/dL (74-106)
== END 2021-11-15 01:45 | disposition home or self-care (01) ==
PROVIDERS: Emergency Provider Emergency Medicine; Visit Provider Emergency Medicine
DX: N76.4 Abscess of vulva (principal); E11.65 Type 2 diabetes mellitus with hyperglycemia; E11.40 Type 2 diabetes mellitus with diabetic neuropathy, unspecified; Z68.41 Body mass index [BMI] 40.0-44.9, adult; Z79.4 Long term (current) use of insulin; I10 Essential (primary) hypertension; Z79.899 Other long term (current) drug therapy; Z87.442 Personal history of urinary calculi; Z79.82 Long term (current) use of aspirin; E66.9 Obesity, unspecified; Z76.0 Encounter for issue of repeat prescription; Z91.14 Patient's other noncompliance with medication regimen
CPT/HCPCS: 80048; 82009; 82962; 85025; 96360; 99285; J7030; A4216

== ENCOUNTER 2021-11-17 18:01 | Emergency (ER) | payer MEDICARE, MEDICAID, SELFPAY ==
[2021-11-17 18:03] VITALS: BP 141/76; PULSE 83; RESP 18; TEMP 36.4; O2SAT 97; BMI 33.1
--- NOTE | 2021-11-17 18:21 | RAD_ITS ---
EXAM: XR RIGHT RIBS AND AP CHEST, 3 OR MORE VIEWS CLINICAL INDICATION: trauma TECHNIQUE: Frontal and oblique views of the right ribs and frontal view of the chest. This report was created using [employer] report generation technology. COMPARISON: None. FINDINGS: LUNGS AND PLEURAL SPACES: Unremarkable. No consolidation or edema. No pneumothorax. No effusion. HEART: Unremarkable. Cardiac silhouette not enlarged. MEDIASTINUM: Central airways and mediastinal contour are unremarkable. BONES/JOINTS: Unremarkable. No evidence of displaced rib fractures. RAD/Ribs Uni Min 3V w/PA Chest IMPRESSION: Negative chest and right ribs series. Electronically Signed: Aron Luna MD at 19:35 EDT ,
--- NOTE | 2021-11-17 18:40 | EDS_ITS ---
HPI HPI - Fall History of Present Illness Chief Complaint: Fall Narrative Narrative: Patient presents with with right-sided chest wall pain after mechanical fall about 3 and half hours ago. No head injury no neck pain no extremity injury. She has no shortness of breath. [facility] Medical History Diabetes Hypertension Kidney stones Home Medications lisinopril 10 mg tablet 10 mg PO DAILY BLOOD PRESSURE 08/25/14 [History Last Taken 03/06/19 03:00 10 MG] vitamin B complex 1 ea PO BID SUPPLEMENT 11/23/15 [History Last Taken 03/06/19 03:00 1 EACH] metformin 500 mg tablet 1,000 mg PO BIDCM BLOOD SURGAR 09/19/16 [History Last Taken 03/06/19 03:00 1000 MG] aspirin 81 mg tablet,delayed release 81 mg PO DAILY HEART HEALTH 07/18/18 [History Last Taken 12/21/18] insulin detemir U-100 100 unit/mL (3 mL) subcutaneous pen (Levemir FlexTouch U- 100 Insulin) 40 units subcut QHS INSULIN 07/18/18 [History Last Taken 12/23/18] atorvastatin 40 mg tablet 40 mg PO QHS 11/17/18 [History Last Taken 12/23/18] B-complex with vitamin C 1 cap PO BID 03/07/19 [Rx Last Taken Unknown] cephalexin 500 mg capsule 500 mg PO Q6 #40 caps 11/14/21 [Rx Last Taken Unknown] sulfamethoxazole 800 mg-trimethoprim 160 mg tablet (Bactrim DS) 1 tab PO BID 10 days #20 tabs 11/14/21 [Rx Last Taken Unknown] metformin 500 mg tablet 500 mg PO BID diabetes 30 days #60 tabs 11/15/21 [Rx Last Taken Unknown] Allergy/AdvReac Type Severity Reaction Status Date / Time cephalexin [From Keflex] Allergy Breakouts Verified 11/17/21 18:06 diflunisal [From Dolobid] Allergy Rash Verified 11/17/21 18:06 insulin lispro [From Humalog] Allergy Rash Verified 11/17/21 18:06 Penicillins Allergy Rash Verified 11/17/21 18:06 Surgical History H/O right knee surgery History of appendectomy Social History Smoking Status: Never smoker ROS ROS ED ROS Narrative Social: Noncontributory Medications: Reviewed Past medical history: Reviewed Review of systems General: Patient has no head injury or loss of consciousness HEENT: No facial injury Neck: No neck pain Cardiovascular: Patient denies any chest pain or palpitations Chest wall: Right-sided chest wall pain Respiratory: There is no shortness of breath GI: There is no nausea vomiting diarrhea or abdominal pain, no abdominal wall contusions Skin: No lacerations or abrasions Neurological: Patient has no memory loss, confusion, or any focal weakness Psychiatric: No recent behavioral changes Back: No back pain, no problems with ambulation Musculoskeletal: No extremity injury All other systems are reviewed and normal EXAM Physical Exam Narrative Exam Narrative: Physical exam Vitals reviewed General: Does not appear in significant distress, no obvious injuries HEENT: No facial injury Head: No head injury Eyes: Extraocular movements intact Neck: No C-spine tenderness with full range of motion Heart: Regular rate normal pulses Chest wall: Right-sided lower rib chest wall pain. I examined her skin there are no contusions no step-offs. Lungs clear lungs bilaterally with normal inspiration and expiration without tachypnea GI: Abdomen is soft and nontender there is no mass no guarding no abdominal wall contusion : Stable pelvis Musculoskeletal: Moves all extremities without any signs of trauma Skin: No abrasions or laceration Neurological: Patient is alert and oriented with no focal deficits Const Vital Signs: 11/17/21 18:03 11/17/21 18:07 Temperature 97.6 F L Temperature Source Temporal Pulse Rate 83 Respiratory Rate 18 Respiratory Effort Normal Non-Labored Respiratory Depth Normal Respiratory Pattern Normal Blood Pressure 141/76 H Blood Pressure Mean 97 Pulse Ox 97 Oxygen Delivery Method Room Air Room Air MDM MDM MDM Narrative Medical decision making narrative: Patient has a normal x-ray. She appears well her vitals are normal I will discharge her in stable condition. Radiography Diagnostic Testing: Clinical Impression(s) from Imaging Studies Ribs w/Chest X-Ray 11/17/21 18:21 IMPRESSION: Negative chest and right ribs series. Electronically Signed: Aron Luna MD at 19:35 EDT , Chest x-ray right ribs read by me and radiologist do not show any fracture Discharge Plan Triage Chief Complaint: Fall ED Provider: Tj Gaines Dx/Rx/DC Orders Clinical Impression: Fall, Contusion of rib Instructions: ED Contusion, Rib Prescriptions: No Action lisinopril 10 MG tablet 10 mg PO DAILY Label Comments: BLOOD PRESSURE vitamin B complex 1 EACH capsule 1 ea PO BID Label Comments: MINERAL SUPPLEMENT metformin 500 MG tablet 1,000 mg PO BIDCM Label Comments: diabetes aspirin 81 MG tablet,delayed release (DR/EC) 81 mg PO DAILY Label Comments: Take 1 tablet by mouth once daily. Levemir FlexTouch U-100 Insuln 100 UNITS/ML insulin pen 40 units subcut QHS atorvastatin 40 MG tablet 40 mg PO QHS B-complex with vitamin C 1 CAPSULE capsule 1 cap PO BID 0RF cephalexin 500 mg capsule 500 mg PO Q6 Qty: 40 0RF sulfamethoxazole-trimethoprim [Bactrim DS] 800-160 mg tablet 1 tab PO BID 10 Days Qty: 20 0RF metformin 500 mg tablet 500 mg PO BID 30 Days Qty: 60 0RF Primary Care Provider: Care Physician,No Primary Referrals: Care Physician,No Primary [Primary Care Provider] - 2 Days Disposition Disposition: Home, Self Care
--- NOTE | 2021-11-17 18:56 | CM.ED ---
SW Note SW noted that patient has no PCP. Patient is in imaging. SW met with patient. Patient confirmed she has no PCP. SW provided [facility] Healthcare Provider Directory and Where to GO When. SW also encouraged patient to obtain PCP. Patient verbalized understanding. Cynthia RODRIGUEZ
== END 2021-11-17 20:21 | disposition home or self-care (01) ==
PROVIDERS: Emergency Provider Emergency Medicine; Visit Provider Emergency Medicine
DX: S20.211A Contusion of right front wall of thorax, initial encounter (principal); E11.9 Type 2 diabetes mellitus without complications; Z79.4 Long term (current) use of insulin; Z87.442 Personal history of urinary calculi; I10 Essential (primary) hypertension; Z79.82 Long term (current) use of aspirin; Z79.899 Other long term (current) drug therapy; W19.XXXA Unspecified fall, initial encounter
CPT/HCPCS: 71101; 99283; J7050

== ENCOUNTER 2021-11-28 11:25 | Emergency (ER) | payer MEDICARE, MEDICAID, SELFPAY ==
[2021-11-28 11:26] VITALS: BP 108/59; PULSE 83; RESP 16; TEMP 36.6; O2SAT 99; BMI 31.9
--- NOTE | 2021-11-28 11:47 | RAD_ITS ---
STUDY: X-RAY CHEST REASON FOR EXAM: Female, 66 years old. Rib contusion TECHNIQUE: PA and lateral views of the chest. COMPARISON: Comparison is made with prior chest radiograph dated 11/17/2021. FINDINGS: The lungs are clear and expanded. Scattered calcified granulomas. There is no demonstrated pleural abnormality. Normal size heart. Normal mediastinum and ash. Normal visualized pulmonary arteries. Normal visualized aortic arch and descending thoracic aorta. There are diffuse degenerative changes of the visualized thoracic spine. There is degenerative osteoarthritis of the bilateral shoulders. There is no demonstrated abnormality of the visualized soft tissue structures of the upper abdomen. RAD/Chest PA and Lateral IMPRESSION: No acute abnormality is seen. Electronically Signed: Wilber Soni MD at 12:11 EDT ,
--- NOTE | 2021-11-28 11:48 | EX.ED.GENINJ ---
HPI History of Present Illness Chief Complaint: Chest Other Detail of Chief Complaint: Right chest wall contusion Informant: patient Onset/Context/Timing Onset: Weeks Current Severity: Mild Maximum Severity: Moderate Narrative Narrative: Patient presents secondary to continued right rib pain after a fall on November 17. She fell striking her right lower ribs. She was seen in the emergency room and had chest x-ray with rib series that was unremarkable. She states has been taking Aleve for pain. She presents back to the emergency room for continued pain. She has not seen her primary care physician. [facility] Medical History Diabetes Hypertension Kidney stones Home Medications lisinopril 10 mg tablet 10 mg PO DAILY BLOOD PRESSURE 08/25/14 [History Last Taken 03/06/19 03:00 10 MG] vitamin B complex 1 ea PO BID SUPPLEMENT 11/23/15 [History Last Taken 03/06/19 03:00 1 EACH] metformin 500 mg tablet 1,000 mg PO BIDCM BLOOD SURGAR 09/19/16 [History Last Taken 03/06/19 03:00 1000 MG] aspirin 81 mg tablet,delayed release 81 mg PO DAILY HEART HEALTH 07/18/18 [History Last Taken 12/21/18] insulin detemir U-100 100 unit/mL (3 mL) subcutaneous pen (Levemir FlexTouch U-100 Insulin) 40 units subcut QHS INSULIN 07/18/18 [History Last Taken 12/23/18] atorvastatin 40 mg tablet 40 mg PO QHS 11/17/18 [History Last Taken 12/23/18] B-complex with vitamin C 1 cap PO BID 03/07/19 [Rx Last Taken Unknown] cephalexin 500 mg capsule 500 mg PO Q6 #40 caps 11/14/21 [Rx Last Taken Unknown] sulfamethoxazole 800 mg-trimethoprim 160 mg tablet (Bactrim DS) 1 tab PO BID 10 days #20 tabs 11/14/21 [Rx Last Taken Unknown] metformin 500 mg tablet 500 mg PO BID diabetes 30 days #60 tabs 11/15/21 [Rx Last Taken Unknown] tramadol 50 mg tablet 50 mg PO BID PRN pain #10 tabs 11/28/21 [Rx Last Taken Unknown] Allergy/AdvReac Type Severity Reaction Status Date / Time cephalexin [From Keflex] Allergy Breakouts Verified 11/28/21 11:27 diflunisal [From Dolobid] Allergy Rash Verified 11/28/21 11:27 insulin lispro [From Humalog] Allergy Rash Verified 11/28/21 11:27 Penicillins Allergy Rash Verified 11/28/21 11:27 Surgical History H/O right knee surgery History of appendectomy Social History Smoking Status: Never smoker ROS ROS ED Constitutional Constitutional ED: Denies chills or fever(s) Eyes Eyes: Denies change in vision or discharge from eye(s) ENT ENT ED: Denies discharge from eye(s), rhinorrhea or sore throat Cardiovascular Cardiovascular: Reports chest pain; Denies palpitations Respiratory/Chest Respiratory/Chest: Denies cough or dyspnea Gastrointestinal Gastrointestinal: Denies abdominal pain, nausea or vomiting Genitourinary Genitourinary ED: Denies dysuria Musculoskeletal Musculoskeletal: Denies back pain or extremity pain Integumentary Denies Abrasions or rash Neurologic Neurologic: Denies headache(s) or weakness Allergic/Immunologic Allergic/Immunologic ED: Denies lip swelling or urticaria EXAM Physical Exam Const Vital Signs: 11/28/21 11:26 11/28/21 13:14 Temperature 98 F Temperature Source Temporal Pulse Rate 83 73 Respiratory Rate 16 16 Blood Pressure 108/59 L 130/67 H Blood Pressure Mean 75 Pulse Ox 99 99 Oxygen Delivery Method Room Air Positive well nourished and well developed General Appearance ED: well developed HEENT Reports normocephalic and head/scalp atraumatic Eyes PERRL and EOMs intact bilaterally Neck supple Chest Wall inspection of chest normal Chest Narrative: Right lower rib tenderness. No ecchymosis or overlying abrasions. Resp normal respiratory effort and clear to auscultation bilaterally Cardio regular rate and regular rhythm GI normal to inspection, nondistended, normoactive bowel sounds Palpation: soft Back/Spine no CVA tenderness Back/Spine Narrative: No lumbar tenderness. Thoracic Spine / Upper Back: Negative for thoracic spinal tenderness Extremity normal to inspection Neuro oriented x3 and no sensory deficits noted Sensorium / Orientation: alert Motor Exam: strength 5/5 throughout Psych mental status grossly normal Skin no rashes or lesions noted MDM MDM MDM Narrative Medical decision making narrative: Patient given a dose of tramadol for pain. Chest x-ray obtained. Radiography Diagnostic Testing: Clinical Impression(s) from Imaging Studies Chest X-Ray 11/28/21 11:47 IMPRESSION: No acute abnormality is seen. Electronically Signed: Wilber Soni MD at 12:11 EDT , Treatment and Re-Evaluation Narrative: On repeat evaluation patient does feel somewhat improved. Two-view chest x-ray per my interpretation reveals no acute findings. Radiology interpretation also reviewed. Patient be given a short course of tramadol. She was encouraged to follow-up with her primary care physician for further pain medication. Discharge Plan Triage Chief Complaint: Chest Other ED Provider: Apryl Carrera Dx/Rx/DC Orders Clinical Impression: Contusion of rib Instructions: ED Contusion, Rib Prescriptions: New tramadol 50 mg tablet 50 mg PO BID PRN (Reason: pain) Qty: 10 0RF No Action lisinopril 10 MG tablet 10 mg PO DAILY Label Comments: BLOOD PRESSURE vitamin B complex 1 EACH capsule 1 ea PO BID Label Comments: MINERAL SUPPLEMENT metformin 500 MG tablet 1,000 mg PO BIDCM Label Comments: diabetes aspirin 81 MG tablet,delayed release (DR/EC) 81 mg PO DAILY Label Comments: Take 1 tablet by mouth once daily. Levemir FlexTouch U-100 Insuln 100 UNITS/ML insulin pen 40 units subcut QHS atorvastatin 40 MG tablet 40 mg PO QHS B-complex with vitamin C 1 CAPSULE capsule 1 cap PO BID 0RF cephalexin 500 mg capsule 500 mg PO Q6 Qty: 40 0RF sulfamethoxazole-trimethoprim [Bactrim DS] 800-160 mg tablet 1 tab PO BID 10 Days Qty: 20 0RF metformin 500 mg tablet 500 mg PO BID 30 Days Qty: 60 0RF Primary Care Provider: Care Physician,No Primary Referrals: Care Physician,No Primary [Primary Care Provider] - Boris Covington PNEUMATIC TESTER, PNEUMATIC TESTER-C [NON-STAFF] - 10-14 Days if not better Disposition Disposition: Home, Self Care Discharge Date/Time: 11/28/21 13:20
[2021-11-28] MEDS: traMADol 50 MG Tablet PO (12:05)
[2021-11-28 13:14] VITALS: BP 130/67; PULSE 73; RESP 16; O2SAT 99
== END 2021-11-28 13:20 | disposition home or self-care (01) ==
PROVIDERS: Emergency Provider Emergency Medicine; Visit Provider Emergency Medicine
DX: S20.211A Contusion of right front wall of thorax, initial encounter (principal); E11.9 Type 2 diabetes mellitus without complications; Z79.4 Long term (current) use of insulin; I10 Essential (primary) hypertension; Z87.442 Personal history of urinary calculi; Z79.82 Long term (current) use of aspirin; Z79.899 Other long term (current) drug therapy; W19.XXXA Unspecified fall, initial encounter
CPT/HCPCS: 71046; 99283

== ENCOUNTER 2021-12-11 22:30 | Emergency (ER) | payer MEDICARE, MEDICAID, SELFPAY ==
[2021-12-11 22:30] VITALS: BP 151/74; PULSE 93; RESP 18; TEMP 36.4; O2SAT 99; BMI 28.1
--- NOTE | 2021-12-11 23:20 | RAD_ITS ---
INDICATION: fall EXAMINATION/TECHNIQUE: X-RAY - RIGHT XR Hand Min 3 Views 6 VIEWS COMPARISON: None. FINDINGS: SOFT TISSUES: No soft tissue swelling or gas. No radiopaque foreign body. BONES/JOINTS: Mildly displaced oblique fractures of the base of the fifth metacarpal.. Normal alignment. Preservation of the joint space.. No sclerotic or destructive changes observed. RAD/Hand Min 3 Views IMPRESSION: Mildly displaced fifth metacarpal fracture. Electronically Signed: Jermaine Fitzgerald MD at 23:43 EDT ,
[2021-12-11 23:25] VITALS: BP 152/76; PULSE 77; RESP 15; O2SAT 97
--- NOTE | 2021-12-11 23:48 | EX.ED.UPPERE ---
HPI History of Present Illness HPI Narrative: Fell 8 days ago injuring her right hand. Chief Complaint: Upper Extremity Injury Informant: patient Occured/Mechanism Mechanism/Context: Yes injury and Yes blunt trauma Onset/Context/Timing Onset: Days Context: Sudden Onset Timing: Continuous Quality of Pain: Aching Current Severity: Moderate Maximum Severity: Moderate Associated Symptoms Associated Symptoms: Negative for Parasthesia or Weakness Narrative Narrative: 66-year-old female history of diabetes and hypertension. Tripped over her dog 8 days ago Saturday a week ago fell injuring her right hand. Has had continued pain and mild swelling and thought she should have it evaluated. She is right-hand dominant. She has never had any surgery to this hand. She denies any other injuries except she also hit her right lower rib cage. She did not hit her head. Prior similar symptoms: No Recent Illness/Hospitalization: No PFSH PFS Medical History Diabetes Hypertension Kidney stones Home Medications lisinopril 10 mg tablet 10 mg PO DAILY BLOOD PRESSURE 08/25/14 [History Last Taken 03/06/19 03:00 10 MG] vitamin B complex 1 ea PO BID SUPPLEMENT 11/23/15 [History Last Taken 03/06/19 03:00 1 EACH] metformin 500 mg tablet 1,000 mg PO BIDCM BLOOD SURGAR 09/19/16 [History Last Taken 03/06/19 03:00 1000 MG] aspirin 81 mg tablet,delayed release 81 mg PO DAILY HEART HEALTH 07/18/18 [History Last Taken 12/21/18] insulin detemir U-100 100 unit/mL (3 mL) subcutaneous pen (Levemir FlexTouch U-100 Insulin) 40 units subcut QHS INSULIN 07/18/18 [History Last Taken 12/23/18] atorvastatin 40 mg tablet 40 mg PO QHS 11/17/18 [History Last Taken 12/23/18] B-complex with vitamin C 1 cap PO BID 03/07/19 [Rx Last Taken Unknown] cephalexin 500 mg capsule 500 mg PO Q6 #40 caps 11/14/21 [Rx Last Taken Unknown] sulfamethoxazole 800 mg-trimethoprim 160 mg tablet (Bactrim DS) 1 tab PO BID 10 days #20 tabs 11/14/21 [Rx Last Taken Unknown] metformin 500 mg tablet 500 mg PO BID diabetes 30 days #60 tabs 11/15/21 [Rx Last Taken Unknown] tramadol 50 mg tablet 50 mg PO BID PRN pain #10 tabs 11/28/21 [Rx Last Taken Unknown] Allergy/AdvReac Type Severity Reaction Status Date / Time cephalexin [From Keflex] Allergy Breakouts Verified 12/11/21 22:33 diflunisal [From Dolobid] Allergy Rash Verified 12/11/21 22:33 insulin lispro [From Humalog] Allergy Rash Verified 12/11/21 22:33 Penicillins Allergy Rash Verified 12/11/21 22:33 Surgical History H/O right knee surgery History of appendectomy Social History Smoking Status: Never smoker ROS ROS ED ROS Narrative Patient denies recent illness. Review of Systems ROS Unobtainable: Denies due to encephalopathy Constitutional Constitutional ED: Denies chills Eyes Eyes: Denies blurry vision ENT ENT ED: Denies ear pain Cardiovascular Cardiovascular: Denies chest pain Respiratory/Chest Respiratory/Chest: Denies cough Gastrointestinal Gastrointestinal: Denies abdominal pain Genitourinary Genitourinary ED: Denies dysuria Musculoskeletal Musculoskeletal: Denies back pain Integumentary Denies abscess Neurologic Neurologic: Denies headache(s) Psychiatric Psychiatric: Denies anxiety Endocrine Endocrinology: Denies cold intolerance Hematologic/Lymphatic Hematologic/Lymphatic: Denies easy bleeding Allergic/Immunologic Allergic/Immunologic ED: Denies mouth swelling EXAM Physical Exam Narrative Exam Narrative: 56-year-old female no acute distress. Vital signs stable afebrile. H EENT exam unremarkable atraumatic. C-spine nontender. Back and spine nontender. Lungs are clear. Heart regular rhythm no murmur. Chest wall nontender except to her right lower rib mid axillary welder production line combination but no crepitance. No bruising. No deformity. Abdomen soft nontender. No peritoneal signs or bruising. Pelvic girdle intact. Moving all 4 extremities. Neurovascularly intact. She has swelling on the dorsum of her right hand. It is tender most tender at the base of the fifth or small finger metacarpal. Wrist is nontender. She is able to flex and extend the wrist. She can open and close her hand. There is no lacerations. Proximal forearm, elbow upper arm and right shoulder are nontender. Neurologically she is awake and alert. Other extremities are unremarkable. Const Vital Signs: 12/11/21 22:30 12/11/21 23:25 12/11/21 23:25 Temperature 97.6 F L Temperature Source Temporal Pulse Rate 93 77 Respiratory Rate 18 15 Blood Pressure 151/74 H 152/76 H Blood Pressure Mean 99 101 Pulse Ox 99 97 Oxygen Delivery Method Room Air Room Air Positive well nourished and well developed; Negative for obese, cachectic, contractures or unkempt General Appearance ED: well developed; Negative for unkempt, cachectic or contractures Nutritional Appearance: Negative for cachectic or obese HEENT Reports moist mucous membranes normocephalic and atraumatic; Negative for trauma or tenderness Eyes PERRL and EOMs intact bilaterally Neck full ROM and supple General: Negative for tenderness Lymph Lymphatic: Negative for other Chest Wall inspection of chest normal; Negative for palpation of chest normal Chest Narrative: Mild tenderness right mid lower rib. No crepitance. No subcu air. No bruising. No abdominal pain. Resp normal respiratory effort and clear to auscultation bilaterally Effort and Inspection: Negative for pain with movement Auscultation: Negative for rales, rhonchi or wheezes Cardio regular rate, regular rhythm, S1 normal heart sound, S2 normal heart sound and no murmurs Rate: Negative for bradycardia Rhythm: Negative for abnormal rhythm GI non-tender, non-distended and no masses Inspection: Negative for abdominal distention Auscultation: normoactive bowel sounds Palpation: soft; Negative for tender, guarding or rebound tenderness present Back/Spine no CVA tenderness General Back: Negative for CVA tenderness Cervical Spine: Negative for cervical spine tenderness Thoracic Spine / Upper Back: Negative for thoracic spinal tenderness Lumbar Spine / Lower Back: Negative for lumbar spinal tenderness Extremity normal to inspection and full ROM Extremity Narrative: Except right hand dorsum tenderness primarily over the proximal end of the fifth or small metacarpal. Mild swelling. No deformity. Neuro oriented x3, moves all extremities and no focal motor deficits Sensorium / Orientation: alert, oriented to person, oriented to place and oriented to time; Negative for orientation impaired, lethargic or stuporous Motor Exam: strength 5/5 throughout Psych mental status grossly normal Appearance: Negative for unkempt Attitude: No agitated Mood & Affect: Negative for depressed, anxious or tearful Skin General Skin Exam: Negative for petechiae Lesions: no lesions Rashes: no rashes Trauma: no lacerations or abrasions MDM MDM MDM Narrative Medical decision making narrative: 66-year-old fall x-ray right hand to evaluate for possible fracture. She did not want any x-rays on her ribs. Patient placed in a right hand, ulnar gutter splint, well-padded. Patient tolerated procedure well. Lab Data Labs: Right hand x-ray 3 views interpreted by myself and radiologist shows a mildly displaced fifth or small finger metacarpal fracture at the proximal end. I did go over the films with the patient. Radiography Diagnostic Testing: Clinical Impression(s) from Imaging Studies Hand X-Ray 12/11/21 23:20 IMPRESSION: Mildly displaced fifth metacarpal fracture. Electronically Signed: Jermaine Fitzgerald MD at 23:43 EDT , Procedures Upper Extremity Splints Upper Extremity Splint: Orthoglass and Ulnar gutter Splint Fabrication: Fabricated Location: Right Discharge Plan Triage Chief Complaint: Upper Extremity Injury ED Provider: Corey Jasso Dx/Rx/DC Orders Clinical Impression: Fall, Fracture, metacarpal, History of diabetes mellitus Instructions: ED Closed Hand Fracture (Adult) Prescriptions: No Action lisinopril 10 MG tablet 10 mg PO DAILY Label Comments: BLOOD PRESSURE vitamin B complex 1 EACH capsule 1 ea PO BID Label Comments: MINERAL SUPPLEMENT metformin 500 MG tablet 1,000 mg PO BIDCM Label Comments: diabetes aspirin 81 MG tablet,delayed release (DR/EC) 81 mg PO DAILY Label Comments: Take 1 tablet by mouth once daily. Levemir FlexTouch U-100 Insuln 100 UNITS/ML insulin pen 40 units subcut QHS atorvastatin 40 MG tablet 40 mg PO QHS B-complex with vitamin C 1 CAPSULE capsule 1 cap PO BID 0RF cephalexin 500 mg capsule 500 mg PO Q6 Qty: 40 0RF sulfamethoxazole-trimethoprim [Bactrim DS] 800-160 mg tablet 1 tab PO BID 10 Days Qty: 20 0RF metformin 500 mg tablet 500 mg PO BID 30 Days Qty: 60 0RF tramadol 50 mg tablet 50 mg PO BID PRN (Reason: pain) Qty: 10 0RF Primary Care Provider: Care Physician,No Primary Referrals: Yury Friedman MD [STAFF PHYSICIAN] - As soon as possible Care Physician,No Primary [Primary Care Provider] - Activity Restrictions/Additional Instructions: You have a broken metacarpal of the right little finger. Keep the splint on. Keep the splint dry and clean. Ice and elevate your hand to decrease pain and swelling. Tylenol for pain and Motrin for pain and swelling. Call and follow-up with the orthopedic doctor for further evaluation. They may want to put a cast on your hand. Disposition Disposition: Home, Self Care
[2021-12-11 23:59] VITALS: BP 134/88; PULSE 88; RESP 15; O2SAT 97
== END 2021-12-11 23:59 | disposition home or self-care (01) ==
PROVIDERS: Emergency Provider Emergency Medicine; Visit Provider Emergency Medicine
DX: S62.306A Unspecified fracture of fifth metacarpal bone, right hand, initial encounter for closed fracture (principal); E11.9 Type 2 diabetes mellitus without complications; Z79.4 Long term (current) use of insulin; I10 Essential (primary) hypertension; W19.XXXA Unspecified fall, initial encounter; Z87.442 Personal history of urinary calculi; Z79.82 Long term (current) use of aspirin; Z79.899 Other long term (current) drug therapy
CPT/HCPCS: 73130; 99283

== ENCOUNTER 2022-01-21 16:14 | Emergency (ER) | payer MEDICARE, MEDICAID, SELFPAY ==
[2022-01-21 16:15] VITALS: BP 151/116; PULSE 84; RESP 16; TEMP 36.6; O2SAT 99; BMI 37.1
--- NOTE | 2022-01-21 16:45 | EDS_ITS ---
HPI History of Present Illness Chief Complaint: Abscess Narrative Narrative: Patient presents with 2 complaints. First complaint is that her ears have been hurting for some weeks. She cannot think of anything that caused it. No change in hearing. No headache. No nausea vomiting. No drainage. She also complains that she has noticed a lump on the side of her neck for couple days. She thinks it might of been there before and might be better but is still present. No active drainage. No fevers chills sweats. She is taking her meds for diabetes. [facility] Medical History Diabetes Hypertension Kidney stones Home Medications lisinopril 10 mg tablet 10 mg PO DAILY BLOOD PRESSURE 08/25/14 [History Last Taken 03/06/19 03:00 10 MG] vitamin B complex 1 ea PO BID SUPPLEMENT 11/23/15 [History Last Taken 03/06/19 03:00 1 EACH] metformin 500 mg tablet 1,000 mg PO BIDCM BLOOD SURGAR 09/19/16 [History Last Taken 03/06/19 03:00 1000 MG] aspirin 81 mg tablet,delayed release 81 mg PO DAILY HEART HEALTH 07/18/18 [History Last Taken 12/21/18] insulin detemir U-100 100 unit/mL (3 mL) subcutaneous pen (Levemir FlexTouch U- 100 Insulin) 40 units subcut QHS INSULIN 07/18/18 [History Last Taken 12/23/18] atorvastatin 40 mg tablet 40 mg PO QHS 11/17/18 [History Last Taken 12/23/18] B-complex with vitamin C 1 cap PO BID 03/07/19 [Rx Last Taken Unknown] sulfamethoxazole 800 mg-trimethoprim 160 mg tablet (Bactrim DS) 1 tab PO BID 10 days #20 tabs 11/14/21 [Rx Last Taken Unknown] metformin 500 mg tablet 500 mg PO BID diabetes 30 days #60 tabs 11/15/21 [Rx Last Taken Unknown] tramadol 50 mg tablet 50 mg PO BID PRN pain #10 tabs 11/28/21 [Rx Last Taken Unknown] dhttfaie-fwpaxk-UL-thonzonm 3.3 mg-3 mg-10 mg-0.5 mg/mL ear drops,susp (Cortisporin-TC) 4 drp EACH EAR TID #10 mL 01/21/22 [Rx Last Taken Unknown] sulfamethoxazole 800 mg-trimethoprim 160 mg tablet (Bactrim DS) 1 tab PO BID #14 tabs 01/21/22 [Rx Last Taken Unknown] Allergy/AdvReac Type Severity Reaction Status Date / Time cephalexin [From Keflex] Allergy Breakouts Verified 01/21/22 16:15 diflunisal [From Dolobid] Allergy Rash Verified 01/21/22 16:15 insulin lispro [From Humalog] Allergy Rash Verified 01/21/22 16:15 Penicillins Allergy Rash Verified 01/21/22 16:15 Surgical History H/O right knee surgery History of appendectomy Social History Smoking Status: Never smoker ROS ROS ED Constitutional Constitutional ED: Reports chills and fever(s) Eyes Eyes: Denies change in vision ENT ENT ED: Reports ear pain; Denies rhinorrhea or sore throat Cardiovascular Cardiovascular: Denies chest pain or palpitations Respiratory/Chest Respiratory/Chest: Denies cough or dyspnea Gastrointestinal Gastrointestinal: Denies nausea or vomiting Musculoskeletal Musculoskeletal: Denies myalgias Integumentary Reports abscess Neurologic Neurologic: Denies headache(s) Endocrine Endocrinology: Denies polydipsia or polyuria Hematologic/Lymphatic Hematologic/Lymphatic: Denies anemia Allergic/Immunologic Allergic/Immunologic ED: Denies urticaria EXAM Physical Exam Const Vital Signs: 01/21/22 16:15 Temperature 97.9 F Temperature Source Temporal Pulse Rate 84 Respiratory Rate 16 Blood Pressure 151/116 H Blood Pressure Mean 127 Pulse Ox 99 Oxygen Delivery Method Room Air Positive well nourished and well developed General Appearance ED: well developed and NAD HEENT Reports moist mucous membranes HEENT Narrative: Both ears have some mildly swollen and erythematous canals. No active drainage. I can see the eardrums and they look clear. I see no vesicles. No swelling or erythema on the auricle itself. No facial rashes. No sinus tenderness. Eyes General Eye ED: Negative for scleral icterus Neck Neck Narrative: Patient has a 1 and half centimeter raised swollen red area on the left side of her neck. It has a scab and crusted area over it. Appears to be slightly drying out. Resp normal respiratory effort and clear to auscultation bilaterally Cardio regular rate and regular rhythm GI normal to inspection, nondistended, normoactive bowel sounds Back/Spine no CVA tenderness Extremity normal to inspection Neuro oriented x3 Skin Skin Narrative: see above MDM MDM MDM Narrative Medical decision making narrative: Patient will be given drops for her ears. Procedure: Unroofing and drainage of abscess: The area was cleaned with alcohol. I just used an 18-gauge needle to lift the scab off the top of this area. There is a small pit in it and it did drain some moderate material. I do not think her findings justify a true incision. I would rather not incise into this area of her neck. We did discuss care of this. With the redness and drainage and being diabetic we will get her on antibiotics. She has allergy to penicillin but can take Bactrim without problems. Patient will follow up with her physician. The physician is not listed and she does not remember the name but she does have a primary physician. I will give her another option if needed. We discussed reasons to return. Discharge Plan Triage Chief Complaint: Abscess ED Provider: Miguel A Mehta Dx/Rx/DC Orders Clinical Impression: Cutaneous abscess of neck, Otitis externa Instructions: ED Abscess Incision And Drainage, ED External Ear Infection (Adult) Prescriptions: New sulfamethoxazole-trimethoprim [Bactrim DS] 800-160 mg tablet 1 tab PO BID Qty: 14 0RF Cortisporin-TC 3.3-3-10-0.5 mg/mL drops,suspension 4 drp EACH EAR TID Qty: 10 0RF No Action lisinopril 10 MG tablet 10 mg PO DAILY Label Comments: BLOOD PRESSURE vitamin B complex 1 EACH capsule 1 ea PO BID Label Comments: MINERAL SUPPLEMENT metformin 500 MG tablet 1,000 mg PO BIDCM Label Comments: diabetes aspirin 81 MG tablet,delayed release (DR/EC) 81 mg PO DAILY Label Comments: Take 1 tablet by mouth once daily. Levemir FlexTouch U-100 Insuln 100 UNITS/ML insulin pen 40 units subcut QHS atorvastatin 40 MG tablet 40 mg PO QHS B-complex with vitamin C 1 CAPSULE capsule 1 cap PO BID 0RF sulfamethoxazole-trimethoprim [Bactrim DS] 800-160 mg tablet 1 tab PO BID 10 Days Qty: 20 0RF metformin 500 mg tablet 500 mg PO BID 30 Days Qty: 60 0RF tramadol 50 mg tablet 50 mg PO BID PRN (Reason: pain) Qty: 10 0RF Primary Care Provider: Care Physician,No Primary Referrals: Ellie Allison MD [Med Staff - Frame Runner] - 3-5 Days if not improving Care Physician,No Primary [Primary Care Provider] - Disposition Disposition: Home, Self Care
[2022-01-21] MEDS: Smz/Tmp Ds Tablet 1 TABLET PO (17:03)
[2022-01-21 17:04] VITALS: BP 140/70; PULSE 80; RESP 16; O2SAT 96
== END 2022-01-21 17:12 | disposition home or self-care (01) ==
LOC: ED 17:00
PROVIDERS: Emergency Provider Emergency Medicine; Visit Provider Emergency Medicine
DX: L02.11 Cutaneous abscess of neck (principal); E11.9 Type 2 diabetes mellitus without complications; Z79.4 Long term (current) use of insulin; I10 Essential (primary) hypertension; Z87.442 Personal history of urinary calculi; Z79.82 Long term (current) use of aspirin; Z79.899 Other long term (current) drug therapy; H60.92 Unspecified otitis externa, left ear
CPT/HCPCS: 99282

== ENCOUNTER 2022-02-19 17:44 | Emergency (ER) | payer MEDICARE, MEDICAID, SELFPAY ==
[2022-02-19 17:45] VITALS: BP 140/51; PULSE 86; RESP 17; TEMP 37.1; O2SAT 98; BMI 38.0
--- NOTE | 2022-02-19 19:00 | EDS_ITS ---
HPI History of Present Illness Chief Complaint: Itching Narrative Narrative: Patient presents with abscess on her face after which she thought was a hornet sting, she also has 4 abscesses on her right axilla. She tells me her blood sugar has been running in the 150s but she just ran out of her insulin. She has no polyuria polydipsia or weight loss. She has no systemic complaints. No fever or chills. No chest pain or shortness of breath PFSH [facility] Medical History Diabetes Hypertension Kidney stones Home Medications lisinopril 10 mg tablet 10 mg PO DAILY BLOOD PRESSURE 08/25/14 [History Last Taken 03/06/19 03:00 10 MG] vitamin B complex 1 ea PO BID SUPPLEMENT 11/23/15 [History Last Taken 03/06/19 03:00 1 EACH] metformin 500 mg tablet 1,000 mg PO BIDCM BLOOD SURGAR 09/19/16 [History Last Taken 03/06/19 03:00 1000 MG] aspirin 81 mg tablet,delayed release 81 mg PO DAILY HEART HEALTH 07/18/18 [History Last Taken 12/21/18] insulin detemir U-100 100 unit/mL (3 mL) subcutaneous pen (Levemir FlexTouch U- 100 Insulin) 40 units subcut QHS INSULIN 07/18/18 [History Last Taken 12/23/18] atorvastatin 40 mg tablet 40 mg PO QHS 11/17/18 [History Last Taken 12/23/18] B-complex with vitamin C 1 cap PO BID 03/07/19 [Rx Last Taken Unknown] sulfamethoxazole 800 mg-trimethoprim 160 mg tablet (Bactrim DS) 1 tab PO BID 10 days #20 tabs 11/14/21 [Rx Last Taken Unknown] metformin 500 mg tablet 500 mg PO BID diabetes 30 days #60 tabs 11/15/21 [Rx Last Taken Unknown] tramadol 50 mg tablet 50 mg PO BID PRN pain #10 tabs 11/28/21 [Rx Last Taken Unknown] psftyuei-jcqkxd-MC-thonzonm 3.3 mg-3 mg-10 mg-0.5 mg/mL ear drops,susp (Cortisporin-TC) 4 drp EACH EAR TID #10 mL 01/21/22 [Rx Last Taken Unknown] sulfamethoxazole 800 mg-trimethoprim 160 mg tablet (Bactrim DS) 1 tab PO BID #14 tabs 01/21/22 [Rx Last Taken Unknown] clindamycin HCl 150 mg capsule 150 mg PO TID #21 caps 02/19/22 [Rx Last Taken Unknown] Allergy/AdvReac Type Severity Reaction Status Date / Time cephalexin [From Keflex] Allergy Breakouts Verified 02/19/22 17:48 diflunisal [From Dolobid] Allergy Rash Verified 02/19/22 17:48 insulin lispro [From Humalog] Allergy Rash Verified 02/19/22 17:48 Penicillins Allergy Rash Verified 02/19/22 17:48 Surgical History H/O right knee surgery History of appendectomy Social History Smoking Status: Never smoker ROS ROS ED ROS Narrative Past medical history: Reviewed, includes diabetes, hyperlipidemia, hypertension, bronchitis, obesity, debility, chronic wounds, history of osteomyelitis. Medications: Reviewed Social history: Noncontributory Review of systems: All systems negative except as indicated General: No fever Eyes: No visual changes ENT: Right side of the face abscess Neck: No neck pain Cardiovascular: No chest pain Respiratory: No shortness of breath or cough Gastrointestinal: No abdominal pain, nausea vomiting or diarrhea Genitourinary: No dysuria Musculoskeletal: Right axilla abscesses Skin: No rash Neurological: No memory loss, confusion or any focal weakness Psych: No recent behavioral changes Hematologic: No easy bleeding or easy bruising EXAM Physical Exam Narrative Exam Narrative: Physical exam General: Patient is relatively comfortable in the bed. She does not appear in any distress Head: Normocephalic, Atraumatic Eyes: Conjunctiva not pale ENT: Moist mucous membranes. Right side the face has a 2 cm abscess over the zygomatic arch. Very slight cellulitis. No crepitus Neck: Supple, Nontender, No lymphadenopathy Cardiovascular: Regular rate, Regular rhythm Respiratory: No distress, CTA bilaterally Abdomen: Soft, Nontender, Nondistended Back: Nontender, Normal Inspection. Negative for: CVA tenderness Extremities: Right axilla shows 4 abscesses 2 of the abscesses are 1.5 cm, 2 of the abscesses are 2 cm. No signs of cellulitis Skin: As above Neurological: Alert, Normal Strength, Normal Sensation Psychological: Normal affect Const Vital Signs: 02/19/22 17:45 Temperature 98.7 F Temperature Source Temporal Pulse Rate 86 Respiratory Rate 17 Blood Pressure 140/51 H Blood Pressure Mean 80 Pulse Ox 98 Oxygen Delivery Method Room Air MDM MDM MDM Narrative Medical decision making narrative: Patient is found to be hyperglycemic. I gave her insulin. She tells me she will follow-up with her PCP, I wanted to refill her insulin but she tells me that specific insulin she is allergic to, and that she will follow-up with her PCP. Otherwise I will treat her with antibiotics and should be discharged Lab Data Labs: Laboratory Results - last 24 hr 02/19/22 02/19/22 02/19/22 18:53 19:28 19:28 WBC 7.9 RBC 4.62 Hgb 13.6 Hct 41.4 MCV 89.6 MCH 29.4 MCHC 32.9 RDW Std Deviation 42.3 RDW Coeff of Dionisio 13.0 Plt Count 285 MPV 10.2 Immature Gran % (Auto) 0.300 Neut % (Auto) 56.4 Lymph % (Auto) 32.7 [place] % (Auto) 8.2 Eos % (Auto) 1.9 Baso % (Auto) 0.5 Absolute Neuts (auto) 4.5 Absolute Lymphs (auto) 2.60 Nucleated RBC % 0 Sodium 134 L Potassium 3.9 Chloride 99 Carbon Dioxide 27.0 Anion Gap 8 BUN 14 Creatinine 0.71 Estim Creat Clear Calc 61.62 Est GFR (MDRD) Af Amer 106 Est GFR (MDRD) Non-Af 87 BUN/Creatinine Ratio 19.7 Glucose 484 H* Calcium 8.7 Total Bilirubin 0.30 AST 10 L ALT 22 Alkaline Phosphatase 130 H Total Protein 7.1 Albumin 3.0 L Globulin 4.1 Albumin/Globulin Ratio 0.7 L POC Glucose 448 H Procedures Other Procedures Procedure(s): Incision and drainage Verbal consent Their total of 5 abscesses: 1 on the right side of the face, 2 cm, 2 abscesses on the axilla, 2 of them are 1.5 cm and 2 of them were 2 cm. I used 0.5% bupivacaine, about 3 mL total I used a 15 blade to incise all 5 abscesses, I used hemostats to probe and break all the loculations. Pus was expectorated from all 5 abscesses. Patient tolerated procedure well. Wound was left open Discharge Plan Triage Chief Complaint: Itching ED Provider: Tj Gaines Dx/Rx/DC Orders Clinical Impression: Abscess, Acute hyperglycemia Instructions: Abscess Drainage, Blood Sugar Check Steps Prescriptions: New clindamycin HCl 150 mg capsule 150 mg PO TID Qty: 21 0RF No Action lisinopril 10 MG tablet 10 mg PO DAILY Label Comments: BLOOD PRESSURE vitamin B complex 1 EACH capsule 1 ea PO BID Label Comments: MINERAL SUPPLEMENT metformin 500 MG tablet 1,000 mg PO BIDCM Label Comments: diabetes aspirin 81 MG tablet,delayed release (DR/EC) 81 mg PO DAILY Label Comments: Take 1 tablet by mouth once daily. Levemir FlexTouch U-100 Insuln 100 UNITS/ML insulin pen 40 units subcut QHS atorvastatin 40 MG tablet 40 mg PO QHS B-complex with vitamin C 1 CAPSULE capsule 1 cap PO BID 0RF sulfamethoxazole-trimethoprim [Bactrim DS] 800-160 mg tablet 1 tab PO BID 10 Days Qty: 20 0RF metformin 500 mg tablet 500 mg PO BID 30 Days Qty: 60 0RF tramadol 50 mg tablet 50 mg PO BID PRN (Reason: pain) Qty: 10 0RF sulfamethoxazole-trimethoprim [Bactrim DS] 800-160 mg tablet 1 tab PO BID Qty: 14 0RF Cortisporin-TC 3.3-3-10-0.5 mg/mL drops,suspension 4 drp EACH EAR TID Qty: 10 0RF Primary Care Provider: Care Physician,No Primary Referrals: Kylah Diehl MD [Med Staff - [facility]] - 3-5 Days Care Physician,No Primary [Primary Care Provider] - Disposition Disposition: Home, Self Care
[2022-02-19 19:16] LABS: Bedside Glucose 448 mg/dL (74-106)
[2022-02-19] MEDS: Clindamycin 600 MG/50 ML BAG 100 MG IV (19:26)
[2022-02-19 19:36] LABS: Absolute Neutrophil Count 4.5 X10^3/uL (2.0-7.7); Basophil# 0.04 X10^3/uL; Basophil% 0.5 % (0-1); Eosinophil# 0.15 X10^3/uL; Eosinophils% 1.9 % (0-5); Hematocrit 41.4 % (37-47); Hemoglobin 13.6 g/dL (12.0-15.0); Lymphocyte % 32.7 % (19-41); Mean Corp Hgb Conc 32.9 g/dL (32-36); Mean Corpuscular Hgb 29.4 pg (27.0-32.0); Mean Corpuscular Volume 89.6 fL (81-99); Mean Platelet Vol. 10.2 fl (6.2-12.0); Monocyte# 0.65 X10^3/uL; Monocyte% 8.2 % (0-10); NRBC Flagged by Analyzer 0 % (0-5); Neutrophil # 4.48 X10^3/uL (2.7-7.7); Neutrophil % 56.4 % (47-70); Platelet Count 285 K/mm3 (150-450); RBC Distribution Width SD 42.3 fl (35.1-43.9); Red Blood Count 4.62 M/mm3 (4.2-5.4); White Blood Count 7.9 K/mm3 (4.4-11.0)
[2022-02-19 20:02] LABS: ALB/GLOB Ratio 0.7 RATIO (0.9-2.4); AST(SGOT) 10 U/L (15-37); Alanine Aminotransfer ALT/SGPT 22 U/L (13-56); Alkaline Phosphatase 130 U/L (45-117); Anion Gap 8 (5-15); BUN 14 mg/dL (7-18); BUN/Creat Ratio 19.7 RATIO (10-20); Calcium,Total 8.7 mg/dL (8.5-10.1); Chloride 99 mmol/L (98-107); Creatinine, Serum 0.71 mg/dL (0.55-1.02); EST Glomerular Filtration Rate 87 mL/min (>60); Est Glom Filt Rate - Afr Amer 106 mL/min (>60); Estimated Creatinine Clearance 61.62 ml/min; Globulin 4.1 g/dL (2.2-4.2); Glucose 484 mg/dL (74-106); Potassium 3.9 mmol/L (3.5-5.1); Protein, Total 7.1 g/dL (6.4-8.2); Sodium Level 134 mmol/L (136-145)
[2022-02-19] MEDS: Insulin NPH Human 100 UNITS/ML PEN 10 UNITS SC (20:53)
== END 2022-02-19 21:31 | disposition home or self-care (01) ==
PROVIDERS: Emergency Provider Emergency Medicine; Visit Provider Emergency Medicine
DX: L02.01 Cutaneous abscess of face (principal); E11.65 Type 2 diabetes mellitus with hyperglycemia; I10 Essential (primary) hypertension; E78.5 Hyperlipidemia, unspecified; L02.411 Cutaneous abscess of right axilla; Z79.82 Long term (current) use of aspirin; Z79.84 Long term (current) use of oral hypoglycemic drugs; Z79.899 Other long term (current) drug therapy; Z87.442 Personal history of urinary calculi
CPT/HCPCS: 10060; 80053; 82962; 85025; 96365; 96372; 99282; A4216

== ENCOUNTER 2024-03-09 01:23 | Emergency (ER) | payer MEDICARE, MEDICAID, SELFPAY ==
[2024-03-09 01:23] VITALS: BP 120/104; PULSE 87; RESP 16; TEMP 36.8; O2SAT 98; BMI 36.6
--- NOTE | 2024-03-09 01:33 | RAD_ITS ---
INDICATION: fall and pain EXAMINATION/TECHNIQUE: X-RAY - XR Hip Unilateral with Pelvis when performed; 2-3 Views COMPARISON: Prior study dated: Pelvis x-ray 04/09/2016 FINDINGS: Acute fracture right inferior pubic ramus, nondisplaced. Questionable fracture of the right superior pubic ramus. Femoral head is normal contour. No dislocation at the hip.. RAD/HIP, UNI W/ Pelvis 2-3 Views IMPRESSION: Acute fracture right inferior pubic ramus and possibly the superior pubic ramus. Electronically Signed: Marcia Joseph MD at 2:47 EDT ,
--- NOTE | 2024-03-09 01:34 | ED.VIS.FALL ---
HPI HPI - Fall History of Present Illness Chief Complaint: Lower Extremity Injury Informant: patient and EMS Occured/Mechanism Occurred: Today Mechanism/Context: Yes same level fall Usually ambulates: Without assistance Pain/Injury Pain Location: lower extremity Quality of Pain: Sharp Current Severity: Mild Maximum Severity: Mild Associated Symptoms Associated Symptoms: Negative for Parasthesias, Weakness, Loss of function, Loss of consciousness or Amnesia Narrative Narrative: 68-year-old female fell at [facility] where she is staying. Injuring her right hip proximal femur area. Denies hitting her head. No LOC. She has a history of diabetes hypertension. Prior ankle fracture and prior right knee fracture. Prior similar symptoms: No Recent Illness/Hospitalization: No PFSH PFS Medical History Diabetes Kidney stones Hypertension Home Medications ?Medication ?Instructions ?Recorded ?Last Taken ?Type lisinopril 10 mg tablet 10 mg PO DAILY BLOOD PRESSURE 08/25/14 03/06/19 03:00 History 10 MG aspirin 81 mg tablet,delayed 81 mg PO DAILY HEART HEALTH 07/18/18 12/21/18 History release atorvastatin 40 mg tablet 40 mg PO QHS 11/17/18 12/23/18 History B-complex with vitamin C 1 cap PO BID 03/07/19 Unknown Rx alendronate 70 mg tablet 70 mg PO QWEEK 03/09/24 Unknown History dulaglutide 3 mg/0.5 mL 3 mg subcut QWEEK 03/09/24 Unknown History subcutaneous pen injector (Trulicity) ergocalciferol (vitamin D2) 1,250 1,250 mcg PO QWEEK 03/09/24 Unknown History mcg (50,000 unit) capsule insulin degludec 100 unit/mL (3 18 unit subcut QHS 03/09/24 Unknown History mL) subcutaneous pen metformin 1,000 mg tablet 1,000 mg PO BID 03/09/24 Unknown History Allergy/AdvReac Type Severity Reaction Status Date / Time cephalexin (From Keflex) Allergy Breakouts Verified 03/09/24 01:27 diflunisal (From Dolobid) Allergy Rash Verified 03/09/24 01:27 insulin lispro (From Humalog) Allergy Rash Verified 03/09/24 01:27 Penicillins Allergy Rash Verified 03/09/24 01:27 Surgical History H/O right knee surgery History of appendectomy Social History Smoking Status: Never smoker ROS ROS ED ROS Narrative Denies recent illness. Constitutional Constitutional ED: Denies chills or fever(s) Eyes Eyes: Denies blurry vision ENT ENT ED: Denies ear pain Cardiovascular Cardiovascular: Denies chest pain Respiratory/Chest Respiratory/Chest: Denies cough Gastrointestinal Gastrointestinal: Denies abdominal pain Genitourinary Genitourinary ED: Denies dysuria Musculoskeletal Musculoskeletal: Denies arthralgias Integumentary Denies abscess Neurologic Neurologic: Denies headache(s) Psychiatric Psychiatric: Denies anxiety Endocrine Endocrinology: Denies polydipsia Hematologic/Lymphatic Hematologic/Lymphatic: Denies easy bleeding Allergic/Immunologic Allergic/Immunologic ED: Denies mouth swelling EXAM Physical Exam Narrative Exam Narrative: Sick 8-year-old female sitting upright in bed. Vital signs stable afebrile. No distress. H EENT exam unremarkable atraumatic. Nontender. Neck nontender. Trachea midline. Back nontender. No signs of trauma. Lungs clear to auscultation. Heart regular rhythm rate about 85 no murmur. Abdomen soft, nontender. Moving all 4 extremities. 5 out of 5 broke beater strength. Both upper extremities have normal range of motion. Nontender. Complains of some discomfort in her right hip proximal femur area. There is no deformity or shortening. No rotation. She has normal flexion extension of both hips knees ankles and feet. Normal dorsi plantarflexion. Normal sensation. Neurologically she is awake and alert no focal motor deficits. Answering questions following commands. Const Vital Signs: 03/09/24 01:23 Temperature 98.3 F Temperature Source Oral Pulse Rate 87 Respiratory Rate 16 Blood Pressure 120/104 H Blood Pressure Mean 109 Pulse Ox 98 Oxygen Delivery Method Room Air Positive well nourished and well developed; Negative for cachectic, contractures or unkempt General Appearance ED: well developed and NAD; Negative for unkempt, cachectic or contractures Nutritional Appearance: Negative for cachectic HEENT Reports normocephalic atraumatic; Negative for trauma, contusion, hematoma or tenderness Eyes PERRL and EOMs intact bilaterally General Eye ED: Negative for pale conjunctiva Neck full ROM, no lymphadenopathy and supple General: Negative for tenderness Chest Wall inspection of chest normal and palpation of chest normal Resp normal respiratory effort, no retractions and clear to auscultation bilaterally Cardio regular rate, regular rhythm, S1 normal heart sound, S2 normal heart sound and no murmurs GI non-tender, non-distended and no masses Palpation: soft; Negative for guarding or rebound tenderness present Back/Spine no CVA tenderness General Back: Negative for CVA tenderness Cervical Spine: Negative for cervical spine tenderness Lumbar Spine / Lower Back: Negative for lumbar spinal tenderness Neuro oriented x3, CN's II-XII intact bilaterally, moves all extremities and no focal motor deficits [place] Coma Scale: document GCS findings Spontaneous Obeys Commands Oriented 15 Sensorium / Orientation: alert, oriented to person, oriented to place and oriented to time; Negative for orientation impaired, confused, lethargic or stuporous Motor Exam: strength 5/5 throughout Psych mental status grossly normal and thought process normal Appearance: Negative for unkempt Mood & Affect: Negative for depressed, anxious or tearful Skin Lesions: no lesions Rashes: no rashes Trauma: Negative for abrasion MDM MDM MDM Narrative Medical decision making narrative: 68-year-old female fell complaining of right hip and groin discomfort. Normal range of motion. No shortening or or deformity. X-ray being obtained. She was offered but did not want anything for pain. She does not look like she is in any significant pain. Patient doing well repeat exam at 2:04 AM. We went over x-ray. It appears she has a inferior pubic rami fracture possibly superior. She is resting comfortably. Nurses will try to ambulate if she can ambulate she will go back to [facility]. Patient ambulated well with a walker. She will be discharged with a walker. She is comfortable going back to the [facility]. She does not want a thing for pain to use Tylenol there. She will take 1 Hortense here. History & Record Review Discussion w/independent historian: Patient Additional record(s) reviewed:: Prior inpatient record, Prior outpatient record, Prior ED visit and Prior labs Radiography Diagnostic Testing: Right hip and pelvis x-ray, 3 views, interpreted by myself shows inferior pubic rami fracture. Possibly a superior lateral pubic rami fracture also. But that is questionable. I went over the x-rays with the patient. Discharge Plan Triage Chief Complaint: Lower Extremity Injury Other Complaint: Fall ED Provider: Corey Jasso Dx/Rx/DC Orders Clinical Impression: Fall, Closed fracture of pubic ramus, History of diabetes mellitus Instructions: ED Pelvic Fracture Prescriptions: No Action lisinopril 10 MG tablet 10 mg PO DAILY Patient Comments: BLOOD PRESSURE aspirin 81 MG tablet,delayed release (DR/EC) 81 mg PO DAILY Patient Comments: Take 1 tablet by mouth once daily. atorvastatin 40 MG tablet 40 mg PO QHS B-complex with vitamin C 1 CAPSULE capsule 1 cap PO BID 0RF alendronate 70 mg tablet 70 mg PO QWEEK ergocalciferol (vitamin D2) 1,250 mcg (50,000 unit) capsule 1,250 mcg PO QWEEK insulin degludec 100 unit/mL (3 mL) insulin pen 18 unit subcut QHS metformin 1,000 mg tablet 1,000 mg PO BID Trulicity 3 mg/0.5 mL pen injector 3 mg subcut QWEEK Primary Care Provider: Care Physician,No Primary Referrals: Yury Friedman MD [Med Staff - Active Staff] - As Needed Care Physician,No Primary [Primary Care Provider] - Activity Restrictions/Additional Instructions: You have a fracture of the inferior pubic ramus or pelvic fracture. These do not require surgery. It will heal will take several weeks. This will be sore for some time. Tylenol for pain. Follow-up if not improving with either your primary care physician or the orthopedic physician I referred you to. Typically these type of breaks do not any type of surgery. Print Language: Nepali Disposition Disposition: Home, Self Care
[2024-03-09] MEDS: HYDROcodone Bitartrate/Apap 5/325 Tablet PO (02:34)
[2024-03-09 02:35] VITALS: BP 134/67; PULSE 90; RESP 20; TEMP 36.6; O2SAT 99
== END 2024-03-09 02:36 | disposition home or self-care (01) ==
PROVIDERS: Emergency Provider Emergency Medicine; Visit Provider Emergency Medicine
DX: S32.501A Unspecified fracture of right pubis, initial encounter for closed fracture (principal); E11.9 Type 2 diabetes mellitus without complications; Z79.4 Long term (current) use of insulin; W18.30XA Fall on same level, unspecified, initial encounter; I10 Essential (primary) hypertension; Z79.899 Other long term (current) drug therapy; Z79.82 Long term (current) use of aspirin; Z79.85 Long-term (current) use of injectable non-insulin antidiabetic drugs; Z79.84 Long term (current) use of oral hypoglycemic drugs; Z90.49 Acquired absence of other specified parts of digestive tract
CPT/HCPCS: 73502; 99283